=== PATIENT | female | born 1950 | race Caucasian/White ===

== ENCOUNTER 2018-10-01 16:54 | Inpatient (IN) ==
[2018-10-01] MEDS ORDERED: Sod Chloride 0.9% Inj 1,000 ML IV.SIG ONE (17:09)
[2018-10-01] MEDS ORDERED: HYDROmorphone PF Inj 2 MG/ML Vial IV.PUSH ONE (17:29)
--- NOTE | 2018-10-01 17:29 | ED ---
HPI General Chief Complaint: Abdominal Pain Stated Complaint: Abd pain Time Seen by Provider: 10/01/18 16:57 Source: patient Mode of arrival: ambulatory Limitations: no limitations History of Present Illness HPI narrative: Patient presents with abdominal pain distention and generalized abdominal pain that occurred while having colonoscopy. Patient has arielle blood in stool and distended abdomen. 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 Patient has had nausea vomiting and bloody stools for the last 2 weeks. Patient was able to tolerate liquids but no solids for that. Patient has pain 10 out of 10 Related Data Home Medications Medication Instructions Recorded Confirmed aspirin 81 mg PO DAILY 10/01/18 10/01/18 duloxetine [Cymbalta] 20 mg PO BID 10/01/18 10/01/18 furosemide 1 tab PO DAILY 10/01/18 10/01/18 levothyroxine [Synthroid] 1 tab PO DAILY 10/01/18 10/01/18 omeprazole 1 cap PO DAILY 10/01/18 10/01/18 propranolol 10/01/18 spironolactone 100 mg PO DAILY 10/01/18 10/01/18 trazodone 10/01/18 Allergies Allergy/AdvReac Type Severity Reaction Status Date / Time No Known Allergies Allergy Verified 10/01/18 17:07 Review of Systems ROS: all other systems reviewed are negative [facility] Medical History Medical History Depression (Acute) GERD (gastroesophageal reflux disease) (Acute) Liver cirrhosis (Acute) Surgical history unknown (Acute) Social History Social History Second Hand Smoke Exposure: No Smoking Status: Current every day smoker Tobacco Type: Cigarettes How Often Do You Have a Drink Containing Alcohol: 4 or more times a week Recent Travel in [facility] within the Last 8 Weeks: No Recent Out of Country Travel within the Last 8 Weeks: No Immunization History Tetanus Immunization: Unsure Exam Narrative Exam Narrative: GENERAL: Pale with increasing abdominal pain. Alert and oriented x3 SKIN: Focused skin assessment warm/dry. HEAD: Atraumatic. Normocephalic. EYES: Pupils equal and round. No scleral icterus. No injection or drainage. ENT: No nasal bleeding or discharge. Mucous membranes pink and moist. NECK: Trachea midline. No JVD. CARDIOVASCULAR: Regular rate and rhythm. No murmur appreciated. RESPIRATORY: No accessory muscle use. Clear to auscultation. Breath sounds equal bilaterally. Decreased breath sounds GASTROINTESTINAL: Abdomen distended with generalized tenderness and no bowel sounds and diffuse guarding. Rectal: Active bleeding with no clots MUSCULOSKELETAL: No obvious deformities. No clubbing. No cyanosis. No edema. NEUROLOGICAL: Awake and alert. No obvious cranial nerve deficits. Motor grossly within normal limits. Normal speech. PSYCHIATRIC: Appropriate mood and affect; insight and judgment normal. Procedures Central Line Placement Right femoral central line: Time Out Performed: Yes Patient Placed on Monitor/Pulse Ox: Yes MD Prep: gown and gloves Central Line Prep: Povidone-Iodine 1% Ultrasound Used for Placement: No Central Line Lumen Inserted: single Post Procedure: sutured in place Patient Tolerated Procedure: well Complications: none Course Reevaluation(s) Reevaluation #1: Patient responded to first liter of normal saline and developed viable blood pressure. Central line via right femoral vein without difficulty. Patient has low potassium Time: 18:22 Initial Documented Vital Signs Temperature 97.7 F 10/01/18 17:09 Pulse Rate 88 10/01/18 17:09 Respiratory Rate 14 10/01/18 17:09 Blood Pressure 119/94 H 10/01/18 17:09 Pulse Oximetry 96 10/01/18 17:09 Last Documented Vital Signs Temperature 97.7 F 10/01/18 17:09 Pulse Rate 83 10/01/18 17:30 Respiratory Rate 14 10/01/18 17:30 Blood Pressure 127/90 10/01/18 17:30 Pulse Oximetry 94 L 10/01/18 17:33 Medical Decision Making MDM Narrative Medical decision making narrative: Patient developed abdominal pain distention and loss of blood pressure while having a colonoscopy. Patient had no blood pressure initially but responded to 1 L of normal saline with normal blood pressure that has been sustained for the last half hour. Patient has a central line via the right femoral vein and patient has significant hypokalemia. Patient is given potassium via central line and being transferred to the [facility] for surgical evaluation Medical Screen Exam Complete: Yes Emergency Medical Condition: Yes Lab Data Result diagrams: 10/01/18 17:20 10/01/18 17:20 Lab Results 11/26/18 11/26/18 11/26/18 Range/Units 17:20 17:20 17:20 CBC w Diff Auto diff final WBC 16.3 H (4.0-11.0) th/mm3 RBC 4.45 (4.00-5.30) mil/mm3 Hgb 14.3 (11.6-15.3) gm/dL Hct 43.5 (35.0-46.0) % MCV 97.9 (80.0-100.0) fL MCH 32.3 (27.0-34.0) pg MCHC 33.0 (32.0-36.0) % RDW 13.6 (11.6-17.2) % Plt Count 595 H (150-450) th/mm3 MPV 10.3 (7.0-11.0) fL Neut % (Auto) 72.8 H (16.0-70.0) % Lymph % (Auto) 19.4 (9.0-44.0) % [place] % (Auto) 5.7 (0.0-8.0) % Eos % (Auto) 0.2 (0.0-4.0) % Baso % (Auto) 1.9 (0.0-2.0) % Neut # (Auto) 11.9 H (1.8-7.7) th/mm3 Lymph # (Auto) 3.2 (1.0-4.8) th/mm3 [place] # (Auto) 0.9 (0.0-0.9) th/mm3 Eos # (Auto) 0.0 (0.0-0.4) th/mm3 Baso # (Auto) 0.3 H (0.0-0.2) th/mm3 WBC Differential . Differential Comment . PT 12.3 H (9.8-11.6) sec INR 1.2 Ratio APTT 27.4 (23.4-31.7) sec Sodium 128 L (136-145) meq/L Potassium 2.5 L* (3.5-5.1) meq/L Chloride 80 L (98-107) meq/L Carbon Dioxide 34.7 H (21.0-32.0) meq/L Anion Gap 13 (5-15) meq/L BUN 5 L (7-18) mg/dL Creatinine 1.30 H (0.50-1.00) mg/dL Estimated GFR 41 L (>89) mL/min Random Glucose 136 H (74-106) mg/dL Calcium 7.8 L (8.5-10.1) mg/dL Total Bilirubin 1.9 H (0.2-1.0) mg/dL AST 64 H (15-37) U/L ALT 21 (10-53) U/L Alkaline Phosphatase 340 H (45-117) U/L Ammonia (11-32) mcmol/L Total Protein 7.1 (6.4-8.2) g/dL Albumin 2.1 L (3.4-5.0) g/dL Lipase 57 L (73-393) U/L Serum Alcohol Less than 3 (0-5) mg/dL MTS Gel Crossmatch 10/01/18 10/01/18 Range/Units 17:20 17:20 CBC w Diff WBC (4.0-11.0) th/mm3 RBC (4.00-5.30) mil/mm3 Hgb (11.6-15.3) gm/dL Hct (35.0-46.0) % MCV (80.0-100.0) fL MCH (27.0-34.0) pg MCHC (32.0-36.0) % RDW (11.6-17.2) % Plt Count (150-450) th/mm3 MPV (7.0-11.0) fL Neut % (Auto) (16.0-70.0) % Lymph % (Auto) (9.0-44.0) % [place] % (Auto) (0.0-8.0) % Eos % (Auto) (0.0-4.0) % Baso % (Auto) (0.0-2.0) % Neut # (Auto) (1.8-7.7) th/mm3 Lymph # (Auto) (1.0-4.8) th/mm3 [place] # (Auto) (0.0-0.9) th/mm3 Eos # (Auto) (0.0-0.4) th/mm3 Baso # (Auto) (0.0-0.2) th/mm3 WBC Differential Differential Comment PT (9.8-11.6) sec INR Ratio APTT (23.4-31.7) sec Sodium (136-145) meq/L Potassium (3.5-5.1) meq/L Chloride (98-107) meq/L Carbon Dioxide (21.0-32.0) meq/L Anion Gap (5-15) meq/L BUN (7-18) mg/dL Creatinine (0.50-1.00) mg/dL Estimated GFR (>89) mL/min Random Glucose (74-106) mg/dL Calcium (8.5-10.1) mg/dL Total Bilirubin (0.2-1.0) mg/dL AST (15-37) U/L ALT (10-53) U/L Alkaline Phosphatase (45-117) U/L Ammonia 11 (11-32) mcmol/L Total Protein (6.4-8.2) g/dL Albumin (3.4-5.0) g/dL Lipase (73-393) U/L Serum Alcohol (0-5) mg/dL MTS Gel Crossmatch See Detail Discharge Plan Discharge Disposition Patient Disposition: 30 Still Patient Discharge Details Diagnosis: Acute GI bleeding, Colonoscopy causing post-procedural bleeding Physicians Team ED Provider: Conrad Lovett Primary Care Provider: Amadeo Madrigal Rxs /Orders / Referrals /Forms Prescriptions: No Action trazodone 50 mg Tablet RF: 0 spironolactone 100 mg Tablet 100 mg PO DAILY RF: 0 propranolol 10 mg Tablet RF: 0 levothyroxine [Synthroid] 50 mcg Tablet 1 tab PO DAILY RF: 0 omeprazole 20 mg Capsule,Delayed Release(Dr/Ec) 1 cap PO DAILY RF: 0 furosemide 20 mg Tablet 1 tab PO DAILY RF: 0 duloxetine [Cymbalta] 20 mg Capsule,Delayed Release(Dr/Ec) 20 mg PO BID RF: 0 aspirin 81 mg PO DAILY RF: 0 Discharge Instructions Patient Printed Instructions: Exploratory Laparoscopy (DC), Exploratory Laparotomy (DC) Discharge Interventions Interventions: Vital Signs Last Done: 10/01/18 17:30 Status ED Status: With Doctor
[2018-10-01 17:56] LABS: Activated Partial Thrombo Time 27.4 sec (23.4-31.7); INR 1.2 Ratio; Prothrombin Time 12.3 sec (9.8-11.6)
[2018-10-01 18:10] LABS: Baso # (Auto) 0.3 th/mm3 (0.0-0.2); Baso % (Auto) 1.9 % (0.0-2.0); Eos % (Auto) 0.2 % (0.0-4.0); Hematocrit 43.5 % (35.0-46.0); Hemoglobin 14.3 gm/dL (11.6-15.3); Lymph # (Auto) 3.2 th/mm3 (1.0-4.8); Lymph % (Auto) 19.4 % (9.0-44.0); Mean Corpuscular Hemoglobin 32.3 pg (27.0-34.0); Mean Corpuscular Volume 97.9 fL (80.0-100.0); Mean Platelet Volume 10.3 fL (7.0-11.0); Mono # (Auto) 0.9 th/mm3 (0.0-0.9); Mono % (Auto) 5.7 % (0.0-8.0); Neut # (Auto) 11.9 th/mm3 (1.8-7.7); Neut % (Auto) 72.8 % (16.0-70.0); Platelet Count 595 th/mm3 (150-450); Red Blood Count 4.45 mil/mm3 (4.00-5.30); Red Cell Distribution Width 13.6 % (11.6-17.2); White Blood Count 16.3 th/mm3 (4.0-11.0)
[2018-10-01 18:19] LABS: Alanine Aminotransferase 21 U/L (10-53); Albumin 2.1 g/dL (3.4-5.0); Alkaline Phosphatase 340 U/L (45-117); Anion Gap 13 meq/L (5-15); Aspartate Aminotransferase 64 U/L (15-37); Blood Urea Nitrogen 5 mg/dL (7-18); Calcium 7.8 mg/dL (8.5-10.1); Carbon Dioxide 34.7 meq/L (21.0-32.0); Chloride 80 meq/L (98-107); Glomerular Filtration Rate 41 mL/min (>89); Glucose,Random 136 mg/dL (74-106); Lipase 57 U/L (73-393); Sodium 128 meq/L (136-145); Total Protein 7.1 g/dL (6.4-8.2)
[2018-10-01 18:21] LABS: Potassium 2.5 meq/L (3.5-5.1)
--- NOTE | 2018-10-01 19:18 | XR ---
EXAM DATE: 10/01/2018 6:38 PM EST AGE/SEX: 68 years / Female INDICATIONS: Distention after colonoscopy today. CLINICAL DATA: This is the patient's initial encounter. Patient reports that signs and symptoms have been present for 1 day and indicates a pain score of 10/10. MEDICAL/SURGICAL HISTORY: Cirrhosis. Gastroesophageal reflux disease. None. COMPARISON: No prior exams available for comparison. FINDINGS: Extensive free intraperitoneal air from presumed colonic perforation. Lung bases are clear. Lung bases are clear. CONCLUSION: Extensive free intraperitoneal air discussed with referring doctor on today's date Electronically signed by: Carlos Perez MD 10/01/2018 7:17 PM EST
[2018-10-01] MEDS ORDERED: Normosol-R pH 7.4 Inj 1,000 ML IV.CONT ONE (19:53)
[2018-10-01] MEDS ORDERED: Phenylephrine/NS 1000 MCG/10ML Syringe IV.PUSH ONE (19:53)
[2018-10-01] MEDS ORDERED: Succinylcholine Inj 100 MG/5 ML Syringe IV.PUSH ONE (19:53)
[2018-10-01] MEDS ORDERED: Lidocaine PF 1% Inj 5 ML Syringe OTHER ONE (19:53)
[2018-10-01] MEDS ORDERED: ceFAZolin 1 GM Premix Inj 1 GM/50 ML FROZ.PIGGY IV.SIG ONE (20:16)
[2018-10-01] MEDS ORDERED: Bupivacaine/Epinephrine Inj 0.25% 50 ML Vial ONE (20:16)
[2018-10-01] MEDS ORDERED: Acetaminophen 325 MG Tablet PO PRN (20:20)
[2018-10-01] MEDS ORDERED: Bisacodyl 10 MG Supp RECTAL PRN (20:20)
[2018-10-01] MEDS ORDERED: Sugammadex Inj 200 MG/2 ML Vial IV.PUSH ONE ×2 (20:52→21:06)
--- NOTE | 2018-10-01 21:07 | P.CON ---
History of Present Illness Consult date: 10/01/18 Reason for Consult: Pneumoperitoneum Primary Care Provider: Amadeo Madrigal MD History of Present Illness: Patient is a 68-year-old female with history of cirrhosis and colonic polyps who underwent colonoscopy today. She had polyps biopsied in the sigmoid descending and a sending colon. She developed gross distention post procedure and was taken emergently to the [place] emergency department. She was found to have pneumoperitoneum after plain films were obtained. She also had rapidly increasing abdominal distention. She is seen at this time for emergent laparotomy. PMFSH - History History Provided By: Patient - Medical History Medical History: Medical History (Last Updated 10/02/18 @ 08:38 by Sheridan Fox MD) Abnormal colonoscopy Ascites Depression GERD (gastroesophageal reflux disease) Liver cirrhosis Tobacco abuse - Surgical History Surgical History: Surgical History (Last Updated 10/02/18 @ 08:35 by Sheridan Fox MD) No history of previous surgery - Family History Family History: Family History (Last Updated 10/02/18 @ 08:37 by Sheridan Fox MD) Mother Alzheimer disease Father Testicular cancer - Tobacco History Second Hand Smoke Exposure: No Tobacco Use In Past 30 Days: Yes Smoking Status: Current every day smoker Tobacco Type: Cigarettes - Alcohol History How Often Do You Have a Drink Containing Alcohol: 4 or more times a week - Substance Use History Substance History: No History of Abuse - Travel History Recent Travel in the [place] Within the Last 8 Weeks: No Recent Travel Out of the Country Within the Last 8 Weeks: No - Immunization History Tetanus Immunization: Unsure Medications and Allergies Active Medications: Active Medications Acetaminophen (Tylenol) 650 mg PO Q6H PRN PRN Reason: PAIN 1-10 AND/OR FEVER >101F Al Hydroxide/Mg Hydroxide (Milk Of Tawana Liq) 30 ml PO Q12H PRN PRN Reason: Mild Constipation Albuterol (Albuterol Neb (Prn)) 2.5 mg NEB Q2HR NEB PRN PRN Reason: SHORTNESS OF BREATH/WHEEZING Bisacodyl (Dulcolax Supp) 10 mg RECTAL DAILY PRN PRN Reason: SEVERE CONSITIPATION Chlorhexidine Gluconate (Chlorhexidine 2% Cloth) 3 pack TOPICAL DAILY@0400 [facility] Stop: 10/07/18 03:59 Chlorhexidine Gluconate (Chlorhexidine 2% Cloth) 3 pack TOPICAL DAILY@0400 PRN PRN Reason: Extra cloth needed Stop: 10/07/18 03:59 Potassium Chloride/Sodium Chloride (Ns + Kcl 40 Meq Inj) 1,000 mls @ 200 mls/ hr IV.CONT .Q5H HILDA Last Admin: 10/01/18 18:34 Dose: 200 mls/hr Piperacillin/Tazobactam/Dextrose (Zosyn 3.375 Gm Premix) 50 mls @ 100 mls/hr IV.SIG Q6H HILDA Lactulose (Lactulose Liq) 30 ml PO DAILY PRN PRN Reason: SEVERE CONSITIPATION Ondansetron HCl (Zofran Inj) 4 mg IV.PUSH Q6H PRN PRN Reason: NAUSEA OR VOMITING Pantoprazole Sodium (Protonix Inj) 40 mg IV.PUSH DAILY HILDA Senna/Docusate Sodium (Cheryl-Colace) 1 tab PO BID [facility] Sennosides (Senokot) 17.2 mg PO Q12H PRN PRN Reason: Moderate Constipation Sodium Chloride (Ns Flush) 2 ml IV.FLUSH BID HILDA Sodium Chloride (Ns Flush) 2 ml IV.FLUSH UNSCH PRN PRN Reason: FLUSH AFTER USING IV ACCESS Allergies Allergy/AdvReac Type Severity Reaction Status Date / Time No Known Allergies Allergy Verified 10/01/18 17:07 Home Medications Medication Instructions Recorded Confirmed Type aspirin 81 mg PO DAILY 10/01/18 10/01/18 History duloxetine [Cymbalta] 20 mg PO BID 10/01/18 10/01/18 History furosemide 1 tab PO DAILY 10/01/18 10/01/18 History levothyroxine [Synthroid] 1 tab PO DAILY 10/01/18 10/01/18 History omeprazole 1 cap PO DAILY 10/01/18 10/01/18 History propranolol 10/01/18 History spironolactone 100 mg PO DAILY 10/01/18 10/01/18 History trazodone 10/01/18 History Physical Exam Vital signs: Vital Signs 10/01/18 17:09 10/01/18 17:30 10/01/18 17:33 Temperature 97.7 F Pulse Rate 88 83 Respiratory Rate 14 14 Blood Pressure 119/94 H 127/90 Pulse Oximetry 94 L 97 94 L 10/01/18 18:25 10/01/18 18:49 10/01/18 19:54 Temperature 98.5 F Pulse Rate 87 90 Respiratory Rate 14 14 16 Blood Pressure 114/91 H 106/87 Pulse Oximetry 96 97 Intake & Output 10/01/18 10/01/18 10/02/18 06:59 18:59 06:59 Intake Total 1000 / 1000 1300 / 1300 Output Total 40 / 40 Balance 1000 / 1000 1260 / 1260 Weight 61.689 kg Intake: IV 1000 / 1000 NS Inj 1,000 ML @ Wide Open IV. 1000 / 1000 SIG BOLUS ONE Rx#:[id number] Anesthesia Amount 1300 / 1300 Output: Estimated Blood Loss Urine Amount (Catheter) Indwelling Urethral Catheter - Constitutional moderate distress - Routine HEENT Exam Head: Present: normocephalic - Routine Respiratory Exam Present: decreased breath sounds - Routine Cardiovascular Exam Present: tachycardia - Routine Abdominal Exam Present: distended, firm, rigid, surgical scars (None) Comments: Reports pain in the right upper quadrant primarily. - Urinary Catheter Management Indwelling Urethral Catheter Cath placed during this visit: yes Reason for continuing: Hourly intake/output Insertion date: 10/01/18 Insertion time: 20:00 Results - Labs CBC & Chem 7: 10/02/18 04:00 10/02/18 04:00 Labs: Laboratory Results - last 24 hr 10/01/18 10/01/18 10/01/18 17:20 17:20 17:20 CBC w Diff Auto diff final WBC 16.3 H RBC 4.45 Hgb 14.3 Hct 43.5 MCV 97.9 MCH 32.3 MCHC 33.0 RDW 13.6 Plt Count 595 H MPV 10.3 Neut % (Auto) 72.8 H Lymph % (Auto) 19.4 [place] % (Auto) 5.7 Eos % (Auto) 0.2 Baso % (Auto) 1.9 Neut # (Auto) 11.9 H Lymph # (Auto) 3.2 [place] # (Auto) 0.9 Eos # (Auto) 0.0 Baso # (Auto) 0.3 H WBC Differential . Differential Comment . PT 12.3 H INR 1.2 APTT 27.4 Sodium 128 L Potassium 2.5 L* Chloride 80 L Carbon Dioxide 34.7 H Anion Gap 13 BUN 5 L Creatinine 1.30 H Estimated GFR 41 L Random Glucose 136 H Calcium 7.8 L Total Bilirubin 1.9 H AST 64 H ALT 21 Alkaline Phosphatase 340 H Ammonia Total Protein 7.1 Albumin 2.1 L Lipase 57 L Serum Alcohol Less than 3 Blood Type Antibody Screen MTS Gel Crossmatch Blood Bank Comment Bld Prod Order Comment 10/01/18 10/01/18 10/01/18 17:20 17:20 19:46 CBC w Diff WBC RBC Hgb Hct MCV MCH MCHC RDW Plt Count MPV Neut % (Auto) Lymph % (Auto) [place] % (Auto) Eos % (Auto) Baso % (Auto) Neut # (Auto) Lymph # (Auto) [place] # (Auto) Eos # (Auto) Baso # (Auto) WBC Differential Differential Comment PT INR APTT Sodium Potassium Chloride Carbon Dioxide Anion Gap BUN Creatinine Estimated GFR Random Glucose Calcium Total Bilirubin AST ALT Alkaline Phosphatase Ammonia 11 Total Protein Albumin Lipase Serum Alcohol Blood Type A Positive Antibody Screen Negative MTS Gel Crossmatch See Detail Blood Bank Comment ND Bld Prod Order Comment ND Cancelled - Imaging Impressions Abdomen X-Ray 10/01/18 17:09 CONCLUSION: Extensive free intraperitoneal air discussed with referring doctor on today's date Assessment and Plan - Assessment (1) Pneumoperitoneum Code(s): K66.8 - Other specified disorders of peritoneum Status: Acute Plan: Emergent exploratory laparotomy. I have discussed with the patient that she likely has a colonic perforation. As she had prepped colon, simple repair may be all that is required. I have discussed with the patient she might require colostomy depending on the findings. I discussed risks of the procedure including but not limited to bleeding, infection, the risk of ascitic fluid leak postoperatively and complications as a result of her cirrhosis. I discussed remedies, consequences, alternatives, and convalescence; she vocalizes understanding and agrees to proceed. - Plan Discussed Condition With: Patient Nursing staff - Attending Attestation I attest that I had a [id number] encounter with the patient on the same day, and personally performed and documented my assessment and findings in the medical record. The following services were provided during this hospital visit: Chart data review, vital sign assessments/reviewing monitor data Review of consultation notes if present Medication orders/review and/or management Ordering and/or reviewing lab tests Ordering and/or interpreting/reviewing x-rays and/or diagnostic studies Care of the patient and discussion of the patient with the care team Documentation time To help prompt me to consider important information that might be impacting today's encounter and assessment, Information from prior notes written by myself or my colleagues may have been "brought forward/copy and pasted" into today's note.
[2018-10-01] MEDS ORDERED: fentaNYL Citrate Inj 100 MCG/2 ML Ampul ONE (21:19)
--- NOTE | 2018-10-01 21:19 | P.OP ---
- Preoperative Diagnosis (1) Pneumoperitoneum - Postoperative Diagnosis (1) Perforation of cecum Date of procedure: 10/01/18 Procedure: Exploratory laparotomy Oversew cecal perforation Anesthesia: MANOJ Surgeon: Fili German MD Pricing Coordinator: Leia Joseph CFA Estimated blood loss (mL): 10 IV fluids (mL): 1,300 Pathology: other (C&S of abdominal fluid) Operation and Findings: Patient was taken to the operating room and placed on the operating table in the supine position. While preparing to intubate, the abdomen was prepped and a Warner catheter placed simultaneously. The abdomen was draped immediately after intubation. Time-out was taken, confirming the correct patient, site, and procedure to be performed. The abdomen was incised and dissection carried down through the fascia and peritoneum. A large amount of air escaped immediately and fluid was noted in the abdominal cavity that was slightly cloudy. A total of 4700 mls of ascites was removed, and careful exploration of the abdominal cavity was then undertaken. Attention was turned to the sigmoid and descending colon first which appeared to be intact. Attention was then turned to the ascending colon where further biopsies had been taken and a small microperforation in the cecum was noted. This was repaired with multiple 3-0 silk suture ligatures. When this had been oversewn and imbricated, the cecum was placed under saline and milked to confirm there were no air bubbles or leaks. This also confirmed there were no other leaks in the cecum and ascending colon. When this was completed all irrigation was aspirated. A Anirudh-Cabrera drain was brought out via separate stab incision and fixed to the skin with a 3-0 nylon suture. With hemostasis assured, the abdomen was then closed with a running #1 PDS suture. Local anesthetic was injected into the fascia. The skin was closed with luzma. A luke dressing was applied. A 4 x 4 was applied around the LISBETH drain. The patient was extubated and taken back to the recovery room in stable condition. Sponge, needle, and instrument counts were reported to be correct. She tolerated the procedure well and was hemodynamically stable throughout.
--- NOTE | 2018-10-01 21:45 | XR ---
EXAM DATE: 10/01/2018 9:41 PM EST AGE/SEX: 68 years / Female INDICATIONS: Central line placement. CLINICAL DATA: This is the patient's subsequent encounter. Patient reports that signs and symptoms h ave been present for 1 day and indicates a pain score of 0/10. MEDICAL/SURGICAL HISTORY: Cirrhosis. Gastroesophageal reflux disease. None. COMPARISON: No prior exams available for comparison. FINDINGS: A single AP view of the chest demonstrates the lungs to be symmetrically aerated without evidence of mass, infiltrate or effusion. Minimal atelectasis right lung base. Nasogastric tube with tip in stoma ch. Right jugular central line with tip in the cavoatrial junction. The cardiomediastinal contours ar e unremarkable. Osseous structures are intact. CONCLUSION: Adequate placement of right jugular central line. No pneumothorax. Electronically signed by: Terry Connolly MD 10/01/2018 9:43 PM EST
[2018-10-01] MEDS: Piperacil/Tazo 3.375 GM Premix 50 ML IV.SIG SCH (22:00)
[2018-10-01 22:11] LABS: Baso # (Auto) 0.2 th/mm3 (0.0-0.2); Baso % (Auto) 1.4 % (0.0-2.0); Eos % (Auto) 0.1 % (0.0-4.0); Hematocrit 38.4 % (35.0-46.0); Hemoglobin 13.1 gm/dL (11.6-15.3); Lymph # (Auto) 1.4 th/mm3 (1.0-4.8); Mean Corpuscular HGB Conc 34.1 % (32.0-36.0); Mean Corpuscular Hemoglobin 33.7 pg (27.0-34.0); Mean Corpuscular Volume 98.9 fL (80.0-100.0); Mean Platelet Volume 9.1 fL (7.0-11.0); Mono # (Auto) 0.5 th/mm3 (0.0-0.9); Mono % (Auto) 3.6 % (0.0-8.0); Neut # (Auto) 12.2 th/mm3 (1.8-7.7); Neut % (Auto) 84.9 % (16.0-70.0); Platelet Count 473 th/mm3 (150-450); Red Blood Count 3.88 mil/mm3 (4.00-5.30); Red Cell Distribution Width 13.6 % (11.6-17.2); White Blood Count 14.4 th/mm3 (4.0-11.0)
[2018-10-01 22:14] LABS: Calcium 6.7 mg/dL (8.5-10.1); Carbon Dioxide 32.5 meq/L (21.0-32.0)
[2018-10-01] MEDS: Senna/Docusate Sodium 8.6/50 MG Tablet PO SCH (22:14)
[2018-10-01 22:17] LABS: Potassium 2.6 meq/L (3.5-5.1)
[2018-10-01] MEDS ORDERED: Potassium Chlor 20 mEq Premix 20 MEQ/100 ML PIGGYBACK IV.SIG ONE (22:24)
[2018-10-01 22:28] LABS: Albumin 1.6 g/dL (3.4-5.0); Calcium-Albumin Corrected 8.6 mg/dL (8.5-10.1)
[2018-10-01] MEDS: Potassium Chlor 20 mEq Premix 20 MEQ/100 ML PIGGYBACK IV.SIG SCH (22:45)
[2018-10-01] MEDS ORDERED: Albumin Human 5% Inj 500 ML IV.SIG ONE (23:00)
[2018-10-01] MEDS ORDERED: Phenylephrine Inj 40 MG in Dextrose 5% in Water Inj 496 ML IV.CONT PRN ×2 (23:09)
--- NOTE | 2018-10-01 23:10 | P.HPCC ---
History of Present Illness Service: Critical care medicine Primary Care Physician: Amadeo Madrigal MD Chief Complaint: Abdominal pain and distention History of Present Illness: 68-year-old female with past medical history of alcohol dependence, cirrhosis, tobacco abuse, esophageal varices underwent diagnostic colonoscopy today by Dr. Tipton with biopsy of ascending, descending and sigmoid colon. She presented to [facility] ED with abdominal pain and distension. She was hypotensive. She was having bloody bowel movements. She was given 2 units PRBC and 1 L NS bolus. R femoral cordis was placed by ED physician. KUB demonstrated pneumoperitoneum. She was transferred emergently [facility] OR where she underwent ex lap by Dr. German. Dr. Kumar states there was microperforation of cecum that was oversewn. 4700 of ascites was evacuated. She received 1300 crystalloid in OR. EBL was 10 mL. LISBETH output 30. She is oliguric with only 10 Ml of urine output in PACU. She is a daily drinker of 24 ounces of [place]. - Diagnosis (1) Perforation of cecum (2) Pneumoperitoneum (3) Alcoholic cirrhosis of liver with ascites (4) EtOH dependence (5) Hypokalemia (6) JOSE (acute kidney injury) (7) Reactive thrombocytosis (8) Leukocytosis (9) Tobacco abuse (10) Protein-calorie malnutrition, moderate Inpatient Certification: I certify that the inpatient services were ordered in accordance with Medicare regulations governing the order. This includes certification that hospital inpatient services are reasonable and necessary and in the case of services not specified as inpatient-only under 42 CFR 419.22(n), that they are appropriately provided as inpatient services in accordance to with the 2-midnight benchmark under 43 CFR 412.3(e) Estimated Total Length of Stay (Days): 7 Plans for Post Hospital Care: Not yet determined Review of Systems All other systems reviewed negative except as stated in HPI Gastrointestinal: Reports abdominal pain PMFSH - History History Provided By: Patient - Medical History Medical History: Medical History (Last Updated 10/02/18 @ 08:38 by Sheridan Fox MD) Abnormal colonoscopy Ascites Depression GERD (gastroesophageal reflux disease) Liver cirrhosis Tobacco abuse - Surgical History Surgical History: Surgical History (Last Updated 10/02/18 @ 08:35 by Sheridan Fox MD) No history of previous surgery - Family History Family History: Family History (Last Updated 10/02/18 @ 08:37 by Sheridan Fox MD) Mother Alzheimer disease Father Testicular cancer - Tobacco History Second Hand Smoke Exposure: No Tobacco Use In Past 30 Days: Yes Smoking Status: Current every day smoker Tobacco Type: Cigarettes Cigarettes Per Day: 4 - Alcohol History How Often Do You Have a Drink Containing Alcohol: 4 or more times a week - Substance Use History Substance History: No History of Abuse - Travel History Recent Travel in the [place] Within the Last 8 Weeks: No Recent Travel Out of the Country Within the Last 8 Weeks: No - Immunization History Tetanus Immunization: Unsure Medications and Allergies Active Medications: Active Medications Acetaminophen (Tylenol) 650 mg PO Q6H PRN PRN Reason: PAIN 1-10 AND/OR FEVER >101F Al Hydroxide/Mg Hydroxide (Milk Of Tawana Holland) 30 ml PO Q12H PRN PRN Reason: Mild Constipation Albuterol (Albuterol Neb (Prn)) 2.5 mg NEB Q2HR NEB PRN PRN Reason: SHORTNESS OF BREATH/WHEEZING Bisacodyl (Dulcolax Supp) 10 mg RECTAL DAILY PRN PRN Reason: SEVERE CONSITIPATION Chlorhexidine Gluconate (Chlorhexidine 2% Cloth) 3 pack TOPICAL DAILY@0400 HILDA Stop: 10/07/18 03:59 Chlorhexidine Gluconate (Chlorhexidine 2% Cloth) 3 pack TOPICAL DAILY@0400 PRN PRN Reason: Extra cloth needed Stop: 10/07/18 03:59 Potassium Chloride/Sodium Chloride (Ns + Kcl 40 Meq Inj) 1,000 mls @ 200 mls/ hr IV.CONT .Q5H HILDA Last Admin: 10/01/18 22:38 Dose: 200 mls/hr Piperacillin/Tazobactam/Dextrose (Zosyn 3.375 Gm Premix) 50 mls @ 100 mls/hr IV.SIG Q6H HILDA Last Infusion: 10/01/18 22:38 Dose: Infused Albumin Human (Alburx 5% Inj) 500 mls @ 500 mls/hr IV.SIG NOW ONE Stop: 10/01/18 23:59 Last Admin: 10/01/18 22:38 Dose: 500 mls/hr Potassium Chloride (Kcl 20 Meq Premix Inj) 20 meq in 100 mls @ 50 mls/hr IV.SIG Q2H HILDA Stop: 10/02/18 02:44 Phenylephrine HCl 40 mg/ (Dextrose) 500 mls @ 30 mls/hr IV.CONT TITRATE PRN; Protocol PRN Reason: Per Protocol Lactulose (Lactulose Liq) 30 ml PO DAILY PRN PRN Reason: SEVERE CONSITIPATION Miscellaneous Information ([facility] Nursing Information) 1 each OTHER UNSCH PRN PRN Reason: SEE LABEL COMMENTS Stop: 10/02/18 21:56 Ondansetron HCl (Zofran Inj) 4 mg IV.PUSH Q6H PRN PRN Reason: NAUSEA OR VOMITING Pantoprazole Sodium (Protonix Inj) 40 mg IV.PUSH DAILY [facility] Senna/Docusate Sodium (Cheryl-Colace) 1 tab PO BID [facility] Last Admin: 10/01/18 22:14 Dose: Not Given Sennosides (Senokot) 17.2 mg PO Q12H PRN PRN Reason: Moderate Constipation Sodium Chloride (Ns Flush) 2 ml IV.FLUSH BID [facility] Last Admin: 10/01/18 22:14 Dose: Not Given Sodium Chloride (Ns Flush) 2 ml IV.FLUSH UNSCH PRN PRN Reason: FLUSH AFTER USING IV ACCESS Allergies Allergy/AdvReac Type Severity Reaction Status Date / Time No Known Allergies Allergy Verified 10/01/18 17:07 Home Medications Medication Instructions Recorded Confirmed Type aspirin 81 mg PO DAILY 10/01/18 10/01/18 History duloxetine [Cymbalta] 20 mg PO BID 10/01/18 10/01/18 History furosemide 1 tab PO DAILY 10/01/18 10/01/18 History levothyroxine [Synthroid] 1 tab PO DAILY 10/01/18 10/01/18 History omeprazole 1 cap PO DAILY 10/01/18 10/01/18 History propranolol 10/01/18 History spironolactone 100 mg PO DAILY 10/01/18 10/01/18 History trazodone 10/01/18 History Results - Labs CBC & Chem 7: 10/02/18 04:00 10/02/18 04:00 Labs: Short CBC 10/01/18 10/01/18 Range/Units 17:20 21:44 WBC 16.3 H 14.4 H (4.0-11.0) th/mm3 Hgb 14.3 13.1 (11.6-15.3) gm/dL Hct 43.5 38.4 (35.0-46.0) % Plt Count 595 H 473 H (150-450) th/mm3 BMP 10/01/18 10/01/18 17:20 21:44 Sodium 128 L 135 L Potassium 2.5 L* 2.6 L* Chloride 80 L 91 L D Carbon Dioxide 34.7 H 32.5 H BUN 5 L 6 L Creatinine 1.30 H 1.28 H Calcium 7.8 L 6.7 L* D Liver Function 10/01/18 10/01/18 Range/Units 17:20 21:44 Total Bilirubin 1.9 H (0.2-1.0) mg/dL AST 64 H (15-37) U/L ALT 21 (10-53) U/L Alkaline Phosphatase 340 H (45-117) U/L Albumin 2.1 L 1.6 L (3.4-5.0) g/dL - Imaging Impressions Chest X-Ray 10/01/18 00:00 CONCLUSION: Adequate placement of right jugular central line. No pneumothorax. Abdomen X-Ray 10/01/18 17:09 CONCLUSION: Extensive free intraperitoneal air discussed with referring doctor on today's date Exam Vital signs: Vital Signs 10/01/18 17:09 10/01/18 17:30 10/01/18 17:33 Temperature 97.7 F Pulse Rate 88 83 Respiratory Rate 14 14 Blood Pressure 119/94 H 127/90 Pulse Oximetry 94 L 97 94 L 10/01/18 18:25 10/01/18 18:49 10/01/18 19:54 Temperature 98.5 F Pulse Rate 87 90 Respiratory Rate 14 14 16 Blood Pressure 114/91 H 106/87 Pulse Oximetry 96 97 Intake & Output 10/01/18 10/01/18 10/02/18 06:59 18:59 06:59 Intake Total 1000 / 1000 2350 / 2350 Output Total 40 / 40 Balance 1000 / 1000 2310 / 2310 Weight 61.689 kg Intake: IV 1000 / 1000 1050 / 1050 NS + KCl 40 mEq Inj 1,000 ML @ 1000 / 1000 200 mls/hr IV.CONT .Q5H HILDA Rx# :[id number] Zosyn 3.375 GM Premix 50 ML @ 50 / 50 100 mls/hr IV.SIG Q6H [facility] Rx#: [id number] NS Inj 1,000 ML @ Wide Open IV. 1000 / 1000 SIG BOLUS ONE Rx#:[id number] Anesthesia Amount 1300 / 1300 Output: Estimated Blood Loss 10 / 10 Urine Amount (Catheter) 30 / 30 Indwelling Urethral Catheter Narrative: GENERAL: Well-nourished, well-developed patient who is groggy s/p general anesthesia, but converses. . SKIN: Warm and dry. HEAD: Atraumatic. Normocephalic. EYES: Pupils equal and round. No scleral icterus. No injection or drainage. ENT: No nasal bleeding or discharge. NECK: Trachea midline. No JVD. CARDIOVASCULAR: Regular rate and rhythm. No murmurs rubs or gallops. RESPIRATORY: Breathing comfortably on 4 L NC. Clear to auscultation. Breath sounds equal bilaterally. GASTROINTESTINAL: Abdomen distended, hypoactive bowel sounds. Midline abdominal dressing is clean/dry/intact. LISBETH drain is placed right lower quadrant with serosanguineous output. MUSCULOSKELETAL: Extremities without clubbing, cyanosis, or edema. NEUROLOGICAL: Awake and alert, oriented x3. No obvious cranial nerve deficits. Motor grossly within normal limits. Normal speech. Caprini VTE Risk Assessment Caprini VTE Risk Assessment: Moderate/High Risk (score >= 2) VTE Pharmacological Exception Reason: Active bleeding Caprini Risk Assessment Model: Point Value = 1 Point Value = 2 Point Value = 3 Point Value = 5 Age 41-60 Minor surgery BMI > 25 kg/m2 Swollen legs Varicose veins or History of unexplained or recurrent spontaneous Oral contraceptives or hormone replacement Sepsis (< 1 month) Serious lung disease, including pneumonia (< 1 month) Abnormal pulmonary function Acute myocardial infarction Congestive heart failure (< 1 month) History of inflammatory bowel disease Medical patient at bed rest Age 61-74 Arthroscopic surgery Major open surgery (> 45 min) Laparoscopic surgery (> 45 min) Malignancy Confined to bed (> 72 hours) Immobilizing plaster cast Central venous access Age >= 75 History of VTE Family history of VTE Factor V Leiden Prothrombin [id number] Lupus anticoagulant Anticardiolipin antibodies Elevated serum homocysteine Heparin-induced thrombocytopenia Other congenital or acquired thrombophilia Stroke (< 1 month) Elective arthroplasty Hip, pelvis, or leg fracture Acute spinal cord injury (< 1 month) Prophylaxis Regimen: Total Risk Factor Score Risk Level Prophylaxis Regimen 0-1 Low Early ambulation 2 Moderate Order ONE of the following: *Sequential Compression Device (SCD) *Heparin 5000 units SQ BID 3-4 Higher Order ONE of the following medications: *Heparin 5000 units SQ TID *Enoxaparin/Lovenox 40 mg SQ daily (WT < 150 kg, CrCl > 30 mL/min) *Enoxaparin/Lovenox 30 mg SQ daily (WT < 150 kg, CrCl > 10-29 mL/min) *Enoxaparin/Lovenox 30 mg SQ BID (WT < 150 kg, CrCl > 30 mL/min) AND/OR *Sequential Compression Device (SCD) 5 or more Highest Order ONE of the following medications: *Heparin 5000 units SQ TID (Preferred with Epidurals) *Enoxaparin/Lovenox 40 mg SQ daily (WT < 150 kg, CrCl > 30 mL/min) *Enoxaparin/Lovenox 30 mg SQ daily (WT < 150 kg, CrCl > 10-29 mL/min) *Enoxaparin/Lovenox 30 mg SQ BID (WT < 150 kg, CrCl > 30 mL/min) AND *Sequential Compression Device (SCD) Assessment and Plan - Problem List (1) Perforation of cecum Code(s): K35.32 - Acute appendicitis with perforation and localized peritonitis , without abscess Status: Acute (2) Pneumoperitoneum Code(s): K66.8 - Other specified disorders of peritoneum Status: Acute (3) Alcoholic cirrhosis of liver with ascites Code(s): K70.31 - Alcoholic cirrhosis of liver with ascites Status: Acute (4) EtOH dependence Code(s): F10.20 - Alcohol dependence, uncomplicated Status: Acute (5) Hypokalemia Code(s): E87.6 - Hypokalemia Status: Acute (6) JOSE (acute kidney injury) Code(s): N17.9 - Acute kidney failure, unspecified Status: Acute (7) Reactive thrombocytosis Code(s): R79.89 - Other specified abnormal findings of blood chemistry Status : Acute (8) Leukocytosis Code(s): D72.829 - Elevated white blood cell count, unspecified Status: Acute (9) Tobacco abuse Code(s): Z72.0 - Tobacco use Status: Chronic (10) Protein-calorie malnutrition, moderate Code(s): E44.0 - Moderate protein-calorie malnutrition Status: Chronic - Assessment and Plan Plan: NEURO: Alcohol dependence Thiamine/multivitamin/folic acid supplementation IV times 3 days then transition to p.o. thiamine. Monitor for signs and symptoms of alcohol withdrawal and administer treatment based on CIAL protocol. Morphine as needed for pain Alcohol cessation counseling discussed RESP: Tobacco abuse Nasal cannula wean as tolerated. Incentive spirometry every hour awake Tobacco cessation counseling discussed CV: Hypovolemic/distributive shock Likely third spacing following removal of 4.7 L of ascitic fluid in addition to SIRS response to microperforation. Bolus LR 1 L now. Is has received albumin and will continue albumin 25 g IV every 6 hours for 24 hours following removal of his ascitic fluid. Normal saline with 40 mg of KCl per liter at 200 mL/h. Levophed to maintain mean arterial pressure greater than 65. GI: Microperforation cecum s/p colonoscopy with multiple biopsies Now postoperative day 0 from exploratory laparotomy, microperforation of cecum oversewn Dr. German Cirrhosis Ascites Esophageal varices Hyperbilirubinemia Chronic moderate protein energy malnutrition N.p.o. for now. NGT to LIWS. Dr. German states likely transition to clears Monitor LISBETH output FEN/RENAL: Hypokalemia Hypomagnesemia Acute kidney injury Warner in place. Monitor intake and output. Monitor electrolytes. Received potassium chloride 40 mEq IV. Has potassium and replacement fluids, will need to change fluids if she remains oligoanuric to avoid eventual hyperkalemia. Magnesium sulfate 2 gram IV ID: Leukocytosis SIRS Follow-up blood cultures. Zosyn 3.375 IV every 6 hours, plan to discontinue after short course. HEME: Reactive thrombocytosis Monitor CBC. ENDO: Euglycemic PROPH: SCDs for DVT prophylaxis. Holding pharmacologic DVT prophylaxis overnight but Dr. German is okay with initiating heparin subcu 10/02 if no e/o bleeding. Tonics 40 mg IV daily for stress ulcer prophylaxis ACCESS: Right IJ central venous line placed in OR 10/01 #1. Right femoral Cordis was placed in ER 10/01/, will remove. FULL CODE Patient was hypotensive upon arrival from OR requiring ongoing fluid resuscitation and initiation of pressors. She is critically ill and at high risk for further deterioration and . Discussed with Dr. Jeferson Wilson, Dr. HonDr. Maxi vazquez. Patient updated at bedside Critical care time 60 minutes exclusive of separately billable procedures. H&P: Quality - VTE Deep Vein Thrombosis/Pulmonary Embolism Present on Admission: No
[2018-10-01] MEDS ORDERED: LORazepam 1 MG Tablet PO PRN (23:49)
[2018-10-01] MEDS ORDERED: Haloperidol Inj 5 MG/ML Ampul IV.PUSH PRN (23:49)
[2018-10-02] MEDS: Potassium Chlor 20 mEq Premix 20 MEQ/100 ML PIGGYBACK IV.SIG SCH (00:38)
[2018-10-02] MEDS: Albumin Human 25% Inj 100 ML IV.SIG SCH ×5 (00:45→23:12)
[2018-10-02] MEDS: Morphine Inj 4 MG/ML Vial IV.PUSH PRN ×3 (00:47→15:30)
[2018-10-02] MEDS: Chlorhexidine Gluconate 2% 1 Pack (2 Cloths) TOPICAL SCH (03:44)
[2018-10-02] MEDS: Piperacil/Tazo 3.375 GM Premix 50 ML IV.SIG SCH ×4 (03:52→21:14)
[2018-10-02] MEDS ORDERED: Chlorhexidine Gluconate 2% 1 Pack (2 Cloths) TOPICAL PRN (04:00)
[2018-10-02 05:04] LABS: Baso # (Auto) 0.1 th/mm3 (0.0-0.2); Baso % (Auto) 0.4 % (0.0-2.0); Hematocrit 32.4 % (35.0-46.0); Hemoglobin 11.3 gm/dL (11.6-15.3); Lymph # (Auto) 1.6 th/mm3 (1.0-4.8); Lymph % (Auto) 8.1 % (9.0-44.0); Mean Corpuscular HGB Conc 34.9 % (32.0-36.0); Mean Corpuscular Hemoglobin 34.1 pg (27.0-34.0); Mean Corpuscular Volume 97.9 fL (80.0-100.0); Mean Platelet Volume 9.1 fL (7.0-11.0); Mono # (Auto) 1.1 th/mm3 (0.0-0.9); Mono % (Auto) 5.5 % (0.0-8.0); Neut # (Auto) 17.4 th/mm3 (1.8-7.7); Platelet Count 391 th/mm3 (150-450); Red Blood Count 3.31 mil/mm3 (4.00-5.30); Red Cell Distribution Width 13.6 % (11.6-17.2); White Blood Count 20.2 th/mm3 (4.0-11.0)
[2018-10-02 05:24] LABS: Albumin 2.6 g/dL (3.4-5.0); Calcium 6.7 mg/dL (8.5-10.1); Carbon Dioxide 30.6 meq/L (21.0-32.0); Magnesium 1.2 mg/dL (1.5-2.5); Phosphorus 3.1 mg/dL (2.5-4.9); Potassium 3.9 meq/L (3.5-5.1); Total Protein 5.6 g/dL (6.4-8.2)
[2018-10-02] MEDS: Pantoprazole Inj 40 MG Vial IV.PUSH SCH (09:45)
[2018-10-02] MEDS: Senna/Docusate Sodium 8.6/50 MG Tablet PO SCH ×2 (09:45→20:19)
[2018-10-02] MEDS ORDERED: Magnesium Sulfate Inj 2 GM in Sodium Chlor 0.9% Inj 96 ML IV.SIG ONE (10:00)
[2018-10-02] MEDS: Multivitamin Inj 10 ML, Thiamine Inj 100 MG, Folic Acid Inj 1 MG in Sodium Chlor 0.9% I... IV.SIG SCH (10:55)
--- NOTE | 2018-10-02 12:42 | P.PNGS ---
Subjective Interval history: Resting in bed Remains on Levophed Physical Exam Vital signs: Vital Signs 10/01/18 17:09 10/01/18 17:30 10/01/18 17:33 Temperature 97.7 F Pulse Rate 88 83 Respiratory Rate 14 14 Blood Pressure 119/94 H 127/90 Pulse Oximetry 94 L 97 94 L 10/01/18 18:25 10/01/18 18:49 10/01/18 19:54 Temperature 98.5 F Pulse Rate 87 90 Respiratory Rate 14 14 16 Blood Pressure 114/91 H 106/87 Pulse Oximetry 96 97 10/01/18 21:13 10/01/18 21:30 10/01/18 21:45 Temperature 95.0 F L Pulse Rate 71 74 71 Respiratory Rate 12 17 17 Blood Pressure 114/86 100/63 112/69 Pulse Oximetry 94 L 92 L 92 L 10/01/18 22:00 10/01/18 22:15 10/01/18 22:30 Temperature Pulse Rate 71 74 75 Respiratory Rate 17 19 19 Blood Pressure 102/63 99/68 L 93/63 L Pulse Oximetry 92 L 93 L 93 L 10/01/18 22:45 10/01/18 23:00 10/01/18 23:25 Temperature Pulse Rate 76 75 71 Respiratory Rate 19 20 Blood Pressure 91/62 L 90/60 L Pulse Oximetry 91 L 93 L 94 L 10/01/18 23:52 10/02/18 00:00 10/02/18 00:01 Temperature 97.8 F Pulse Rate 72 79 81 Respiratory Rate 18 24 18 Blood Pressure 91/62 L 99/68 L Pulse Oximetry 92 L 92 L 93 L 10/02/18 00:02 10/02/18 00:08 10/02/18 00:49 Temperature Pulse Rate 78 Respiratory Rate 16 16 Blood Pressure 101/69 Pulse Oximetry 94 L 95 10/02/18 01:00 10/02/18 01:08 10/02/18 02:00 Temperature Pulse Rate 93 H 78 74 Respiratory Rate 21 22 16 Blood Pressure 103/68 Pulse Oximetry 96 95 94 L 10/02/18 02:08 10/02/18 03:00 10/02/18 03:08 Temperature Pulse Rate 78 90 95 H Respiratory Rate 18 16 12 Blood Pressure 98/66 L 106/72 Pulse Oximetry 95 95 91 L 10/02/18 04:00 10/02/18 04:08 10/02/18 05:00 Temperature 98.8 F Pulse Rate 98 H 79 Respiratory Rate 23 19 12 Blood Pressure 110/71 Pulse Oximetry 94 L 92 L 95 10/02/18 05:06 10/02/18 05:08 10/02/18 06:00 Temperature Pulse Rate 90 81 Respiratory Rate 15 12 17 Blood Pressure 116/73 Pulse Oximetry 93 L 94 L 10/02/18 06:08 10/02/18 07:00 10/02/18 07:08 Temperature Pulse Rate 72 69 71 Respiratory Rate 16 18 19 Blood Pressure 101/67 97/69 L Pulse Oximetry 92 L 91 L 91 L 10/02/18 08:00 10/02/18 08:23 10/02/18 09:00 Temperature 97.5 F L Pulse Rate 71 75 72 Respiratory Rate 15 25 H 29 H Blood Pressure 97/63 L Pulse Oximetry 91 L 89 L 90 L 10/02/18 09:08 10/02/18 10:00 10/02/18 10:08 Temperature Pulse Rate 71 72 71 Respiratory Rate 18 15 17 Blood Pressure 97/71 L 101/76 Pulse Oximetry 92 L 93 L 93 L Intake & Output 10/01/18 10/02/18 10/02/18 18:59 06:59 18:59 Intake Total 1000 / 1000 6550 / 6550 1050 / 1050 Output Total 590 / 590 Balance 1000 / 1000 5960 / 5960 1050 / 1050 Weight 61.689 kg 64 kg Intake: IV 1000 / 1000 5250 / 5250 1050 / 1050 NS + KCl 40 mEq Inj 1,000 ML @ 2800 / 2800 1000 / 1000 200 mls/hr IV.CONT .Q5H [facility] Rx# :[id number] Flexbumin 25% Inj 100 ML @ 60 200 / 200 mls/hr IV.SIG Q6H [facility]IL[facility] Rx#: [id number] Alburx 5% Inj 500 ML @ 500 mls/ 500 / 500 hr IV.SIG NOW ONE Rx#:[id number] Diflucan 400 mg Premix Bag 200 200 / 200 ML @ 0 mls/hr IV.SIG .STK-MED ONE Rx#:[id number] LR 1000 mL Inj 1,000 ML @ Wide 1000 / 1000 Open IV.SIG BOLUS ONE Rx#: [id number] Zosyn 3.375 GM Premix 50 ML @ 100 / 100 50 / 50 100 mls/hr IV.SIG Q6H [facility]IL[facility] Rx#: [id number] KCl 20 mEq Premix Inj 20 meq In 300 / 300 100 ml @ 50 mls/hr IV.SIG Q2H [facility] Rx#:[id number] NS Inj 1,000 ML @ Wide Open IV. 1000 / 1000 SIG BOLUS ONE Rx#:[id number] Ancef 1 GM Premix Inj 1 gm In 50 / 50 50 ml @ 0 mls/hr IV.SIG .STK- MED ONE Rx#:[id number] Flagyl 500 MG Inj 100 ML @ 0 100 / 100 mls/hr IV.SIG .STK-MED ONE Rx#: [id number] Anesthesia Amount 1300 / 1300 Output: Estimated Blood Loss 10 / 10 Urine Amount (Catheter) 130 / 130 Indwelling Urethral Catheter 130 / 130 Gastric Drainage 80 / 80 Right Nare Nasogastric Tube 80 / 80 Wound Drainage 370 / 370 # 1 Abdomen 370 / 370 Other: Date of Last Bowel Movement 10/02/18 Weight On Admission 61.1 kg Narrative: Alert and awake Abd: Distended; tender to palpation; KAREN in place with good seal; LISBETH with serosanguineous drainage Warner in place - Constitutional no acute distress - Routine Respiratory Exam Present: decreased breath sounds - Routine Cardiovascular Exam Present: RRR - Routine Abdominal Exam Present: soft, wound (karen intact with minimal drainage) - Urinary Catheter Management Indwelling Urethral Catheter Cath placed during this visit: yes Reason for continuing: Hourly intake/output Insertion date: 10/01/18 Insertion time: 20:00 Results - Labs 10/02/18 04:00 10/02/18 04:00 Laboratory Results - last 24 hr 10/01/18 10/01/18 10/01/18 17:20 17:20 17:20 CBC w Diff Auto diff final WBC 16.3 H RBC 4.45 Hgb 14.3 Hct 43.5 MCV 97.9 MCH 32.3 MCHC 33.0 RDW 13.6 Plt Count 595 H MPV 10.3 Neut % (Auto) 72.8 H Lymph % (Auto) 19.4 Pitkin % (Auto) 5.7 Eos % (Auto) 0.2 Baso % (Auto) 1.9 Neut # (Auto) 11.9 H Lymph # (Auto) 3.2 Pitkin # (Auto) 0.9 Eos # (Auto) 0.0 Baso # (Auto) 0.3 H WBC Differential . Differential Comment . PT 12.3 H INR 1.2 APTT 27.4 Sodium 128 L Potassium 2.5 L* Chloride 80 L Carbon Dioxide 34.7 H Anion Gap 13 BUN 5 L Creatinine 1.30 H Estimated GFR 41 L Random Glucose 136 H Calcium 7.8 L Calcium Adj for Albumin Phosphorus Magnesium Total Bilirubin 1.9 H AST 64 H ALT 21 Alkaline Phosphatase 340 H Ammonia Total Protein 7.1 Albumin 2.1 L Lipase 57 L Nasal Screen MRSA (PCR) Serum Alcohol Less than 3 Blood Type Antibody Screen MTS Gel Crossmatch Blood Bank Comment Bld Prod Order Comment 10/01/18 10/01/18 10/01/18 17:20 17:20 19:46 CBC w Diff WBC RBC Hgb Hct MCV MCH MCHC RDW Plt Count MPV Neut % (Auto) Lymph % (Auto) Pitkin % (Auto) Eos % (Auto) Baso % (Auto) Neut # (Auto) Lymph # (Auto) Pitkin # (Auto) Eos # (Auto) Baso # (Auto) WBC Differential Differential Comment PT INR APTT Sodium Potassium Chloride Carbon Dioxide Anion Gap BUN Creatinine Estimated GFR Random Glucose Calcium Calcium Adj for Albumin Phosphorus Magnesium Total Bilirubin AST ALT Alkaline Phosphatase Ammonia 11 Total Protein Albumin Lipase Nasal Screen MRSA (PCR) Serum Alcohol Blood Type A Positive Antibody Screen Negative MTS Gel Crossmatch See Detail Blood Bank Comment ND Bld Prod Order Comment ND Cancelled 10/01/18 10/01/18 10/02/18 21:44 21:44 00:00 CBC w Diff WBC 14.4 H RBC 3.88 L Hgb 13.1 Hct 38.4 MCV 98.9 MCH 33.7 MCHC 34.1 RDW 13.6 Plt Count 473 H MPV 9.1 Neut % (Auto) 84.9 H Lymph % (Auto) 10.0 Pitkin % (Auto) 3.6 Eos % (Auto) 0.1 Baso % (Auto) 1.4 Neut # (Auto) 12.2 H Lymph # (Auto) 1.4 Pitkin # (Auto) 0.5 Eos # (Auto) 0.0 Baso # (Auto) 0.2 WBC Differential . Differential Comment Auto diff final PT INR APTT Sodium 135 L Potassium 2.6 L* Chloride 91 L D Carbon Dioxide 32.5 H Anion Gap 12 BUN 6 L Creatinine 1.28 H Estimated GFR 42 L Random Glucose 92 Calcium 6.7 L* D Calcium Adj for Albumin 8.6 Phosphorus Magnesium Total Bilirubin AST ALT Alkaline Phosphatase Ammonia Total Protein Albumin 1.6 L Lipase Nasal Screen MRSA (PCR) Not detected Serum Alcohol Blood Type Antibody Screen Loyalize Gel Crossmatch Blood Bank Comment Bld Prod Order Comment 10/02/18 10/02/18 04:00 04:00 CBC w Diff WBC 20.2 H RBC 3.31 L Hgb 11.3 L Hct 32.4 L MCV 97.9 MCH 34.1 H MCHC 34.9 RDW 13.6 Plt Count 391 MPV 9.1 Neut % (Auto) 86.0 H Lymph % (Auto) 8.1 L Pitkin % (Auto) 5.5 Eos % (Auto) 0.0 Baso % (Auto) 0.4 Neut # (Auto) 17.4 H Lymph # (Auto) 1.6 Pitkin # (Auto) 1.1 H Eos # (Auto) 0.0 Baso # (Auto) 0.1 WBC Differential . Differential Comment Auto diff final PT INR APTT Sodium 135 L Potassium 3.9 D Chloride 96 L Carbon Dioxide 30.6 Anion Gap 8 BUN 6 L Creatinine 1.46 H Estimated GFR 36 L Random Glucose 105 Calcium 6.7 L* Calcium Adj for Albumin 7.4 L* Phosphorus 3.1 Magnesium 1.2 L Total Bilirubin 2.4 H AST 54 H ALT 14 Alkaline Phosphatase 169 H Ammonia Total Protein 5.6 L D Albumin 2.6 L D Lipase Nasal Screen MRSA (PCR) Serum Alcohol Blood Type Antibody Screen L[employer]ize Gel Crossmatch Blood Bank Comment Bld Prod Order Comment - Imaging Imaging: ITS Impressions Chest X-Ray 10/01/18 00:00 CONCLUSION: Adequate placement of right jugular central line. No pneumothorax. Abdomen X-Ray 10/01/18 17:09 CONCLUSION: Extensive free intraperitoneal air discussed with referring doctor on today's date Assessment and Plan - Assessment (1) Pneumoperitoneum Code(s): K66.8 - Other specified disorders of peritoneum Status: Acute Plan: 68 year old female POD1 Exploratory laparotomy; Oversew cecal perforation -Remains on Levophed--- wean as tolerated -Continue Warner---UOP low--- diuretics started by [facility] -Continue routine LISBETH care -NGT to LIWS POD #1 ex lap/oversew cecal perforation Cirrhotic at high risk for developing hepatorenal syndrome Will need to control ascites aggressively and remove LISBETH XAVIER to prevent protein and fluid losses Can remove NG and start PO intake in next 24 hrs if NG output remains low The exam, history, and the medical decision-making described in the above note were completed with the assistance of the mid-level provider. I reviewed and agree with the findings presented. I attest that I had a [id number] encounter with the patient on the same day, and personally performed and documented my assessment and findings in the medical record.
--- NOTE | 2018-10-02 18:14 | P.PNCC ---
Subjective Subjective Remarks/Hospital Course: 68-year-old female with past medical history of alcohol dependence, cirrhosis, tobacco abuse, esophageal varices underwent diagnostic colonoscopy today by Dr. Tipton with biopsy of ascending, descending and sigmoid colon. She presented to [facility] ED with abdominal pain and distension. She was hypotensive. She was having bloody bowel movements. She was given 2 units PRBC and 1 L NS bolus. R femoral cordis was placed by ED physician. KUB demonstrated pneumoperitoneum. She was transferred emergently [facility] Main OR where she underwent ex lap by Dr. German. Dr. Kumar states there was microperforation of cecum that was oversewn. 4700 of ascites was evacuated. She received 1300 crystalloid in OR. EBL was 10 mL. LISBETH output 30. She is oliguric with only 10 Ml of urine output in PACU. She is a daily drinker of 24 ounces of [place]. 10/03: Warm and well-perfused. No withdrawal symptomatology but anticipated soon. Urine minimal but she is on dual diuretics for hepatic dysfunction/ cirrhosis and is unlikely to make much urine without stimulation. We started her diuretics through the NG tube after discussing with surgical service nurse practitioner. Nasogastric tube to low intermittent suction otherwise. Gram- negative rods in pleural fluid as expected, continue present antibiotics. - Diagnosis (1) Perforation of cecum (2) Pneumoperitoneum (3) Alcoholic cirrhosis of liver with ascites (4) EtOH dependence (5) Hypokalemia (6) JOSE (acute kidney injury) (7) Reactive thrombocytosis (8) Leukocytosis (9) Tobacco abuse (10) Protein-calorie malnutrition, moderate Objective Vital Signs / I&O: Vital Signs 10/01/18 18:25 10/01/18 18:49 10/01/18 19:54 Temperature 98.5 F Pulse Rate 87 90 Respiratory Rate 14 14 16 Blood Pressure 114/91 H 106/87 Pulse Oximetry 96 97 10/01/18 21:13 10/01/18 21:30 10/01/18 21:45 Temperature 95.0 F L Pulse Rate 71 74 71 Respiratory Rate 12 17 17 Blood Pressure 114/86 100/63 112/69 Pulse Oximetry 94 L 92 L 92 L 10/01/18 22:00 10/01/18 22:15 10/01/18 22:30 Temperature Pulse Rate 71 74 75 Respiratory Rate 17 19 19 Blood Pressure 102/63 99/68 L 93/63 L Pulse Oximetry 92 L 93 L 93 L 10/01/18 22:45 10/01/18 23:00 10/01/18 23:25 Temperature Pulse Rate 76 75 71 Respiratory Rate 19 20 Blood Pressure 91/62 L 90/60 L Pulse Oximetry 91 L 93 L 94 L 10/01/18 23:52 10/02/18 00:00 10/02/18 00:01 Temperature 97.8 F Pulse Rate 72 79 81 Respiratory Rate 18 24 18 Blood Pressure 91/62 L 99/68 L Pulse Oximetry 92 L 92 L 93 L 10/02/18 00:02 10/02/18 00:08 10/02/18 00:49 Temperature Pulse Rate 78 Respiratory Rate 16 16 Blood Pressure 101/69 Pulse Oximetry 94 L 95 10/02/18 01:00 10/02/18 01:08 10/02/18 02:00 Temperature Pulse Rate 93 H 78 74 Respiratory Rate 21 22 16 Blood Pressure 103/68 Pulse Oximetry 96 95 94 L 10/02/18 02:08 10/02/18 03:00 10/02/18 03:08 Temperature Pulse Rate 78 90 95 H Respiratory Rate 18 16 12 Blood Pressure 98/66 L 106/72 Pulse Oximetry 95 95 91 L 10/02/18 04:00 10/02/18 04:08 10/02/18 05:00 Temperature 98.8 F Pulse Rate 98 H 79 Respiratory Rate 23 19 12 Blood Pressure 110/71 Pulse Oximetry 94 L 92 L 95 10/02/18 05:06 10/02/18 05:08 10/02/18 06:00 Temperature Pulse Rate 90 81 Respiratory Rate 15 12 17 Blood Pressure 116/73 Pulse Oximetry 93 L 94 L 10/02/18 06:08 10/02/18 07:00 10/02/18 07:08 Temperature Pulse Rate 72 69 71 Respiratory Rate 16 18 19 Blood Pressure 101/67 97/69 L Pulse Oximetry 92 L 91 L 91 L 10/02/18 08:00 10/02/18 08:23 10/02/18 09:00 Temperature 97.5 F L Pulse Rate 71 75 72 Respiratory Rate 15 25 H 29 H Blood Pressure 97/63 L Pulse Oximetry 91 L 89 L 90 L 10/02/18 09:08 10/02/18 10:00 10/02/18 10:08 Temperature Pulse Rate 71 72 71 Respiratory Rate 18 15 17 Blood Pressure 97/71 L 101/76 Pulse Oximetry 92 L 93 L 93 L 10/02/18 11:00 10/02/18 11:08 10/02/18 12:00 Temperature 98 F Pulse Rate 72 73 72 Respiratory Rate 19 18 18 Blood Pressure 97/76 L Pulse Oximetry 94 L 94 L 91 L 10/02/18 12:08 10/02/18 13:00 10/02/18 13:08 Temperature Pulse Rate 74 73 73 Respiratory Rate 24 18 18 Blood Pressure 108/71 108/75 Pulse Oximetry 91 L 90 L 89 L 10/02/18 14:00 10/02/18 14:08 10/02/18 15:00 Temperature Pulse Rate 74 75 76 Respiratory Rate 20 16 23 Blood Pressure 106/69 Pulse Oximetry 90 L 90 L 87 L 10/02/18 15:08 10/02/18 16:00 10/02/18 16:07 Temperature 98.0 F Pulse Rate 75 78 77 Respiratory Rate 26 H 24 25 H Blood Pressure 99/68 L 97/63 L Pulse Oximetry 87 L 82 L 84 L 10/02/18 16:08 10/02/18 16:14 Temperature Pulse Rate 76 Respiratory Rate 28 H Blood Pressure 93/65 L Pulse Oximetry 86 L 92 L Intake & Output 10/01/18 10/02/18 10/02/18 18:59 06:59 18:59 Intake Total 1000 / 1000 6550 / 6550 1450 / 1450 Output Total 590 / 590 Balance 1000 / 1000 5960 / 5960 1450 / 1450 Weight 61.689 kg 64 kg Intake: IV 1000 / 1000 5250 / 5250 1450 / 1450 NS + KCl 40 mEq Inj 1,000 ML @ 2800 / 2800 1000 / 1000 200 mls/hr IV.CONT .Q5H HILDA Rx# :[id number] Flexbumin 25% Inj 100 ML @ 60 200 / 200 100 / 100 mls/hr IV.SIG Q6H HILDA Rx#: [id number] Alburx 5% Inj 500 ML @ 500 mls/ 500 / 500 hr IV.SIG NOW ONE Rx#:[id number] Diflucan 400 mg Premix Bag 200 200 / 200 ML @ 0 mls/hr IV.SIG .STK-MED ONE Rx#:[id number] LR 1000 mL Inj 1,000 ML @ Wide 1000 / 1000 Open IV.SIG BOLUS ONE Rx#: [id number] Levophed-Dextrose 4 mg/250 ml 250 / 250 Drip 4 mg In 250 ml @ 2 MCG/MIN 7.5 mls/hr IV.SIG TITRATE PRN Rx#:[id number] Zosyn 3.375 GM Premix 50 ML @ 100 / 100 100 / 100 100 mls/hr IV.SIG Q6H HILDA Rx#: [id number] KCl 20 mEq Premix Inj 20 meq In 300 / 300 100 ml @ 50 mls/hr IV.SIG Q2H HILDA Rx#:[id number] NS Inj 1,000 ML @ Wide Open IV. 1000 / 1000 SIG BOLUS ONE Rx#:[id number] Ancef 1 GM Premix Inj 1 gm In 50 / 50 50 ml @ 0 mls/hr IV.SIG .STK- MED ONE Rx#:[id number] Flagyl 500 MG Inj 100 ML @ 0 100 / 100 mls/hr IV.SIG .STK-MED ONE Rx#: [id number] Anesthesia Amount 1300 / 1300 Output: Estimated Blood Loss 10 / 10 Urine Amount (Catheter) 130 / 130 Indwelling Urethral Catheter 130 / 130 Gastric Drainage 80 / 80 Right Nare Nasogastric Tube 80 / 80 Wound Drainage 370 / 370 # 1 Abdomen 370 / 370 Other: Date of Last Bowel Movement 10/02/18 10/02/18 Weight On Admission 61.1 kg Result Diagrams: 10/02/18 04:00 10/02/18 04:00 Objective Remarks: Narrative: GENERAL: Calm, no tremors. SKIN: Warm and dry. HEAD: Atraumatic. Normocephalic. EYES: Pupils equal and round. No injection or drainage. ENT: No nasal bleeding or discharge. NECK: Trachea midline. Airway widely patent. CARDIOVASCULAR: Regular rate and rhythm. No murmurs rubs or gallops. No JVD. RESPIRATORY: Breathing comfortably on 2 L NC. Clear to auscultation. Breath sounds equal bilaterally, no adventitious sounds. GASTROINTESTINAL: Abdomen soft, few bowel sounds. Midline abdominal dressing is clean/dry/intact. LISBETH drain is placed right lower quadrant with serosanguineous output. MUSCULOSKELETAL: Extremities without clubbing, cyanosis, or edema. Warm, well perfused. NEUROLOGICAL: Awake and alert, oriented x3. No obvious cranial nerve deficits. Motor grossly within normal limits. Normal speech. Assessment and Plan - Problem List (1) Perforation of cecum Code(s): K35.32 - Acute appendicitis with perforation and localized peritonitis , without abscess Status: Acute (2) Pneumoperitoneum Code(s): K66.8 - Other specified disorders of peritoneum Status: Acute (3) Alcoholic cirrhosis of liver with ascites Code(s): K70.31 - Alcoholic cirrhosis of liver with ascites Status: Acute (4) EtOH dependence Code(s): F10.20 - Alcohol dependence, uncomplicated Status: Acute (5) Hypokalemia Code(s): E87.6 - Hypokalemia Status: Acute (6) JOSE (acute kidney injury) Code(s): N17.9 - Acute kidney failure, unspecified Status: Acute (7) Reactive thrombocytosis Code(s): R79.89 - Other specified abnormal findings of blood chemistry Status : Acute (8) Leukocytosis Code(s): D72.829 - Elevated white blood cell count, unspecified Status: Acute (9) Tobacco abuse Code(s): Z72.0 - Tobacco use Status: Chronic (10) Protein-calorie malnutrition, moderate Code(s): E44.0 - Moderate protein-calorie malnutrition Status: Chronic - Assessment and Plan Plan: NEURO: Alcohol dependence Thiamine/multivitamin/folic acid supplementation IV times 3 days then transition to p.o. thiamine. Monitor for signs and symptoms of alcohol withdrawal and administer treatment based on [facility] protocol. Morphine as needed for pain Alcohol cessation counseling discussed RESP: Tobacco abuse Nasal cannula wean as tolerated. Incentive spirometry every hour awake Tobacco cessation counseling discussed Bronchodilators as needed CV: Hypovolemic/distributive shock Likely third spacing following removal of 4.7 L of ascitic fluid in addition to SIRS response to microperforation. Bolus LR 1 L now. Is has received albumin and will continue albumin 25 g IV every 6 hours for 24 hours following removal of his ascitic fluid. Normal saline with 40 mg of KCl per liter at 200 mL/h. Levophed to maintain mean arterial pressure greater than 65. Continue to wean vasopressor, fluid balance appears about right. GI: Microperforation cecum s/p colonoscopy with multiple biopsies Now postoperative day 0 from exploratory laparotomy, microperforation of cecum oversewn Dr. German Cirrhosis Ascites Esophageal varices Hyperbilirubinemia Chronic moderate protein energy malnutrition N.p.o. for now. NGT to LIWS. Dr. German states likely transition to clears Monitor LISBETH output Continue broad-spectrum coverage for gram negatives and anaerobes. FEN/RENAL: Hypokalemia Hypomagnesemia Acute kidney injury Warner in place. Monitor intake and output. Monitor electrolytes. Received potassium chloride 40 mEq IV. Has potassium and replacement fluids, will need to change fluids if she remains oligoanuric to avoid eventual hyperkalemia. Magnesium sulfate 2 gram IV Restart spironolactone and Lasix daily ID: Leukocytosis SIRS Follow-up blood cultures. Zosyn 3.375 IV every 6 hours HEME: Reactive thrombocytosis Monitor CBC. ENDO: Euglycemic PROPH: SCDs for DVT prophylaxis. Holding pharmacologic DVT prophylaxis overnight but Dr. German is okay with initiating heparin subcu 10/02 if no e/o bleeding. Protonix 40 mg IV daily for stress ulcer prophylaxis ACCESS: Right IJ central venous line placed in OR 10/01 #2. Right femoral Cordis was placed in ER 10/01/18, will remove. FULL CODE
[2018-10-02 22:16] LABS: Amorphous Sediment,Urine Moderate /hpf; Bacteria,Urine Rare /hpf; Bilirubin,Urine Negative (Negative); Clarity,Urine Turbid (Clear); Color,Urine Amber (Yellw/Straw); Glucose,Urine (UA) Negative (Negative); Hyaline Casts,Urine INNUM /lpf (0-3); Leukocyte Esterase,Urine Large (Negative); Mucus,Urine Few /lpf (Occasional); Nitrite,Urine Negative (Negative); Squamous Epithelial Cell,Urine 2 /hpf (0-5)
[2018-10-02] MEDS: Morphine Sulfate Inj 2 MG/ML Vial IV.PUSH PRN (23:13)
--- NOTE | 2018-10-03 02:09 | XR ---
EXAM DATE: 10/03/2018 2:06 AM EST AGE/SEX: 68 years / Female INDICATIONS: Short of breath. CLINICAL DATA: This is the patient's subsequent encounter. Patient reports that signs and symptoms h ave been present for 2 days and indicates a pain score of 0/10. MEDICAL/SURGICAL HISTORY: Cirrhosis. Gastroesophageal reflux disease. None. COMPARISON: [facility], CHEST 1V SINGLE AP, 10/01/2018. . FINDINGS: Right central line in superior vena cava. NG coiled in stomach. Bilateral mostly basilar airspace dis ease has increased since October 01. Small bilateral pleural effusions. No pneumothorax. CONCLUSION: Increasing bilateral basilar airspace disease since October 01 with increasing pleural fluid. No pne umothorax. Electronically signed by: Nilesh De La Rosa MD 10/03/2018 2:07 AM EST
[2018-10-03 02:56] LABS: ABG Base Excess 3.3 mmol/L (-2-2); ABG PCO2 58 mmHg (38-42); ABG PO2 60 mmHg (61-120)
[2018-10-03] MEDS: Chlorhexidine Gluconate 2% 1 Pack (2 Cloths) TOPICAL SCH (03:30)
[2018-10-03] MEDS: Piperacil/Tazo 3.375 GM Premix 50 ML IV.SIG SCH ×4 (03:34→21:19)
[2018-10-03 04:05] LABS: Hematocrit 31.4 % (35.0-46.0); Hemoglobin 10.6 gm/dL (11.6-15.3); Mean Corpuscular HGB Conc 33.7 % (32.0-36.0); Mean Corpuscular Hemoglobin 33.6 pg (27.0-34.0); Mean Corpuscular Volume 99.9 fL (80.0-100.0); Mean Platelet Volume 8.9 fL (7.0-11.0); Platelet Count 339 th/mm3 (150-450); Red Blood Count 3.14 mil/mm3 (4.00-5.30); Red Cell Distribution Width 13.9 % (11.6-17.2); White Blood Count 19.8 th/mm3 (4.0-11.0)
[2018-10-03 04:18] LABS: INR 1.4 Ratio
[2018-10-03 04:28] LABS: Calcium 7.9 mg/dL (8.5-10.1); Carbon Dioxide 29.1 meq/L (21.0-32.0); Magnesium 1.8 mg/dL (1.5-2.5); Potassium 3.7 meq/L (3.5-5.1)
[2018-10-03 04:39] LABS: ABG Base Excess 3.9 mmol/L (-2-2); ABG PCO2 42 mmHg (38-42); ABG PO2 64 mmHg (61-120)
[2018-10-03] MEDS ORDERED: Etomidate Inj 40 MG/20 ML Vial IV.PUSH ONE (04:59)
[2018-10-03] MEDS ORDERED: Midazolam Inj 5 MG/ML 1 ML Vial ONE (04:59)
--- NOTE | 2018-10-03 05:13 | P.PCN ---
Date of procedure: 10/03/18 Pre-op diagnosis: Acute hypoxemic resp failure Post-op diagnosis: same Procedure: Endotracheal intubation The patient was noted to in acute hypoxemic failure, no improvement with BiPAP. The patient was positioned in the sniffing position and was already on BiPAP. Rapid sequence intubation initiated, patient administered 10 mg of IV Versed, 20 mg of IV Versed, 50 mg of IV rocuronium. Direct laryngoscopy with MAC 4 blade grade 1 view. Intubated on first attempt. The patient tolerated the procedure well with no immediate complications. CXR to be obtained stat Anesthesia: MANOJ Surgeon: Mally Mac Estimated blood loss (mL): 0 Pathology: none sent Condition: critical Disposition: ICU
[2018-10-03] MEDS ORDERED: Propofol Inj 500 MG/50 ML Vial ONE (05:35)
--- NOTE | 2018-10-03 05:53 | XR ---
EXAM DATE: 10/03/2018 5:29 AM EST AGE/SEX: 68 years / Female INDICATIONS: S/P ET Tube Placement. CLINICAL DATA: This is the patient's subsequent encounter. Patient reports that signs and symptoms h ave been present for 3 days and indicates a pain score of Nonresponsive. MEDICAL/SURGICAL HISTORY: . Cirrhosis. Gastroesophageal reflux disease. Non-responsive. COMPARISON: [facility], CHEST 1V SINGLE AP, 10/03/2018. . FINDINGS: Endotracheal tube in good position. NG coiled in stomach. Right central line in superior vena cava. B ilateral mostly basilar airspace consolidation similar to October 03 exam from earlier today. CONCLUSION: Placement of endotracheal tube in good position. Remainder of exam unchanged. Electronically signed by: Nilesh De La Rosa MD 10/03/2018 5:52 AM EST
[2018-10-03] MEDS: Albumin Human 25% Inj 100 ML IV.SIG SCH ×4 (06:02→23:33)
[2018-10-03 06:57] LABS: Lymphocytes 7 % (9-44); Monocytes 5 % (0-8); Platelet Estimate Normal (Normal); Platelet Morphology Normal (Normal)
[2018-10-03 06:58] LABS: Toxic Vacuolation Present
[2018-10-03 07:30] LABS: ABG Base Excess 4.5 mmol/L (-2-2); ABG PCO2 35 mmHg (38-42); ABG PO2 98 mmHg (61-120)
[2018-10-03] MEDS: Multivitamin Inj 10 ML, Thiamine Inj 100 MG, Folic Acid Inj 1 MG in Sodium Chlor 0.9% I... IV.SIG SCH (08:29)
[2018-10-03] MEDS: Senna/Docusate Sodium 8.6/50 MG Tablet PO SCH ×2 (08:30→20:47)
[2018-10-03] MEDS: Pantoprazole Inj 40 MG Vial IV.PUSH SCH (08:30)
[2018-10-03] MEDS: Chlorhexidine 0.12% Oral Kit 15 ML UDC OROPHARYNG SCH ×2 (08:30→20:47)
[2018-10-03] MEDS ORDERED: Albumin Human 5% Inj 500 ML IV.SIG ONE (09:00)
[2018-10-03] MEDS: Oral Hygiene Kit OROPHARYNG SCH ×3 (11:24→23:51)
[2018-10-03] MEDS: Propofol 1000 mg/100 ml Inj 1,000 MG/100 ML BOTTLE IV.CONT PRN ×2 (12:06→21:19)
--- NOTE | 2018-10-03 14:42 | P.PNGS ---
Subjective Interval history: Seen about 729--- Patient with respiratory distress overnight---now intubated Physical Exam Vital signs: Vital Signs 10/02/18 15:00 10/02/18 15:08 10/02/18 16:00 Temperature 98.0 F Pulse Rate 76 75 78 Respiratory Rate 23 26 H 24 Blood Pressure 99/68 L Pulse Oximetry 87 L 87 L 82 L 10/02/18 16:07 10/02/18 16:08 10/02/18 16:14 Temperature Pulse Rate 77 76 Respiratory Rate 25 H 28 H Blood Pressure 97/63 L 93/65 L Pulse Oximetry 84 L 86 L 92 L 10/02/18 17:00 10/02/18 17:08 10/02/18 18:00 Temperature Pulse Rate 73 73 74 Respiratory Rate 14 16 13 Blood Pressure 108/74 Pulse Oximetry 99 99 98 10/02/18 18:08 10/02/18 19:00 10/02/18 19:08 Temperature Pulse Rate 74 74 76 Respiratory Rate 14 18 23 Blood Pressure 107/80 113/79 Pulse Oximetry 97 94 L 95 10/02/18 20:00 10/02/18 20:08 10/02/18 21:00 Temperature 97.4 F L Pulse Rate 83 85 85 Respiratory Rate 31 H 29 H 33 H Blood Pressure 123/69 Pulse Oximetry 88 L 87 L 92 L 10/02/18 21:08 10/02/18 22:00 10/02/18 22:08 Temperature Pulse Rate 85 81 80 Respiratory Rate 34 H 21 19 Blood Pressure 115/77 104/67 Pulse Oximetry 91 L 93 L 94 L 10/02/18 23:00 10/02/18 23:08 10/03/18 00:00 Temperature 98.5 F Pulse Rate 85 84 87 Respiratory Rate 23 23 21 Blood Pressure 112/69 Pulse Oximetry 91 L 90 L 90 L 10/03/18 00:08 10/03/18 01:00 10/03/18 01:08 Temperature Pulse Rate 88 93 H 91 H Respiratory Rate 23 22 23 Blood Pressure 107/71 110/71 Pulse Oximetry 89 L 84 L 89 L 10/03/18 02:00 10/03/18 02:08 10/03/18 02:15 Temperature Pulse Rate 97 H 97 H Respiratory Rate 20 22 Blood Pressure 138/76 Pulse Oximetry 78 L 69 L 92 L 10/03/18 03:00 10/03/18 03:08 10/03/18 03:52 Temperature Pulse Rate 91 H 89 Respiratory Rate 17 18 Blood Pressure 95/62 L Pulse Oximetry 91 L 92 L 94 L 10/03/18 04:00 10/03/18 04:08 10/03/18 05:00 Temperature 96.8 F L Pulse Rate 89 90 93 H Respiratory Rate 18 19 22 Blood Pressure 102/69 Pulse Oximetry 92 L 91 L 10/03/18 05:08 10/03/18 05:11 10/03/18 05:21 Temperature Pulse Rate 96 H 91 H Respiratory Rate 19 37 H 16 Blood Pressure 86/55 L 78/47 L Pulse Oximetry 92 L 96 94 L 10/03/18 05:39 10/03/18 06:00 10/03/18 06:08 Temperature Pulse Rate 87 90 89 Respiratory Rate 16 16 16 Blood Pressure 115/82 115/78 Pulse Oximetry 95 98 98 10/03/18 07:00 10/03/18 07:08 10/03/18 07:15 Temperature Pulse Rate 85 84 86 Respiratory Rate 16 16 16 Blood Pressure 118/81 Pulse Oximetry 99 99 100 10/03/18 07:30 10/03/18 07:45 10/03/18 08:00 Temperature 99.0 F Pulse Rate 82 82 82 Respiratory Rate 16 16 16 Blood Pressure Pulse Oximetry 99 100 100 10/03/18 08:08 10/03/18 08:15 10/03/18 08:30 Temperature Pulse Rate 82 82 83 Respiratory Rate 16 16 12 Blood Pressure 117/82 Pulse Oximetry 100 100 100 10/03/18 08:34 10/03/18 08:45 10/03/18 09:00 Temperature Pulse Rate 86 95 H 83 Respiratory Rate 12 12 12 Blood Pressure Pulse Oximetry 99 98 98 10/03/18 09:08 10/03/18 09:15 10/03/18 09:30 Temperature Pulse Rate 82 81 80 Respiratory Rate 12 12 12 Blood Pressure 111/77 Pulse Oximetry 98 98 98 10/03/18 09:45 10/03/18 10:00 10/03/18 10:08 Temperature Pulse Rate 80 81 82 Respiratory Rate 12 12 12 Blood Pressure 121/86 Pulse Oximetry 98 98 97 10/03/18 10:15 10/03/18 10:30 10/03/18 10:45 Temperature Pulse Rate 81 88 83 Respiratory Rate 12 14 12 Blood Pressure Pulse Oximetry 98 98 98 10/03/18 11:00 10/03/18 11:07 10/03/18 11:08 Temperature Pulse Rate 84 85 84 Respiratory Rate 12 13 13 Blood Pressure 125/87 Pulse Oximetry 95 95 10/03/18 11:15 10/03/18 11:30 10/03/18 11:45 Temperature Pulse Rate 82 84 80 Respiratory Rate 12 12 12 Blood Pressure Pulse Oximetry 96 95 94 L 10/03/18 12:00 10/03/18 12:08 10/03/18 12:15 Temperature 99.0 F Pulse Rate 80 86 80 Respiratory Rate 12 18 12 Blood Pressure 110/73 Pulse Oximetry 95 95 95 10/03/18 12:30 10/03/18 12:45 10/03/18 13:00 Temperature Pulse Rate 76 77 77 Respiratory Rate 12 12 12 Blood Pressure Pulse Oximetry 96 95 95 10/03/18 13:08 10/03/18 13:15 10/03/18 13:30 Temperature Pulse Rate 77 77 78 Respiratory Rate 12 12 12 Blood Pressure 115/78 Pulse Oximetry 94 L 94 L 95 10/03/18 13:45 10/03/18 14:00 Temperature Pulse Rate 78 78 Respiratory Rate 12 12 Blood Pressure Pulse Oximetry 94 L 94 L Intake & Output 10/02/18 10/03/18 10/03/18 18:59 06:59 18:59 Intake Total 2161.2 / 2161.2 1200 / 1200 1511.2 / 1511.2 Output Total 420 / 420 2440 / 2440 Balance 1741.2 / 1741.2 -1240 / -1240 1511.2 / 1511.2 Weight 64 kg Intake: IV 2161.2 / 2161.2 1200 / 1200 1511.2 / 1511.2 LR 1000 mL Inj 1,000 ML @ 84 1000 / 1000 mls/hr IV.CONT .[id number] HILDA Rx# :[id number] NS + KCl 40 mEq Inj 1,000 ML @ 1000 / 1000 200 mls/hr IV.CONT .Q5H HILDA Rx# :[id number] Flexbumin 25% Inj 100 ML @ 60 200 / 200 100 / 100 200 / 200 mls/hr IV.SIG Q6H HILDA Rx#: [id number] Alburx 5% Inj 500 ML @ 250 mls/ 500 / 500 hr IV.SIG ONCE ONE Rx#:[id number] Magnesium Sulfate Inj 2 GM In 100 / 100 NS Inj 96 ML @ 50 mls/hr IV.SIG ONCE ONE Rx#:[id number] MVI-12 Inj 10 ML Thiamine Inj 511.2 / 511.2 511.2 / 511.2 100 MG Folvite Inj 1 MG In NS Inj 500 ML @ 127.8 mls/hr IV. SIG DAILY HILDA Rx#:[id number] Levophed-Dextrose 4 mg/250 ml 250 / 250 250 / 250 Drip 4 mg In 250 ml @ 2 MCG/MIN 7.5 mls/hr IV.SIG TITRATE PRN Rx#:[id number] Zosyn 3.375 GM Premix 50 ML @ 100 / 100 100 / 100 50 / 50 100 mls/hr IV.SIG Q6H HILDA Rx#: [id number] Output: Urine Amount (Catheter) 145 / 145 1225 / 1225 Indwelling Urethral Catheter 145 / 145 1225 / 1225 Gastric Drainage 20 / 20 Right Nare Nasogastric Tube 20 / 20 Wound Drainage 275 / 275 1195 / 1195 # 1 Abdomen 275 / 275 1195 / 1195 Other: Date of Last Bowel Movement 10/03/18 Narrative: Intubated/Sedated Abd: mildly distended; KAREN in place with good seal; LISBETH with serous drainage--- copious amount - Urinary Catheter Management Indwelling Urethral Catheter Cath placed during this visit: yes Reason for continuing: Hourly intake/output Insertion date: 10/01/18 Insertion time: 20:00 Results - Labs 10/05/18 10:00 10/05/18 10:00 Laboratory Results - last 24 hr 10/02/18 10/03/18 10/03/18 20:30 01:42 03:50 WBC RBC Hgb Hct MCV MCH MCHC RDW Plt Count MPV Prelim Diff (Auto) WBC Differential Seg Neuts % (Manual) Band Neuts % (Manual) Lymphocytes % (Manual) Monocytes % (Manual) Abs Neuts (Manual) Differential Comment Toxic Vacuolation Platelet Estimate Platelet Morphology PT 14.0 H INR 1.4 Puncture Site [place] Patient Temperature 98.6 O2 Saturation 83 L* ABG pH 7.32 L ABG pCO2 58 H* ABG pO2 60 L ABG HCO3 29 H ABG O2 Content 12.1 ABG Base Excess 3.3 H ABG Methemoglobin 1.2 Peterson Test Hemoglobin 10.3 L Carboxyhemoglobin 0.9 O2 Delivery Device Nrb Vent Setting Inspired O2 100 Critical Value Yes Sodium Potassium Chloride Carbon Dioxide Anion Gap BUN Creatinine Estimated GFR POC Glucose Random Glucose Calcium Magnesium Urine Color Noelle Urine Clarity Turbid H Urine pH 5.0 Ur Specific [place] 1.030 Urine Protein 100 H Urine Glucose (UA) Negative Urine Ketones Negative Urine Occult Blood Moderate H Urine Nitrate Negative Urine Bilirubin Negative Urine Urobilinogen Less than 2 Ur Leukocyte Esterase Large H Urine RBC 102 H Urine WBC Urine WBC Clumps Occasional H Ur Squamous Epith Cells 2 Amorphous Sediment Moderate H Urine Bacteria Rare H Hyaline Casts Innum Urine Mucus Few H Micro UA Comment Cath-culture ind Ur Microscopic Review Not Reportable Urine Culture Comments Cath-cult indicated 10/03/18 10/03/18 10/03/18 03:50 03:50 04:19 WBC 19.8 H RBC 3.14 L Hgb 10.6 L Hct 31.4 L MCV 99.9 MCH 33.6 MCHC 33.7 RDW 13.9 Plt Count 339 MPV 8.9 Prelim Diff (Auto) Manual diff required WBC Differential Manual diff final Seg Neuts % (Manual) 67 Band Neuts % (Manual) 21 H Lymphocytes % (Manual) 7 L Monocytes % (Manual) 5 Abs Neuts (Manual) 17.4 H Differential Comment . Toxic Vacuolation Present H Platelet Estimate Normal Platelet Morphology Normal PT INR Puncture Site [place] Patient Temperature 98.6 O2 Saturation 89 L* ABG pH 7.44 H ABG pCO2 42 ABG pO2 64 ABG HCO3 28 H ABG O2 Content 12.8 ABG Base Excess 3.9 H ABG Methemoglobin 1.0 Peterson Test Hemoglobin 10.2 L Carboxyhemoglobin 1.2 O2 Delivery Device Ventilator Vent Setting See comment Inspired O2 100 Critical Value Yes Sodium 138 Potassium 3.7 Chloride 101 Carbon Dioxide 29.1 Anion Gap 8 BUN 9 Creatinine 1.46 H Estimated GFR 36 L POC Glucose Random Glucose 91 Calcium 7.9 L D Magnesium 1.8 D Urine Color Urine Clarity Urine pH Ur Specific [place] Urine Protein Urine Glucose (UA) Urine Ketones Urine Occult Blood Urine Nitrate Urine Bilirubin Urine Urobilinogen Ur Leukocyte Esterase Urine RBC Urine WBC Urine WBC Clumps Ur Squamous Epith Cells Amorphous Sediment Urine Bacteria Hyaline Casts Urine Mucus Micro UA Comment Ur Microscopic Review Urine Culture Comments 10/03/18 10/03/18 05:25 07:22 WBC RBC Hgb Hct MCV MCH MCHC RDW Plt Count MPV Prelim Diff (Auto) WBC Differential Seg Neuts % (Manual) Band Neuts % (Manual) Lymphocytes % (Manual) Monocytes % (Manual) Abs Neuts (Manual) Differential Comment Toxic Vacuolation Platelet Estimate Platelet Morphology PT INR Puncture Site Art line Patient Temperature 98.6 O2 Saturation 96 ABG pH 7.51 H* ABG pCO2 35 L ABG pO2 98 ABG HCO3 28 H ABG O2 Content 13.7 ABG Base Excess 4.5 H ABG Methemoglobin 1.1 Peterson Test Present Hemoglobin 10.0 L Carboxyhemoglobin 1.2 O2 Delivery Device Ventilator Vent Setting Prvc/16/500/1.0/+10 Inspired O2 100 Critical Value Yes Sodium Potassium Chloride Carbon Dioxide Anion Gap BUN Creatinine Estimated GFR POC Glucose 138 H Random Glucose Calcium Magnesium Urine Color Urine Clarity Urine pH Ur Specific [place] Urine Protein Urine Glucose (UA) Urine Ketones Urine Occult Blood Urine Nitrate Urine Bilirubin Urine Urobilinogen Ur Leukocyte Esterase Urine RBC Urine WBC Urine WBC Clumps Ur Squamous Epith Cells Amorphous Sediment Urine Bacteria Hyaline Casts Urine Mucus Micro UA Comment Ur Microscopic Review Urine Culture Comments - Imaging Imaging: ITS Impressions Abdomen X-Ray 10/01/18 17:09 CONCLUSION: Extensive free intraperitoneal air discussed with referring doctor on today's date Chest X-Ray 10/03/18 05:10 CONCLUSION: Placement of endotracheal tube in good position. Remainder of exam unchanged. Assessment and Plan - Assessment (1) Pneumoperitoneum Code(s): K66.8 - Other specified disorders of peritoneum Status: Acute Plan: 68 year old female POD2 Exploratory laparotomy; Oversew cecal perforation -Now intubated on mechanical ventilation -Added Albumin 1 dose for this morning -Remains on Levophed--- wean as tolerated -Continue Warner---UOP low--- diuretics started by [facility] -Continue routine LISBETH care -NGT to LIWS -Remains critically ill Karen dressing intact with minimal drainage. Discussed with daughter at bedside. She continues to have a large amount of ascites and output from the LISBETH drain. May consider starting enteral feeding if she will tolerate this. The exam, history, and the medical decision-making described in the above note were completed with the assistance of the mid-level provider. I reviewed and agree with the findings presented. I attest that I had a [id number] encounter with the patient on the same day, and personally performed and documented my assessment and findings in the medical record.
[2018-10-04] MEDS: Propofol 1000 mg/100 ml Inj 1,000 MG/100 ML BOTTLE IV.CONT PRN ×3 (03:04→17:46)
[2018-10-04] MEDS: Piperacil/Tazo 3.375 GM Premix 50 ML IV.SIG SCH ×4 (03:31→22:04)
[2018-10-04] MEDS: Chlorhexidine Gluconate 2% 1 Pack (2 Cloths) TOPICAL SCH (03:32)
[2018-10-04] MEDS: Oral Hygiene Kit OROPHARYNG SCH ×3 (03:32→15:26)
[2018-10-04] MEDS: Albumin Human 25% Inj 100 ML IV.SIG SCH ×4 (05:01→23:29)
--- NOTE | 2018-10-04 07:11 | P.PNCC ---
Subjective Subjective Remarks/Hospital Course: late entry for encounter on 10/03/18 68-year-old female with past medical history of alcohol dependence, cirrhosis, tobacco abuse, esophageal varices underwent diagnostic colonoscopy today by Dr. Tipton with biopsy of ascending, descending and sigmoid colon. She presented to [facility] ED with abdominal pain and distension. She was hypotensive. She was having bloody bowel movements. She was given 2 units PRBC and 1 L NS bolus. R femoral cordis was placed by ED physician. KUB demonstrated pneumoperitoneum. She was transferred emergently [facility] Main OR where she underwent ex lap by Dr. German. Dr. Kumar states there was microperforation of cecum that was oversewn. 4700 of ascites was evacuated. She received 1300 crystalloid in OR. EBL was 10 mL. LISBETH output 30. She is oliguric with only 10 Ml of urine output in PACU. She is a daily drinker of 24 ounces of [place]. 10/02: Warm and well-perfused. No withdrawal symptomatology but anticipated soon. Urine minimal but she is on dual diuretics for hepatic dysfunction/ cirrhosis and is unlikely to make much urine without stimulation. We started her diuretics through the NG tube after discussing with surgical service nurse practitioner. Nasogastric tube to low intermittent suction otherwise. Gram- negative rods in pleural fluid as expected, continue present antibiotics. 10/03: Required intubation for worsening resp distress on 10/03 early AM. - Diagnosis (1) Perforation of cecum (2) Pneumoperitoneum (3) Alcoholic cirrhosis of liver with ascites (4) EtOH dependence (5) Hypokalemia (6) JOSE (acute kidney injury) (7) Reactive thrombocytosis (8) Leukocytosis (9) Tobacco abuse (10) Protein-calorie malnutrition, moderate Objective Vital Signs / I&O: Vital Signs 10/03/18 07:08 10/03/18 07:15 10/03/18 07:30 Temperature Pulse Rate 84 86 82 Respiratory Rate 16 16 16 Blood Pressure 118/81 Pulse Oximetry 99 100 99 10/03/18 07:45 10/03/18 08:00 10/03/18 08:08 Temperature 99.0 F Pulse Rate 82 82 82 Respiratory Rate 16 16 16 Blood Pressure 117/82 Pulse Oximetry 100 100 100 10/03/18 08:15 10/03/18 08:30 10/03/18 08:34 Temperature Pulse Rate 82 83 86 Respiratory Rate 16 12 12 Blood Pressure Pulse Oximetry 100 100 99 10/03/18 08:45 10/03/18 09:00 10/03/18 09:08 Temperature Pulse Rate 95 H 83 82 Respiratory Rate 12 12 12 Blood Pressure 111/77 Pulse Oximetry 98 98 98 10/03/18 09:15 10/03/18 09:30 10/03/18 09:45 Temperature Pulse Rate 81 80 80 Respiratory Rate 12 12 12 Blood Pressure Pulse Oximetry 98 98 98 10/03/18 10:00 10/03/18 10:08 10/03/18 10:15 Temperature Pulse Rate 81 82 81 Respiratory Rate 12 12 12 Blood Pressure 121/86 Pulse Oximetry 98 97 98 10/03/18 10:30 10/03/18 10:45 10/03/18 11:00 Temperature Pulse Rate 88 83 84 Respiratory Rate 14 12 12 Blood Pressure Pulse Oximetry 98 98 95 10/03/18 11:07 10/03/18 11:08 10/03/18 11:15 Temperature Pulse Rate 85 84 82 Respiratory Rate 13 13 12 Blood Pressure 125/87 Pulse Oximetry 95 96 10/03/18 11:30 10/03/18 11:45 10/03/18 12:00 Temperature 99.0 F Pulse Rate 84 80 80 Respiratory Rate 12 12 12 Blood Pressure Pulse Oximetry 95 94 L 95 10/03/18 12:08 10/03/18 12:15 10/03/18 12:30 Temperature Pulse Rate 86 80 76 Respiratory Rate 18 12 12 Blood Pressure 110/73 Pulse Oximetry 95 95 96 10/03/18 12:45 10/03/18 13:00 10/03/18 13:08 Temperature Pulse Rate 77 77 77 Respiratory Rate 12 12 12 Blood Pressure 115/78 Pulse Oximetry 95 95 94 L 10/03/18 13:15 10/03/18 13:30 10/03/18 13:45 Temperature Pulse Rate 77 78 78 Respiratory Rate 12 12 12 Blood Pressure Pulse Oximetry 94 L 95 94 L 10/03/18 14:00 10/03/18 14:08 10/03/18 14:15 Temperature Pulse Rate 78 78 79 Respiratory Rate 12 12 12 Blood Pressure 113/79 Pulse Oximetry 94 L 95 95 10/03/18 14:30 10/03/18 14:45 10/03/18 15:00 Temperature Pulse Rate 84 82 82 Respiratory Rate 13 12 12 Blood Pressure Pulse Oximetry 95 95 95 10/03/18 15:08 10/03/18 15:15 10/03/18 15:30 Temperature Pulse Rate 82 82 79 Respiratory Rate 13 13 12 Blood Pressure 114/75 Pulse Oximetry 95 95 95 10/03/18 15:45 10/03/18 15:59 10/03/18 16:00 Temperature 98.9 F Pulse Rate 77 74 77 Respiratory Rate 12 12 12 Blood Pressure Pulse Oximetry 95 94 L 94 L 10/03/18 16:08 10/03/18 16:15 10/03/18 16:30 Temperature Pulse Rate 76 76 82 Respiratory Rate 12 12 13 Blood Pressure 106/73 Pulse Oximetry 93 L 93 L 93 L 10/03/18 16:45 10/03/18 17:00 10/03/18 17:08 Temperature Pulse Rate 84 85 78 Respiratory Rate 16 12 12 Blood Pressure 120/68 Pulse Oximetry 93 L 94 L 95 10/03/18 17:15 10/03/18 17:30 10/03/18 17:45 Temperature Pulse Rate 79 84 85 Respiratory Rate 14 16 17 Blood Pressure Pulse Oximetry 96 96 95 10/03/18 18:00 10/03/18 18:08 10/03/18 18:15 Temperature Pulse Rate 85 82 84 Respiratory Rate 12 13 16 Blood Pressure 113/73 Pulse Oximetry 94 L 95 95 10/03/18 18:30 10/03/18 18:45 10/03/18 19:00 Temperature Pulse Rate 85 85 87 Respiratory Rate 18 17 16 Blood Pressure Pulse Oximetry 95 95 95 10/03/18 19:08 10/03/18 20:00 10/03/18 20:08 Temperature 99.4 F Pulse Rate 88 88 88 Respiratory Rate 20 12 Blood Pressure 106/69 106/71 Pulse Oximetry 95 96 96 10/03/18 20:32 10/03/18 21:00 10/03/18 21:08 Temperature Pulse Rate 91 H 89 Respiratory Rate 18 12 Blood Pressure 106/66 Pulse Oximetry 94 L 95 94 L 10/03/18 21:48 10/03/18 22:00 10/03/18 22:08 Temperature Pulse Rate 87 88 89 Respiratory Rate 12 Blood Pressure 108/68 119/71 Pulse Oximetry 95 95 95 10/03/18 23:00 10/03/18 23:08 10/03/18 23:55 Temperature Pulse Rate 93 H 94 H 88 Respiratory Rate 12 12 Blood Pressure 107/71 Pulse Oximetry 95 95 95 10/04/18 00:00 10/04/18 00:08 10/04/18 01:00 Temperature 98.7 F Pulse Rate 83 82 80 Respiratory Rate 12 12 Blood Pressure 96/64 L Pulse Oximetry 95 95 94 L 10/04/18 01:08 10/04/18 02:00 10/04/18 02:08 Temperature Pulse Rate 81 80 79 Respiratory Rate 12 12 12 Blood Pressure 104/72 102/74 Pulse Oximetry 94 L 95 95 10/04/18 03:00 10/04/18 03:08 10/04/18 04:00 Temperature 98.1 F Pulse Rate 79 81 77 Respiratory Rate 13 15 14 Blood Pressure 112/77 Pulse Oximetry 96 96 98 10/04/18 04:08 10/04/18 04:36 10/04/18 04:37 Temperature Pulse Rate 76 76 Respiratory Rate 14 12 12 Blood Pressure 102/75 Pulse Oximetry 98 98 10/04/18 05:00 10/04/18 05:08 10/04/18 06:00 Temperature Pulse Rate 75 75 75 Respiratory Rate 12 12 12 Blood Pressure 116/70 Pulse Oximetry 98 98 98 Intake & Output 10/03/18 10/04/18 10/04/18 18:59 06:59 18:59 Intake Total 1661.2 / 1661.2 750 / 750 Output Total 1385 / 1385 1125 / 1125 Balance 276.2 / 276.2 -375 / -375 Weight 61.2 kg Intake: IV 1661.2 / 1661.2 750 / 750 Diprivan 1000 mg/100 ml Inj 1, 200 / 200 000 mg In 100 ml @ 5 MCG/KG/MIN 1.92 mls/hr IV.CONT TITRATE PRN Rx#:[id number] Flexbumin 25% Inj 100 ML @ 60 300 / 300 200 / 200 mls/hr IV.SIG Q6H [facility] Rx#: [id number] Alburx 5% Inj 500 ML @ 250 mls/ 500 / 500 hr IV.SIG ONCE ONE Rx#:[id number] MVI-12 Inj 10 ML Thiamine Inj 511.2 / 511.2 100 MG Folvite Inj 1 MG In NS Inj 500 ML @ 127.8 mls/hr IV. SIG DAILY [facility] Rx#:[id number] Levophed-Dextrose 4 mg/250 ml 250 / 250 250 / 250 Drip 4 mg In 250 ml @ 2 MCG/MIN 7.5 mls/hr IV.SIG TITRATE PRN Rx#:[id number] Zosyn 3.375 GM Premix 50 ML @ 100 / 100 100 / 100 100 mls/hr IV.SIG Q6H [facility] Rx#: [id number] Output: Urine Amount (Catheter) 900 / 900 250 / 250 Indwelling Urethral Catheter 900 / 900 250 / 250 Gastric Drainage 50 / 50 Right Nare Nasogastric Tube 50 / 50 Wound Drainage 485 / 485 825 / 825 # 1 Abdomen 485 / 485 825 / 825 Other: Date of Last Bowel Movement 10/03/18 10/03/18 # Incontinent Bowel Movements 1 Result Diagrams: 10/03/18 03:50 10/03/18 03:50 Objective Remarks: Narrative: GENERAL: sedated, orally intubated on mech ventilation SKIN: Warm and dry. HEAD: Atraumatic. Normocephalic. EYES: Pupils equal and round. No injection or drainage. ENT: No nasal bleeding or discharge. orally intubated NECK: Trachea midline. CARDIOVASCULAR: Regular rate and rhythm. No murmurs rubs or gallops. No JVD. RESPIRATORY: orally intubated on mech vent, scattered rhonchi bilaterally, no wheezing. GASTROINTESTINAL: Abdomen soft, few bowel sounds. Midline abdominal dressing is clean/dry/intact. LISBETH drain is placed right lower quadrant with serosanguineous output. MUSCULOSKELETAL: Extremities without clubbing, cyanosis, or edema. Warm, well perfused. NEUROLOGICAL: Sedated, orally intubated on mech vent, arouses on lightening sedation Assessment and Plan - Problem List (1) Perforation of cecum Code(s): K35.32 - Acute appendicitis with perforation and localized peritonitis , without abscess Status: Acute (2) Pneumoperitoneum Code(s): K66.8 - Other specified disorders of peritoneum Status: Acute (3) Alcoholic cirrhosis of liver with ascites Code(s): K70.31 - Alcoholic cirrhosis of liver with ascites Status: Acute (4) EtOH dependence Code(s): F10.20 - Alcohol dependence, uncomplicated Status: Acute (5) Hypokalemia Code(s): E87.6 - Hypokalemia Status: Acute (6) JOSE (acute kidney injury) Code(s): N17.9 - Acute kidney failure, unspecified Status: Acute (7) Reactive thrombocytosis Code(s): R79.89 - Other specified abnormal findings of blood chemistry Status : Acute (8) Leukocytosis Code(s): D72.829 - Elevated white blood cell count, unspecified Status: Acute (9) Tobacco abuse Code(s): Z72.0 - Tobacco use Status: Chronic (10) Protein-calorie malnutrition, moderate Code(s): E44.0 - Moderate protein-calorie malnutrition Status: Chronic - Assessment and Plan Plan: NEURO: Alcohol dependence Daily sedation vacation Thiamine/multivitamin/folic acid supplementation IV times 3 days then transition to p.o. thiamine. Monitor for signs and symptoms of alcohol withdrawal and administer treatment based on CIWA protocol. Morphine as needed for pain Alcohol cessation counseling discussed RESP: Acute resp failure on mech ventilation Tobacco abuse continue mech ventilation, daily CPAP trials. Vent bundle Tobacco cessation counseling when extubated Bronchodilators as needed CV: Hypovolemic/distributive shock Likely third spacing following removal of 4.7 L of ascitic fluid in addition to SIRS response to microperforation. Received albumin and will continue albumin 25 g IV every 6 hours for 24 hours following removal of his ascitic fluid. Levophed to maintain mean arterial pressure greater than 65. Continue to wean vasopressor, fluid balance appears about right. GI: Microperforation cecum s/p colonoscopy with multiple biopsies Now postoperative day 0 from exploratory laparotomy, microperforation of cecum oversewn Dr. German Cirrhosis Ascites Esophageal varices Hyperbilirubinemia Chronic moderate protein energy malnutrition Start tube feeds when OK with surgery Monitor LISBETH output Continue broad-spectrum coverage for gram negatives and anaerobes. FEN/RENAL: Hypokalemia Hypomagnesemia Acute kidney injury Warner in place. Monitor intake and output. Monitor electrolytes. Restarted spironolactone and Lasix daily ID: Leukocytosis SIRS Follow-up blood cultures. Zosyn 3.375 IV every 6 hours HEME: Reactive thrombocytosis Monitor CBC. ENDO: Euglycemic PROPH: SCDs for DVT prophylaxis. SQ Heparin when OK with surgery Protonix 40 mg IV daily for stress ulcer prophylaxis ACCESS: Right IJ central venous line placed in OR 10/01. Right femoral Cordis was placed in ER 10/01/, will remove. FULL CODE
[2018-10-04 07:40] LABS: Hematocrit 28.7 % (35.0-46.0); Hemoglobin 9.5 gm/dL (11.6-15.3); Mean Corpuscular HGB Conc 33.2 % (32.0-36.0); Mean Corpuscular Hemoglobin 33.5 pg (27.0-34.0); Mean Corpuscular Volume 100.9 fL (80.0-100.0); Mean Platelet Volume 8.9 fL (7.0-11.0); Platelet Count 266 th/mm3 (150-450); Red Blood Count 2.84 mil/mm3 (4.00-5.30); Red Cell Distribution Width 13.9 % (11.6-17.2); White Blood Count 13.7 th/mm3 (4.0-11.0)
[2018-10-04] MEDS: Chlorhexidine 0.12% Oral Kit 15 ML UDC OROPHARYNG SCH ×2 (08:00→21:21)
[2018-10-04 08:01] LABS: Alanine Aminotransferase 8 U/L (10-53); Alkaline Phosphatase 80 U/L (45-117); Anion Gap 9 meq/L (5-15); Aspartate Aminotransferase 26 U/L (15-37); Blood Urea Nitrogen 9 mg/dL (7-18); Calcium 8.5 mg/dL (8.5-10.1); Carbon Dioxide 30.5 meq/L (21.0-32.0); Chloride 99 meq/L (98-107); Glomerular Filtration Rate 44 mL/min (>89); Glucose,Random 75 mg/dL (74-106); Sodium 138 meq/L (136-145)
[2018-10-04 08:04] LABS: Potassium 2.6 meq/L (3.5-5.1)
[2018-10-04 08:18] LABS: Eosinophils 4 % (0-4); Lymphocytes 13 % (9-44); Monocytes 7 % (0-8)
[2018-10-04 08:19] LABS: Platelet Estimate Normal (Normal); Platelet Morphology Clumped (Normal)
[2018-10-04 08:20] LABS: Target Cells 1+
[2018-10-04] MEDS: Pantoprazole Inj 40 MG Vial IV.PUSH SCH (08:44)
[2018-10-04] MEDS: Senna/Docusate Sodium 8.6/50 MG Tablet PO SCH ×2 (08:44→21:07)
[2018-10-04] MEDS: Multivitamin Inj 10 ML, Thiamine Inj 100 MG, Folic Acid Inj 1 MG in Sodium Chlor 0.9% I... IV.SIG SCH (08:44)
[2018-10-04] MEDS: Potassium Chlor 40 mEq Premix 40 MEQ/100 ML PIGGYBACK IV.SIG SCH ×2 (10:17→13:49)
--- NOTE | 2018-10-04 10:45 | P.PNGS ---
Subjective Interval history: Remains intubated; on CPAP; Eyes open Daughter visiting at the bedside Physical Exam Vital signs: Vital Signs 10/03/18 10:45 10/03/18 11:00 10/03/18 11:07 Temperature Pulse Rate 83 84 85 Respiratory Rate 12 12 13 Blood Pressure Pulse Oximetry 98 95 10/03/18 11:08 10/03/18 11:15 10/03/18 11:30 Temperature Pulse Rate 84 82 84 Respiratory Rate 13 12 12 Blood Pressure 125/87 Pulse Oximetry 95 96 95 10/03/18 11:45 10/03/18 12:00 10/03/18 12:08 Temperature 99.0 F Pulse Rate 80 80 86 Respiratory Rate 12 12 18 Blood Pressure 110/73 Pulse Oximetry 94 L 95 95 10/03/18 12:15 10/03/18 12:30 10/03/18 12:45 Temperature Pulse Rate 80 76 77 Respiratory Rate 12 12 12 Blood Pressure Pulse Oximetry 95 96 95 10/03/18 13:00 10/03/18 13:08 10/03/18 13:15 Temperature Pulse Rate 77 77 77 Respiratory Rate 12 12 12 Blood Pressure 115/78 Pulse Oximetry 95 94 L 94 L 10/03/18 13:30 10/03/18 13:45 10/03/18 14:00 Temperature Pulse Rate 78 78 78 Respiratory Rate 12 12 12 Blood Pressure Pulse Oximetry 95 94 L 94 L 10/03/18 14:08 10/03/18 14:15 10/03/18 14:30 Temperature Pulse Rate 78 79 84 Respiratory Rate 12 12 13 Blood Pressure 113/79 Pulse Oximetry 95 95 95 10/03/18 14:45 10/03/18 15:00 10/03/18 15:08 Temperature Pulse Rate 82 82 82 Respiratory Rate 12 12 13 Blood Pressure 114/75 Pulse Oximetry 95 95 95 10/03/18 15:15 10/03/18 15:30 10/03/18 15:45 Temperature Pulse Rate 82 79 77 Respiratory Rate 13 12 12 Blood Pressure Pulse Oximetry 95 95 95 10/03/18 15:59 10/03/18 16:00 10/03/18 16:08 Temperature 98.9 F Pulse Rate 74 77 76 Respiratory Rate 12 12 12 Blood Pressure 106/73 Pulse Oximetry 94 L 94 L 93 L 10/03/18 16:15 10/03/18 16:30 10/03/18 16:45 Temperature Pulse Rate 76 82 84 Respiratory Rate 12 13 16 Blood Pressure Pulse Oximetry 93 L 93 L 93 L 10/03/18 17:00 10/03/18 17:08 10/03/18 17:15 Temperature Pulse Rate 85 78 79 Respiratory Rate 12 12 14 Blood Pressure 120/68 Pulse Oximetry 94 L 95 96 10/03/18 17:30 10/03/18 17:45 10/03/18 18:00 Temperature Pulse Rate 84 85 85 Respiratory Rate 16 17 12 Blood Pressure Pulse Oximetry 96 95 94 L 10/03/18 18:08 10/03/18 18:15 10/03/18 18:30 Temperature Pulse Rate 82 84 85 Respiratory Rate 13 16 18 Blood Pressure 113/73 Pulse Oximetry 95 95 95 10/03/18 18:45 10/03/18 19:00 10/03/18 19:08 Temperature Pulse Rate 85 87 88 Respiratory Rate 17 16 20 Blood Pressure 106/69 Pulse Oximetry 95 95 95 10/03/18 20:00 10/03/18 20:08 10/03/18 20:32 Temperature 99.4 F Pulse Rate 88 88 Respiratory Rate 12 18 Blood Pressure 106/71 Pulse Oximetry 96 96 94 L 10/03/18 21:00 10/03/18 21:08 10/03/18 21:48 Temperature Pulse Rate 91 H 89 87 Respiratory Rate 12 Blood Pressure 106/66 108/68 Pulse Oximetry 95 94 L 95 10/03/18 22:00 10/03/18 22:08 10/03/18 23:00 Temperature Pulse Rate 88 89 93 H Respiratory Rate 12 12 Blood Pressure 119/71 Pulse Oximetry 95 95 95 10/03/18 23:08 10/03/18 23:55 10/04/18 00:00 Temperature 98.7 F Pulse Rate 94 H 88 83 Respiratory Rate 12 12 Blood Pressure 107/71 Pulse Oximetry 95 95 95 10/04/18 00:08 10/04/18 01:00 10/04/18 01:08 Temperature Pulse Rate 82 80 81 Respiratory Rate 12 12 Blood Pressure 96/64 L 104/72 Pulse Oximetry 95 94 L 94 L 10/04/18 02:00 10/04/18 02:08 10/04/18 03:00 Temperature Pulse Rate 80 79 79 Respiratory Rate 12 12 13 Blood Pressure 102/74 Pulse Oximetry 95 95 96 11/29/18 03:08 10/04/18 04:00 10/04/18 04:08 Temperature 98.1 F Pulse Rate 81 77 76 Respiratory Rate 15 14 14 Blood Pressure 112/77 102/75 Pulse Oximetry 96 98 98 10/04/18 04:36 10/04/18 04:37 10/04/18 05:00 Temperature Pulse Rate 76 75 Respiratory Rate 12 12 12 Blood Pressure Pulse Oximetry 98 98 10/04/18 05:08 10/04/18 06:00 10/04/18 07:00 Temperature Pulse Rate 75 75 76 Respiratory Rate 12 12 12 Blood Pressure 116/70 111/77 Pulse Oximetry 98 98 96 10/04/18 07:15 10/04/18 07:30 10/04/18 07:45 Temperature Pulse Rate 77 80 77 Respiratory Rate 13 12 12 Blood Pressure 111/78 109/76 120/81 Pulse Oximetry 98 97 98 10/04/18 08:00 10/04/18 08:02 10/04/18 08:15 Temperature 97.9 F Pulse Rate 80 82 74 Respiratory Rate 17 15 12 Blood Pressure 110/71 121/74 Pulse Oximetry 98 99 10/04/18 08:30 10/04/18 08:45 10/04/18 08:49 Temperature Pulse Rate 81 76 79 Respiratory Rate 14 12 14 Blood Pressure 112/78 111/77 Pulse Oximetry 95 95 94 L 10/04/18 09:00 10/04/18 09:15 10/04/18 09:30 Temperature Pulse Rate 78 78 74 Respiratory Rate 12 12 12 Blood Pressure 110/76 108/73 118/79 Pulse Oximetry 94 L 94 L 95 10/04/18 09:45 10/04/18 10:00 Temperature Pulse Rate 85 84 Respiratory Rate 22 18 Blood Pressure 104/73 117/76 Pulse Oximetry 93 L 92 L Intake & Output 10/03/18 10/04/18 10/04/18 18:59 06:59 18:59 Intake Total 1661.2 / 1661.2 750 / 750 50 / 50 Output Total 1385 / 1385 1125 / 1125 Balance 276.2 / 276.2 -375 / -375 50 / 50 Weight 61.2 kg Intake: IV 1661.2 / 1661.2 750 / 750 50 / 50 Diprivan 1000 mg/100 ml Inj 1, 200 / 200 000 mg In 100 ml @ 5 MCG/KG/MIN 1.92 mls/hr IV.CONT TITRATE PRN Rx#:[id number] Flexbumin 25% Inj 100 ML @ 60 300 / 300 200 / 200 mls/hr IV.SIG Q6H [facility] Rx#: [id number] Alburx 5% Inj 500 ML @ 250 mls/ 500 / 500 hr IV.SIG ONCE ONE Rx#:[id number] MVI-12 Inj 10 ML Thiamine Inj 511.2 / 511.2 100 MG Folvite Inj 1 MG In NS Inj 500 ML @ 127.8 mls/hr IV. SIG DAILY [facility] Rx#:[id number] Levophed-Dextrose 4 mg/250 ml 250 / 250 250 / 250 Drip 4 mg In 250 ml @ 2 MCG/MIN 7.5 mls/hr IV.SIG TITRATE PRN Rx#:[id number] Zosyn 3.375 GM Premix 50 ML @ 100 / 100 100 / 100 50 / 50 100 mls/hr IV.SIG Q6H [facility] Rx#: [id number] Output: Urine Amount (Catheter) 900 / 900 250 / 250 Indwelling Urethral Catheter 900 / 900 250 / 250 Gastric Drainage 50 / 50 Right Nare Nasogastric Tube 50 / 50 Wound Drainage 485 / 485 825 / 825 # 1 Abdomen 485 / 485 825 / 825 Other: Date of Last Bowel Movement 10/03/18 10/03/18 10/03/18 # Incontinent Bowel Movements 1 Narrative: Awake; eyes open Cardio: RRR Resp: CTAB Abd: mildly distended; soft; KAREN in place with scant drainage; LISBETH with serous drainage---copious Mild generalized edema - Urinary Catheter Management Indwelling Urethral Catheter Cath placed during this visit: yes Reason for continuing: Hourly intake/output Insertion date: 10/01/18 Insertion time: 20:00 Results - Labs 10/05/18 10:00 10/05/18 10:00 Laboratory Results - last 24 hr 10/01/18 10/04/18 10/04/18 17:20 07:30 07:30 WBC 13.7 H RBC 2.84 L Hgb 9.5 L Hct 28.7 L MCV 100.9 H MCH 33.5 MCHC 33.2 RDW 13.9 Plt Count 266 MPV 8.9 Prelim Diff (Auto) Manual diff required WBC Differential Manual diff final Seg Neuts % (Manual) 71 H Band Neuts % (Manual) 5 Lymphocytes % (Manual) 13 Monocytes % (Manual) 7 Eosinophils % (Manual) 4 Abs Neuts (Manual) 10.4 H Differential Comment . Platelet Estimate Normal Platelet Morphology Clumped H Target Cells 1+ H Sodium 138 Potassium 2.6 L* D Chloride 99 Carbon Dioxide 30.5 Anion Gap 9 BUN 9 Creatinine 1.22 H Estimated GFR 44 L Random Glucose 75 Calcium 8.5 Total Bilirubin 2.3 H AST 26 ALT 8 L Alkaline Phosphatase 80 Total Protein 6.0 L Albumin 4.0 MTS Gel Crossmatch See Detail - Imaging Imaging: ITS Impressions Abdomen X-Ray 10/01/18 17:09 CONCLUSION: Extensive free intraperitoneal air discussed with referring doctor on today's date Chest X-Ray 10/03/18 05:10 CONCLUSION: Placement of endotracheal tube in good position. Remainder of exam unchanged. Assessment and Plan - Assessment (1) Pneumoperitoneum Code(s): K66.8 - Other specified disorders of peritoneum Status: Acute Plan: 68 year old female POD2 Exploratory laparotomy; Oversew cecal perforation -Vent per CCM--- on CPAP currently -Remains on Levophed--- wean as tolerated -Replace K -Continue Warner---UOP improved today -Continue routine LISBETH care -NGT to LIWS -Remains critically ill Main issue will be LISBETH drain and loss of fluid/protein due to ascites. Will remove LISBETH in next one to two days to stem fluid losses, although this will risk contamination from the previous perforation The exam, history, and the medical decision-making described in the above note were completed with the assistance of the mid-level provider. I reviewed and agree with the findings presented. I attest that I had a [id number] encounter with the patient on the same day, and personally performed and documented my assessment and findings in the medical record. - Plan Discussed Condition With: Daughter Nurse Son Johnathon, who is a radiologist.
[2018-10-04] MEDS ORDERED: Magnesium Sulfate Inj 4 GM in Sodium Chlor 0.9% Inj 92 ML IV.SIG PRN (11:46)
[2018-10-04] MEDS ORDERED: Potassium Phosphate Inj 30 MMOL in Sodium Chlor 0.9% Inj 250 ML IV.SIG PRN (11:46)
[2018-10-04] MEDS ORDERED: Sodium Phosphate Inj 30 MMOL in Sodium Chlor 0.9% Inj 250 ML IV.SIG PRN (11:46)
[2018-10-04] MEDS ORDERED: Magnesium Sulfate Inj 2 GM in Sodium Chlor 0.9% Inj 96 ML IV.SIG PRN (11:46)
[2018-10-04] MEDS ORDERED: Magnesium Oxide 400 MG Tablet PO PRN (11:46)
[2018-10-04] MEDS ORDERED: Potassium Phosphate 500 MG Soluble Tablet PO PRN ×2 (11:46)
[2018-10-04] MEDS ORDERED: Potassium Chloride 25 MEQ Effervescent Tablet PO PRN (11:46)
[2018-10-04] MEDS ORDERED: Potassium Chlor 20 mEq Premix 20 MEQ/100 ML PIGGYBACK IV.SIG PRN (11:46)
--- NOTE | 2018-10-04 11:53 | P.PNCC ---
Subjective Subjective Remarks/Hospital Course: late entry for encounter on 10/03/18 68-year-old female with past medical history of alcohol dependence, cirrhosis, tobacco abuse, esophageal varices underwent diagnostic colonoscopy today by Dr. Tipton with biopsy of ascending, descending and sigmoid colon. She presented to [facility] ED with abdominal pain and distension. She was hypotensive. She was having bloody bowel movements. She was given 2 units PRBC and 1 L NS bolus. R femoral cordis was placed by ED physician. KUB demonstrated pneumoperitoneum. She was transferred emergently [facility] where she underwent ex lap by Dr. German. Dr. Kumar states there was microperforation of cecum that was oversewn. 4700 of ascites was evacuated. She received 1300 crystalloid in OR. EBL was 10 mL. LISBETH output 30. She is oliguric with only 10 Ml of urine output in PACU. She is a daily drinker of 24 ounces of [place]. 10/02: Warm and well-perfused. No withdrawal symptomatology but anticipated soon. Urine minimal but she is on dual diuretics for hepatic dysfunction/ cirrhosis and is unlikely to make much urine without stimulation. We started her diuretics through the NG tube after discussing with surgical service nurse practitioner. Nasogastric tube to low intermittent suction otherwise. Gram- negative rods in pleural fluid as expected, continue present antibiotics. 10/03: Required intubation for worsening resp distress on 10/03 early AM. 10/04: Sedated, arousable, orally intubated on mechanical ventilation. - Diagnosis (1) Perforation of cecum (2) Pneumoperitoneum (3) Alcoholic cirrhosis of liver with ascites (4) EtOH dependence (5) Hypokalemia (6) JOSE (acute kidney injury) (7) Reactive thrombocytosis (8) Leukocytosis (9) Tobacco abuse (10) Protein-calorie malnutrition, moderate Objective Vital Signs / I&O: Vital Signs 10/03/18 12:00 10/03/18 12:08 10/03/18 12:15 Temperature 99.0 F Pulse Rate 80 86 80 Respiratory Rate 12 18 12 Blood Pressure 110/73 Pulse Oximetry 95 95 95 10/03/18 12:30 10/03/18 12:45 10/03/18 13:00 Temperature Pulse Rate 76 77 77 Respiratory Rate 12 12 12 Blood Pressure Pulse Oximetry 96 95 95 10/03/18 13:08 10/03/18 13:15 10/03/18 13:30 Temperature Pulse Rate 77 77 78 Respiratory Rate 12 12 12 Blood Pressure 115/78 Pulse Oximetry 94 L 94 L 95 10/03/18 13:45 10/03/18 14:00 10/03/18 14:08 Temperature Pulse Rate 78 78 78 Respiratory Rate 12 12 12 Blood Pressure 113/79 Pulse Oximetry 94 L 94 L 95 10/03/18 14:15 10/03/18 14:30 10/03/18 14:45 Temperature Pulse Rate 79 84 82 Respiratory Rate 12 13 12 Blood Pressure Pulse Oximetry 95 95 95 10/03/18 15:00 10/03/18 15:08 10/03/18 15:15 Temperature Pulse Rate 82 82 82 Respiratory Rate 12 13 13 Blood Pressure 114/75 Pulse Oximetry 95 95 95 10/03/18 15:30 10/03/18 15:45 10/03/18 15:59 Temperature Pulse Rate 79 77 74 Respiratory Rate 12 12 12 Blood Pressure Pulse Oximetry 95 95 94 L 10/03/18 16:00 10/03/18 16:08 10/03/18 16:15 Temperature 98.9 F Pulse Rate 77 76 76 Respiratory Rate 12 12 12 Blood Pressure 106/73 Pulse Oximetry 94 L 93 L 93 L 10/03/18 16:30 10/03/18 16:45 10/03/18 17:00 Temperature Pulse Rate 82 84 85 Respiratory Rate 13 16 12 Blood Pressure Pulse Oximetry 93 L 93 L 94 L 10/03/18 17:08 10/03/18 17:15 10/03/18 17:30 Temperature Pulse Rate 78 79 84 Respiratory Rate 12 14 16 Blood Pressure 120/68 Pulse Oximetry 95 96 96 10/03/18 17:45 10/03/18 18:00 10/03/18 18:08 Temperature Pulse Rate 85 85 82 Respiratory Rate 17 12 13 Blood Pressure 113/73 Pulse Oximetry 95 94 L 95 10/03/18 18:15 10/03/18 18:30 10/03/18 18:45 Temperature Pulse Rate 84 85 85 Respiratory Rate 16 18 17 Blood Pressure Pulse Oximetry 95 95 95 10/03/18 19:00 10/03/18 19:08 10/03/18 20:00 Temperature 99.4 F Pulse Rate 87 88 88 Respiratory Rate 16 20 12 Blood Pressure 106/69 Pulse Oximetry 95 95 96 10/03/18 20:08 10/03/18 20:32 10/03/18 21:00 Temperature Pulse Rate 88 91 H Respiratory Rate 18 12 Blood Pressure 106/71 Pulse Oximetry 96 94 L 95 10/03/18 21:08 10/03/18 21:48 10/03/18 22:00 Temperature Pulse Rate 89 87 88 Respiratory Rate 12 Blood Pressure 106/66 108/68 Pulse Oximetry 94 L 95 95 10/03/18 22:08 10/03/18 23:00 10/03/18 23:08 Temperature Pulse Rate 89 93 H 94 H Respiratory Rate 12 Blood Pressure 119/71 107/71 Pulse Oximetry 95 95 95 10/03/18 23:55 10/04/18 00:00 10/04/18 00:08 Temperature 98.7 F Pulse Rate 88 83 82 Respiratory Rate 12 12 Blood Pressure 96/64 L Pulse Oximetry 95 95 95 10/04/18 01:00 10/04/18 01:08 10/04/18 02:00 Temperature Pulse Rate 80 81 80 Respiratory Rate 12 12 12 Blood Pressure 104/72 Pulse Oximetry 94 L 94 L 95 10/04/18 02:08 10/04/18 03:00 10/04/18 03:08 Temperature Pulse Rate 79 79 81 Respiratory Rate 12 13 15 Blood Pressure 102/74 112/77 Pulse Oximetry 95 96 96 10/04/18 04:00 10/04/18 04:08 10/04/18 04:36 Temperature 98.1 F Pulse Rate 77 76 76 Respiratory Rate 14 14 12 Blood Pressure 102/75 Pulse Oximetry 98 98 10/04/18 04:37 10/04/18 05:00 10/04/18 05:08 Temperature Pulse Rate 75 75 Respiratory Rate 12 12 12 Blood Pressure 116/70 Pulse Oximetry 98 98 98 10/04/18 06:00 10/04/18 07:00 10/04/18 07:15 Temperature Pulse Rate 75 76 77 Respiratory Rate 12 12 13 Blood Pressure 111/77 111/78 Pulse Oximetry 98 96 98 10/04/18 07:30 10/04/18 07:45 10/04/18 08:00 Temperature 97.9 F Pulse Rate 80 77 80 Respiratory Rate 12 12 17 Blood Pressure 109/76 120/81 Pulse Oximetry 97 98 98 10/04/18 08:02 10/04/18 08:15 10/04/18 08:30 Temperature Pulse Rate 82 74 81 Respiratory Rate 15 12 14 Blood Pressure 110/71 121/74 112/78 Pulse Oximetry 99 95 10/04/18 08:45 10/04/18 08:49 10/04/18 09:00 Temperature Pulse Rate 76 79 78 Respiratory Rate 12 14 12 Blood Pressure 111/77 110/76 Pulse Oximetry 95 94 L 94 L 10/04/18 09:15 10/04/18 09:30 10/04/18 09:45 Temperature Pulse Rate 78 74 85 Respiratory Rate 12 12 22 Blood Pressure 108/73 118/79 104/73 Pulse Oximetry 94 L 95 93 L 10/04/18 10:00 10/04/18 10:15 10/04/18 10:30 Temperature Pulse Rate 84 84 86 Respiratory Rate 18 20 18 Blood Pressure 117/76 104/78 114/71 Pulse Oximetry 92 L 91 L 92 L 10/04/18 10:45 10/04/18 11:00 Temperature Pulse Rate 89 91 H Respiratory Rate 24 25 H Blood Pressure 101/72 113/78 Pulse Oximetry 91 L 91 L Intake & Output 10/03/18 10/04/18 10/04/18 18:59 06:59 18:59 Intake Total 1661.2 / 1661.2 750 / 750 50 / 50 Output Total 1385 / 1385 1125 / 1125 Balance 276.2 / 276.2 -375 / -375 50 / 50 Weight 61.2 kg Intake: IV 1661.2 / 1661.2 750 / 750 50 / 50 Diprivan 1000 mg/100 ml Inj 1, 200 / 200 000 mg In 100 ml @ 5 MCG/KG/MIN 1.92 mls/hr IV.CONT TITRATE PRN Rx#:[id number] Flexbumin 25% Inj 100 ML @ 60 300 / 300 200 / 200 mls/hr IV.SIG Q6H HILDA Rx#: [id number] Alburx 5% Inj 500 ML @ 250 mls/ 500 / 500 hr IV.SIG ONCE ONE Rx#:[id number] MVI-12 Inj 10 ML Thiamine Inj 511.2 / 511.2 100 MG Folvite Inj 1 MG In NS Inj 500 ML @ 127.8 mls/hr IV. SIG DAILY HILDA Rx#:[id number] Levophed-Dextrose 4 mg/250 ml 250 / 250 250 / 250 Drip 4 mg In 250 ml @ 2 MCG/MIN 7.5 mls/hr IV.SIG TITRATE PRN Rx#:[id number] Zosyn 3.375 GM Premix 50 ML @ 100 / 100 100 / 100 50 / 50 100 mls/hr IV.SIG Q6H HILDA Rx#: [id number] Output: Urine Amount (Catheter) 900 / 900 250 / 250 Indwelling Urethral Catheter 900 / 900 250 / 250 Gastric Drainage 50 / 50 Right Nare Nasogastric Tube 50 / 50 Wound Drainage 485 / 485 825 / 825 # 1 Abdomen 485 / 485 825 / 825 Other: Date of Last Bowel Movement 10/03/18 10/03/18 10/03/18 # Incontinent Bowel Movements 1 Result Diagrams: 10/04/18 07:30 10/04/18 07:30 Imaging: Impressions Chest X-Ray 10/03/18 01:40 CONCLUSION: Increasing bilateral basilar airspace disease since October 01 with increasing pleural fluid. No pneumothorax. Chest X-Ray 10/03/18 05:10 CONCLUSION: Placement of endotracheal tube in good position. Remainder of exam unchanged. Objective Remarks: Narrative: GENERAL: sedated, orally intubated on mech ventilation SKIN: Warm and dry. HEAD: Atraumatic. Normocephalic. EYES: Pupils equal and round. No injection or drainage. ENT: No nasal bleeding or discharge. orally intubated NECK: Trachea midline. CARDIOVASCULAR: Regular rate and rhythm. No murmurs rubs or gallops. No JVD. RESPIRATORY: orally intubated on mech vent, scattered rhonchi bilaterally, no wheezing. GASTROINTESTINAL: Abdomen soft, few bowel sounds. Midline abdominal dressing is clean/dry/intact. LISBETH drain is placed right lower quadrant with serosanguineous output. MUSCULOSKELETAL: Extremities without clubbing, cyanosis, or edema. Warm, well perfused. NEUROLOGICAL: Sedated, orally intubated on mech vent, arouses on lightening sedation Assessment and Plan - Problem List (1) Perforation of cecum Code(s): K35.32 - Acute appendicitis with perforation and localized peritonitis , without abscess Status: Acute (2) Pneumoperitoneum Code(s): K66.8 - Other specified disorders of peritoneum Status: Acute (3) Alcoholic cirrhosis of liver with ascites Code(s): K70.31 - Alcoholic cirrhosis of liver with ascites Status: Acute (4) EtOH dependence Code(s): F10.20 - Alcohol dependence, uncomplicated Status: Acute (5) Hypokalemia Code(s): E87.6 - Hypokalemia Status: Acute (6) JOSE (acute kidney injury) Code(s): N17.9 - Acute kidney failure, unspecified Status: Acute (7) Reactive thrombocytosis Code(s): R79.89 - Other specified abnormal findings of blood chemistry Status : Acute (8) Leukocytosis Code(s): D72.829 - Elevated white blood cell count, unspecified Status: Acute (9) Tobacco abuse Code(s): Z72.0 - Tobacco use Status: Chronic (10) Protein-calorie malnutrition, moderate Code(s): E44.0 - Moderate protein-calorie malnutrition Status: Chronic - Assessment and Plan Plan: NEURO: Alcohol dependence Daily sedation vacation Thiamine/multivitamin/folic acid supplementation IV times 3 days then transition to p.o. thiamine. Monitor for signs and symptoms of alcohol withdrawal and administer treatment based on CIWA protocol. Morphine as needed for pain Alcohol cessation counseling discussed RESP: Acute resp failure on [facility] ventilation Probable COPD Tobacco abuse continue [facility] ventilation, daily CPAP trials. Vent bundle Tobacco cessation counseling when extubated Bronchodilators as needed CV: Hypovolemic/distributive shock Likely third spacing following removal of 4.7 L of ascitic fluid in addition to SIRS response to microperforation. Received albumin and s/p albumin 25 g IV every 6 hours for 24 hours following removal of his ascitic fluid. Levophed to maintain mean arterial pressure greater than 65. Continue to wean vasopressor as tolerated. GI: Microperforation cecum s/p colonoscopy with multiple biopsies Now postoperative day 0 from exploratory laparotomy, microperforation of cecum oversewn Dr. German Cirrhosis Ascites Esophageal varices Hyperbilirubinemia Chronic moderate protein energy malnutrition Start tube feeds when OK with surgery Monitor LISBETH output Continue broad-spectrum coverage for gram negatives and anaerobes. FEN/RENAL: Hypokalemia Hypomagnesemia Acute kidney injury Warner in place. Monitor intake and output. Monitor electrolytes. Restarted spironolactone and Lasix daily ID: Leukocytosis SIRS Follow-up blood cultures. Zosyn 3.375 IV every 6 hours HEME: Reactive thrombocytosis Monitor CBC. ENDO: Euglycemic PROPH: SCDs for DVT prophylaxis. SQ Heparin when OK with surgery Protonix 40 mg IV daily for stress ulcer prophylaxis ACCESS: Right IJ central venous line placed in OR 10/01. FULL CODE
[2018-10-04] MEDS: Morphine Sulfate Inj 2 MG/ML Vial IV.PUSH PRN (12:00)
[2018-10-04] MEDS: Heparin - SQ 10,000 UNITS/ML Vial SQ SCH (21:07)
[2018-10-04] MEDS: Potassium Chlor 40 mEq Premix 40 MEQ/100 ML PIGGYBACK IV.SIG PRN (23:28)
[2018-10-05] MEDS: Oral Hygiene Kit OROPHARYNG SCH ×4 (00:05→16:09)
[2018-10-05] MEDS: Propofol 1000 mg/100 ml Inj 1,000 MG/100 ML BOTTLE IV.CONT PRN ×3 (00:15→21:49)
[2018-10-05] MEDS: Chlorhexidine Gluconate 2% 1 Pack (2 Cloths) TOPICAL SCH (04:06)
[2018-10-05] MEDS: Piperacil/Tazo 3.375 GM Premix 50 ML IV.SIG SCH ×4 (04:06→21:48)
[2018-10-05] MEDS: Albumin Human 25% Inj 100 ML IV.SIG SCH ×3 (06:04→18:09)
[2018-10-05] MEDS: Senna/Docusate Sodium 8.6/50 MG Tablet PO SCH ×2 (09:32→21:11)
[2018-10-05] MEDS: Pantoprazole Inj 40 MG Vial IV.PUSH SCH (09:33)
[2018-10-05] MEDS: Heparin - SQ 10,000 UNITS/ML Vial SQ SCH ×2 (09:33→21:11)
[2018-10-05] MEDS: Chlorhexidine 0.12% Oral Kit 15 ML UDC OROPHARYNG SCH ×2 (09:33→20:15)
[2018-10-05 10:46] LABS: Baso # (Auto) 0.2 th/mm3 (0.0-0.2); Baso % (Auto) 1.6 % (0.0-2.0); Eos # (Auto) 0.3 th/mm3 (0.0-0.4); Eos % (Auto) 2.6 % (0.0-4.0); Hematocrit 30.7 % (35.0-46.0); Hemoglobin 10.1 gm/dL (11.6-15.3); Lymph # (Auto) 1.3 th/mm3 (1.0-4.8); Lymph % (Auto) 10.7 % (9.0-44.0); Mean Corpuscular HGB Conc 32.8 % (32.0-36.0); Mean Corpuscular Volume 100.6 fL (80.0-100.0); Mean Platelet Volume 8.8 fL (7.0-11.0); Mono # (Auto) 1.3 th/mm3 (0.0-0.9); Mono % (Auto) 10.7 % (0.0-8.0); Neut % (Auto) 74.4 % (16.0-70.0); Platelet Count 244 th/mm3 (150-450); Red Blood Count 3.05 mil/mm3 (4.00-5.30); Red Cell Distribution Width 14.2 % (11.6-17.2); White Blood Count 12.1 th/mm3 (4.0-11.0)
--- NOTE | 2018-10-05 10:52 | P.DIET ---
Nutritional Evaluation Type of nutrition evaluation: initial Nutrition consult regarding: Tube Feeding (Trickle feed only ordered) Objective - Diagnosis GI Bleed, Hypotension, Cirrhosis - Objective % IBW: 97 (IBW = 140#) Body Weight Used for Calculations: Actual (61.9 kg) Energy Needs - Lower Range (kCal/kg): 28 Energy Needs - Upper Range (kCal/kg): 32 Lower Limit kCal/kg (kCals): 1,733 Upper Limit kCal/kg (kCals): 1,981 Lower Limit Protein Factor (Grams per Kg): 1.2 Upper Limit Protein Factor (Grams per Kg): 1.5 Lower Protein Needs (Protein): 74 Upper Protein Needs (Protein): 93 Dietitian Reviewed in Medical Record: Curent medications, Intake & Output, Labs , Medical history, Tube feeding Diet Order: NPO Assessment Assessment: Pt is s/p exp lap, primary repair of cecal perforation (10/01) and was intubated on (10/03). Trickle feed of [place]ev[place] 1.5 @ 10 mls/hr has been ordered. When goal TF is needed, recommend Vital 1.5 @ 50 mls/hr to provide 1800 kcals, 81 gms protein and 917 mls of free water. Pt is currently receiving additional kcals from propofol (1.1 kcal/ml). Recommendations: When goal rate is needed: Vital 1.5 @ 50 mls/hr Dietitian to Monitor: Lab values, Intake & Output, Tube feeding tolerance, Weight change, Medical course
[2018-10-05 11:06] LABS: Alanine Aminotransferase 8 U/L (10-53); Albumin 4.3 g/dL (3.4-5.0); Anion Gap 9 meq/L (5-15); Aspartate Aminotransferase 22 U/L (15-37); Blood Urea Nitrogen 9 mg/dL (7-18); Calcium 8.6 mg/dL (8.5-10.1); Carbon Dioxide 28.2 meq/L (21.0-32.0); Chloride 103 meq/L (98-107); Glomerular Filtration Rate 56 mL/min (>89); Glucose,Random 89 mg/dL (74-106); Potassium 3.6 meq/L (3.5-5.1); Sodium 140 meq/L (136-145)
[2018-10-05 11:09] LABS: Alkaline Phosphatase 139 U/L (45-117); Total Protein 6.4 g/dL (6.4-8.2)
--- NOTE | 2018-10-05 12:22 | P.PN ---
Subjective Interval history: Still intubated; likely will not be extubated today. Physical Exam Vital signs: Vital Signs 10/04/18 12:30 10/04/18 12:45 10/04/18 13:00 Temperature Pulse Rate 92 H 92 H 91 H Respiratory Rate 16 15 15 Blood Pressure 100/71 101/65 104/59 L Pulse Oximetry 92 L 93 L 92 L 10/04/18 13:15 10/04/18 13:30 10/04/18 13:34 Temperature Pulse Rate 90 88 87 Respiratory Rate 13 13 17 Blood Pressure 90/60 L 87/55 L 141/92 H Pulse Oximetry 93 L 93 L 94 L 10/04/18 13:45 10/04/18 13:48 10/04/18 14:00 Temperature Pulse Rate 89 86 87 Respiratory Rate 17 13 15 Blood Pressure 108/74 121/79 Pulse Oximetry 91 L 93 L 90 L 10/04/18 14:15 10/04/18 14:30 10/04/18 14:45 Temperature Pulse Rate 88 90 88 Respiratory Rate 14 23 23 Blood Pressure 119/84 111/79 114/77 Pulse Oximetry 90 L 94 L 94 L 10/04/18 15:00 10/04/18 15:15 10/04/18 15:17 Temperature Pulse Rate 89 87 86 Respiratory Rate 17 20 19 Blood Pressure 93/65 L 82/55 L 85/56 L Pulse Oximetry 96 97 97 10/04/18 15:30 10/04/18 15:45 10/04/18 15:52 Temperature Pulse Rate 86 89 89 Respiratory Rate 22 20 14 Blood Pressure 90/60 L 136/77 Pulse Oximetry 97 91 L 92 L 10/04/18 16:00 10/04/18 16:15 10/04/18 16:30 Temperature 99.2 F Pulse Rate 88 87 87 Respiratory Rate 20 13 12 Blood Pressure 114/77 129/80 116/82 Pulse Oximetry 91 L 93 L 94 L 10/04/18 16:45 10/04/18 17:00 10/04/18 17:15 Temperature Pulse Rate 88 89 89 Respiratory Rate 12 12 23 Blood Pressure 120/83 120/82 116/84 Pulse Oximetry 94 L 95 94 L 10/04/18 17:30 10/04/18 17:45 10/04/18 18:00 Temperature Pulse Rate 88 87 88 Respiratory Rate 20 12 12 Blood Pressure 119/86 122/86 117/79 Pulse Oximetry 95 95 96 10/04/18 18:15 10/04/18 18:30 10/04/18 18:45 Temperature Pulse Rate 88 88 87 Respiratory Rate 24 22 16 Blood Pressure 116/75 131/84 112/79 Pulse Oximetry 96 95 96 10/04/18 19:00 10/04/18 20:00 10/04/18 21:00 Temperature 99.3 F Pulse Rate 88 87 88 Respiratory Rate 15 13 12 Blood Pressure 112/74 110/75 99/69 L Pulse Oximetry 96 95 97 10/04/18 21:23 10/04/18 22:00 10/04/18 23:00 Temperature Pulse Rate 89 93 H 88 Respiratory Rate 13 12 12 Blood Pressure 121/81 110/75 Pulse Oximetry 97 98 98 10/05/18 00:00 10/05/18 00:39 10/05/18 01:00 Temperature 99.0 F Pulse Rate 89 91 H 89 Respiratory Rate 22 15 15 Blood Pressure 113/79 110/69 Pulse Oximetry 98 94 L 94 L 10/05/18 02:00 10/05/18 02:15 10/05/18 03:00 Temperature Pulse Rate 93 H 92 H Respiratory Rate 23 17 Blood Pressure 115/83 113/79 107/75 Pulse Oximetry 96 95 10/05/18 04:00 10/05/18 04:54 10/05/18 05:00 Temperature 99.5 F Pulse Rate 92 H 92 H 89 Respiratory Rate 25 H 13 22 Blood Pressure 104/68 105/75 Pulse Oximetry 98 97 97 10/05/18 06:00 10/05/18 08:04 10/05/18 12:09 Temperature Pulse Rate 88 84 88 Respiratory Rate 24 12 19 Blood Pressure 98/68 L Pulse Oximetry 97 98 94 L Intake & Output 10/04/18 10/05/18 10/05/18 18:59 06:59 18:59 Intake Total 1071.2 / 1071.2 557 / 557 100 / 100 Output Total 300 / 300 660 / 660 Balance 771.2 / 771.2 -103 / -103 100 / 100 Weight 61.9 kg Intake: IV 1071.2 / 1071.2 500 / 500 100 / 100 Diprivan 1000 mg/100 ml Inj 1, 160 / 160 200 / 200 000 mg In 100 ml @ 5 MCG/KG/MIN 1.92 mls/hr IV.CONT TITRATE PRN Rx#:[id number] Flexbumin 25% Inj 100 ML @ 60 100 / 100 200 / 200 100 / 100 mls/hr IV.SIG Q6H HILDA Rx#: [id number] MVI-12 Inj 10 ML Thiamine Inj 511.2 / 511.2 100 MG Folvite Inj 1 MG In NS Inj 500 ML @ 127.8 mls/hr IV. SIG DAILY HILDA Rx#:[id number] Zosyn 3.375 GM Premix 50 ML @ 100 / 100 100 / 100 100 mls/hr IV.SIG Q6H HILDA Rx#: [id number] KCl 40 mEq Premix Inj 40 meq In 200 / 200 100 ml @ 25 mls/hr IV.SIG Q4H HILDA Rx#:[id number] Tube Feeding / 57 Output: Urine Amount (Catheter) 300 / 300 350 / 350 Indwelling Urethral Catheter 300 / 300 350 / 350 Wound Drainage 310 / 310 # 1 Abdomen 310 / 310 Other: Date of Last Bowel Movement 10/03/18 10/03/18 # Bowel Movements 0 - Constitutional no acute distress - Routine Respiratory Exam Present: CTA bilaterally - Routine Abdominal Exam Present: soft, wound (Camille dressing intact with no new drainage) Comments: LISBETH with large amount of serous drainage still - Urinary Catheter Management Indwelling Urethral Catheter Cath placed during this visit: yes Reason for continuing: Hourly intake/output Insertion date: 10/01/18 Insertion time: 20:00 Results - Labs CBC & Chem 7: 10/05/18 10:00 10/05/18 10:00 Laboratory Results - last 24 hr 10/04/18 10/05/18 10/05/18 22:05 10:00 10:00 WBC 12.1 H RBC 3.05 L Hgb 10.1 L Hct 30.7 L MCV 100.6 H MCH 33.0 MCHC 32.8 RDW 14.2 Plt Count 244 MPV 8.8 Neut % (Auto) 74.4 H Lymph % (Auto) 10.7 [place] % (Auto) 10.7 H Eos % (Auto) 2.6 Baso % (Auto) 1.6 Neut # (Auto) 9.0 H Lymph # (Auto) 1.3 [place] # (Auto) 1.3 H Eos # (Auto) 0.3 Baso # (Auto) 0.2 WBC Differential . Differential Comment Auto diff final Sodium 140 Potassium 3.3 L 3.6 Chloride 103 Carbon Dioxide 28.2 Anion Gap 9 BUN 9 Creatinine 0.99 Estimated GFR 56 L Random Glucose 89 Calcium 8.6 Total Bilirubin 3.6 H AST 22 ALT 8 L Alkaline Phosphatase 139 H Total Protein 6.4 Albumin 4.3 Microbiology 10/01/18 21:50 Blood - Peripheral Aerobic Blood Culture - Preliminary No growth in 4 days 10/01/18 21:50 Blood - Peripheral Anaerobic Blood Culture - Final QNS - See aerobic report. 10/01/18 21:44 Blood - Peripheral Aerobic Blood Culture - Preliminary No growth in 4 days 10/01/18 21:44 Blood - Peripheral Anaerobic Blood Culture - Preliminary No growth in 4 days 10/01/18 20:12 Fluid - Other Gram Stain - Final 10/01/18 20:12 Fluid - Other Wound Culture - Final Escherichia coli Enterococcus avium 10/03/18 05:45 Sputum - Endotracheal Gram Stain - Final 10/03/18 05:45 Sputum - Endotracheal Sputum Culture - Preliminary No growth in 24 hours 10/02/18 20:30 Catheterized Urine Urine Culture - Final No growth in 48 hours Assessment and Plan - Assessment (1) Pneumoperitoneum Code(s): K66.8 - Other specified disorders of peritoneum Status: Acute Plan: Liver function test slightly worse today. Abdomen soft and nontender. However, patient did not tolerate feedings overnight and these needed to be held. LISBETH output still significant. Will likely need to pull the drain in the next 24- 48 hours to minimize protein and fluid losses. Will discuss with industrial workers before doing this. - Plan Discussed Condition With: Daughter at bedside - Attending Attestation I attest that I had a [id number] encounter with the patient on the same day, and personally performed and documented my assessment and findings in the medical record. The following services were provided during this hospital visit: Chart data review, vital sign assessments/reviewing monitor data Review of consultation notes if present Medication orders/review and/or management Ordering and/or reviewing lab tests Ordering and/or interpreting/reviewing x-rays and/or diagnostic studies Care of the patient and discussion of the patient with the care team Documentation time To help prompt me to consider important information that might be impacting today's encounter and assessment, Information from prior notes written by myself or my colleagues may have been "brought forward/copy and pasted" into today's note.
[2018-10-05] MEDS: Morphine Sulfate Inj 2 MG/ML Vial IV.PUSH PRN ×2 (16:05→20:15)
--- NOTE | 2018-10-05 18:56 | P.PNCC ---
Subjective Subjective Remarks/Hospital Course: late entry for encounter on 10/03/18 68-year-old female with past medical history of alcohol dependence, cirrhosis, tobacco abuse, esophageal varices underwent diagnostic colonoscopy today by Dr. Tipton with biopsy of ascending, descending and sigmoid colon. She presented to [facility] ED with abdominal pain and distension. She was hypotensive. She was having bloody bowel movements. She was given 2 units PRBC and 1 L NS bolus. R femoral cordis was placed by ED physician. KUB demonstrated pneumoperitoneum. She was transferred emergently [facility] [place] where she underwent ex lap by Dr. German. Dr. Kumar states there was microperforation of cecum that was oversewn. 4700 of ascites was evacuated. She received 1300 crystalloid in OR. EBL was 10 mL. LISBETH output 30. She is oliguric with only 10 Ml of urine output in PACU. She is a daily drinker of 24 ounces of [place]. 10/02: Warm and well-perfused. No withdrawal symptomatology but anticipated soon. Urine minimal but she is on dual diuretics for hepatic dysfunction/ cirrhosis and is unlikely to make much urine without stimulation. We started her diuretics through the NG tube after discussing with surgical service nurse practitioner. Nasogastric tube to low intermittent suction otherwise. Gram- negative rods in pleural fluid as expected, continue present antibiotics. 10/03: Required intubation for worsening resp distress on 10/03 early AM. 10/04: Sedated, arousable, orally intubated on mechanical ventilation. 10/05: Sedated, arousable, orally intubated on mechanical ventilation. Failed CPAP trial. LISBETH drain remains in place. - Diagnosis (1) Perforation of cecum (2) Pneumoperitoneum (3) Alcoholic cirrhosis of liver with ascites (4) EtOH dependence (5) Hypokalemia (6) JOSE (acute kidney injury) (7) Reactive thrombocytosis (8) Leukocytosis (9) Tobacco abuse (10) Protein-calorie malnutrition, moderate Objective Vital Signs / I&O: Vital Signs 10/04/18 19:00 10/04/18 20:00 10/04/18 21:00 Temperature 99.3 F Pulse Rate 88 87 88 Respiratory Rate 15 13 12 Blood Pressure 112/74 110/75 99/69 L Pulse Oximetry 96 95 97 10/04/18 21:23 10/04/18 22:00 10/04/18 23:00 Temperature Pulse Rate 89 93 H 88 Respiratory Rate 13 12 12 Blood Pressure 121/81 110/75 Pulse Oximetry 97 98 98 10/05/18 00:00 10/05/18 00:39 10/05/18 01:00 Temperature 99.0 F Pulse Rate 89 91 H 89 Respiratory Rate 22 15 15 Blood Pressure 113/79 110/69 Pulse Oximetry 98 94 L 94 L 10/05/18 02:00 10/05/18 02:15 10/05/18 03:00 Temperature Pulse Rate 93 H 92 H Respiratory Rate 23 17 Blood Pressure 115/83 113/79 107/75 Pulse Oximetry 96 95 10/05/18 04:00 10/05/18 04:54 10/05/18 05:00 Temperature 99.5 F Pulse Rate 92 H 92 H 89 Respiratory Rate 25 H 13 22 Blood Pressure 104/68 105/75 Pulse Oximetry 98 97 97 10/05/18 06:00 10/05/18 07:45 10/05/18 08:00 Temperature 98.2 F Pulse Rate 88 85 83 Respiratory Rate 24 24 24 Blood Pressure 98/68 L 108/72 112/79 Pulse Oximetry 97 98 98 10/05/18 08:04 10/05/18 08:15 10/05/18 08:30 Temperature Pulse Rate 84 82 82 Respiratory Rate 12 20 14 Blood Pressure 109/74 105/74 Pulse Oximetry 98 98 99 10/05/18 08:45 10/05/18 09:00 10/05/18 09:15 Temperature 98.4 F Pulse Rate 82 81 84 Respiratory Rate 12 12 12 Blood Pressure 107/77 129/86 128/89 Pulse Oximetry 99 99 98 10/05/18 09:30 10/05/18 09:45 10/05/18 10:00 Temperature 98.5 F Pulse Rate 84 86 Respiratory Rate 12 20 Blood Pressure 130/90 132/90 131/87 Pulse Oximetry 97 97 10/05/18 10:15 10/05/18 10:16 10/05/18 10:30 Temperature Pulse Rate 86 85 86 Respiratory Rate 18 18 17 Blood Pressure 124/86 128/85 134/90 Pulse Oximetry 98 98 97 10/05/18 10:45 10/05/18 11:00 10/05/18 11:15 Temperature 98.4 F Pulse Rate 86 88 86 Respiratory Rate 14 15 15 Blood Pressure 124/90 132/86 134/89 Pulse Oximetry 97 96 96 10/05/18 11:30 10/05/18 11:45 10/05/18 12:00 Temperature 98.1 F Pulse Rate 86 85 88 Respiratory Rate 15 17 14 Blood Pressure 121/83 124/86 124/88 Pulse Oximetry 96 97 97 10/05/18 12:09 10/05/18 12:15 10/05/18 12:30 Temperature Pulse Rate 88 89 93 H Respiratory Rate 19 20 21 Blood Pressure 126/86 125/89 Pulse Oximetry 94 L 95 95 10/05/18 12:45 10/05/18 13:00 10/05/18 13:15 Temperature 98.7 F Pulse Rate 96 H 98 H 114 H Respiratory Rate 28 H 25 H 28 H Blood Pressure 124/84 115/81 116/76 Pulse Oximetry 94 L 93 L 91 L 10/05/18 13:30 10/05/18 13:45 10/05/18 14:00 Temperature Pulse Rate 101 H 102 H 102 H Respiratory Rate 27 H 25 H 29 H Blood Pressure 126/87 122/81 117/82 Pulse Oximetry 94 L 94 L 94 L 10/05/18 14:15 10/05/18 14:45 10/05/18 15:00 Temperature Pulse Rate 101 H 106 H 103 H Respiratory Rate 20 29 H 25 H Blood Pressure 120/83 113/80 119/84 Pulse Oximetry 97 96 97 10/05/18 15:15 10/05/18 15:35 10/05/18 15:42 Temperature Pulse Rate 106 H 107 H 107 H Respiratory Rate 24 13 36 H Blood Pressure 121/82 111/76 Pulse Oximetry 97 100 97 10/05/18 15:45 10/05/18 16:00 10/05/18 16:15 Temperature Pulse Rate 105 H 107 H 103 H Respiratory Rate 24 29 H 22 Blood Pressure 114/77 103/72 102/69 Pulse Oximetry 100 97 97 10/05/18 16:30 10/05/18 16:31 10/05/18 16:45 Temperature Pulse Rate 101 H 100 H Respiratory Rate 22 21 21 Blood Pressure 105/71 101/70 Pulse Oximetry 97 97 96 10/05/18 17:00 10/05/18 17:15 10/05/18 17:30 Temperature Pulse Rate 99 H 102 H 100 H Respiratory Rate 22 23 20 Blood Pressure 101/69 105/72 103/72 Pulse Oximetry 96 96 96 10/05/18 17:45 10/05/18 18:00 10/05/18 18:15 Temperature Pulse Rate 101 H 102 H 100 H Respiratory Rate 23 21 19 Blood Pressure 106/74 109/69 102/70 Pulse Oximetry 96 96 95 Intake & Output 10/04/18 10/05/18 10/05/18 18:59 06:59 18:59 Intake Total 1071.2 / 1071.2 557 / 557 250 / 250 Output Total 300 / 300 660 / 660 Balance 771.2 / 771.2 -103 / -103 250 / 250 Weight 61.9 kg Intake: IV 1071.2 / 1071.2 500 / 500 250 / 250 Diprivan 1000 mg/100 ml Inj 1, 160 / 160 200 / 200 000 mg In 100 ml @ 5 MCG/KG/MIN 1.92 mls/hr IV.CONT TITRATE PRN Rx#:[id number] Flexbumin 25% Inj 100 ML @ 60 100 / 100 200 / 200 200 / 200 mls/hr IV.SIG Q6H HILDA Rx#: [id number] MVI-12 Inj 10 ML Thiamine Inj 511.2 / 511.2 100 MG Folvite Inj 1 MG In NS Inj 500 ML @ 127.8 mls/hr IV. SIG DAILY HILDA Rx#:[id number] Zosyn 3.375 GM Premix 50 ML @ 100 / 100 100 / 100 50 / 50 100 mls/hr IV.SIG Q6H HILDA Rx#: [id number] KCl 40 mEq Premix Inj 40 meq In 200 / 200 100 ml @ 25 mls/hr IV.SIG Q4H HILDA Rx#:[id number] Tube Feeding 57 / 57 Output: Urine Amount (Catheter) 300 / 300 350 / 350 Indwelling Urethral Catheter 300 / 300 350 / 350 Wound Drainage 310 / 310 # 1 Abdomen 310 / 310 Other: Date of Last Bowel Movement 10/03/18 10/03/18 10/03/18 # Bowel Movements 0 Result Diagrams: 10/05/18 10:00 10/05/18 10:00 Objective Remarks: Narrative: GENERAL: sedated, orally intubated on [facility] ventilation SKIN: Warm and dry. HEAD: Atraumatic. Normocephalic. EYES: Pupils equal and round. No injection or drainage. ENT: No nasal bleeding or discharge. orally intubated NECK: Trachea midline. CARDIOVASCULAR: Regular rate and rhythm. No murmurs rubs or gallops. No JVD. RESPIRATORY: orally intubated on mech vent, scattered rhonchi bilaterally, no wheezing. GASTROINTESTINAL: Abdomen soft, few bowel sounds. Midline abdominal dressing is clean/dry/intact. LISBETH drain is placed right lower quadrant with serosanguineous output. MUSCULOSKELETAL: Extremities without clubbing, cyanosis, or edema. Warm, well perfused. NEUROLOGICAL: Sedated, orally intubated on mech vent, arouses on lightening sedation Assessment and Plan - Problem List (1) Perforation of cecum Code(s): K35.32 - Acute appendicitis with perforation and localized peritonitis , without abscess Status: Acute (2) Pneumoperitoneum Code(s): K66.8 - Other specified disorders of peritoneum Status: Acute (3) Alcoholic cirrhosis of liver with ascites Code(s): K70.31 - Alcoholic cirrhosis of liver with ascites Status: Acute (4) EtOH dependence Code(s): F10.20 - Alcohol dependence, uncomplicated Status: Acute (5) Hypokalemia Code(s): E87.6 - Hypokalemia Status: Acute (6) JOSE (acute kidney injury) Code(s): N17.9 - Acute kidney failure, unspecified Status: Acute (7) Reactive thrombocytosis Code(s): R79.89 - Other specified abnormal findings of blood chemistry Status : Acute (8) Leukocytosis Code(s): D72.829 - Elevated white blood cell count, unspecified Status: Acute (9) Tobacco abuse Code(s): Z72.0 - Tobacco use Status: Chronic (10) Protein-calorie malnutrition, moderate Code(s): E44.0 - Moderate protein-calorie malnutrition Status: Chronic - Assessment and Plan Plan: NEURO: Alcohol dependence Daily sedation vacation Thiamine/multivitamin/folic acid supplementation IV times 3 days then transition to p.o. thiamine. Monitor for signs and symptoms of alcohol withdrawal and administer treatment based on [facility] protocol. Morphine as needed for pain Alcohol cessation counseling discussed RESP: Acute resp failure on mech ventilation Probable COPD Tobacco abuse continue mech ventilation, daily CPAP trials. Vent bundle Tobacco cessation counseling when extubated Bronchodilators as needed CV: Hypovolemic/distributive shock Likely third spacing following removal of 4.7 L of ascitic fluid in addition to SIRS response to microperforation. Received albumin and s/p albumin 25 g IV every 6 hours for 24 hours following removal of his ascitic fluid. Levophed to maintain mean arterial pressure greater than 65. Continue to wean vasopressor as tolerated. GI: Microperforation cecum s/p colonoscopy with multiple biopsies Now postoperative day 0 from exploratory laparotomy, microperforation of cecum oversewn Dr. German Cirrhosis Ascites Esophageal varices Hyperbilirubinemia Chronic moderate protein energy malnutrition Tube feedings held for high residuals. 3 attempts starting tube feeds on 10/06 if okay with surgery Monitor LISBETH output Continue broad-spectrum coverage for gram negatives and anaerobes. FEN/RENAL: Hypokalemia Hypomagnesemia Acute kidney injury Warner in place. Monitor intake and output. Monitor electrolytes. Restarted spironolactone and Lasix daily ID: Leukocytosis SIRS Follow-up blood cultures. Zosyn 3.375 IV every 6 hours HEME: Reactive thrombocytosis Monitor CBC. ENDO: Euglycemic PROPH: SCDs for DVT prophylaxis. SQ Heparin when OK with surgery Protonix 40 mg IV daily for stress ulcer prophylaxis ACCESS: Right IJ central venous line placed in OR 10/01. 10/05: Updated patient's son who is a radiologist in [place] as well as her daughter at bedside today FULL CODE
[2018-10-06] MEDS: Albumin Human 25% Inj 100 ML IV.SIG SCH ×4 (00:05→18:45)
[2018-10-06] MEDS: Oral Hygiene Kit OROPHARYNG SCH ×4 (00:05→16:32)
--- NOTE | 2018-10-06 04:07 | XR ---
EXAM DATE: 10/06/2018 3:59 AM EST AGE/SEX: 68 years / Female INDICATIONS: Respiratory failure. CLINICAL DATA: This is the patient's subsequent encounter. Patient reports that signs and symptoms h ave been present for 4 - 6 days and indicates a pain score of Nonresponsive. MEDICAL/SURGICAL HISTORY: Cirrhosis. Gastroesophageal reflux disease. Non-responsive. [place] [facility] [place] 10/03/2018. [facility] [place]. . FINDINGS: Portable AP view of the chest demonstrates a normal size cardiac silhouette. ETT, nasogastric tube, a nd right IJ line are present. EKG lines overlie the patient. There is a moderate size pleural parench ymal opacity bilaterally, right slightly greater than left. No pneumothorax is identified. Bones and soft tissues demonstrate no acute finding. CONCLUSION: Moderate size bilateral pleural-parenchymal opacities, slightly increased from the prior examination. Features are characteristic of pleural effusions with associated airspace consolidation and likely a telectasis. Electronically signed by: Bubba Pisano MD 10/06/2018 4:06 AM EST
[2018-10-06] MEDS: Chlorhexidine Gluconate 2% 1 Pack (2 Cloths) TOPICAL SCH (04:31)
[2018-10-06] MEDS: Piperacil/Tazo 3.375 GM Premix 50 ML IV.SIG SCH ×4 (04:31→22:06)
[2018-10-06 05:04] LABS: Hematocrit 29.7 % (35.0-46.0); Hemoglobin 9.8 gm/dL (11.6-15.3); Mean Corpuscular Hemoglobin 32.8 pg (27.0-34.0); Mean Corpuscular Volume 99.5 fL (80.0-100.0); Mean Platelet Volume 9.3 fL (7.0-11.0); Platelet Count 212 th/mm3 (150-450); Red Blood Count 2.99 mil/mm3 (4.00-5.30); Red Cell Distribution Width 13.8 % (11.6-17.2); White Blood Count 11.3 th/mm3 (4.0-11.0)
[2018-10-06 05:18] LABS: Albumin 4.3 g/dL (3.4-5.0); Anion Gap 10 meq/L (5-15); Aspartate Aminotransferase 23 U/L (15-37); Blood Urea Nitrogen 8 mg/dL (7-18); Calcium 9.2 mg/dL (8.5-10.1); Carbon Dioxide 27.3 meq/L (21.0-32.0); Chloride 103 meq/L (98-107); Glomerular Filtration Rate 67 mL/min (>89); Glucose,Random 67 mg/dL (74-106); Potassium 3.3 meq/L (3.5-5.1); Sodium 140 meq/L (136-145)
[2018-10-06 05:22] LABS: Alanine Aminotransferase 8 U/L (10-53); Alkaline Phosphatase 150 U/L (45-117); Total Protein 6.4 g/dL (6.4-8.2)
[2018-10-06 05:44] LABS: Eosinophils 3 % (0-4); Lymphocytes 3 % (9-44); Monocytes 4 % (0-8); Platelet Estimate Normal (Normal); Platelet Morphology Normal (Normal); Stomatocytes 1+; Target Cells 1+
[2018-10-06] MEDS: Potassium Chlor 40 mEq Premix 40 MEQ/100 ML PIGGYBACK IV.SIG PRN (06:34)
[2018-10-06] MEDS: Heparin - SQ 10,000 UNITS/ML Vial SQ SCH ×2 (09:00→22:04)
--- NOTE | 2018-10-06 09:55 | P.PNCC ---
Subjective Subjective Remarks/Hospital Course: late entry for encounter on 10/03/18 68-year-old female with past medical history of alcohol dependence, cirrhosis, tobacco abuse, esophageal varices underwent diagnostic colonoscopy today by Dr. Tipton with biopsy of ascending, descending and sigmoid colon. She presented to [facility] ED with abdominal pain and distension. She was hypotensive. She was having bloody bowel movements. She was given 2 units PRBC and 1 L NS bolus. R femoral cordis was placed by ED physician. KUB demonstrated pneumoperitoneum. She was transferred emergently [facility] [place] Main OR where she underwent ex lap by Dr. German. Dr. Kumar states there was microperforation of cecum that was oversewn. 4700 of ascites was evacuated. She received 1300 crystalloid in OR. EBL was 10 mL. LISBETH output 30. She is oliguric with only 10 Ml of urine output in PACU. She is a daily drinker of 24 ounces of [place]. 10/02: Warm and well-perfused. No withdrawal symptomatology but anticipated soon. Urine minimal but she is on dual diuretics for hepatic dysfunction/ cirrhosis and is unlikely to make much urine without stimulation. We started her diuretics through the NG tube after discussing with surgical service nurse practitioner. Nasogastric tube to low intermittent suction otherwise. Gram- negative rods in pleural fluid as expected, continue present antibiotics. 10/03: Required intubation for worsening resp distress on 10/03 early AM. 10/04: Sedated, arousable, orally intubated on mechanical ventilation. 10/05: Sedated, arousable, orally intubated on mechanical ventilation. Failed CPAP trial. LISBETH drain remains in place. 10/06: Remains afebrile. Tolerating spontaneous breathing trials today with low but acceptable tidal volumes. Bilirubin and alkaline phosphatase is rising. - Diagnosis (1) Perforation of cecum (2) Pneumoperitoneum (3) Alcoholic cirrhosis of liver with ascites (4) EtOH dependence (5) Hypokalemia (6) JOSE (acute kidney injury) (7) Reactive thrombocytosis (8) Leukocytosis (9) Tobacco abuse (10) Protein-calorie malnutrition, moderate Objective Vital Signs / I&O: Vital Signs 10/05/18 10:00 10/05/18 10:15 10/05/18 10:16 Temperature 98.5 F Pulse Rate 86 85 Respiratory Rate 18 18 Blood Pressure 131/87 124/86 128/85 Pulse Oximetry 98 98 10/05/18 10:30 10/05/18 10:45 10/05/18 11:00 Temperature 98.4 F Pulse Rate 86 86 88 Respiratory Rate 17 14 15 Blood Pressure 134/90 124/90 132/86 Pulse Oximetry 97 97 96 10/05/18 11:15 10/05/18 11:30 10/05/18 11:45 Temperature Pulse Rate 86 86 85 Respiratory Rate 15 15 17 Blood Pressure 134/89 121/83 124/86 Pulse Oximetry 96 96 97 10/05/18 12:00 10/05/18 12:09 10/05/18 12:15 Temperature 98.1 F Pulse Rate 88 88 89 Respiratory Rate 14 19 20 Blood Pressure 124/88 126/86 Pulse Oximetry 97 94 L 95 10/05/18 12:30 10/05/18 12:45 10/05/18 13:00 Temperature 98.7 F Pulse Rate 93 H 96 H 98 H Respiratory Rate 21 28 H 25 H Blood Pressure 125/89 124/84 115/81 Pulse Oximetry 95 94 L 93 L 10/05/18 13:15 10/05/18 13:30 10/05/18 13:45 Temperature Pulse Rate 114 H 101 H 102 H Respiratory Rate 28 H 27 H 25 H Blood Pressure 116/76 126/87 122/81 Pulse Oximetry 91 L 94 L 94 L 10/05/18 14:00 10/05/18 14:15 10/05/18 14:45 Temperature Pulse Rate 102 H 101 H 106 H Respiratory Rate 29 H 20 29 H Blood Pressure 117/82 120/83 113/80 Pulse Oximetry 94 L 97 96 10/05/18 15:00 10/05/18 15:15 10/05/18 15:35 Temperature Pulse Rate 103 H 106 H 107 H Respiratory Rate 25 H 24 13 Blood Pressure 119/84 121/82 Pulse Oximetry 97 97 100 10/05/18 15:42 10/05/18 15:45 10/05/18 16:00 Temperature Pulse Rate 107 H 105 H 107 H Respiratory Rate 36 H 24 29 H Blood Pressure 111/76 114/77 103/72 Pulse Oximetry 97 100 97 10/05/18 16:15 10/05/18 16:30 10/05/18 16:31 Temperature Pulse Rate 103 H 101 H Respiratory Rate 22 22 21 Blood Pressure 102/69 105/71 Pulse Oximetry 97 97 97 10/05/18 16:45 10/05/18 17:00 10/05/18 17:15 Temperature Pulse Rate 100 H 99 H 102 H Respiratory Rate 21 22 23 Blood Pressure 101/70 101/69 105/72 Pulse Oximetry 96 96 96 10/05/18 17:30 10/05/18 17:45 10/05/18 18:00 Temperature Pulse Rate 100 H 101 H 102 H Respiratory Rate 20 23 21 Blood Pressure 103/72 106/74 109/69 Pulse Oximetry 96 96 96 10/05/18 18:15 10/05/18 19:00 10/05/18 20:00 Temperature 98.9 F Pulse Rate 100 H 96 H 94 H Respiratory Rate 19 20 17 Blood Pressure 102/70 96/69 L 101/71 Pulse Oximetry 95 95 94 L 10/05/18 20:39 10/05/18 21:00 10/05/18 22:00 Temperature Pulse Rate 90 83 Respiratory Rate 22 16 14 Blood Pressure 92/63 L 105/73 Pulse Oximetry 94 L 94 L 95 10/05/18 23:00 10/05/18 23:32 10/06/18 00:00 Temperature 97.6 F Pulse Rate 84 85 84 Respiratory Rate 13 12 12 Blood Pressure 112/78 113/80 Pulse Oximetry 96 97 98 10/06/18 01:00 10/06/18 02:00 10/06/18 02:30 Temperature Pulse Rate 82 83 83 Respiratory Rate 13 13 13 Blood Pressure 125/86 114/78 Pulse Oximetry 98 99 99 10/06/18 03:00 10/06/18 03:10 10/06/18 03:42 Temperature Pulse Rate 81 81 Respiratory Rate 14 13 13 Blood Pressure 115/75 Pulse Oximetry 99 99 10/06/18 04:00 10/06/18 05:00 10/06/18 06:00 Temperature 98.7 F Pulse Rate 83 85 86 Respiratory Rate 13 13 21 Blood Pressure 111/77 102/73 103/70 Pulse Oximetry 99 98 96 10/06/18 09:01 Temperature Pulse Rate 91 H Respiratory Rate 20 Blood Pressure Pulse Oximetry 99 Intake & Output 10/05/18 10/06/18 10/06/18 18:59 06:59 18:59 Intake Total 450 / 450 350 / 350 Output Total 835 / 835 780 / 780 Balance -385 / -385 -430 / -430 Weight 61.3 kg Intake: IV 350 / 350 350 / 350 Diprivan 1000 mg/100 ml Inj 1, 100 / 100 000 mg In 100 ml @ 5 MCG/KG/MIN 1.92 mls/hr IV.CONT TITRATE PRN Rx#:[id number] Flexbumin 25% Inj 100 ML @ 60 200 / 200 200 / 200 mls/hr IV.SIG Q6H HILDA Rx#: [id number] Zosyn 3.375 GM Premix 50 ML @ 50 / 50 150 / 150 100 mls/hr IV.SIG Q6H HILDA Rx#: [id number] Tube Irrigant 100 / 100 Output: Urine Amount (Catheter) 325 / 325 325 / 325 Indwelling Urethral Catheter 325 / 325 325 / 325 Gastric Drainage 10 / Right Nare Nasogastric Tube 10 / Wound Drainage 500 / 500 455 / 455 # 1 Abdomen 500 / 500 455 / 455 Other: Date of Last Bowel Movement 10/03/18 10/03/18 Result Diagrams: 10/06/18 04:35 10/06/18 04:35 Objective Remarks: Narrative: GENERAL: sedated, orally intubated on mech ventilation SKIN: Warm and dry. HEAD: Atraumatic. Normocephalic. EYES: Pupils equal and round. No injection or drainage. ENT: No nasal bleeding or discharge. orally intubated NECK: Trachea midline. CARDIOVASCULAR: Regular rate and rhythm. No murmurs rubs or gallops. No JVD. RESPIRATORY: orally intubated on mech vent, scattered rhonchi bilaterally, no wheezing. GASTROINTESTINAL: Abdomen soft, few bowel sounds. Midline abdominal dressing is clean/dry/intact. LISBETH drain is placed right lower quadrant with serosanguineous output. MUSCULOSKELETAL: Extremities without clubbing, cyanosis, or edema. Warm, well perfused. NEUROLOGICAL: Sedated, orally intubated on mech vent, arouses on lightening sedation Assessment and Plan - Problem List (1) Perforation of cecum Code(s): K35.32 - Acute appendicitis with perforation and localized peritonitis , without abscess Status: Acute (2) Pneumoperitoneum Code(s): K66.8 - Other specified disorders of peritoneum Status: Acute (3) Alcoholic cirrhosis of liver with ascites Code(s): K70.31 - Alcoholic cirrhosis of liver with ascites Status: Acute (4) EtOH dependence Code(s): F10.20 - Alcohol dependence, uncomplicated Status: Acute (5) Hypokalemia Code(s): E87.6 - Hypokalemia Status: Acute (6) JOSE (acute kidney injury) Code(s): N17.9 - Acute kidney failure, unspecified Status: Acute (7) Reactive thrombocytosis Code(s): R79.89 - Other specified abnormal findings of blood chemistry Status : Acute (8) Leukocytosis Code(s): D72.829 - Elevated white blood cell count, unspecified Status: Acute (9) Tobacco abuse Code(s): Z72.0 - Tobacco use Status: Chronic (10) Protein-calorie malnutrition, moderate Code(s): E44.0 - Moderate protein-calorie malnutrition Status: Chronic - Assessment and Plan Plan: NEURO: Alcohol dependence Daily sedation vacation Thiamine/multivitamin/folic acid supplementation IV times 3 days then transition to p.o. thiamine. Monitor for signs and symptoms of alcohol withdrawal and administer treatment based on [place] protocol. Morphine as needed for pain Alcohol cessation counseling discussed RESP: Acute resp failure on mech ventilation Probable COPD Tobacco abuse continue mech ventilation, daily CPAP trials. Vent bundle Tobacco cessation counseling when extubated Bronchodilators as needed CV: Hypovolemic/distributive shock Likely third spacing following removal of 4.7 L of ascitic fluid in addition to SIRS response to microperforation. Received albumin and s/p albumin 25 g IV every 6 hours for 24 hours following removal of his ascitic fluid. Levophed to maintain mean arterial pressure greater than 65. Continue to wean vasopressor as tolerated. GI: Microperforation cecum s/p colonoscopy with multiple biopsies Now postoperative day 0 from exploratory laparotomy, microperforation of cecum oversewn Dr. German Cirrhosis Ascites Esophageal varices Hyperbilirubinemia Chronic moderate protein energy malnutrition Tube feedings held for high residuals. 3 attempts starting tube feeds on 10/06 if okay with surgery Monitor LISBETH output Continue broad-spectrum coverage for gram negatives and anaerobes. FEN/RENAL: Hypokalemia Hypomagnesemia Acute kidney injury Warner in place. Monitor intake and output. Monitor electrolytes. Restarted spironolactone and Lasix daily ID: Leukocytosis SIRS Follow-up blood cultures. Zosyn 3.375 IV every 6 hours HEME: Reactive thrombocytosis Monitor CBC. ENDO: Euglycemic PROPH: SCDs for DVT prophylaxis. SQ Heparin when OK with surgery Protonix 40 mg IV daily for stress ulcer prophylaxis ACCESS: Right IJ central venous line placed in OR 10/01. 10/05: Updated patient's son who is a radiologist in [place] as well as her daughter at bedside today FULL CODE
[2018-10-06] MEDS: Chlorhexidine 0.12% Oral Kit 15 ML UDC OROPHARYNG SCH ×2 (11:42→22:05)
[2018-10-06] MEDS: Pantoprazole Inj 40 MG Vial IV.PUSH SCH (11:42)
[2018-10-06] MEDS: Senna/Docusate Sodium 8.6/50 MG Tablet PO SCH ×2 (11:42→22:05)
[2018-10-06] MEDS: Morphine Sulfate Inj 2 MG/ML Vial IV.PUSH PRN (11:43)
[2018-10-06] MEDS ORDERED: RESP: Racemic Epinephrine 2.25% 0.5 ML Neb ONE (16:38)
--- NOTE | 2018-10-06 16:57 | P.PN ---
Subjective Interval history: Was on CPAP most of the night. Being rested currently now. Will likely get extubated later today Physical Exam Vital signs: Vital Signs 10/05/18 17:00 10/05/18 17:15 10/05/18 17:30 Temperature Pulse Rate 99 H 102 H 100 H Respiratory Rate 22 23 20 Blood Pressure 101/69 105/72 103/72 Pulse Oximetry 96 96 96 10/05/18 17:45 10/05/18 18:00 10/05/18 18:15 Temperature Pulse Rate 101 H 102 H 100 H Respiratory Rate 23 21 19 Blood Pressure 106/74 109/69 102/70 Pulse Oximetry 96 96 95 10/05/18 19:00 10/05/18 20:00 10/05/18 20:39 Temperature 98.9 F Pulse Rate 96 H 94 H Respiratory Rate 20 17 22 Blood Pressure 96/69 L 101/71 Pulse Oximetry 95 94 L 94 L 10/05/18 21:00 10/05/18 22:00 10/05/18 23:00 Temperature Pulse Rate 90 83 84 Respiratory Rate 16 14 13 Blood Pressure 92/63 L 105/73 112/78 Pulse Oximetry 94 L 95 96 10/05/18 23:32 10/06/18 00:00 10/06/18 01:00 Temperature 97.6 F Pulse Rate 85 84 82 Respiratory Rate 12 12 13 Blood Pressure 113/80 125/86 Pulse Oximetry 97 98 98 10/06/18 02:00 10/06/18 02:30 10/06/18 03:00 Temperature Pulse Rate 83 83 81 Respiratory Rate 13 13 14 Blood Pressure 114/78 115/75 Pulse Oximetry 99 99 99 10/06/18 03:10 10/06/18 03:42 10/06/18 04:00 Temperature 98.7 F Pulse Rate 81 83 Respiratory Rate 13 13 13 Blood Pressure 111/77 Pulse Oximetry 99 99 10/06/18 05:00 10/06/18 06:00 10/06/18 06:30 Temperature Pulse Rate 85 86 Respiratory Rate 13 21 Blood Pressure 102/73 103/70 112/78 Pulse Oximetry 98 96 10/06/18 06:45 10/06/18 07:00 10/06/18 07:15 Temperature Pulse Rate 86 87 88 Respiratory Rate 16 16 18 Blood Pressure 109/71 101/64 101/65 Pulse Oximetry 98 99 99 10/06/18 07:30 10/06/18 07:45 10/06/18 08:00 Temperature 98.0 F Pulse Rate 87 86 87 Respiratory Rate 19 18 18 Blood Pressure 103/70 100/67 101/71 Pulse Oximetry 99 99 99 10/06/18 08:15 10/06/18 08:30 10/06/18 08:45 Temperature Pulse Rate 87 87 87 Respiratory Rate 19 17 20 Blood Pressure 104/72 100/66 103/71 Pulse Oximetry 99 99 99 10/06/18 09:00 10/06/18 09:01 10/06/18 09:15 Temperature Pulse Rate 87 91 H 90 Respiratory Rate 20 20 20 Blood Pressure 104/73 106/75 Pulse Oximetry 99 99 99 10/06/18 09:30 10/06/18 09:45 10/06/18 10:00 Temperature Pulse Rate 90 91 H 93 H Respiratory Rate 20 22 24 Blood Pressure 108/78 100/72 102/70 Pulse Oximetry 99 97 98 10/06/18 10:15 10/06/18 10:30 10/06/18 10:45 Temperature Pulse Rate 95 H 97 H 96 H Respiratory Rate 24 27 H 26 H Blood Pressure 104/71 108/71 105/70 Pulse Oximetry 97 96 96 10/06/18 11:00 10/06/18 11:15 10/06/18 11:30 Temperature Pulse Rate 98 H 98 H 96 H Respiratory Rate 25 H 26 H 28 H Blood Pressure 108/71 108/73 Pulse Oximetry 96 97 96 10/06/18 11:45 10/06/18 11:56 10/06/18 12:00 Temperature 98.2 F Pulse Rate 98 H 101 H Respiratory Rate 27 H 28 H 20 Blood Pressure 108/76 123/86 Pulse Oximetry 96 95 90 L 10/06/18 12:02 10/06/18 12:15 10/06/18 12:30 Temperature Pulse Rate 101 H 112 H 96 H Respiratory Rate 29 H 26 H 21 Blood Pressure 145/95 H 95/55 L Pulse Oximetry 92 L 93 L 10/06/18 12:45 10/06/18 13:00 10/06/18 13:15 Temperature Pulse Rate 98 H 92 H 93 H Respiratory Rate 16 16 16 Blood Pressure 96/52 L 92/58 L 97/61 L Pulse Oximetry 93 L 95 95 10/06/18 13:30 12/01/18 13:45 10/06/18 14:00 Temperature Pulse Rate 96 H 99 H 92 H Respiratory Rate 20 25 H 16 Blood Pressure 102/65 122/80 108/72 Pulse Oximetry 96 99 97 10/06/18 14:15 10/06/18 14:30 10/06/18 14:45 Temperature Pulse Rate 104 H 97 H 97 H Respiratory Rate 25 H 17 17 Blood Pressure 115/77 104/81 108/78 Pulse Oximetry 97 96 96 10/06/18 15:00 10/06/18 15:12 10/06/18 15:15 Temperature Pulse Rate 94 H 92 H 102 H Respiratory Rate 16 20 28 H Blood Pressure 109/77 114/77 Pulse Oximetry 97 96 94 L 10/06/18 15:30 10/06/18 15:45 10/06/18 16:00 Temperature 98.2 F Pulse Rate 97 H 96 H 99 H Respiratory Rate 24 26 H 25 H Blood Pressure 114/79 114/77 123/85 Pulse Oximetry 96 96 96 10/06/18 16:15 10/06/18 16:30 10/06/18 16:45 Temperature Pulse Rate 95 H 95 H 99 H Respiratory Rate 24 24 29 H Blood Pressure 114/80 116/81 128/88 Pulse Oximetry 96 96 95 Intake & Output 10/05/18 10/06/18 10/06/18 18:59 06:59 18:59 Intake Total 450 / 450 350 / 350 350 / 350 Output Total 835 / 835 780 / 780 Balance -385 / -385 -430 / -430 350 / 350 Weight 61.3 kg Intake: IV 350 / 350 350 / 350 350 / 350 Diprivan 1000 mg/100 ml Inj 1, 100 / 100 000 mg In 100 ml @ 5 MCG/KG/MIN 1.92 mls/hr IV.CONT TITRATE PRN Rx#:[id number] Flexbumin 25% Inj 100 ML @ 60 200 / 200 200 / 200 200 / 200 mls/hr IV.SIG Q6H HILDA Rx#: [id number] Zosyn 3.375 GM Premix 50 ML @ 50 / 50 150 / 150 50 / 50 100 mls/hr IV.SIG Q6H HILDA Rx#: [id number] KCl 40 mEq Premix Inj 40 meq In 100 / 100 100 ml @ 25 mls/hr IV.SIG UNSCH PRN Rx#:[id number] Tube Irrigant 100 / 100 Output: Urine Amount (Catheter) 325 / 325 325 / 325 Indwelling Urethral Catheter 325 / 325 325 / 325 Gastric Drainage Right Nare Nasogastric Tube Wound Drainage 500 / 500 455 / 455 # 1 Abdomen 500 / 500 455 / 455 Other: Date of Last Bowel Movement 10/03/18 10/03/18 10/03/18 - Routine Abdominal Exam Present: soft, wound (Camille dressing with some drainage but intact and dry), drain (Large amount of serous drainage) - Urinary Catheter Management Indwelling Urethral Catheter Cath placed during this visit: yes Reason for continuing: Hourly intake/output Insertion date: 10/01/18 Insertion time: 20:00 Results - Labs CBC & Chem 7: 10/06/18 04:35 10/06/18 04:35 Laboratory Results - last 24 hr 10/06/18 10/06/18 04:35 04:35 WBC 11.3 H RBC 2.99 L Hgb 9.8 L Hct 29.7 L MCV 99.5 MCH 32.8 MCHC 33.0 RDW 13.8 Plt Count 212 MPV 9.3 Prelim Diff (Auto) Slide review pending WBC Differential Manual diff final Seg Neuts % (Manual) 72 H Band Neuts % (Manual) 18 H Lymphocytes % (Manual) 3 L Monocytes % (Manual) 4 Eosinophils % (Manual) 3 Abs Neuts (Manual) 10.2 H Differential Comment . Platelet Estimate Normal Platelet Morphology Normal Target Cells 1+ H Stomatocytes 1+ H Sodium 140 Potassium 3.3 L Chloride 103 Carbon Dioxide 27.3 Anion Gap 10 BUN 8 Creatinine 0.85 Estimated GFR 67 L Random Glucose 67 L Calcium 9.2 Total Bilirubin 4.4 H AST 23 ALT 8 L Alkaline Phosphatase 150 H Total Protein 6.4 Albumin 4.3 Microbiology 10/01/18 21:50 Blood - Peripheral Aerobic Blood Culture - Final No growth in 5 days 10/01/18 21:50 Blood - Peripheral Anaerobic Blood Culture - Final QNS - See aerobic report. 10/01/18 21:44 Blood - Peripheral Aerobic Blood Culture - Final No growth in 5 days 10/01/18 21:44 Blood - Peripheral Anaerobic Blood Culture - Final No growth in 5 days 10/03/18 05:45 Sputum - Endotracheal Gram Stain - Final 10/03/18 05:45 Sputum - Endotracheal Sputum Culture - Final Rare growth normal respiratory mickey - Imaging Impressions Chest X-Ray 10/06/18 05:00 CONCLUSION: Moderate size bilateral pleural-parenchymal opacities, slightly increased from the prior examination. Features are characteristic of pleural effusions with associated airspace consolidation and likely atelectasis. Assessment and Plan - Assessment (1) Pneumoperitoneum Code(s): K66.8 - Other specified disorders of peritoneum Status: Acute Plan: Bilirubin continues to go up. Holding tube feeding while patient getting extubated. Will likely start clear liquids tomorrow if she remains extubated. We will clamp LISBETH drain tomorrow if her respiratory status is stable so that she stops losing protein and fluid. Will need aggressive management of her ascites with Lasix and Aldactone by critical care and medical team. - Plan Discussed Condition With: Patient's daughters Nurse - Attending Attestation I attest that I had a [id number] encounter with the patient on the same day, and personally performed and documented my assessment and findings in the medical record. The following services were provided during this hospital visit: Chart data review, vital sign assessments/reviewing monitor data Review of consultation notes if present Medication orders/review and/or management Ordering and/or reviewing lab tests Ordering and/or interpreting/reviewing x-rays and/or diagnostic studies Care of the patient and discussion of the patient with the care team Documentation time To help prompt me to consider important information that might be impacting today's encounter and assessment, Information from prior notes written by myself or my colleagues may have been "brought forward/copy and pasted" into today's note.
[2018-10-07] MEDS: Oral Hygiene Kit OROPHARYNG SCH ×4 (00:51→17:12)
[2018-10-07] MEDS: Albumin Human 25% Inj 100 ML IV.SIG SCH ×4 (00:55→17:23)
[2018-10-07 05:58] LABS: Baso # (Auto) 0.1 th/mm3 (0.0-0.2); Eos # (Auto) 0.3 th/mm3 (0.0-0.4); Eos % (Auto) 2.3 % (0.0-4.0); Hematocrit 28.1 % (35.0-46.0); Hemoglobin 9.4 gm/dL (11.6-15.3); Lymph # (Auto) 1.4 th/mm3 (1.0-4.8); Lymph % (Auto) 11.1 % (9.0-44.0); Mean Corpuscular HGB Conc 33.4 % (32.0-36.0); Mean Corpuscular Hemoglobin 33.5 pg (27.0-34.0); Mean Corpuscular Volume 100.4 fL (80.0-100.0); Mean Platelet Volume 9.2 fL (7.0-11.0); Mono # (Auto) 1.4 th/mm3 (0.0-0.9); Mono % (Auto) 11.1 % (0.0-8.0); Neut # (Auto) 9.5 th/mm3 (1.8-7.7); Neut % (Auto) 74.5 % (16.0-70.0); Platelet Count 207 th/mm3 (150-450); Red Cell Distribution Width 14.1 % (11.6-17.2); White Blood Count 12.7 th/mm3 (4.0-11.0)
[2018-10-07 06:26] LABS: Albumin 4.5 g/dL (3.4-5.0); Anion Gap 10 meq/L (5-15); Aspartate Aminotransferase 30 U/L (15-37); Blood Urea Nitrogen 11 mg/dL (7-18); Calcium 9.5 mg/dL (8.5-10.1); Carbon Dioxide 25.2 meq/L (21.0-32.0); Chloride 107 meq/L (98-107); Glomerular Filtration Rate 66 mL/min (>89); Glucose,Random 75 mg/dL (74-106); Potassium 3.3 meq/L (3.5-5.1); Sodium 142 meq/L (136-145)
[2018-10-07 06:27] LABS: Alanine Aminotransferase 10 U/L (10-53)
[2018-10-07 06:29] LABS: Alkaline Phosphatase 177 U/L (45-117); Total Protein 6.7 g/dL (6.4-8.2)
[2018-10-07] MEDS: Piperacil/Tazo 3.375 GM Premix 50 ML IV.SIG SCH ×4 (06:33→22:48)
[2018-10-07 07:27] LABS: Eosinophils 4 % (0-4); Lymphocytes 16 % (9-44); Metamyelocytes 1 % (0-1); Monocytes 6 % (0-8); Myelocytes 2 % (0-0); Platelet Estimate Normal (Normal); Target Cells 1+
[2018-10-07] MEDS: Heparin - SQ 10,000 UNITS/ML Vial SQ SCH ×2 (09:00→21:26)
[2018-10-07] MEDS: Chlorhexidine 0.12% Oral Kit 15 ML UDC OROPHARYNG SCH ×2 (10:20→21:27)
[2018-10-07] MEDS: Senna/Docusate Sodium 8.6/50 MG Tablet PO SCH ×2 (10:20→21:27)
[2018-10-07] MEDS: Pantoprazole Inj 40 MG Vial IV.PUSH SCH (10:29)
--- NOTE | 2018-10-07 10:56 | P.PNCC ---
Subjective Subjective Remarks/Hospital Course: late entry for encounter on 10/03/18 68-year-old female with past medical history of alcohol dependence, cirrhosis, tobacco abuse, esophageal varices underwent diagnostic colonoscopy today by Dr. Tipton with biopsy of ascending, descending and sigmoid colon. She presented to [facility] with abdominal pain and distension. She was hypotensive. She was having bloody bowel movements. She was given 2 units PRBC and 1 L NS bolus. R femoral cordis was placed by ED physician. KUB demonstrated pneumoperitoneum. She was transferred emergently [facility] Main OR where she underwent ex lap by Dr. German. Dr. Kumar states there was microperforation of cecum that was oversewn. 4700 of ascites was evacuated. She received 1300 crystalloid in OR. EBL was 10 mL. LISBETH output 30. She is oliguric with only 10 Ml of urine output in PACU. She is a daily drinker of 24 ounces of [place]. 10/02: Warm and well-perfused. No withdrawal symptomatology but anticipated soon. Urine minimal but she is on dual diuretics for hepatic dysfunction/ cirrhosis and is unlikely to make much urine without stimulation. We started her diuretics through the NG tube after discussing with surgical service nurse practitioner. Nasogastric tube to low intermittent suction otherwise. Gram- negative rods in pleural fluid as expected, continue present antibiotics. 10/03: Required intubation for worsening resp distress on 10/03 early AM. 10/04: Sedated, arousable, orally intubated on mechanical ventilation. 10/05: Sedated, arousable, orally intubated on mechanical ventilation. Failed CPAP trial. LISBETH drain remains in place. 10/06: Remains afebrile. Tolerating spontaneous breathing trials today with low but acceptable tidal volumes. Bilirubin and alkaline phosphatase is rising. 10/07: Extubated without event yesterday and breathing comfortably early in the day. Required placement of BiPAP noninvasive ventilation later in the day due mostly to lethargy and fatigue. Diuresis started yesterday continued today. Supplement with intravenous albumin and follow pleural effusions closely. Renal function remains good. - Diagnosis (1) Perforation of cecum (2) Pneumoperitoneum (3) Alcoholic cirrhosis of liver with ascites (4) EtOH dependence (5) Hypokalemia (6) JOSE (acute kidney injury) (7) Reactive thrombocytosis (8) Leukocytosis (9) Tobacco abuse (10) Protein-calorie malnutrition, moderate Objective Vital Signs / I&O: Vital Signs 10/06/18 11:00 10/06/18 11:15 10/06/18 11:30 Temperature Pulse Rate 98 H 98 H 96 H Respiratory Rate 25 H 26 H 28 H Blood Pressure 108/71 108/73 Pulse Oximetry 96 97 96 10/06/18 11:45 10/06/18 11:56 10/06/18 12:00 Temperature 98.2 F Pulse Rate 98 H 101 H Respiratory Rate 27 H 28 H 20 Blood Pressure 108/76 123/86 Pulse Oximetry 96 95 90 L 10/06/18 12:02 10/06/18 12:15 10/06/18 12:30 Temperature Pulse Rate 101 H 112 H 96 H Respiratory Rate 29 H 26 H 21 Blood Pressure 145/95 H 95/55 L Pulse Oximetry 92 L 93 L 10/06/18 12:45 10/06/18 13:00 10/06/18 13:15 Temperature Pulse Rate 98 H 92 H 93 H Respiratory Rate 16 16 16 Blood Pressure 96/52 L 92/58 L 97/61 L Pulse Oximetry 93 L 95 95 10/06/18 13:30 10/06/18 13:45 10/06/18 14:00 Temperature Pulse Rate 96 H 99 H 92 H Respiratory Rate 20 25 H 16 Blood Pressure 102/65 122/80 108/72 Pulse Oximetry 96 99 97 10/06/18 14:15 10/06/18 14:30 10/06/18 14:45 Temperature Pulse Rate 104 H 97 H 97 H Respiratory Rate 25 H 17 17 Blood Pressure 115/77 104/81 108/78 Pulse Oximetry 97 96 96 10/06/18 15:00 10/06/18 15:12 10/06/18 15:15 Temperature Pulse Rate 94 H 92 H 102 H Respiratory Rate 16 20 28 H Blood Pressure 109/77 114/77 Pulse Oximetry 97 96 94 L 10/06/18 15:30 10/06/18 15:45 10/06/18 16:00 Temperature 98.2 F Pulse Rate 97 H 96 H 99 H Respiratory Rate 24 26 H 25 H Blood Pressure 114/79 114/77 123/85 Pulse Oximetry 96 96 96 10/06/18 16:15 10/06/18 16:30 10/06/18 16:45 Temperature Pulse Rate 95 H 95 H 99 H Respiratory Rate 24 24 29 H Blood Pressure 114/80 116/81 128/88 Pulse Oximetry 96 96 95 10/06/18 17:00 10/06/18 17:03 10/06/18 17:04 Temperature Pulse Rate 100 H 98 H Respiratory Rate 27 H 21 Blood Pressure 120/80 Pulse Oximetry 92 L 94 L 10/06/18 17:15 10/06/18 17:30 10/06/18 17:45 Temperature Pulse Rate 99 H 100 H 100 H Respiratory Rate 25 H 25 H 25 H Blood Pressure 122/71 112/75 117/80 Pulse Oximetry 91 L 93 L 93 L 10/06/18 18:00 10/06/18 18:15 10/06/18 18:30 Temperature Pulse Rate 100 H 98 H 97 H Respiratory Rate 24 24 24 Blood Pressure 104/80 113/71 117/77 Pulse Oximetry 95 96 97 10/06/18 18:45 10/06/18 19:00 10/06/18 19:15 Temperature Pulse Rate 99 H 103 H 111 H Respiratory Rate 28 H 29 H 33 H Blood Pressure 121/79 118/79 128/81 Pulse Oximetry 95 94 L 92 L 10/06/18 19:23 10/06/18 19:30 10/06/18 19:45 Temperature Pulse Rate 100 H 104 H 103 H Respiratory Rate 28 H 30 H 36 H Blood Pressure 128/86 128/80 Pulse Oximetry 93 L 95 94 L 10/06/18 20:00 10/06/18 20:15 10/06/18 20:30 Temperature 96.3 F L Pulse Rate 103 H 100 H 101 H Respiratory Rate 23 34 H 30 H Blood Pressure 122/80 122/82 125/77 Pulse Oximetry 93 L 95 94 L 10/06/18 20:40 10/06/18 20:45 10/06/18 21:00 Temperature Pulse Rate 97 H 107 H Respiratory Rate 25 H 23 Blood Pressure 133/87 125/91 H Pulse Oximetry 98 98 97 10/06/18 21:30 10/06/18 21:45 10/06/18 22:00 Temperature Pulse Rate 97 H 97 H 99 H Respiratory Rate 23 24 26 H Blood Pressure 124/78 117/80 126/85 Pulse Oximetry 100 99 100 10/06/18 22:15 10/06/18 22:30 12/01/18 22:45 Temperature Pulse Rate 95 H 97 H 96 H Respiratory Rate 24 23 24 Blood Pressure 119/84 125/86 126/81 Pulse Oximetry 98 98 97 10/06/18 23:00 10/06/18 23:15 10/06/18 23:30 Temperature Pulse Rate 99 H 97 H 98 H Respiratory Rate 23 24 24 Blood Pressure 131/78 115/78 119/82 Pulse Oximetry 97 98 97 10/06/18 23:45 10/07/18 00:00 10/07/18 00:03 Temperature 97.1 F L Pulse Rate 99 H 95 H 94 H Respiratory Rate 27 H 22 24 Blood Pressure 117/84 122/83 Pulse Oximetry 98 96 10/07/18 00:09 10/07/18 00:15 10/07/18 00:30 Temperature Pulse Rate 92 H 92 H Respiratory Rate 24 22 Blood Pressure 120/82 113/77 Pulse Oximetry 96 97 97 10/07/18 00:45 10/07/18 01:00 10/07/18 01:15 Temperature Pulse Rate 94 H 95 H 95 H Respiratory Rate 20 19 25 H Blood Pressure 120/80 115/73 113/77 Pulse Oximetry 97 98 97 10/07/18 01:30 10/07/18 01:45 10/07/18 02:00 Temperature Pulse Rate 94 H 95 H 92 H Respiratory Rate 24 28 H 25 H Blood Pressure 118/81 116/80 120/84 Pulse Oximetry 98 98 97 10/07/18 02:15 10/07/18 02:30 10/07/18 02:45 Temperature Pulse Rate 90 89 90 Respiratory Rate 20 20 20 Blood Pressure 116/80 111/77 109/76 Pulse Oximetry 97 98 98 10/07/18 03:00 10/07/18 03:15 10/07/18 03:30 Temperature Pulse Rate 89 88 93 H Respiratory Rate 19 19 25 H Blood Pressure 107/73 111/75 133/86 Pulse Oximetry 98 98 98 10/07/18 03:45 10/07/18 04:00 10/07/18 04:15 Temperature 97 F L Pulse Rate 93 H 94 H 93 H Respiratory Rate 24 23 22 Blood Pressure 130/84 121/83 126/84 Pulse Oximetry 98 98 97 10/07/18 04:28 10/07/18 04:30 10/07/18 04:51 Temperature Pulse Rate 88 90 Respiratory Rate 20 23 Blood Pressure 113/75 121/77 Pulse Oximetry 99 98 98 10/07/18 05:00 10/07/18 05:15 10/07/18 05:30 Temperature Pulse Rate 90 92 H 92 H Respiratory Rate 27 H 30 H 26 H Blood Pressure 117/82 119/84 126/75 Pulse Oximetry 98 99 97 10/07/18 05:45 10/07/18 06:00 10/07/18 06:15 Temperature Pulse Rate 91 H 91 H 92 H Respiratory Rate 28 H 24 22 Blood Pressure 126/79 134/76 127/82 Pulse Oximetry 97 98 98 10/07/18 06:30 10/07/18 06:45 10/07/18 07:00 Temperature Pulse Rate 90 90 89 Respiratory Rate 21 21 22 Blood Pressure 120/82 120/83 125/82 Pulse Oximetry 97 97 97 10/07/18 07:15 10/07/18 07:30 10/07/18 08:00 Temperature Pulse Rate 94 H 91 H Respiratory Rate 29 H 25 H 26 H Blood Pressure 130/86 128/88 128/88 Pulse Oximetry 95 96 96 10/07/18 08:43 Temperature Pulse Rate Respiratory Rate Blood Pressure Pulse Oximetry 96 Intake & Output 10/06/18 10/07/18 10/07/18 18:59 06:59 18:59 Intake Total 400 / 400 500 / 500 150 / 150 Output Total 835 / 835 735 / 735 Balance -435 / -435 -235 / -235 150 / 150 Weight 61.6 kg Intake: IV 400 / 400 250 / 250 150 / 150 Flexbumin 25% Inj 100 ML @ 60 200 / 200 200 / 200 100 / 100 mls/hr IV.SIG Q6H HILDA Rx#: [id number] Zosyn 3.375 GM Premix 50 ML @ 100 / 100 50 / 50 50 / 50 100 mls/hr IV.SIG Q6H HILDA Rx#: [id number] KCl 40 mEq Premix Inj 40 meq In 100 / 100 100 ml @ 25 mls/hr IV.SIG UNSCH PRN Rx#:[id number] Oral 0 / 0 Tube Feeding 0 / 0 Other 250 / 250 Output: Urine Amount (Catheter) 275 / 275 300 / 300 Indwelling Urethral Catheter 275 / 275 300 / 300 Gastric Drainage 10 / 10 Right Nare Nasogastric Tube Wound Drainage 560 / 560 425 / 425 # 1 Abdomen 560 / 560 425 / 425 Other: Date of Last Bowel Movement 10/06/18 10/07/18 10/07/18 # Bowel Movements 1 1 # Incontinent Bowel Movements 1 Result Diagrams: 10/07/18 05:30 10/07/18 05:30 Objective Remarks: Narrative: GENERAL: Lethargic, on BiPAP ventilation SKIN: Warm and dry. HEAD: Atraumatic. Normocephalic. EYES: Pupils equal and round. No injection or drainage. ENT: No nasal bleeding or discharge. orally intubated. Trachea midline. CARDIOVASCULAR: Regular rate and rhythm. No murmurs rubs or gallops. No JVD. RESPIRATORY: Murphy clear aside from bases which reveal distant sounds. Nonlabored but tachypneic. GASTROINTESTINAL: Abdomen soft, active bowel sounds. Midline abdominal dressing is clean/dry/intact. LISBETH drain is placed right lower quadrant with serous output. MUSCULOSKELETAL: Extremities without clubbing, cyanosis. Warm, well perfused. NEUROLOGICAL: Extubated, lethargic, moves 4 limbs to command. Tracks with eyes. Assessment and Plan - Problem List (1) Perforation of cecum Code(s): K35.32 - Acute appendicitis with perforation and localized peritonitis , without abscess Status: Acute (2) Pneumoperitoneum Code(s): K66.8 - Other specified disorders of peritoneum Status: Acute (3) Alcoholic cirrhosis of liver with ascites Code(s): K70.31 - Alcoholic cirrhosis of liver with ascites Status: Acute (4) EtOH dependence Code(s): F10.20 - Alcohol dependence, uncomplicated Status: Acute (5) Hypokalemia Code(s): E87.6 - Hypokalemia Status: Acute (6) JOSE (acute kidney injury) Code(s): N17.9 - Acute kidney failure, unspecified Status: Acute (7) Reactive thrombocytosis Code(s): R79.89 - Other specified abnormal findings of blood chemistry Status : Acute (8) Leukocytosis Code(s): D72.829 - Elevated white blood cell count, unspecified Status: Acute (9) Tobacco abuse Code(s): Z72.0 - Tobacco use Status: Chronic (10) Protein-calorie malnutrition, moderate Code(s): E44.0 - Moderate protein-calorie malnutrition Status: Chronic - Assessment and Plan Plan: NEURO: Alcohol dependence Daily sedation vacation Thiamine/multivitamin/folic acid supplementation IV times 3 days then transition to p.o. thiamine. CIWA protocol. Morphine as needed for pain, demise if overly sedated. Alcohol cessation counseling discussed preoperatively. RESP: Acute resp failure on mech ventilation Probable COPD Tobacco abuse Bilateral pleural effusions, small to moderate continue mech ventilation, daily CPAP trials. Vent bundle Tobacco cessation counseling when extubated Bronchodilators as needed Aggressive diuresis initiated. CV: Hypovolemic/distributive shock Likely third spacing following removal of 4.7 L of ascitic fluid in addition to SIRS response to microperforation. Received albumin and s/p albumin 25 g IV every 6 hours for 24 hours following removal of his ascitic fluid. Levophed to maintain mean arterial pressure greater than 65. Resolved. GI: Microperforation cecum s/p colonoscopy with multiple biopsies Now postoperative from exploratory laparotomy, microperforation of cecum oversewn Dr. German Cirrhosis Ascites Esophageal varices Hyperbilirubinemia Chronic moderate protein energy malnutrition Tube feedings held for high residuals. 3 attempts starting tube feeds on 10/06 if okay with surgery Monitor LISBETH output Continue broad-spectrum coverage for gram negatives and anaerobes. FEN/RENAL: Hypokalemia Hypomagnesemia Acute kidney injury Warner in place. Monitor intake and output. Monitor electrolytes. Restarted spironolactone and Lasix daily 10/06 Additional bolus dose Lasix 10/07 ID: Leukocytosis SIRS Follow-up blood cultures, appropriate coverage with Zosyn 3.375 IV every 6 hours HEME: Reactive thrombocytosis Monitor CBC. ENDO: Euglycemic PROPH: SCDs for DVT prophylaxis. SQ Heparin when OK with surgery Protonix 40 mg IV daily for stress ulcer prophylaxis ACCESS: Right IJ central venous line placed in OR 10/01. Overall impression: Stable postoperative course with the exception of respiratory insufficiency exacerbated by her propensity to retain fluid. Will increase aggressiveness of diuretics and follow renal function closely.
[2018-10-07] MEDS: Propranolol 10 MG Tablet PO SCH ×2 (13:03→21:26)
[2018-10-07] MEDS: Potassium Chlor 40 mEq Premix 40 MEQ/100 ML PIGGYBACK IV.SIG PRN (13:28)
--- NOTE | 2018-10-07 14:47 | P.PNGS ---
Subjective Patient reports: still having pain (on bipap, bili continue to trend up) Physical Exam Vital signs: Vital Signs 10/06/18 14:45 10/06/18 15:00 10/06/18 15:12 Temperature Pulse Rate 97 H 94 H 92 H Respiratory Rate 17 16 20 Blood Pressure 108/78 109/77 Pulse Oximetry 96 97 96 10/06/18 15:15 10/06/18 15:30 10/06/18 15:45 Temperature Pulse Rate 102 H 97 H 96 H Respiratory Rate 28 H 24 26 H Blood Pressure 114/77 114/79 114/77 Pulse Oximetry 94 L 96 96 10/06/18 16:00 10/06/18 16:15 10/06/18 16:30 Temperature 98.2 F Pulse Rate 99 H 95 H 95 H Respiratory Rate 25 H 24 24 Blood Pressure 123/85 114/80 116/81 Pulse Oximetry 96 96 96 10/06/18 16:45 10/06/18 17:00 10/06/18 17:03 Temperature Pulse Rate 99 H 100 H Respiratory Rate 29 H 27 H Blood Pressure 128/88 120/80 Pulse Oximetry 95 92 L 94 L 10/06/18 17:04 10/06/18 17:15 10/06/18 17:30 Temperature Pulse Rate 98 H 99 H 100 H Respiratory Rate 21 25 H 25 H Blood Pressure 122/71 112/75 Pulse Oximetry 91 L 93 L 10/06/18 17:45 10/06/18 18:00 10/06/18 18:15 Temperature Pulse Rate 100 H 100 H 98 H Respiratory Rate 25 H 24 24 Blood Pressure 117/80 104/80 113/71 Pulse Oximetry 93 L 95 96 10/06/18 18:30 10/06/18 18:45 10/06/18 19:00 Temperature Pulse Rate 97 H 99 H 103 H Respiratory Rate 24 28 H 29 H Blood Pressure 117/77 121/79 118/79 Pulse Oximetry 97 95 94 L 10/06/18 19:15 10/06/18 19:23 10/06/18 19:30 Temperature Pulse Rate 111 H 100 H 104 H Respiratory Rate 33 H 28 H 30 H Blood Pressure 128/81 128/86 Pulse Oximetry 92 L 93 L 95 10/06/18 19:45 10/06/18 20:00 10/06/18 20:15 Temperature 96.3 F L Pulse Rate 103 H 103 H 100 H Respiratory Rate 36 H 23 34 H Blood Pressure 128/80 122/80 122/82 Pulse Oximetry 94 L 93 L 95 10/06/18 20:30 10/06/18 20:40 10/06/18 20:45 Temperature Pulse Rate 101 H 97 H Respiratory Rate 30 H 25 H Blood Pressure 125/77 133/87 Pulse Oximetry 94 L 98 98 10/06/18 21:00 10/06/18 21:30 10/06/18 21:45 Temperature Pulse Rate 107 H 97 H 97 H Respiratory Rate 23 23 24 Blood Pressure 125/91 H 124/78 117/80 Pulse Oximetry 97 100 99 10/06/18 22:00 10/06/18 22:15 10/06/18 22:30 Temperature Pulse Rate 99 H 95 H 97 H Respiratory Rate 26 H 24 23 Blood Pressure 126/85 119/84 125/86 Pulse Oximetry 100 98 98 10/06/18 22:45 10/06/18 23:00 10/06/18 23:15 Temperature Pulse Rate 96 H 99 H 97 H Respiratory Rate 24 23 24 Blood Pressure 126/81 131/78 115/78 Pulse Oximetry 97 97 98 10/06/18 23:30 10/06/18 23:45 10/07/18 00:00 Temperature 97.1 F L Pulse Rate 98 H 99 H 95 H Respiratory Rate 24 27 H 22 Blood Pressure 119/82 117/84 122/83 Pulse Oximetry 97 98 96 10/07/18 00:03 10/07/18 00:09 10/07/18 00:15 Temperature Pulse Rate 94 H 92 H Respiratory Rate 24 24 Blood Pressure 120/82 Pulse Oximetry 96 97 10/07/18 00:30 10/07/18 00:45 10/07/18 01:00 Temperature Pulse Rate 92 H 94 H 95 H Respiratory Rate 22 20 19 Blood Pressure 113/77 120/80 115/73 Pulse Oximetry 97 97 98 10/07/18 01:15 10/07/18 01:30 10/07/18 01:45 Temperature Pulse Rate 95 H 94 H 95 H Respiratory Rate 25 H 24 28 H Blood Pressure 113/77 118/81 116/80 Pulse Oximetry 97 98 98 10/07/18 02:00 10/07/18 02:15 10/07/18 02:30 Temperature Pulse Rate 92 H 90 89 Respiratory Rate 25 H 20 20 Blood Pressure 120/84 116/80 111/77 Pulse Oximetry 97 97 98 10/07/18 02:45 10/07/18 03:00 10/07/18 03:15 Temperature Pulse Rate 90 89 88 Respiratory Rate 20 19 19 Blood Pressure 109/76 107/73 111/75 Pulse Oximetry 98 98 98 10/07/18 03:30 10/07/18 03:45 10/07/18 04:00 Temperature 97 F L Pulse Rate 93 H 93 H 94 H Respiratory Rate 25 H 24 23 Blood Pressure 133/86 130/84 121/83 Pulse Oximetry 98 98 98 10/07/18 04:15 10/07/18 04:28 10/07/18 04:30 Temperature Pulse Rate 93 H 88 Respiratory Rate 22 20 Blood Pressure 126/84 113/75 Pulse Oximetry 97 99 98 10/07/18 04:51 10/07/18 05:00 10/07/18 05:15 Temperature Pulse Rate 90 90 92 H Respiratory Rate 23 27 H 30 H Blood Pressure 121/77 117/82 119/84 Pulse Oximetry 98 98 99 10/07/18 05:30 10/07/18 05:45 10/07/18 06:00 Temperature Pulse Rate 92 H 91 H 91 H Respiratory Rate 26 H 28 H 24 Blood Pressure 126/75 126/79 134/76 Pulse Oximetry 97 97 98 10/07/18 06:15 10/07/18 06:30 10/07/18 06:45 Temperature Pulse Rate 92 H 90 90 Respiratory Rate 22 21 21 Blood Pressure 127/82 120/82 120/83 Pulse Oximetry 98 97 97 10/07/18 07:00 10/07/18 07:15 10/07/18 07:30 Temperature Pulse Rate 89 94 H 91 H Respiratory Rate 22 29 H 25 H Blood Pressure 125/82 130/86 128/88 Pulse Oximetry 97 95 96 10/07/18 07:45 10/07/18 08:00 10/07/18 08:15 Temperature Pulse Rate 94 H 91 H 93 H Respiratory Rate 30 H 26 H 30 H Blood Pressure 132/86 135/83 123/89 Pulse Oximetry 94 L 94 L 96 10/07/18 08:30 10/07/18 08:43 10/07/18 08:45 Temperature Pulse Rate 93 H 92 H Respiratory Rate 31 H 32 H Blood Pressure 122/83 129/89 Pulse Oximetry 97 96 96 10/07/18 09:00 10/07/18 09:15 10/07/18 09:30 Temperature Pulse Rate 93 H 94 H 94 H Respiratory Rate 48 H 58 H 43 H Blood Pressure 122/88 126/87 129/89 Pulse Oximetry 96 96 97 10/07/18 09:45 10/07/18 10:00 10/07/18 10:15 Temperature Pulse Rate 97 H 95 H 95 H Respiratory Rate 63 H 40 H 61 H Blood Pressure 130/93 H 132/95 H 137/88 Pulse Oximetry 96 96 96 10/07/18 10:30 10/07/18 10:45 10/07/18 11:00 Temperature Pulse Rate 96 H 96 H 102 H Respiratory Rate 63 H 58 H 31 H Blood Pressure 129/89 132/91 H 130/82 Pulse Oximetry 97 97 92 L 10/07/18 11:15 10/07/18 11:35 10/07/18 11:45 Temperature Pulse Rate 103 H 105 H 105 H Respiratory Rate 31 H 30 H 39 H Blood Pressure 138/85 127/82 130/89 Pulse Oximetry 91 L 90 L 91 L 10/07/18 11:57 10/07/18 12:00 10/07/18 12:15 Temperature Pulse Rate 101 H 101 H Respiratory Rate 35 H 33 H Blood Pressure 150/85 H 140/81 Pulse Oximetry 94 L 95 96 10/07/18 12:30 10/07/18 12:45 10/07/18 13:00 Temperature Pulse Rate 100 H 101 H 100 H Respiratory Rate 32 H 32 H 43 H Blood Pressure 121/80 125/83 126/91 H Pulse Oximetry 96 94 L 95 Intake & Output 10/06/18 10/07/18 10/07/18 18:59 06:59 18:59 Intake Total 400 / 400 500 / 500 200 / 200 Output Total 835 / 835 735 / 735 Balance -435 / -435 -235 / -235 200 / 200 Weight 61.6 kg Intake: IV 400 / 400 250 / 250 200 / 200 Flexbumin 25% Inj 100 ML @ 60 200 / 200 200 / 200 100 / 100 mls/hr IV.SIG Q6H [facility] Rx#: [id number] Zosyn 3.375 GM Premix 50 ML @ 100 / 100 50 / 50 100 / 100 100 mls/hr IV.SIG Q6H [facility] Rx#: [id number] KCl 40 mEq Premix Inj 40 meq In 100 / 100 100 ml @ 25 mls/hr IV.SIG UNSCH PRN Rx#:[id number] Oral 0 / 0 Tube Feeding 0 / 0 Other 250 / 250 Output: Urine Amount (Catheter) 275 / 275 300 / 300 Indwelling Urethral Catheter 275 / 275 300 / 300 Gastric Drainage Right Nare Nasogastric Tube Wound Drainage 560 / 560 425 / 425 # 1 Abdomen 560 / 560 425 / 425 Other: Date of Last Bowel Movement 10/06/18 10/07/18 10/07/18 # Bowel Movements 1 1 # Incontinent Bowel Movements 1 - Routine Respiratory Exam Present: diminished air movement - Routine Abdominal Exam Present: soft, tenderness, distended - Urinary Catheter Management Indwelling Urethral Catheter Cath placed during this visit: yes Reason for continuing: Hourly intake/output Insertion date: 10/01/18 Insertion time: 20:00 Results - Labs 10/07/18 05:30 10/07/18 05:30 Laboratory Results - last 24 hr 10/06/18 10/06/18 10/07/18 17:22 19:54 05:30 WBC 12.7 H RBC 2.80 L Hgb 9.4 L Hct 28.1 L MCV 100.4 H MCH 33.5 MCHC 33.4 RDW 14.1 Plt Count 207 MPV 9.2 Prelim Diff (Auto) Slide review pending Neut % (Auto) 74.5 H Lymph % (Auto) 11.1 [place] % (Auto) 11.1 H Eos % (Auto) 2.3 Baso % (Auto) 1.0 Neut # (Auto) 9.5 H Lymph # (Auto) 1.4 [place] # (Auto) 1.4 H Eos # (Auto) 0.3 Baso # (Auto) 0.1 WBC Differential Manual diff final Seg Neuts % (Manual) 66 Band Neuts % (Manual) 5 Lymphocytes % (Manual) 16 Monocytes % (Manual) 6 Eosinophils % (Manual) 4 Metamyelocytes % (Man) 1 Myelocytes % (Man) 2 H Abs Neuts (Manual) 9.4 H Differential Comment . Platelet Estimate Normal Platelet Morphology Enlarged H Target Cells 1+ H Sodium Potassium 3.6 Chloride Carbon Dioxide Anion Gap BUN Creatinine Estimated GFR POC Glucose 70 Random Glucose Calcium Total Bilirubin AST ALT Alkaline Phosphatase Total Protein Albumin 10/07/18 05:30 WBC RBC Hgb Hct MCV MCH MCHC RDW Plt Count MPV Prelim Diff (Auto) Neut % (Auto) Lymph % (Auto) [place] % (Auto) Eos % (Auto) Baso % (Auto) Neut # (Auto) Lymph # (Auto) [place] # (Auto) Eos # (Auto) Baso # (Auto) WBC Differential Seg Neuts % (Manual) Band Neuts % (Manual) Lymphocytes % (Manual) Monocytes % (Manual) Eosinophils % (Manual) Metamyelocytes % (Man) Myelocytes % (Man) Abs Neuts (Manual) Differential Comment Platelet Estimate Platelet Morphology Target Cells Sodium 142 Potassium 3.3 L Chloride 107 Carbon Dioxide 25.2 Anion Gap 10 BUN 11 Creatinine 0.86 Estimated GFR 66 L POC Glucose Random Glucose 75 Calcium 9.5 Total Bilirubin 5.5 H AST 30 ALT 10 Alkaline Phosphatase 177 H Total Protein 6.7 Albumin 4.5 - Imaging Imaging: ITS Impressions Abdomen X-Ray 10/01/18 17:09 CONCLUSION: Extensive free intraperitoneal air discussed with referring doctor on today's date Chest X-Ray 10/06/18 05:00 CONCLUSION: Moderate size bilateral pleural-parenchymal opacities, slightly increased from the prior examination. Features are characteristic of pleural effusions with associated airspace consolidation and likely atelectasis. Assessment and Plan - Assessment (1) Pneumoperitoneum Code(s): K66.8 - Other specified disorders of peritoneum Status: Acute Plan: 68 year old female s/p Exploratory laparotomy; Oversew cecal perforation plan isc following for aggressive pulm tx- on bipap may need reintubation bili trending up, check am[place] level jason sxn- keep on sxn bulb to reduce pressure on lungs, replace fluids as needed - ng sxn hold tf for now reassess tomorrow
[2018-10-07] MEDS: Morphine Sulfate Inj 2 MG/ML Vial IV.PUSH PRN (22:04)
[2018-10-08] MEDS: Albumin Human 25% Inj 100 ML IV.SIG SCH ×4 (00:30→17:04)
[2018-10-08] MEDS: Oral Hygiene Kit OROPHARYNG SCH ×4 (00:30→16:15)
[2018-10-08] MEDS: Potassium Chlor 40 mEq Premix 40 MEQ/100 ML PIGGYBACK IV.SIG PRN ×2 (02:29→06:00)
[2018-10-08] MEDS: Piperacil/Tazo 3.375 GM Premix 50 ML IV.SIG SCH (04:40)
[2018-10-08 08:53] LABS: ABG Base Excess 1.8 mmol/L (-2-2); ABG PCO2 39 mmHg (38-42); ABG PO2 70 mmHg (61-120)
--- NOTE | 2018-10-08 09:05 | P.PNCC ---
Subjective Subjective Remarks/Hospital Course: late entry for encounter on 10/03/18 68-year-old female with past medical history of alcohol dependence, cirrhosis, tobacco abuse, esophageal varices underwent diagnostic colonoscopy today by Dr. Tipton with biopsy of ascending, descending and sigmoid colon. She presented to [facility] ED with abdominal pain and distension. She was hypotensive. She was having bloody bowel movements. She was given 2 units PRBC and 1 L NS bolus. R femoral cordis was placed by ED physician. KUB demonstrated pneumoperitoneum. She was [place] emerg[place] [facility] [place] where she underwent ex lap by Dr. German. Dr. Kumar states there was microperforation of cecum that was oversewn. 4700 of ascites was evacuated. She received 1300 crystalloid in OR. EBL was 10 mL. LISBETH output 30. She is oliguric with only 10 Ml of urine output in PACU. She is a daily drinker of 24 ounces of [place]. 10/02: Warm and well-perfused. No withdrawal symptomatology but anticipated soon. Urine minimal but she is on dual diuretics for hepatic dysfunction/ cirrhosis and is unlikely to make much urine without stimulation. We started her diuretics through the NG tube after discussing with surgical service nurse practitioner. Nasogastric tube to low intermittent suction otherwise. Gram- negative rods in pleural fluid as expected, continue present antibiotics. 10/03: Required intubation for worsening resp distress on 10/03 early AM. 10/04: Sedated, arousable, orally intubated on mechanical ventilation. 10/05: Sedated, arousable, orally intubated on mechanical ventilation. Failed CPAP trial. LISBETH drain remains in place. 10/06: Remains afebrile. Tolerating spontaneous breathing trials today with low but acceptable tidal volumes. Bilirubin and alkaline phosphatase is rising. 10/07: Extubated without event yesterday and breathing comfortably early in the day. Required placement of BiPAP noninvasive ventilation later in the day due mostly to lethargy and fatigue. Diuresis started yesterday continued today. Supplement with intravenous albumin and follow pleural effusions closely. Renal function remains good. 10/08: Remains on BiPAP now more labored breathing. Chest x-ray and ABG pending. Daughter is at the bedside updated. Likely will need intubation if patient not responding to diuresis. - Diagnosis (1) Perforation of cecum (2) Pneumoperitoneum (3) Alcoholic cirrhosis of liver with ascites (4) EtOH dependence (5) Hypokalemia (6) JOSE (acute kidney injury) (7) Reactive thrombocytosis (8) Leukocytosis (9) Tobacco abuse (10) Protein-calorie malnutrition, moderate Objective Vital Signs / I&O: Vital Signs 10/07/18 09:00 10/07/18 09:15 10/07/18 09:30 Temperature Pulse Rate 93 H 94 H 94 H Respiratory Rate 48 H 58 H 43 H Blood Pressure 122/88 126/87 129/89 Pulse Oximetry 96 96 97 10/07/18 09:45 10/07/18 10:00 10/07/18 10:15 Temperature Pulse Rate 97 H 95 H 95 H Respiratory Rate 63 H 40 H 61 H Blood Pressure 130/93 H 132/95 H 137/88 Pulse Oximetry 96 96 96 10/07/18 10:30 10/07/18 10:45 10/07/18 11:00 Temperature Pulse Rate 96 H 96 H 102 H Respiratory Rate 63 H 58 H 31 H Blood Pressure 129/89 132/91 H 130/82 Pulse Oximetry 97 97 92 L 10/07/18 11:15 10/07/18 11:35 10/07/18 11:45 Temperature Pulse Rate 103 H 105 H 105 H Respiratory Rate 31 H 30 H 39 H Blood Pressure 138/85 127/82 130/89 Pulse Oximetry 91 L 90 L 91 L 10/07/18 11:57 10/07/18 12:00 10/07/18 12:15 Temperature Pulse Rate 101 H 101 H Respiratory Rate 35 H 33 H Blood Pressure 150/85 H 140/81 Pulse Oximetry 94 L 95 96 10/07/18 12:30 10/07/18 12:45 10/07/18 13:00 Temperature Pulse Rate 100 H 101 H 100 H Respiratory Rate 32 H 32 H 43 H Blood Pressure 121/80 125/83 126/91 H Pulse Oximetry 96 94 L 95 10/07/18 13:15 10/07/18 13:30 10/07/18 13:45 Temperature Pulse Rate 97 H 96 H 89 Respiratory Rate 29 H 27 H 25 H Blood Pressure 129/86 128/83 117/76 Pulse Oximetry 97 97 96 10/07/18 14:00 10/07/18 14:15 10/07/18 14:30 Temperature Pulse Rate 85 85 85 Respiratory Rate 28 H 55 H 32 H Blood Pressure 127/81 117/73 120/75 Pulse Oximetry 94 L 96 95 10/07/18 14:45 10/07/18 15:00 10/07/18 15:15 Temperature Pulse Rate 85 85 87 Respiratory Rate 34 H 31 H 40 H Blood Pressure 127/78 129/82 116/78 Pulse Oximetry 96 96 96 10/07/18 15:30 10/07/18 15:45 10/07/18 16:00 Temperature 98.2 F Pulse Rate 90 88 87 Respiratory Rate 44 H 39 H 34 H Blood Pressure 120/84 120/85 115/79 Pulse Oximetry 94 L 93 L 93 L 10/07/18 16:08 10/07/18 16:15 10/07/18 16:30 Temperature Pulse Rate 90 91 H Respiratory Rate 34 H 33 H Blood Pressure 122/83 132/93 H Pulse Oximetry 93 L 94 L 95 10/07/18 16:45 10/07/18 17:00 10/07/18 17:15 Temperature Pulse Rate 93 H 92 H 92 H Respiratory Rate 31 H 35 H 31 H Blood Pressure 131/79 114/80 117/78 Pulse Oximetry 94 L 94 L 96 10/07/18 17:30 10/07/18 17:45 10/07/18 18:00 Temperature Pulse Rate 91 H 91 H 91 H Respiratory Rate 33 H 34 H 33 H Blood Pressure 118/79 116/79 117/79 Pulse Oximetry 96 95 96 10/07/18 18:15 10/07/18 18:30 10/07/18 18:55 Temperature Pulse Rate 91 H 90 89 Respiratory Rate 27 H 30 H 22 Blood Pressure 121/83 119/83 Pulse Oximetry 95 96 97 10/07/18 19:00 10/07/18 19:15 10/07/18 19:30 Temperature Pulse Rate 90 88 90 Respiratory Rate 22 22 Blood Pressure 122/78 119/80 119/82 Pulse Oximetry 96 97 96 10/07/18 19:45 10/07/18 20:00 10/07/18 20:15 Temperature 97.3 F L Pulse Rate 92 H 92 H 92 H Respiratory Rate 28 H 44 H Blood Pressure 117/77 126/82 121/81 Pulse Oximetry 97 96 97 10/07/18 20:30 10/07/18 20:32 10/07/18 21:00 Temperature Pulse Rate 95 H 94 H Respiratory Rate 36 H 36 H Blood Pressure 127/85 Pulse Oximetry 85 L 95 98 10/07/18 21:09 10/07/18 21:15 10/07/18 21:30 Temperature Pulse Rate 94 H 96 H 97 H Respiratory Rate 34 H 27 H 54 H Blood Pressure 155/81 H 134/88 136/94 H Pulse Oximetry 97 98 98 10/07/18 21:45 10/07/18 22:00 10/07/18 22:08 Temperature Pulse Rate 92 H 87 Respiratory Rate 50 H 31 H Blood Pressure 115/79 115/80 Pulse Oximetry 98 91 L 93 L 10/07/18 22:15 10/07/18 22:30 10/07/18 22:45 Temperature Pulse Rate 84 85 81 Respiratory Rate 25 H 28 H 24 Blood Pressure 107/74 105/70 109/66 Pulse Oximetry 94 L 93 L 95 10/07/18 23:00 10/07/18 23:03 10/07/18 23:33 Temperature Pulse Rate 83 82 85 Respiratory Rate 24 23 39 H Blood Pressure 105/69 108/70 Pulse Oximetry 94 L 95 94 L 10/08/18 00:00 10/08/18 00:03 10/08/18 00:06 Temperature Pulse Rate 82 82 Respiratory Rate 25 H 24 Blood Pressure 98/67 L Pulse Oximetry 93 L 94 L 94 L 10/08/18 00:33 10/08/18 01:00 10/08/18 01:03 Temperature Pulse Rate 85 81 79 Respiratory Rate 24 22 Blood Pressure 106/65 102/66 Pulse Oximetry 93 L 91 L 91 L 10/08/18 01:33 10/08/18 02:00 10/08/18 02:03 Temperature Pulse Rate 79 81 80 Respiratory Rate 21 23 23 Blood Pressure 100/67 112/72 Pulse Oximetry 91 L 91 L 91 L 10/08/18 02:33 10/08/18 03:00 10/08/18 03:03 Temperature Pulse Rate 82 82 81 Respiratory Rate 23 23 26 H Blood Pressure 117/75 112/75 Pulse Oximetry 92 L 93 L 93 L 10/08/18 03:33 10/08/18 03:57 10/08/18 04:00 Temperature 98 F Pulse Rate 79 88 Respiratory Rate 22 Blood Pressure 107/75 Pulse Oximetry 93 L 94 L 94 L 10/08/18 04:03 10/08/18 04:33 10/08/18 05:00 Temperature Pulse Rate 89 84 82 Respiratory Rate 29 H 25 H Blood Pressure 121/72 114/74 Pulse Oximetry 93 L 93 L 96 10/08/18 05:03 10/08/18 05:33 10/08/18 06:00 Temperature Pulse Rate 82 83 81 Respiratory Rate 24 26 H 24 Blood Pressure 111/76 112/89 Pulse Oximetry 96 96 96 10/08/18 06:03 10/08/18 06:33 10/08/18 07:00 Temperature Pulse Rate 81 87 85 Respiratory Rate 23 35 H 29 H Blood Pressure 107/73 124/72 Pulse Oximetry 96 94 L 97 10/08/18 07:03 10/08/18 07:33 10/08/18 08:22 Temperature Pulse Rate 85 87 Respiratory Rate 28 H 28 H Blood Pressure 125/75 127/82 Pulse Oximetry 96 95 96 Intake & Output 10/07/18 10/08/18 10/08/18 18:59 06:59 18:59 Intake Total 450 / 450 500 / 500 Output Total 2225 / 2225 1120 / 1120 Balance -1775 / -1775 -620 / -620 Weight 61.7 kg Intake: IV 450 / 450 500 / 500 Flexbumin 25% Inj 100 ML @ 60 200 / 200 300 / 300 mls/hr IV.SIG Q6H [facility] Rx#: [id number] Zosyn 3.375 GM Premix 50 ML @ 150 / 150 100 / 100 100 mls/hr IV.SIG Q6H [facility] Rx#: [id number] KCl 40 mEq Premix Inj 40 meq In 100 / 100 100 / 100 100 ml @ 25 mls/hr IV.SIG Q2H [facility] Rx#:[id number] Output: Estimated Blood Loss 10 / 10 Urine Amount (Catheter) 1725 / 1725 850 / 850 Indwelling Urethral Catheter 1725 / 1725 850 / 850 Gastric Drainage 0 / 0 Right Nare Nasogastric Tube 0 / 0 Wound Drainage 500 / 500 260 / 260 # 1 Abdomen 500 / 500 260 / 260 Other: Date of Last Bowel Movement 10/07/18 10/08/18 # Bowel Movements 3 2 # Incontinent Bowel Movements 2 Result Diagrams: 10/07/18 05:30 10/08/18 00:25 Objective Remarks: Narrative: GENERAL: Lethargic, on BiPAP ventilation SKIN: Warm and dry. HEAD: Atraumatic. Normocephalic. EYES: Pupils equal and round. No injection or drainage. ENT: No nasal bleeding or discharge. Trachea midline. CARDIOVASCULAR: Regular rate and rhythm. No murmurs rubs or gallops. No JVD. RESPIRATORY: Tachypneic using accessory muscles. Diminished breath sounds at the bases GASTROINTESTINAL: Abdomen soft, active bowel sounds. Midline abdominal dressing is clean/dry/intact. LISBETH drain is placed right lower quadrant with serous output. MUSCULOSKELETAL: Extremities without clubbing, cyanosis. Warm, well perfused. NEUROLOGICAL: Lethargic, tachypneic moves 4 limbs to command. Tracks with eyes. Assessment and Plan - Problem List (1) Perforation of cecum Code(s): K35.32 - Acute appendicitis with perforation and localized peritonitis , without abscess Status: Acute (2) Pneumoperitoneum Code(s): K66.8 - Other specified disorders of peritoneum Status: Acute (3) Alcoholic cirrhosis of liver with ascites Code(s): K70.31 - Alcoholic cirrhosis of liver with ascites Status: Acute (4) EtOH dependence Code(s): F10.20 - Alcohol dependence, uncomplicated Status: Acute (5) Hypokalemia Code(s): E87.6 - Hypokalemia Status: Acute (6) JOSE (acute kidney injury) Code(s): N17.9 - Acute kidney failure, unspecified Status: Acute (7) Reactive thrombocytosis Code(s): R79.89 - Other specified abnormal findings of blood chemistry Status : Acute (8) Leukocytosis Code(s): D72.829 - Elevated white blood cell count, unspecified Status: Acute (9) Tobacco abuse Code(s): Z72.0 - Tobacco use Status: Chronic (10) Protein-calorie malnutrition, moderate Code(s): E44.0 - Moderate protein-calorie malnutrition Status: Chronic - Assessment and Plan Plan: NEURO: Alcohol dependence Thiamine/multivitamin/folic acid supplementation IV times 3 days then transition to p.o. thiamine. CIWA protocol. Morphine as needed for pain Alcohol cessation counseling discussed preoperatively. RESP: Acute hypoxemic respiratory failure Probable COPD with exacerbation Tobacco abuse Bilateral pleural effusions, small to moderate Currently on BiPAP since Saturday night almost 36 hours Increasing work of breathing, may need intubation Chest x-ray and ABG ordered Tobacco cessation counseling when extubated Bronchodilators scheduled and as needed Aggressive diuresis initiated. CV: Hypovolemic/distributive shock Likely third spacing following removal of 4.7 L of ascitic fluid in addition to SIRS response to microperforation. Received albumin and s/p albumin 25 g IV every 6 hours for 24 hours following removal of his ascitic fluid. Levophed to maintain mean arterial pressure greater than 65. Currently on IV Lasix 40 mg every 12 hours, additional 40 mg IV Lasix ordered GI: Microperforation cecum s/p colonoscopy with multiple biopsies Now postoperative from exploratory laparotomy, microperforation of cecum oversewn Dr. German Cirrhosis Ascites Esophageal varices Hyperbilirubinemia Chronic moderate protein energy malnutrition Tube feedings held for high residuals. General surgery is okay with restarting trickle feed Dietitian consulted, may need concurrent TPN for nutrition Monitor LISBETH output Continue broad-spectrum coverage for E. coli and enterococcus abdominal cultures FEN/RENAL: Hypokalemia Hypomagnesemia Acute kidney injury Warner in place. Monitor intake and output. Monitor electrolytes. Restarted spironolactone and Lasix 10/06. Additional 40 mg Lasix ordered today ID: Leukocytosis Severe sepsis Abdominal wound culture 10/01/2018 growing ampicillin sensitive E. coli and enterococcus Currently on Zosyn 3.375 IV every 6 hours. Changed to Unasyn 3 g IV every 6 hours HEME: Reactive thrombocytosis Monitor CBC. ENDO: Euglycemic PROPH: SCDs for DVT prophylaxis. SQ Heparin when OK with surgery Protonix 40 mg IV daily for stress ulcer prophylaxis ACCESS: Right IJ central venous line placed in OR 10/01. Overall impression: Currently critically ill with worsening respiratory failure despite adequate diuresis. Currently on BiPAP for about 36 hours. Will give additional dose of Lasix, ABG chest x-ray pending. Most likely it appears like will need reintubation.
[2018-10-08] MEDS ORDERED: Etomidate Inj 40 MG/20 ML Vial IV.PUSH ONE (09:06)
[2018-10-08] MEDS ORDERED: Midazolam Inj 5 MG/ML 1 ML Vial ONE (09:07)
--- NOTE | 2018-10-08 09:23 | XR ---
EXAM DATE: 10/08/2018 9:18 AM EST AGE/SEX: 68 years / Female INDICATIONS: Respiratory Disease. CLINICAL DATA: This is the patient's subsequent encounter. Patient reports that signs and symptoms h ave been present for 1 week and indicates a pain score of Nonresponsive. MEDICAL/SURGICAL HISTORY: . Cirrhosis. Gastroesophageal reflux disease None. COMPARISON: [facility], CHEST 1V SINGLE AP, 10/06/2018. . FINDINGS: Today's exam is compared to the prior study. The endotracheal tube has been removed. The right-sided central line and NG tube remain in place. No evidence of pneumothorax. There continues to be prominen t diffuse bilateral interstitial and airspace pulmonary infiltrates, right greater than left. The hea rt size is stable. The diffuse pulmonary infiltrates in the right lung appear to be some mildly incre ased compared to the prior study. Otherwise no other significant changes are demonstrated. CONCLUSION: 1. Status post removal of the endotracheal tube. 2. No evidence of pneumothorax. 3. There continues to be diffuse prominent bilateral interstitial and airspace pulmonary infiltrates , right greater than left. Electronically signed by: Josias Toledo MD 10/08/2018 9:21 AM EST
--- NOTE | 2018-10-08 09:24 | P.PNGS ---
Subjective Interval history: on BiPAP; increased work of breathing Daughter at bedside ----high likelihood of reintubation at this point---Will talk to Dr. Mac Physical Exam Vital signs: Vital Signs 10/07/18 09:30 10/07/18 09:45 10/07/18 10:00 Temperature Pulse Rate 94 H 97 H 95 H Respiratory Rate 43 H 63 H 40 H Blood Pressure 129/89 130/93 H 132/95 H Pulse Oximetry 97 96 96 10/07/18 10:15 10/07/18 10:30 10/07/18 10:45 Temperature Pulse Rate 95 H 96 H 96 H Respiratory Rate 61 H 63 H 58 H Blood Pressure 137/88 129/89 132/91 H Pulse Oximetry 96 97 97 10/07/18 11:00 10/07/18 11:15 10/07/18 11:35 Temperature Pulse Rate 102 H 103 H 105 H Respiratory Rate 31 H 31 H 30 H Blood Pressure 130/82 138/85 127/82 Pulse Oximetry 92 L 91 L 90 L 10/07/18 11:45 10/07/18 11:57 10/07/18 12:00 Temperature Pulse Rate 105 H 101 H Respiratory Rate 39 H 35 H Blood Pressure 130/89 150/85 H Pulse Oximetry 91 L 94 L 95 10/07/18 12:15 10/07/18 12:30 10/07/18 12:45 Temperature Pulse Rate 101 H 100 H 101 H Respiratory Rate 33 H 32 H 32 H Blood Pressure 140/81 121/80 125/83 Pulse Oximetry 96 96 94 L 10/07/18 13:00 10/07/18 13:15 10/07/18 13:30 Temperature Pulse Rate 100 H 97 H 96 H Respiratory Rate 43 H 29 H 27 H Blood Pressure 126/91 H 129/86 128/83 Pulse Oximetry 95 97 97 10/07/18 13:45 10/07/18 14:00 10/07/18 14:15 Temperature Pulse Rate 89 85 85 Respiratory Rate 25 H 28 H 55 H Blood Pressure 117/76 127/81 117/73 Pulse Oximetry 96 94 L 96 10/07/18 14:30 10/07/18 14:45 10/07/18 15:00 Temperature Pulse Rate 85 85 85 Respiratory Rate 32 H 34 H 31 H Blood Pressure 120/75 127/78 129/82 Pulse Oximetry 95 96 96 10/07/18 15:15 10/07/18 15:30 10/07/18 15:45 Temperature Pulse Rate 87 90 88 Respiratory Rate 40 H 44 H 39 H Blood Pressure 116/78 120/84 120/85 Pulse Oximetry 96 94 L 93 L 10/07/18 16:00 10/07/18 16:08 10/07/18 16:15 Temperature 98.2 F Pulse Rate 87 90 Respiratory Rate 34 H 34 H Blood Pressure 115/79 122/83 Pulse Oximetry 93 L 93 L 94 L 10/07/18 16:30 10/07/18 16:45 10/07/18 17:00 Temperature Pulse Rate 91 H 93 H 92 H Respiratory Rate 33 H 31 H 35 H Blood Pressure 132/93 H 131/79 114/80 Pulse Oximetry 95 94 L 94 L 10/07/18 17:15 10/07/18 17:30 10/07/18 17:45 Temperature Pulse Rate 92 H 91 H 91 H Respiratory Rate 31 H 33 H 34 H Blood Pressure 117/78 118/79 116/79 Pulse Oximetry 96 96 95 10/07/18 18:00 10/07/18 18:15 10/07/18 18:30 Temperature Pulse Rate 91 H 91 H 90 Respiratory Rate 33 H 27 H 30 H Blood Pressure 117/79 121/83 119/83 Pulse Oximetry 96 95 96 10/07/18 18:55 10/07/18 19:00 10/07/18 19:15 Temperature Pulse Rate 89 90 88 Respiratory Rate 22 22 22 Blood Pressure 122/78 119/80 Pulse Oximetry 97 96 97 10/07/18 19:30 10/07/18 19:45 10/07/18 20:00 Temperature 97.3 F L Pulse Rate 90 92 H 92 H Respiratory Rate 28 H Blood Pressure 119/82 117/77 126/82 Pulse Oximetry 96 97 96 10/07/18 20:15 10/07/18 20:30 10/07/18 20:32 Temperature Pulse Rate 92 H 95 H Respiratory Rate 44 H 36 H Blood Pressure 121/81 127/85 Pulse Oximetry 97 85 L 95 10/07/18 21:00 10/07/18 21:09 10/07/18 21:15 Temperature Pulse Rate 94 H 94 H 96 H Respiratory Rate 36 H 34 H 27 H Blood Pressure 155/81 H 134/88 Pulse Oximetry 98 97 98 10/07/18 21:30 10/07/18 21:45 10/07/18 22:00 Temperature Pulse Rate 97 H 92 H 87 Respiratory Rate 54 H 50 H 31 H Blood Pressure 136/94 H 115/79 115/80 Pulse Oximetry 98 98 91 L 10/07/18 22:08 10/07/18 22:15 10/07/18 22:30 Temperature Pulse Rate 84 85 Respiratory Rate 25 H 28 H Blood Pressure 107/74 105/70 Pulse Oximetry 93 L 94 L 93 L 10/07/18 22:45 10/07/18 23:00 10/07/18 23:03 Temperature Pulse Rate 81 83 82 Respiratory Rate 24 24 23 Blood Pressure 109/66 105/69 Pulse Oximetry 95 94 L 95 10/07/18 23:33 10/08/18 00:00 10/08/18 00:03 Temperature Pulse Rate 85 82 82 Respiratory Rate 39 H 25 H 24 Blood Pressure 108/70 98/67 L Pulse Oximetry 94 L 93 L 94 L 10/08/18 00:06 10/08/18 00:33 10/08/18 01:00 Temperature Pulse Rate 85 81 Respiratory Rate 24 Blood Pressure 106/65 Pulse Oximetry 94 L 93 L 91 L 10/08/18 01:03 10/08/18 01:33 10/08/18 02:00 Temperature Pulse Rate 79 79 81 Respiratory Rate 22 21 23 Blood Pressure 102/66 100/67 Pulse Oximetry 91 L 91 L 91 L 10/08/18 02:03 10/08/18 02:33 10/08/18 03:00 Temperature Pulse Rate 80 82 82 Respiratory Rate 23 23 23 Blood Pressure 112/72 117/75 Pulse Oximetry 91 L 92 L 93 L 10/08/18 03:03 10/08/18 03:33 10/08/18 03:57 Temperature Pulse Rate 81 79 Respiratory Rate 26 H 22 Blood Pressure 112/75 107/75 Pulse Oximetry 93 L 93 L 94 L 10/08/18 04:00 10/08/18 04:03 10/08/18 04:33 Temperature 98 F Pulse Rate 88 89 84 Respiratory Rate 29 H Blood Pressure 121/72 114/74 Pulse Oximetry 94 L 93 L 93 L 10/08/18 05:00 10/08/18 05:03 12/03/18 05:33 Temperature Pulse Rate 82 82 83 Respiratory Rate 25 H 24 26 H Blood Pressure 111/76 112/89 Pulse Oximetry 96 96 96 10/08/18 06:00 10/08/18 06:03 10/08/18 06:33 Temperature Pulse Rate 81 81 87 Respiratory Rate 24 23 35 H Blood Pressure 107/73 124/72 Pulse Oximetry 96 96 94 L 10/08/18 07:00 10/08/18 07:03 10/08/18 07:33 Temperature Pulse Rate 85 85 87 Respiratory Rate 29 H 28 H 28 H Blood Pressure 125/75 127/82 Pulse Oximetry 97 96 95 10/08/18 08:22 Temperature Pulse Rate Respiratory Rate Blood Pressure Pulse Oximetry 96 Intake & Output 10/07/18 10/08/18 10/08/18 18:59 06:59 18:59 Intake Total 450 / 450 500 / 500 Output Total 2225 / 2225 1120 / 1120 Balance -1775 / -1775 -620 / -620 Weight 61.7 kg Intake: IV 450 / 450 500 / 500 Flexbumin 25% Inj 100 ML @ 60 200 / 200 300 / 300 mls/hr IV.SIG Q6H HILDA Rx#: [id number] Zosyn 3.375 GM Premix 50 ML @ 150 / 150 100 / 100 100 mls/hr IV.SIG Q6H HILDA Rx#: [id number] KCl 40 mEq Premix Inj 40 meq In 100 / 100 100 / 100 100 ml @ 25 mls/hr IV.SIG Q2H PRN Rx#:[id number] Output: Estimated Blood Loss 10 / 10 Urine Amount (Catheter) 1725 / 1725 850 / 850 Indwelling Urethral Catheter 1725 / 1725 850 / 850 Gastric Drainage 0 / 0 Right Nare Nasogastric Tube 0 / 0 Wound Drainage 500 / 500 260 / 260 # 1 Abdomen 500 / 500 260 / 260 Other: Date of Last Bowel Movement 10/07/18 10/08/18 # Bowel Movements 3 2 # Incontinent Bowel Movements 2 Narrative: Eyes open Resp: increased labor of breathing; CTAB Abd: soft; KAREN in place with good seal; LISBETH with serous drainage - Urinary Catheter Management Indwelling Urethral Catheter Cath placed during this visit: yes Reason for continuing: Hourly intake/output Insertion date: 10/01/18 Insertion time: 20:00 Results - Labs 10/08/18 09:00 10/09/18 04:20 Laboratory Results - last 24 hr 10/07/18 10/08/18 10/08/18 14:25 00:25 08:40 Puncture Site Left brachial Patient Temperature 98.6 O2 Saturation 91 ABG pH 7.43 H ABG pCO2 39 ABG pO2 70 ABG HCO3 26 ABG O2 Content 12.8 ABG Base Excess 1.8 ABG Methemoglobin 1.1 Peterson Test Present Hemoglobin 10.0 L Carboxyhemoglobin 1.5 O2 Delivery Device Bipap Vent Setting [id number] Inspired O2 50 Critical Value No Potassium 3.2 L Ammonia Less than 10 L - Imaging Imaging: ITS Impressions Abdomen X-Ray 10/01/18 17:09 CONCLUSION: Extensive free intraperitoneal air discussed with referring doctor on today's date Assessment and Plan - Assessment (1) Pneumoperitoneum Code(s): K66.8 - Other specified disorders of peritoneum Status: Acute Plan: 68 year old female s/p Exploratory laparotomy; Oversew cecal perforation -On BiPAP---Discussed with Dr. Mac --- will evaluate this morning for possible re-intubation -Labs pending for today; will review once available -Continue LISBETH to bulb suction -If re-intubated okay to start trickle feed ---discussed with Dr. Mac As above; if she fails extubation, will need to pull LISBETH to stop protein losses from ascites; also colon mickey should be effectively treated by now with the minimal contamination that occurred. Discussed with daughter at bedside. The exam, history, and the medical decision-making described in the above note were completed with the assistance of the mid-level provider. I reviewed and agree with the findings presented. I attest that I had a [id number] encounter with the patient on the same day, and personally performed and documented my assessment and findings in the medical record.
[2018-10-08 09:26] LABS: Baso # (Auto) 0.1 th/mm3 (0.0-0.2); Baso % (Auto) 0.5 % (0.0-2.0); Eos # (Auto) 0.2 th/mm3 (0.0-0.4); Hematocrit 29.8 % (35.0-46.0); Hemoglobin 9.8 gm/dL (11.6-15.3); Lymph # (Auto) 1.7 th/mm3 (1.0-4.8); Lymph % (Auto) 9.6 % (9.0-44.0); Mean Corpuscular HGB Conc 32.9 % (32.0-36.0); Mean Corpuscular Hemoglobin 33.2 pg (27.0-34.0); Mean Corpuscular Volume 101.1 fL (80.0-100.0); Mean Platelet Volume 9.6 fL (7.0-11.0); Neut # (Auto) 14.4 th/mm3 (1.8-7.7); Neut % (Auto) 82.9 % (16.0-70.0); Platelet Count 244 th/mm3 (150-450); Red Blood Count 2.95 mil/mm3 (4.00-5.30); Red Cell Distribution Width 14.6 % (11.6-17.2); White Blood Count 17.3 th/mm3 (4.0-11.0)
--- NOTE | 2018-10-08 09:43 | P.PCN ---
Date of procedure: 10/08/18 Pre-op diagnosis: Acute hypoxemic resp failure Post-op diagnosis: same Procedure: Endotracheal intubation The patient was noted to in acute hypoxemic failure, no improvement with BiPAP, currently on 10/10 50%. The patient was positioned in the sniffing position and was already on BiPAP. Rapid sequence intubation initiated, patient administered 10 mg of IV Versed, 20 mg of IV Versed, 50 mg of IV rocuronium. Large amount of secretions removed from glottic opening. Direct laryngoscopy with MAC 4 blade grade 1 view, Intubated on first attempt. The patient tolerated the procedure well with no immediate complications. CXR to be obtained stat Anesthesia: GETA Surgeon: Mally Mac Estimated blood loss (mL): 0 Pathology: other Condition: critical Disposition: ICU
[2018-10-08] MEDS ORDERED: Etomidate Inj 20 MG/10 ML Ampul IV.PUSH ONE (10:15)
[2018-10-08 10:18] LABS: Albumin 4.9 g/dL (3.4-5.0); Anion Gap 10 meq/L (5-15); Blood Urea Nitrogen 18 mg/dL (7-18); Calcium 10.3 mg/dL (8.5-10.1); Carbon Dioxide 25.6 meq/L (21.0-32.0); Chloride 111 meq/L (98-107); Glomerular Filtration Rate 56 mL/min (>89); Glucose,Random 89 mg/dL (74-106); Potassium 4.4 meq/L (3.5-5.1); Sodium 147 meq/L (136-145)
[2018-10-08 10:20] LABS: Aspartate Aminotransferase 27 U/L (15-37)
[2018-10-08 10:23] LABS: Alanine Aminotransferase 11 U/L (10-53); Alkaline Phosphatase 164 U/L (45-117); Total Protein 7.5 g/dL (6.4-8.2)
--- NOTE | 2018-10-08 10:27 | XR ---
EXAM DATE: 10/08/2018 10:24 AM EST AGE/SEX: 68 years / Female INDICATIONS: Post Intubation. CLINICAL DATA: This is the patient's subsequent encounter. Patient reports that signs and symptoms h ave been present for 1 week and indicates a pain score of Nonresponsive. MEDICAL/SURGICAL HISTORY: . Cirrhosis. Gastroesophageal reflux disease None. COMPARISON: [facility], CHEST 1V SINGLE AP, 10/08/2018. . FINDINGS: Today's exam is compared to the prior study. There is an endotracheal tube in place which appears to be in good position. The tip of the endotracheal tube is at the level of the thoracic aortic arch. Th ere is no evidence of pneumothorax. There continues to be bilateral prominent interstitial and airspa ce infiltrates throughout both lung callahan, right greater than left. The overall pattern of infiltrat es is about the same compared to the prior examination. The heart size is stable. The bony structures are stable. There is a right-sided central line in place. CONCLUSION: 1. Status post placement of an endotracheal tube which appears to be in good position. 2. No evidence of pneumothorax. 3. Diffuse bilateral interstitial and airspace pulmonary infiltrates which appear to be about the sa me compared to the prior exam. Electronically signed by: Josias Toledo MD 10/08/2018 10:26 AM EST
[2018-10-08] MEDS: Chlorhexidine 0.12% Oral Kit 15 ML UDC OROPHARYNG SCH ×2 (10:50→20:41)
[2018-10-08] MEDS: Levothyroxine 50 MCG Tablet PO SCH (10:50)
[2018-10-08] MEDS: Senna/Docusate Sodium 8.6/50 MG Tablet PO SCH ×2 (10:52→22:58)
[2018-10-08] MEDS: Propranolol 10 MG Tablet PO SCH ×2 (10:52→22:58)
[2018-10-08] MEDS: Propofol 1000 mg/100 ml Inj 1,000 MG/100 ML BOTTLE IV.CONT PRN ×2 (10:55→23:18)
[2018-10-08] MEDS: Ampicillin/Sulbactam Inj 3 GM in Sodium Chloride 0.9% Inj 100 ML IV.SIG SCH ×3 (10:55→23:18)
--- NOTE | 2018-10-08 12:03 | P.PCN ---
Date of procedure: 10/08/18 Pre-op diagnosis: Acute hypoxemic resp failure, large right pl efusion Post-op diagnosis: same Procedure: Right pigtail chest tube placement, ultrasound-guided Details of procedure: Consent obtained. The patient was laid in left lateral decubitus position. The lateral chest wall was cleaned with ChloraPrep twice. Regional sterile drapes were applied. 1% lidocaine with was used for local anesthesia and injected into the subcutaneous and deep muscle tissues at the site marked by ultrasound. A 0.25 cm skin incision was made with a scalpel blade. Insertion needle was placed angled superiorly and posteriorly and the insertion needle was entered into the pleural space superior to the rib and slightly red tinged pleural pleural fluid was obtained. Guidewire was placed in site was dilated. A size 10 [place] chest tube was inserted into the pleural cavity using Seldinger technique with initial output of approximately 750 mL of slightly red-tinged pleural fluid. 3.0 silk was used to to secure the chest tube along with StayFix fixation device. The chest tube was connected to a Pleur-evac drainage system via vinyl connecting tube. Initial 1+ airleak. CXR pending at this time Anesthesia: local Surgeon: Mally Mac Estimated blood loss (mL): 2 Pathology: other (pl fluid studies) Condition: critical Disposition: ICU
[2018-10-08] MEDS: Pantoprazole Inj 40 MG Vial IV.PUSH SCH (12:34)
[2018-10-08] MEDS: Potassium Chloride 25 MEQ Effervescent Tablet NG/OG SCH ×2 (12:34→20:40)
--- NOTE | 2018-10-08 12:47 | XR ---
EXAM DATE: 10/08/2018 12:35 PM EST AGE/SEX: 68 years / Female INDICATIONS: Right pigtail chest tube placement. CLINICAL DATA: This is the patient's initial encounter. Patient reports that signs and symptoms have been present for 4 - 6 days and indicates a pain score of Nonresponsive. MEDICAL/SURGICAL HISTORY: Gastroesophageal reflux disease. Cirrhosis. None. COMPARISON: [facility] [place] 1V SINGLE [place], 10/08/2018. . FINDINGS: A pigtail catheter has been placed into the right hemithorax. There is a prominent right pneumothorax with approximately 5.2 cm of separation at the apex. There continues to be infiltrates throughout jaime th lung callahan. The endotracheal tube and NG tube remain in place. No definite or significant pleural effusions. CONCLUSION: 1. Status post placement of a pigtail catheter in the right hemithorax. 2. There continues to be a large right-sided pneumothorax with 5.2 cm of separation at the apex. 3. There continues to be bilateral pulmonary infiltrates.. Electronically signed by: Josias Toledo MD 10/08/2018 12:45 PM EST
[2018-10-08 13:12] LABS: Total Protein,Pleural Fluid 3.6 gm/dL
[2018-10-08 13:33] LABS: Basophils,Pleural Fluid 1 %; Lymphocytes,Pleural Fluid 18 %; Mesothelial,Pleural Fluid 4 %; Monocytes,Pleural Fluid 15 %; Neutrophils,Pleural Fluid 61 %
[2018-10-08 13:34] LABS: RBC,Pleural Fluid 70500 /mm3 (0-0)
--- NOTE | 2018-10-08 13:34 | P.PCN ---
Date of procedure: 10/08/18 Pre-op diagnosis: Right pneumothorax Post-op diagnosis: same Procedure: Right pigtail chest tube placement Details of procedure: Consent obtained. The patient was laid in supine position. The right anterior upper chest wall was cleaned with ChloraPrep twice. Regional sterile drapes were applied. 1% lidocaine with was used for local anesthesia and injected into the subcutaneous and deep muscle tissues at the site marked by ultrasound. A 0.25 cm skin incision was made with a scalpel blade. Insertion needle was placed angled superiorly and posteriorly in the third intercostal space and the insertion needle was entered into the pleural space superior to the rib and air was withdrawn. Guidewire was placed in site was dilated. A size 10 [place] chest tube was inserted into the pleural cavity using Seldinger technique with initial 2+ airleak. 3.0 silk was used to to secure the chest tube along with StayFix fixation device. The chest tube was connected to a Pleur-evac drainage system via vinyl connecting tube. Initial 2+ airleak quickly resolved. CXR pending at this time Anesthesia: local Surgeon: Mally Mac Estimated blood loss (mL): 0 Pathology: none sent Condition: critical Disposition: ICU
--- NOTE | 2018-10-08 14:33 | XR ---
EXAM DATE: 10/08/2018 2:17 PM EST AGE/SEX: 68 years / Female INDICATIONS: 2nd right side pigtail for pneumothorax. CLINICAL DATA: This is the patient's initial encounter. Patient reports that signs and symptoms have been present for 4 - 6 days and indicates a pain score of Nonresponsive. MEDICAL/SURGICAL HISTORY: Gastroesophageal reflux disease. Cirrhosis. None. [place] [facility] [place]. . FINDINGS: A second pigtail catheter has now been placed into the right hemithorax. The previously noted promine nt right pneumothorax has almost completely resolved. There is approximately 1.3 cm separation at the apex. This is significantly improved compared to the prior study. There continues to be bilateral in terstitial and airspace infiltrates throughout both lung callahan without significant change. No defini te pleural effusions. CONCLUSION: 1. Second pigtail catheter has now been placed in the right hemithorax. The previously noted promine nt right pneumothorax has almost completely resolved. There is approximately 1.3 cm of residual separ ation at the apex. 2. Diffuse bilateral pulmonary infiltrates. Electronically signed by: Josias Toledo MD 10/08/2018 2:32 PM EST
[2018-10-08] MEDS: Heparin - SQ 10,000 UNITS/ML Vial SQ SCH ×3 (15:07→22:58)
[2018-10-08] MEDS: MethylPREDNISolone Sod Succinate Inj 40 MG/ML Vial IV.PUSH SCH ×2 (15:07→22:59)
[2018-10-08] MEDS ORDERED: Micafungin Inj 150 MG in Sodium Chlor 0.9% Inj 100 ML IV.SIG SCH (16:00)
[2018-10-08] MEDS: Morphine Sulfate Inj 2 MG/ML Vial IV.PUSH PRN (20:38)
[2018-10-09] MEDS: Oral Hygiene Kit OROPHARYNG SCH ×5 (01:16→23:46)
[2018-10-09] MEDS: Albumin Human 25% Inj 100 ML IV.SIG SCH ×5 (01:20→23:46)
[2018-10-09] MEDS: Ampicillin/Sulbactam Inj 3 GM in Sodium Chloride 0.9% Inj 100 ML IV.SIG SCH ×4 (03:29→21:28)
--- NOTE | 2018-10-09 04:09 | XR ---
EXAM DATE: 10/09/2018 3:55 AM EST AGE/SEX: 68 years / Female INDICATIONS: Respiratory failure. CLINICAL DATA: This is the patient's subsequent encounter. Patient reports that signs and symptoms h ave been present for 1 week and indicates a pain score of Nonresponsive. MEDICAL/SURGICAL HISTORY: Gastroesophageal reflux disease. Cirrhosis. Smoker. Ascites. Chest tube, right. [place] [facility] [place], [place]. . FINDINGS: 2 portable frontal views of the chest show no interval change. Scattered bilateral parenchymal consol idations. No effusions. Heart is normal in size. 2 thoracostomy tubes on the right. Tip of endotrache al tube 3 cm from the sushil. Right-sided central line and nasogastric tube. CONCLUSION: Unchanged diffuse bilateral pulmonary consolidations. Electronically signed by: Stu Gleason MD 10/09/2018 4:08 AM EST
[2018-10-09 05:09] LABS: Alanine Aminotransferase 13 U/L (10-53); Albumin 4.8 g/dL (3.4-5.0); Alkaline Phosphatase 157 U/L (45-117); Anion Gap 10 meq/L (5-15); Aspartate Aminotransferase 30 U/L (15-37); Blood Urea Nitrogen 31 mg/dL (7-18); Calcium 10.4 mg/dL (8.5-10.1); Carbon Dioxide 26.4 meq/L (21.0-32.0); Chloride 113 meq/L (98-107); Glomerular Filtration Rate 46 mL/min (>89); Glucose,Random 145 mg/dL (74-106); Sodium 149 meq/L (136-145); Total Protein 7.7 g/dL (6.4-8.2)
[2018-10-09] MEDS: MethylPREDNISolone Sod Succinate Inj 40 MG/ML Vial IV.PUSH SCH ×3 (05:27→21:28)
[2018-10-09] MEDS: Levothyroxine 50 MCG Tablet PO SCH (05:27)
[2018-10-09] MEDS: Heparin - SQ 10,000 UNITS/ML Vial SQ SCH ×3 (05:29→21:28)
[2018-10-09] MEDS: Chlorhexidine 0.12% Oral Kit 15 ML UDC OROPHARYNG SCH ×2 (07:56→20:48)
[2018-10-09] MEDS: Senna/Docusate Sodium 8.6/50 MG Tablet PO SCH ×2 (08:16→21:27)
[2018-10-09] MEDS: Propranolol 10 MG Tablet PO SCH ×2 (08:17→21:29)
[2018-10-09] MEDS: Pantoprazole Inj 40 MG Vial IV.PUSH SCH (08:17)
[2018-10-09] MEDS: Potassium Chloride 25 MEQ Effervescent Tablet NG/OG SCH ×2 (08:17→21:27)
--- NOTE | 2018-10-09 11:12 | P.DIET ---
Nutritional Evaluation Type of nutrition evaluation: follow-up Nutrition consult regarding: Tube Feeding (Trickle feed only ordered) Nutrition screening: [facility] [place]10/08 malnutrition) Objective - Diagnosis GI Bleed, Hypotension, Cirrhosis - Objective % IBW: 97 (IBW = 140#) Body Weight Used for Calculations: Actual (61.9 kg) Energy Needs - Lower Range (kCal/kg): 28 Energy Needs - Upper Range (kCal/kg): 32 Lower Limit kCal/kg (kCals): 1,733 Upper Limit kCal/kg (kCals): 1,981 Lower Limit Protein Factor (Grams per Kg): 1.2 Upper Limit Protein Factor (Grams per Kg): 1.5 Lower Protein Needs (Protein): 74 Upper Protein Needs (Protein): 93 Dietitian Reviewed in Medical Record: Curent medications, Intake & Output, Labs , Medical history, Tube feeding Diet Order: NPO Objective Comments: Meds include synthroid, solumedrol, reglan Assessment Assessment: Pt is s/p exp lap, primary repair of cecal perforation (10/01) and is reintubated. Trickle feed of Jevity 1.5 @ 10 mls/hr has been ordered. When goal TF is needed, recommend Vital 1.5 @ 55 mls/hr x 22 hours to provide 1815 kcals, 82 gms protein and 924 mls of free water. TF needs to be held one hour before and after synthroid is given. When receiving propofol, 1.1 kcal/ml will be provided Labs, wts and clinical course reviewed. Recommendations: When goal rate is needed: Vital 1.5 @ 55 mls/hr x 22 hours (d/t synthroid) Dietitian to Monitor: Lab values, Intake & Output, Tube feeding tolerance, Weight change, Medical course
[2018-10-09] MEDS: Propofol 1000 mg/100 ml Inj 1,000 MG/100 ML BOTTLE IV.CONT PRN ×2 (11:23→21:32)
--- NOTE | 2018-10-09 12:34 | P.PNGS ---
Subjective Interval history: Intubated/Sedated Daughter at bedside Physical Exam Vital signs: Vital Signs 10/08/18 12:37 10/08/18 12:40 10/08/18 12:42 Temperature Pulse Rate 76 76 77 Respiratory Rate 94 H 110 H 110 H Blood Pressure 97/69 L 101/66 Pulse Oximetry 94 L 95 10/08/18 12:47 10/08/18 12:50 10/08/18 12:52 Temperature Pulse Rate 77 77 77 Respiratory Rate 101 H 87 H 108 H Blood Pressure 104/67 106/69 113/73 Pulse Oximetry 95 95 10/08/18 12:57 10/08/18 13:00 10/08/18 13:02 Temperature Pulse Rate 78 77 78 Respiratory Rate 108 H 107 H 109 H Blood Pressure 109/70 110/71 Pulse Oximetry 96 10/08/18 13:05 10/08/18 13:07 10/08/18 13:10 Temperature Pulse Rate 79 79 80 Respiratory Rate 121 H 120 H 66 H Blood Pressure 107/74 104/77 113/70 Pulse Oximetry 97 97 96 10/08/18 13:12 10/08/18 13:15 10/08/18 13:17 Temperature Pulse Rate 80 84 85 Respiratory Rate 98 H 67 H 77 H Blood Pressure 104/68 100/68 96/65 L Pulse Oximetry 97 98 98 10/08/18 13:20 10/08/18 13:22 10/08/18 13:27 Temperature Pulse Rate 84 80 82 Respiratory Rate 96 H Blood Pressure 105/68 97/66 L 98/60 L Pulse Oximetry 98 99 94 L 10/08/18 13:30 10/08/18 13:32 10/08/18 13:35 Temperature Pulse Rate 83 83 82 Respiratory Rate 60 H 89 H 116 H Blood Pressure 94/62 L 89/60 L 89/57 L Pulse Oximetry 93 L 94 L 94 L 10/08/18 13:37 10/08/18 13:40 10/08/18 13:42 Temperature Pulse Rate 81 81 80 Respiratory Rate 120 H 107 H 73 H Blood Pressure 91/59 L 86/59 L 89/60 L Pulse Oximetry 94 L 94 L 94 L 10/08/18 13:45 10/08/18 13:47 10/08/18 13:50 Temperature Pulse Rate 80 80 79 Respiratory Rate 108 H 92 H 122 H Blood Pressure 89/56 L 86/52 L 94/59 L Pulse Oximetry 93 L 93 L 92 L 10/08/18 13:52 10/08/18 13:55 10/08/18 13:57 Temperature Pulse Rate 80 80 81 Respiratory Rate 111 H 49 H 76 H Blood Pressure 96/62 L 97/64 L 94/61 L Pulse Oximetry 92 L 91 L 90 L 10/08/18 14:00 10/08/18 14:02 10/08/18 14:05 Temperature Pulse Rate 81 81 82 Respiratory Rate 120 H 105 H 114 H Blood Pressure 96/63 L 97/66 L 102/67 Pulse Oximetry 90 L 90 L 90 L 10/08/18 14:07 10/08/18 14:10 10/08/18 14:12 Temperature Pulse Rate 82 81 83 Respiratory Rate 123 H 108 H 100 H Blood Pressure 100/68 101/69 101/69 Pulse Oximetry 91 L 91 L 91 L 10/08/18 14:15 10/08/18 14:17 10/08/18 14:20 Temperature Pulse Rate 82 81 81 Respiratory Rate 113 H 108 H 108 H Blood Pressure 102/70 103/72 105/68 Pulse Oximetry 91 L 91 L 91 L 10/08/18 14:22 10/08/18 14:25 10/08/18 14:27 Temperature Pulse Rate 82 83 82 Respiratory Rate 97 H 123 H 126 H Blood Pressure 109/71 107/68 108/71 Pulse Oximetry 91 L 91 L 92 L 10/08/18 14:31 10/08/18 15:00 10/08/18 16:00 Temperature 98.4 F Pulse Rate 82 89 94 H Respiratory Rate 106 H 97 H 100 H Blood Pressure 107/70 107/70 Pulse Oximetry 92 L 92 L 90 L 10/08/18 16:34 10/08/18 16:40 10/08/18 16:49 Temperature Pulse Rate 96 H 90 94 H Respiratory Rate 114 H 21 85 H Blood Pressure 121/80 119/82 Pulse Oximetry 88 L 90 L 89 L 10/08/18 17:00 10/08/18 17:04 10/08/18 17:19 Temperature Pulse Rate 89 90 96 H Respiratory Rate 73 H 119 H 99 H Blood Pressure 119/78 125/85 Pulse Oximetry 94 L 92 L 93 L 10/08/18 17:34 10/08/18 17:49 10/08/18 18:00 Temperature Pulse Rate 90 91 H 92 H Respiratory Rate 111 H 112 H 104 H Blood Pressure 119/84 123/74 Pulse Oximetry 95 95 96 10/08/18 18:04 10/08/18 18:19 10/08/18 18:34 Temperature Pulse Rate 90 92 H 91 H Respiratory Rate 130 H Blood Pressure 117/73 114/77 117/68 Pulse Oximetry 96 96 97 10/08/18 18:49 10/08/18 19:00 10/08/18 19:04 Temperature 98.0 F Pulse Rate 89 87 85 Respiratory Rate Blood Pressure 109/68 102/57 L Pulse Oximetry 98 98 97 10/08/18 19:19 10/08/18 19:24 10/08/18 19:34 Temperature Pulse Rate 83 82 83 Respiratory Rate 18 Blood Pressure 99/60 L 108/67 Pulse Oximetry 98 98 97 10/08/18 19:49 10/08/18 20:00 10/08/18 20:04 Temperature Pulse Rate 83 85 Respiratory Rate Blood Pressure 109/72 111/77 Pulse Oximetry 97 98 98 10/08/18 20:19 10/08/18 20:34 10/08/18 20:49 Temperature Pulse Rate 86 87 83 Respiratory Rate Blood Pressure 116/74 115/78 119/83 Pulse Oximetry 96 97 97 10/08/18 21:00 10/08/18 21:04 10/08/18 21:19 Temperature Pulse Rate 80 77 84 Respiratory Rate Blood Pressure 103/62 94/60 L Pulse Oximetry 98 98 98 10/08/18 21:34 10/08/18 21:49 10/08/18 22:00 Temperature Pulse Rate 73 69 70 Respiratory Rate Blood Pressure 93/64 L 95/63 L Pulse Oximetry 97 97 97 10/08/18 22:04 10/08/18 22:19 10/08/18 22:34 Temperature Pulse Rate 68 68 65 Respiratory Rate Blood Pressure 98/64 L 101/59 L 100/64 Pulse Oximetry 97 97 97 10/08/18 22:49 10/08/18 23:00 10/08/18 23:04 Temperature Pulse Rate 70 69 71 Respiratory Rate 18 Blood Pressure 118/72 119/78 Pulse Oximetry 96 97 97 10/08/18 23:19 10/08/18 23:34 10/08/18 23:42 Temperature Pulse Rate 74 75 80 Respiratory Rate 18 19 Blood Pressure 123/83 124/81 Pulse Oximetry 98 98 10/08/18 23:49 10/09/18 00:00 10/09/18 00:04 Temperature 98.6 F Pulse Rate 76 76 78 Respiratory Rate 19 19 19 Blood Pressure 123/83 122/82 Pulse Oximetry 99 99 99 10/09/18 00:19 10/09/18 00:34 10/09/18 00:49 Temperature Pulse Rate 78 80 78 Respiratory Rate 21 22 18 Blood Pressure 122/83 130/85 126/81 Pulse Oximetry 99 99 98 10/09/18 01:00 10/09/18 01:04 10/09/18 01:19 Temperature Pulse Rate 79 81 83 Respiratory Rate 19 21 Blood Pressure 129/77 124/80 Pulse Oximetry 97 97 96 10/09/18 01:34 10/09/18 01:49 10/09/18 01:58 Temperature Pulse Rate 77 70 Respiratory Rate 18 18 18 Blood Pressure 122/72 109/68 Pulse Oximetry 97 97 98 10/09/18 02:00 10/09/18 02:04 10/09/18 02:19 Temperature Pulse Rate 66 67 63 Respiratory Rate 18 18 18 Blood Pressure 110/66 112/70 Pulse Oximetry 97 97 97 10/09/18 02:34 10/09/18 02:49 10/09/18 03:00 Temperature Pulse Rate 64 63 76 Respiratory Rate 18 18 19 Blood Pressure 113/70 113/68 Pulse Oximetry 97 97 98 10/09/18 03:04 10/09/18 03:19 10/09/18 03:23 Temperature Pulse Rate 77 79 76 Respiratory Rate 21 19 Blood Pressure 131/85 128/82 Pulse Oximetry 98 97 10/09/18 03:34 10/09/18 03:49 10/09/18 04:00 Temperature 97.8 F Pulse Rate 78 79 79 Respiratory Rate 21 18 19 Blood Pressure 136/79 133/81 Pulse Oximetry 99 99 99 10/09/18 04:04 10/09/18 04:19 10/09/18 04:34 Temperature Pulse Rate 80 80 81 Respiratory Rate 18 19 18 Blood Pressure 126/83 127/85 124/85 Pulse Oximetry 98 97 97 10/09/18 04:39 10/09/18 04:49 10/09/18 05:00 Temperature Pulse Rate 80 80 Respiratory Rate 18 18 19 Blood Pressure 125/84 Pulse Oximetry 99 97 97 10/09/18 05:04 10/09/18 05:22 10/09/18 05:34 Temperature Pulse Rate 81 78 79 Respiratory Rate 20 53 H 19 Blood Pressure 134/89 109/70 110/67 Pulse Oximetry 97 96 95 10/09/18 05:49 10/09/18 06:00 10/09/18 06:34 Temperature Pulse Rate 79 78 78 Respiratory Rate 18 18 18 Blood Pressure 113/68 122/70 122/77 Pulse Oximetry 96 96 96 10/09/18 06:49 10/09/18 07:00 10/09/18 07:04 Temperature Pulse Rate 81 79 74 Respiratory Rate 18 21 18 Blood Pressure 118/73 118/73 119/73 Pulse Oximetry 97 97 97 10/09/18 07:19 10/09/18 07:34 10/09/18 07:49 Temperature Pulse Rate 74 74 79 Respiratory Rate 18 18 18 Blood Pressure 121/77 131/71 146/84 H Pulse Oximetry 97 98 97 10/09/18 08:00 10/09/18 08:04 10/09/18 08:19 Temperature 98.1 F Pulse Rate 78 84 79 Respiratory Rate 18 19 18 Blood Pressure 125/67 118/77 Pulse Oximetry 98 98 97 10/09/18 08:34 10/09/18 08:48 10/09/18 08:49 Temperature Pulse Rate 79 78 77 Respiratory Rate 18 18 18 Blood Pressure 120/78 119/79 Pulse Oximetry 96 95 95 10/09/18 09:00 10/09/18 09:04 10/09/18 09:19 Temperature Pulse Rate 76 75 77 Respiratory Rate 19 18 23 Blood Pressure 123/76 122/72 Pulse Oximetry 97 97 97 10/09/18 09:34 10/09/18 09:49 10/09/18 10:00 Temperature Pulse Rate 75 77 78 Respiratory Rate 19 27 H 20 Blood Pressure 119/70 120/72 Pulse Oximetry 96 95 95 10/09/18 10:04 10/09/18 10:19 10/09/18 10:34 Temperature Pulse Rate 79 78 83 Respiratory Rate 22 18 38 H Blood Pressure 116/78 118/69 123/72 Pulse Oximetry 95 94 L 95 10/09/18 10:49 10/09/18 11:00 12/04/18 11:04 Temperature Pulse Rate 80 80 81 Respiratory Rate 18 19 19 Blood Pressure 124/71 119/71 Pulse Oximetry 95 96 96 10/09/18 11:19 Temperature Pulse Rate 81 Respiratory Rate 19 Blood Pressure 118/75 Pulse Oximetry 97 Intake & Output 10/08/18 10/09/18 10/09/18 18:59 06:59 18:59 Intake Total 430 / 430 500 / 500 300 / 300 Output Total 1935 / 1935 1065 / 1065 Balance -1505 / -1505 -565 / -565 300 / 300 Weight 56.9 kg Intake: IV 400 / 400 500 / 500 300 / 300 Diprivan 1000 mg/100 ml Inj 1, 100 / 100 100 / 100 000 mg In 100 ml @ 5 MCG/KG/MIN 1.851 mls/hr IV.CONT TITRATE PRN Rx#:[id number] Flexbumin 25% Inj 100 ML @ 60 100 / 100 200 / 200 100 / 100 mls/hr IV.SIG Q6H HILDA Rx#: [id number] Unasyn Inj 3 GM In NS Inj 100 200 / 200 200 / 200 100 / 100 ML @ 200 mls/hr IV.SIG Q6H HILDA Rx#:[id number] KCl 40 mEq Premix Inj 40 meq In 100 / 100 100 ml @ 25 mls/hr IV.SIG Q2H PRN Rx#:[id number] Tube Irrigant 30 / 30 Output: Urine Amount (Catheter) 825 / 825 925 / 925 Indwelling Urethral Catheter 825 / 825 925 / 925 Wound Drainage 320 / 320 # 1 Abdomen 320 / 320 Chest Tube Drainage 790 / 790 140 / 140 #1 Right Upper Anterior 0 / 0 130 / 130 #2 Right Lower 790 / 790 Other: Date of Last Bowel Movement 10/08/18 10/09/18 10/09/18 Narrative: Intubated; restless at the moment Resp: CTAB Abd: soft; KAREN in place with good seal; LISBETH removed --- site with serous fluid - Routine Abdominal Exam Present: soft, drain (site leaking ascitic fluid after attempt to seal with dermabond after drain removal yesterday) - Urinary Catheter Management Indwelling Urethral Catheter Cath placed during this visit: yes Reason for continuing: Hourly intake/output Insertion date: 10/01/18 Insertion time: 20:00 Results - Labs 10/08/18 09:00 10/09/18 04:20 Laboratory Results - last 24 hr 10/08/18 10/08/18 10/09/18 12:00 12:00 04:20 Sodium 149 H Potassium 4.0 Chloride 113 H Carbon Dioxide 26.4 Anion Gap 10 BUN 31 H Creatinine 1.18 H Estimated GFR 46 L Random Glucose 145 H Calcium 10.4 H Total Bilirubin 3.3 H AST 30 ALT 13 Alkaline Phosphatase 157 H Total Protein 7.7 Albumin 4.8 Pleural pH 8.5 Pleural RBC 59333 H Pleural Nuc Cells 400 H Pleural Neutrophils 61 Pleural Lymphocytes 18 Pleural Monocytes 15 Pleural Basophils 1 Pleural Histocytes 1 Pleural Mesothelial 4 Pleural Total Protein 3.6 Pleural LDH 235 Pleural Glucose 94 Pleural Amylase 13 - Imaging Imaging: ITS Impressions Abdomen X-Ray 10/01/18 17:09 CONCLUSION: Extensive free intraperitoneal air discussed with referring doctor on today's date Chest X-Ray 10/09/18 05:00 CONCLUSION: Unchanged diffuse bilateral pulmonary consolidations. Assessment and Plan - Assessment (1) Pneumoperitoneum Code(s): K66.8 - Other specified disorders of peritoneum Status: Acute Plan: 68 year old female s/p Exploratory laparotomy; Oversew cecal perforation -Re-intubated yesterday -Start trickle feed -LISBETH removed--- prior site needs to be changed frequently--- may even need a wound access manager -Discussed with daughter at bedside Tolerating trickle feeds at 10cc/hr If dermabond does not hold, will need wound bag for drain site Discussed with nurse The exam, history, and the medical decision-making described in the above note were completed with the assistance of the mid-level provider. I reviewed and agree with the findings presented. I attest that I had a [id number] encounter with the patient on the same day, and personally performed and documented my assessment and findings in the medical record.
[2018-10-09] MEDS: Morphine Sulfate Inj 2 MG/ML Vial IV.PUSH PRN (14:03)
--- NOTE | 2018-10-09 15:04 | P.PNCC ---
Subjective Subjective Remarks/Hospital Course: late entry for encounter on 10/03/18 68-year-old female with past medical history of alcohol dependence, cirrhosis, tobacco abuse, esophageal varices underwent diagnostic colonoscopy today by Dr. Tipton with biopsy of ascending, descending and sigmoid colon. She presented to [facility] ED with abdominal pain and distension. She was hypotensive. She was having bloody bowel movements. She was given 2 units PRBC and 1 L NS bolus. R femoral cordis was placed by ED physician. KUB demonstrated pneumoperitoneum. She was transferred emergently [facility] Main OR where she underwent ex lap by Dr. German. Dr. Kumar states there was microperforation of cecum that was oversewn. 4700 of ascites was evacuated. She received 1300 crystalloid in OR. EBL was 10 mL. LISBETH output 30. She is oliguric with only 10 Ml of urine output in PACU. She is a daily drinker of 24 ounces of [place]. 10/02: Warm and well-perfused. No withdrawal symptomatology but anticipated soon. Urine minimal but she is on dual diuretics for hepatic dysfunction/ cirrhosis and is unlikely to make much urine without stimulation. We started her diuretics through the NG tube after discussing with surgical service nurse practitioner. Nasogastric tube to low intermittent suction otherwise. Gram- negative rods in pleural fluid as expected, continue present antibiotics. 10/03: Required intubation for worsening resp distress on 10/03 early AM. 10/04: Sedated, arousable, orally intubated on mechanical ventilation. 10/05: Sedated, arousable, orally intubated on mechanical ventilation. Failed CPAP trial. LISBETH drain remains in place. 10/06: Remains afebrile. Tolerating spontaneous breathing trials today with low but acceptable tidal volumes. Bilirubin and alkaline phosphatase is rising. 10/07: Extubated without event yesterday and breathing comfortably early in the day. Required placement of BiPAP noninvasive ventilation later in the day due mostly to lethargy and fatigue. Diuresis started yesterday continued today. Supplement with intravenous albumin and follow pleural effusions closely. Renal function remains good. 10/08: Remains on BiPAP now more labored breathing. Chest x-ray and ABG pending. Daughter is at the bedside updated. Likely will need intubation if patient not responding to diuresis. 10/09: Sedated, orally intubated on mechanical ventilation. LISBETH drain discontinued yesterday. Right-sided pigtail catheters x2 in place. No air leak currently. - Diagnosis (1) Perforation of cecum (2) Pneumoperitoneum (3) Alcoholic cirrhosis of liver with ascites (4) EtOH dependence (5) Hypokalemia (6) JOSE (acute kidney injury) (7) Reactive thrombocytosis (8) Leukocytosis (9) Tobacco abuse (10) Protein-calorie malnutrition, moderate Objective Vital Signs / I&O: Vital Signs 10/08/18 15:00 10/08/18 16:00 10/08/18 16:34 Temperature 98.4 F Pulse Rate 89 94 H 96 H Respiratory Rate 97 H 100 H 114 H Blood Pressure 107/70 121/80 Pulse Oximetry 92 L 90 L 88 L 10/08/18 16:40 10/08/18 16:49 10/08/18 17:00 Temperature Pulse Rate 90 94 H 89 Respiratory Rate 21 85 H 73 H Blood Pressure 119/82 Pulse Oximetry 90 L 89 L 94 L 10/08/18 17:04 10/08/18 17:19 10/08/18 17:34 Temperature Pulse Rate 90 96 H 90 Respiratory Rate 119 H 99 H 111 H Blood Pressure 119/78 125/85 119/84 Pulse Oximetry 92 L 93 L 95 10/08/18 17:49 10/08/18 18:00 10/08/18 18:04 Temperature Pulse Rate 91 H 92 H 90 Respiratory Rate 112 H 104 H 130 H Blood Pressure 123/74 117/73 Pulse Oximetry 95 96 96 10/08/18 18:19 10/08/18 18:34 10/08/18 18:49 Temperature Pulse Rate 92 H 91 H 89 Respiratory Rate Blood Pressure 114/77 117/68 109/68 Pulse Oximetry 96 97 98 10/08/18 19:00 10/08/18 19:04 10/08/18 19:19 Temperature 98.0 F Pulse Rate 87 85 83 Respiratory Rate Blood Pressure 102/57 L 99/60 L Pulse Oximetry 98 97 98 10/08/18 19:24 10/08/18 19:34 10/08/18 19:49 Temperature Pulse Rate 82 83 83 Respiratory Rate 18 Blood Pressure 108/67 109/72 Pulse Oximetry 98 97 97 10/08/18 20:00 10/08/18 20:04 10/08/18 20:19 Temperature Pulse Rate 85 86 Respiratory Rate Blood Pressure 111/77 116/74 Pulse Oximetry 98 98 96 10/08/18 20:34 10/08/18 20:49 10/08/18 21:00 Temperature Pulse Rate 87 83 80 Respiratory Rate Blood Pressure 115/78 119/83 Pulse Oximetry 97 97 98 10/08/18 21:04 10/08/18 21:19 10/08/18 21:34 Temperature Pulse Rate 77 84 73 Respiratory Rate Blood Pressure 103/62 94/60 L 93/64 L Pulse Oximetry 98 98 97 10/08/18 21:49 10/08/18 22:00 10/08/18 22:04 Temperature Pulse Rate 69 70 68 Respiratory Rate Blood Pressure 95/63 L 98/64 L Pulse Oximetry 97 97 97 10/08/18 22:19 10/08/18 22:34 10/08/18 22:49 Temperature Pulse Rate 68 65 70 Respiratory Rate Blood Pressure 101/59 L 100/64 118/72 Pulse Oximetry 97 97 96 10/08/18 23:00 10/08/18 23:04 10/08/18 23:19 Temperature Pulse Rate 69 71 74 Respiratory Rate 18 Blood Pressure 119/78 123/83 Pulse Oximetry 97 97 98 10/08/18 23:34 10/08/18 23:42 10/08/18 23:49 Temperature Pulse Rate 75 80 76 Respiratory Rate 18 19 19 Blood Pressure 124/81 123/83 Pulse Oximetry 98 99 10/09/18 00:00 10/09/18 00:04 10/09/18 00:19 Temperature 98.6 F Pulse Rate 76 78 78 Respiratory Rate 19 19 21 Blood Pressure 122/82 122/83 Pulse Oximetry 99 99 99 10/09/18 00:34 10/09/18 00:49 10/09/18 01:00 Temperature Pulse Rate 80 78 79 Respiratory Rate 22 18 19 Blood Pressure 130/85 126/81 Pulse Oximetry 99 98 97 10/09/18 01:04 10/09/18 01:19 10/09/18 01:34 Temperature Pulse Rate 81 83 77 Respiratory Rate 21 18 Blood Pressure 129/77 124/80 122/72 Pulse Oximetry 97 96 97 10/09/18 01:49 10/09/18 01:58 10/09/18 02:00 Temperature Pulse Rate 70 66 Respiratory Rate 18 18 18 Blood Pressure 109/68 Pulse Oximetry 97 98 97 10/09/18 02:04 10/09/18 02:19 10/09/18 02:34 Temperature Pulse Rate 67 63 64 Respiratory Rate 18 18 18 Blood Pressure 110/66 112/70 113/70 Pulse Oximetry 97 97 97 10/09/18 02:49 10/09/18 03:00 10/09/18 03:04 Temperature Pulse Rate 63 76 77 Respiratory Rate 18 19 21 Blood Pressure 113/68 131/85 Pulse Oximetry 97 98 98 10/09/18 03:19 10/09/18 03:23 10/09/18 03:34 Temperature Pulse Rate 79 76 78 Respiratory Rate 19 21 Blood Pressure 128/82 136/79 Pulse Oximetry 97 99 10/09/18 03:49 10/09/18 04:00 10/09/18 04:04 Temperature 97.8 F Pulse Rate 79 79 80 Respiratory Rate 18 19 18 Blood Pressure 133/81 126/83 Pulse Oximetry 99 99 98 10/09/18 04:19 10/09/18 04:34 10/09/18 04:39 Temperature Pulse Rate 80 81 Respiratory Rate 19 18 18 Blood Pressure 127/85 124/85 Pulse Oximetry 97 97 99 10/09/18 04:49 10/09/18 05:00 10/09/18 05:04 Temperature Pulse Rate 80 80 81 Respiratory Rate 18 19 20 Blood Pressure 125/84 134/89 Pulse Oximetry 97 97 97 10/09/18 05:22 10/09/18 05:34 10/09/18 05:49 Temperature Pulse Rate 78 79 79 Respiratory Rate 53 H 19 18 Blood Pressure 109/70 110/67 113/68 Pulse Oximetry 96 95 96 10/09/18 06:00 10/09/18 06:34 10/09/18 06:49 Temperature Pulse Rate 78 78 81 Respiratory Rate 18 18 18 Blood Pressure 122/70 122/77 118/73 Pulse Oximetry 96 96 97 10/09/18 07:00 10/09/18 07:04 10/09/18 07:19 Temperature Pulse Rate 79 74 74 Respiratory Rate 21 18 18 Blood Pressure 118/73 119/73 121/77 Pulse Oximetry 97 97 97 10/09/18 07:34 10/09/18 07:49 10/09/18 08:00 Temperature Pulse Rate 74 79 78 Respiratory Rate 18 18 18 Blood Pressure 131/71 146/84 H Pulse Oximetry 98 97 98 10/09/18 08:04 10/09/18 08:19 10/09/18 08:34 Temperature 98.1 F Pulse Rate 84 79 79 Respiratory Rate 19 18 18 Blood Pressure 125/67 118/77 120/78 Pulse Oximetry 98 97 96 10/09/18 08:48 10/09/18 08:49 10/09/18 09:00 Temperature Pulse Rate 78 77 76 Respiratory Rate 18 18 19 Blood Pressure 119/79 Pulse Oximetry 95 95 97 10/09/18 09:04 10/09/18 09:19 10/09/18 09:34 Temperature Pulse Rate 75 77 75 Respiratory Rate 18 23 19 Blood Pressure 123/76 122/72 119/70 Pulse Oximetry 97 97 96 10/09/18 09:49 10/09/18 10:00 10/09/18 10:04 Temperature Pulse Rate 77 78 79 Respiratory Rate 27 H 20 22 Blood Pressure 120/72 116/78 Pulse Oximetry 95 95 95 10/09/18 10:19 10/09/18 10:34 10/09/18 10:49 Temperature Pulse Rate 78 83 80 Respiratory Rate 18 38 H 18 Blood Pressure 118/69 123/72 124/71 Pulse Oximetry 94 L 95 95 10/09/18 11:00 10/09/18 11:04 10/09/18 11:19 Temperature Pulse Rate 80 81 81 Respiratory Rate 19 19 19 Blood Pressure 119/71 118/75 Pulse Oximetry 96 96 97 10/09/18 11:34 10/09/18 11:49 10/09/18 12:00 Temperature 98.2 F Pulse Rate 82 81 80 Respiratory Rate 18 18 21 Blood Pressure 124/78 121/71 119/72 Pulse Oximetry 97 97 97 10/09/18 12:04 10/09/18 12:19 10/09/18 12:34 Temperature Pulse Rate 80 78 79 Respiratory Rate 18 19 18 Blood Pressure 119/72 121/79 125/79 Pulse Oximetry 97 97 97 10/09/18 12:49 10/09/18 13:00 10/09/18 13:04 Temperature Pulse Rate 78 78 74 Respiratory Rate 18 18 18 Blood Pressure 128/76 132/81 Pulse Oximetry 97 97 97 10/09/18 13:19 10/09/18 13:34 10/09/18 13:37 Temperature Pulse Rate 78 78 79 Respiratory Rate 18 18 18 Blood Pressure 133/86 128/88 Pulse Oximetry 97 97 10/09/18 13:38 10/09/18 13:49 10/09/18 14:00 Temperature Pulse Rate 77 77 Respiratory Rate 18 18 18 Blood Pressure 128/85 Pulse Oximetry 97 97 10/09/18 14:04 Temperature Pulse Rate 75 Respiratory Rate 18 Blood Pressure 126/92 H Pulse Oximetry 97 Intake & Output 10/08/18 10/09/18 10/09/18 18:59 06:59 18:59 Intake Total 430 / 430 500 / 500 300 / 300 Output Total 1935 / 1935 1065 / 1065 Balance -1505 / -1505 -565 / -565 300 / 300 Weight 56.9 kg Intake: IV 400 / 400 500 / 500 300 / 300 Diprivan 1000 mg/100 ml Inj 1, 100 / 100 100 / 100 000 mg In 100 ml @ 5 MCG/KG/MIN 1.851 mls/hr IV.CONT TITRATE PRN Rx#:[id number] Flexbumin 25% Inj 100 ML @ 60 100 / 100 200 / 200 100 / 100 mls/hr IV.SIG Q6H HILDA Rx#: [id number] Unasyn Inj 3 GM In NS Inj 100 200 / 200 200 / 200 100 / 100 ML @ 200 mls/hr IV.SIG Q6H HILDA Rx#:[id number] KCl 40 mEq Premix Inj 40 meq In 100 / 100 100 ml @ 25 mls/hr IV.SIG Q2H PRN Rx#:[id number] Tube Irrigant 30 / 30 Output: Urine Amount (Catheter) 825 / 825 925 / 925 Indwelling Urethral Catheter 825 / 825 925 / 925 Wound Drainage 320 / 320 # 1 Abdomen 320 / 320 Chest Tube Drainage 790 / 790 140 / 140 #1 Right Upper Anterior 0 / 0 130 / 130 #2 Right Lower 790 / 790 Other: Date of Last Bowel Movement 10/08/18 10/09/18 10/09/18 Result Diagrams: 10/08/18 09:00 10/09/18 04:20 Objective Remarks: Narrative: HEENT/ Neuro: Sedated, orally intubated, Pallor present, no icterus, tongue/ mucosa moist Neck: No JVD Chest/Pulm: on mech vent, good air entry bilaterally, no wheezing or crackles CVS: S1-S2 regular, no murmur GI/abdomen: soft, nontender, dressing over midline incision site clean dry and intact. Dressing over LISBETH drain site in place. Bowel sounds sluggish Extremities: warm bilaterally, no edema Assessment and Plan - Problem List (1) Perforation of cecum Code(s): K35.32 - Acute appendicitis with perforation and localized peritonitis , without abscess Status: Acute (2) Pneumoperitoneum Code(s): K66.8 - Other specified disorders of peritoneum Status: Acute (3) Alcoholic cirrhosis of liver with ascites Code(s): K70.31 - Alcoholic cirrhosis of liver with ascites Status: Acute (4) EtOH dependence Code(s): F10.20 - Alcohol dependence, uncomplicated Status: Acute (5) Hypokalemia Code(s): E87.6 - Hypokalemia Status: Acute (6) JOSE (acute kidney injury) Code(s): N17.9 - Acute kidney failure, unspecified Status: Acute (7) Reactive thrombocytosis Code(s): R79.89 - Other specified abnormal findings of blood chemistry Status : Acute (8) Leukocytosis Code(s): D72.829 - Elevated white blood cell count, unspecified Status: Acute (9) Tobacco abuse Code(s): Z72.0 - Tobacco use Status: Chronic (10) Protein-calorie malnutrition, moderate Code(s): E44.0 - Moderate protein-calorie malnutrition Status: Chronic - Assessment and Plan Plan: NEURO: Alcohol dependence Daily sedation vacation Thiamine/multivitamin/folic acid supplementation IV times 3 days then transition to p.o. thiamine. CIWA protocol if needed. Morphine as needed for pain Alcohol cessation counseling discussed preoperatively. RESP: Acute hypoxemic respiratory failure Probable COPD with exacerbation Tobacco abuse Bilateral pleural effusions, small to moderate Reintubated on 10/08, continue mechanical ventilation, vent bundle, steroids started 10/08 Right-sided pigtail catheter placed on 10/08 for pleural effusion followed by small pneumothorax for which right-sided apical pigtail catheter placed on 10/[address] Mac. Tobacco cessation counseling when extubated Bronchodilators scheduled and as needed Aggressive diuresis initiated. CV: Hypovolemic/distributive shock Likely third spacing following removal of 4.7 L of ascitic fluid in addition to SIRS response to microperforation. Received albumin and s/p albumin 25 g IV every 6 hours for 24 hours following removal of his ascitic fluid. Levophed to maintain mean arterial pressure greater than 65. Currently on IV Lasix 40 mg every 8 hours GI: Microperforation cecum s/p colonoscopy with multiple biopsies Now postoperative from exploratory laparotomy, microperforation of cecum oversewn Dr. German Cirrhosis Ascites Esophageal varices Hyperbilirubinemia Chronic moderate protein energy malnutrition Tube feeds resumed, if tolerates will advance to goal Dietitian consulted, may need concurrent TPN for nutrition if not tolerating advancing tube feeds Monitor LISBETH output Continue broad-spectrum coverage for E. coli and enterococcus abdominal cultures FEN/RENAL: Hypokalemia Hypomagnesemia Acute kidney injury Warner in place. Monitor intake and output. Monitor electrolytes. Restarted spironolactone and Lasix 10/06. ID: Leukocytosis Severe sepsis Abdominal wound culture 10/01/2018 growing ampicillin sensitive E. coli and enterococcus Currently on Zosyn 3.375 IV every 6 hours. Changed to Unasyn 3 g IV every 6 hours HEME: Reactive thrombocytosis Monitor CBC. ENDO: Euglycemic PROPH: SCDs for DVT prophylaxis. SQ Heparin when OK with surgery Protonix 40 mg IV daily for stress ulcer prophylaxis ACCESS: Right IJ central venous line placed in OR 10/01. Discussed with patient's daughter at bedside regarding current clinical status and plan of care and she voiced understanding. Discussed with Layla Tyler Discussed with [employer] Condition critical Time spent on critical care excluding procedures 35 minutes
[2018-10-10] MEDS: Morphine Sulfate Inj 2 MG/ML Vial IV.PUSH PRN ×2 (02:42→17:16)
[2018-10-10] MEDS: Oral Hygiene Kit OROPHARYNG SCH ×3 (04:35→15:59)
[2018-10-10] MEDS: Ampicillin/Sulbactam Inj 3 GM in Sodium Chloride 0.9% Inj 100 ML IV.SIG SCH ×4 (04:35→21:01)
[2018-10-10] MEDS: Albumin Human 25% Inj 100 ML IV.SIG SCH ×3 (04:59→17:15)
[2018-10-10] MEDS: Heparin - SQ 10,000 UNITS/ML Vial SQ SCH ×3 (06:00→21:01)
[2018-10-10] MEDS: MethylPREDNISolone Sod Succinate Inj 40 MG/ML Vial IV.PUSH SCH ×3 (06:00→21:01)
[2018-10-10] MEDS: Levothyroxine 50 MCG Tablet PO SCH (06:00)
[2018-10-10] MEDS: Propofol 1000 mg/100 ml Inj 1,000 MG/100 ML BOTTLE IV.CONT PRN (06:01)
[2018-10-10 06:38] LABS: INR 1.3 Ratio; Prothrombin Time 13.1 sec (9.8-11.6)
[2018-10-10 07:03] LABS: Alanine Aminotransferase 15 U/L (10-53); Albumin 5.3 g/dL (3.4-5.0); Alkaline Phosphatase 176 U/L (45-117); Anion Gap 13 meq/L (5-15); Aspartate Aminotransferase 30 U/L (15-37); Blood Urea Nitrogen 50 mg/dL (7-18); Calcium 10.9 mg/dL (8.5-10.1); Carbon Dioxide 26.4 meq/L (21.0-32.0); Chloride 115 meq/L (98-107); Glomerular Filtration Rate 41 mL/min (>89); Glucose,Random 159 mg/dL (74-106); Sodium 154 meq/L (136-145); Total Protein 7.8 g/dL (6.4-8.2)
[2018-10-10 07:06] LABS: Baso % (Auto) 0.1 % (0.0-2.0); Hematocrit 28.3 % (35.0-46.0); Hemoglobin 9.5 gm/dL (11.6-15.3); Lymph # (Auto) 1.8 th/mm3 (1.0-4.8); Lymph % (Auto) 8.1 % (9.0-44.0); Mean Corpuscular HGB Conc 33.7 % (32.0-36.0); Mean Corpuscular Hemoglobin 33.2 pg (27.0-34.0); Mean Corpuscular Volume 98.8 fL (80.0-100.0); Mean Platelet Volume 10.6 fL (7.0-11.0); Mono # (Auto) 1.1 th/mm3 (0.0-0.9); Mono % (Auto) 4.8 % (0.0-8.0); Platelet Count 298 th/mm3 (150-450); Red Blood Count 2.86 mil/mm3 (4.00-5.30); Red Cell Distribution Width 14.8 % (11.6-17.2); White Blood Count 21.9 th/mm3 (4.0-11.0)
[2018-10-10 07:10] LABS: Potassium 2.7 meq/L (3.5-5.1)
[2018-10-10] MEDS: Potassium Chlor 40 mEq Premix 40 MEQ/100 ML PIGGYBACK IV.SIG PRN (07:17)
--- NOTE | 2018-10-10 10:18 | P.PNCC ---
Subjective Subjective Remarks/Hospital Course: late entry for encounter on 10/03/18 68-year-old female with past medical history of alcohol dependence, cirrhosis, tobacco abuse, esophageal varices underwent diagnostic colonoscopy today by Dr. Tipton with biopsy of ascending, descending and sigmoid colon. She presented to [facility] ED with abdominal pain and distension. She was hypotensive. She was having bloody bowel movements. She was given 2 units PRBC and 1 L NS bolus. R femoral cordis was placed by ED physician. KUB demonstrated pneumoperitoneum. She was transferred emergently [facility] Main OR where she underwent ex lap by Dr. German. Dr. Kumar states there was microperforation of cecum that was oversewn. 4700 of ascites was evacuated. She received 1300 crystalloid in OR. EBL was 10 mL. LISBETH output 30. She is oliguric with only 10 Ml of urine output in PACU. She is a daily drinker of 24 ounces of [place]. 10/02: Warm and well-perfused. No withdrawal symptomatology but anticipated soon. Urine minimal but she is on dual diuretics for hepatic dysfunction/ cirrhosis and is unlikely to make much urine without stimulation. We started her diuretics through the NG tube after discussing with surgical service nurse practitioner. Nasogastric tube to low intermittent suction otherwise. Gram- negative rods in pleural fluid as expected, continue present antibiotics. 10/03: Required intubation for worsening resp distress on 10/03 early AM. 10/04: Sedated, arousable, orally intubated on mechanical ventilation. 10/05: Sedated, arousable, orally intubated on mechanical ventilation. Failed CPAP trial. LISBETH drain remains in place. 10/06: Remains afebrile. Tolerating spontaneous breathing trials today with low but acceptable tidal volumes. Bilirubin and alkaline phosphatase is rising. 10/07: Extubated without event yesterday and breathing comfortably early in the day. Required placement of BiPAP noninvasive ventilation later in the day due mostly to lethargy and fatigue. Diuresis started yesterday continued today. Supplement with intravenous albumin and follow pleural effusions closely. Renal function remains good. 10/08: Remains on BiPAP now more labored breathing. Chest x-ray and ABG pending. Daughter is at the bedside updated. Likely will need intubation if patient not responding to diuresis. 10/09: Sedated, orally intubated on mechanical ventilation. LISBETH drain discontinued yesterday. Right-sided pigtail catheters x2 in place. No air leak currently. 10/10: Remains sedated, orally intubated on mechanical ventilation. Failed CPAP trial yesterday. Right-sided pigtail catheters x2, no air leak and minimal drainage. Tube feeds to be advanced - Diagnosis (1) Perforation of cecum (2) Pneumoperitoneum (3) Alcoholic cirrhosis of liver with ascites (4) EtOH dependence (5) Hypokalemia (6) JOSE (acute kidney injury) (7) Reactive thrombocytosis (8) Leukocytosis (9) Tobacco abuse (10) Protein-calorie malnutrition, moderate Objective Vital Signs / I&O: Vital Signs 10/09/18 10:19 10/09/18 10:34 10/09/18 10:49 Temperature Pulse Rate 78 83 80 Respiratory Rate 18 38 H 18 Blood Pressure 118/69 123/72 124/71 Pulse Oximetry 94 L 95 95 10/09/18 11:00 10/09/18 11:04 10/09/18 11:19 Temperature Pulse Rate 80 81 81 Respiratory Rate 19 19 19 Blood Pressure 119/71 118/75 Pulse Oximetry 96 96 97 10/09/18 11:34 10/09/18 11:49 10/09/18 12:00 Temperature 98.2 F Pulse Rate 82 81 80 Respiratory Rate 18 18 21 Blood Pressure 124/78 121/71 119/72 Pulse Oximetry 97 97 97 10/09/18 12:04 10/09/18 12:19 10/09/18 12:34 Temperature Pulse Rate 80 78 79 Respiratory Rate 18 19 18 Blood Pressure 119/72 121/79 125/79 Pulse Oximetry 97 97 97 10/09/18 12:49 10/09/18 13:00 10/09/18 13:04 Temperature Pulse Rate 78 78 74 Respiratory Rate 18 18 18 Blood Pressure 128/76 132/81 Pulse Oximetry 97 97 97 10/09/18 13:19 10/09/18 13:34 10/09/18 13:37 Temperature Pulse Rate 78 78 79 Respiratory Rate 18 18 18 Blood Pressure 133/86 128/88 Pulse Oximetry 97 97 10/09/18 13:38 10/09/18 13:49 10/09/18 14:00 Temperature Pulse Rate 77 77 Respiratory Rate 18 18 18 Blood Pressure 128/85 Pulse Oximetry 97 97 10/09/18 14:04 10/09/18 14:19 10/09/18 14:34 Temperature Pulse Rate 75 74 75 Respiratory Rate 18 18 20 Blood Pressure 126/92 H 122/85 119/84 Pulse Oximetry 97 97 94 L 10/09/18 14:49 10/09/18 15:00 10/09/18 15:04 Temperature Pulse Rate 78 72 72 Respiratory Rate 19 18 18 Blood Pressure 123/76 121/77 121/77 Pulse Oximetry 93 L 94 L 95 10/09/18 15:19 10/09/18 15:34 10/09/18 15:49 Temperature Pulse Rate 70 66 65 Respiratory Rate 18 18 18 Blood Pressure 113/70 111/68 114/70 Pulse Oximetry 96 96 97 10/09/18 16:00 10/09/18 16:04 10/09/18 16:16 Temperature 98.1 F Pulse Rate 64 64 Respiratory Rate 18 18 Blood Pressure 112/68 112/68 Pulse Oximetry 97 97 95 10/09/18 16:19 10/09/18 16:34 10/09/18 16:49 Temperature Pulse Rate 63 62 61 Respiratory Rate 18 18 18 Blood Pressure 117/70 124/72 119/70 Pulse Oximetry 97 97 97 10/09/18 17:00 10/09/18 17:04 10/09/18 17:19 Temperature Pulse Rate 61 61 60 Respiratory Rate 18 18 18 Blood Pressure 123/66 123/66 122/73 Pulse Oximetry 97 97 97 10/09/18 17:34 10/09/18 17:49 10/09/18 18:00 Temperature Pulse Rate 73 77 81 Respiratory Rate 18 18 24 Blood Pressure 138/90 129/69 129/69 Pulse Oximetry 98 99 99 10/09/18 18:04 10/09/18 18:19 10/09/18 18:34 Temperature Pulse Rate 81 84 82 Respiratory Rate 22 19 18 Blood Pressure 120/70 117/71 119/75 Pulse Oximetry 99 99 99 10/09/18 18:49 10/09/18 19:00 10/09/18 19:04 Temperature Pulse Rate 81 82 80 Respiratory Rate 18 18 18 Blood Pressure 123/75 127/77 Pulse Oximetry 99 98 98 10/09/18 19:19 10/09/18 19:34 10/09/18 19:49 Temperature Pulse Rate 76 78 77 Respiratory Rate 18 18 18 Blood Pressure 124/75 127/77 127/65 Pulse Oximetry 98 98 98 10/09/18 20:00 10/09/18 20:04 10/09/18 20:31 Temperature 97.6 F Pulse Rate 77 74 74 Respiratory Rate 18 18 18 Blood Pressure 125/76 123/81 Pulse Oximetry 97 97 98 10/09/18 21:00 10/09/18 21:01 10/09/18 21:02 Temperature Pulse Rate 73 72 82 Respiratory Rate 18 18 18 Blood Pressure 128/86 Pulse Oximetry 99 99 10/09/18 21:31 10/09/18 22:00 10/09/18 22:01 Temperature Pulse Rate 73 78 78 Respiratory Rate 18 18 18 Blood Pressure 124/75 123/79 Pulse Oximetry 99 98 99 10/09/18 22:31 10/09/18 23:00 10/09/18 23:01 Temperature Pulse Rate 80 78 80 Respiratory Rate 16 18 18 Blood Pressure 133/89 133/81 Pulse Oximetry 98 97 97 10/09/18 23:31 10/09/18 23:35 10/09/18 23:38 Temperature Pulse Rate 77 79 Respiratory Rate 19 18 18 Blood Pressure 127/87 Pulse Oximetry 98 98 10/10/18 00:00 10/10/18 00:01 10/10/18 00:31 Temperature 97.7 F Pulse Rate 81 80 77 Respiratory Rate 19 19 19 Blood Pressure 118/69 126/77 Pulse Oximetry 98 98 98 10/10/18 01:00 10/10/18 01:01 10/10/18 01:31 Temperature Pulse Rate 79 78 78 Respiratory Rate 19 18 19 Blood Pressure 130/77 135/83 Pulse Oximetry 98 98 98 10/10/18 02:00 10/10/18 02:01 10/10/18 02:31 Temperature Pulse Rate 78 78 82 Respiratory Rate 18 20 23 Blood Pressure 136/82 124/74 Pulse Oximetry 98 98 98 10/10/18 03:00 10/10/18 03:01 10/10/18 03:31 Temperature Pulse Rate 84 84 84 Respiratory Rate 20 22 18 Blood Pressure 128/81 128/77 Pulse Oximetry 98 98 98 10/10/18 04:00 10/10/18 04:06 10/10/18 04:10 Temperature 97.7 F Pulse Rate 86 82 Respiratory Rate 18 18 18 Blood Pressure Pulse Oximetry 98 98 10/10/18 04:11 10/10/18 04:31 10/10/18 05:00 Temperature Pulse Rate 82 78 80 Respiratory Rate 19 18 18 Blood Pressure 131/80 133/80 Pulse Oximetry 98 100 98 10/10/18 05:01 10/10/18 05:31 10/10/18 06:00 Temperature Pulse Rate 79 66 63 Respiratory Rate 18 18 18 Blood Pressure 125/78 116/65 Pulse Oximetry 98 98 98 10/10/18 06:01 10/10/18 06:31 10/10/18 08:21 Temperature Pulse Rate 62 70 71 Respiratory Rate 18 18 18 Blood Pressure 118/64 132/79 Pulse Oximetry 98 99 98 Intake & Output 10/09/18 10/10/18 10/10/18 18:59 06:59 18:59 Intake Total 2141 / 2141 827 / 827 Output Total 920 / 920 1540 / 1540 Balance 1221 / 1221 -713 / -713 Weight 55.8 kg Intake: IV 500 / 500 600 / 600 Diprivan 1000 mg/100 ml Inj 1, 100 / 100 100 / 100 000 mg In 100 ml @ 5 MCG/KG/MIN 1.851 mls/hr IV.CONT TITRATE PRN Rx#:[id number] Flexbumin 25% Inj 100 ML @ 60 200 / 200 300 / 300 mls/hr IV.SIG Q6H HILDA Rx#: [id number] Unasyn Inj 3 GM In NS Inj 100 200 / 200 200 / 200 ML @ 200 mls/hr IV.SIG Q6H HILDA Rx#:[id number] Oral 0 / 0 Tube Feeding 61 / 61 137 / 137 Tube Irrigant 30 / 30 30 / 30 Water Bolus Amount 0 / 0 60 / 60 Anesthesia Amount 1300 / 1300 Other 250 / 250 Output: Urine Amount (Catheter) 900 / 900 1500 / 1500 Indwelling Urethral Catheter 900 / 900 1500 / 1500 Gastric Drainage 0 / 0 Right Nare Nasogastric Tube 0 / 0 Chest Tube Drainage 20 / 20 40 / 40 #1 Right Upper Anterior 20 / 20 40 / 40 #2 Right Lower 0 / 0 0 / 0 Other: Date of Last Bowel Movement 10/09/18 10/07/18 Result Diagrams: 10/10/18 06:00 10/10/18 07:15 Objective Remarks: Narrative: HEENT/ Neuro: Sedated, orally intubated, Pallor present, no icterus, tongue/ mucosa moist Neck: No JVD Chest/Pulm: on mech vent, good air entry bilaterally, no wheezing or crackles CVS: S1-S2 regular, no murmur GI/abdomen: soft, nontender, dressing over midline incision site clean dry and intact. Dressing over LISBETH drain site in place. Bowel sounds sluggish Extremities: warm bilaterally, no edema Assessment and Plan - Problem List (1) Perforation of cecum Code(s): K35.32 - Acute appendicitis with perforation and localized peritonitis , without abscess Status: Acute (2) Pneumoperitoneum Code(s): K66.8 - Other specified disorders of peritoneum Status: Acute (3) Alcoholic cirrhosis of liver with ascites Code(s): K70.31 - Alcoholic cirrhosis of liver with ascites Status: Acute (4) EtOH dependence Code(s): F10.20 - Alcohol dependence, uncomplicated Status: Acute (5) Hypokalemia Code(s): E87.6 - Hypokalemia Status: Acute (6) JOSE (acute kidney injury) Code(s): N17.9 - Acute kidney failure, unspecified Status: Acute (7) Reactive thrombocytosis Code(s): R79.89 - Other specified abnormal findings of blood chemistry Status : Acute (8) Leukocytosis Code(s): D72.829 - Elevated white blood cell count, unspecified Status: Acute (9) Tobacco abuse Code(s): Z72.0 - Tobacco use Status: Chronic (10) Protein-calorie malnutrition, moderate Code(s): E44.0 - Moderate protein-calorie malnutrition Status: Chronic - Assessment and Plan Plan: NEURO: Alcohol dependence Daily sedation vacation Thiamine/multivitamin/folic acid supplementation IV times 3 days then transition to p.o. thiamine. CIWA protocol if needed. Morphine as needed for pain Alcohol cessation counseling discussed preoperatively. RESP: Acute hypoxemic respiratory failure Probable COPD with exacerbation Tobacco abuse Bilateral pleural effusions, small to moderate Reintubated on 10/08, continue mechanical ventilation, vent bundle, steroids started 10/08 Right-sided pigtail catheter placed on 10/08 for pleural effusion followed by small pneumothorax for which right-sided apical pigtail catheter placed on 10/[address] Mac. Tobacco cessation counseling when extubated Bronchodilators scheduled and as needed Aggressive diuresis initiated. CV: Hypovolemic/distributive shock Likely third spacing following removal of 4.7 L of ascitic fluid in addition to SIRS response to microperforation. Received albumin and s/p albumin 25 g IV every 6 hours for 24 hours following removal of his ascitic fluid. Levophed to maintain mean arterial pressure greater than 65. Currently on IV Lasix 40 mg every 8 hours GI: Microperforation cecum s/p colonoscopy with multiple biopsies Now postoperative from exploratory laparotomy, microperforation of cecum oversewn Dr. German Cirrhosis Ascites Esophageal varices Hyperbilirubinemia Chronic moderate protein energy malnutrition Tube feeds resumed, if tolerates will advance to goal Dietitian consulted, may need concurrent TPN for nutrition if not tolerating advancing tube feeds Monitor LISBETH output Continue broad-spectrum coverage for E. coli and enterococcus abdominal cultures FEN/RENAL: Hypokalemia Hypomagnesemia Acute kidney injury Warner in place. Monitor intake and output. Monitor electrolytes. Restarted spironolactone and Lasix 10/06. ID: Leukocytosis Severe sepsis Abdominal wound culture 10/01/2018 growing ampicillin sensitive E. coli and enterococcus Zosyn changed to Unasyn 3 g IV every 6 hours HEME: Reactive thrombocytosis Monitor CBC. ENDO: Euglycemic PROPH: SCDs for DVT prophylaxis. SQ Heparin when OK with surgery Protonix 40 mg IV daily for stress ulcer prophylaxis ACCESS: Right IJ central venous line placed in OR 10/01. 10/09 Discussed with patient's daughter at bedside regarding current clinical status and plan of care and she voiced understanding. 10/10 Discussed with Layla Tyler, Discussed with SENIOR COMMUNICATIONS SPECIALIST Condition critical Time spent on critical care excluding procedures 35 minutes
--- NOTE | 2018-10-10 10:27 | P.PNGS ---
Subjective Interval history: Intubated Moving all extremities Eyes open Physical Exam Vital signs: Vital Signs 10/09/18 10:34 10/09/18 10:49 10/09/18 11:00 Temperature Pulse Rate 83 80 80 Respiratory Rate 38 H 18 19 Blood Pressure 123/72 124/71 Pulse Oximetry 95 95 96 10/09/18 11:04 10/09/18 11:19 10/09/18 11:34 Temperature Pulse Rate 81 81 82 Respiratory Rate 19 19 18 Blood Pressure 119/71 118/75 124/78 Pulse Oximetry 96 97 97 10/09/18 11:49 10/09/18 12:00 10/09/18 12:04 Temperature 98.2 F Pulse Rate 81 80 80 Respiratory Rate 18 21 18 Blood Pressure 121/71 119/72 119/72 Pulse Oximetry 97 97 97 10/09/18 12:19 10/09/18 12:34 10/09/18 12:49 Temperature Pulse Rate 78 79 78 Respiratory Rate 19 18 18 Blood Pressure 121/79 125/79 128/76 Pulse Oximetry 97 97 97 10/09/18 13:00 10/09/18 13:04 10/09/18 13:19 Temperature Pulse Rate 78 74 78 Respiratory Rate 18 18 18 Blood Pressure 132/81 133/86 Pulse Oximetry 97 97 97 10/09/18 13:34 10/09/18 13:37 10/09/18 13:38 Temperature Pulse Rate 78 79 Respiratory Rate 18 18 18 Blood Pressure 128/88 Pulse Oximetry 97 10/09/18 13:49 10/09/18 14:00 10/09/18 14:04 Temperature Pulse Rate 77 77 75 Respiratory Rate 18 18 18 Blood Pressure 128/85 126/92 H Pulse Oximetry 97 97 97 10/09/18 14:19 10/09/18 14:34 10/09/18 14:49 Temperature Pulse Rate 74 75 78 Respiratory Rate 18 20 19 Blood Pressure 122/85 119/84 123/76 Pulse Oximetry 97 94 L 93 L 10/09/18 15:00 10/09/18 15:04 10/09/18 15:19 Temperature Pulse Rate 72 72 70 Respiratory Rate 18 18 18 Blood Pressure 121/77 121/77 113/70 Pulse Oximetry 94 L 95 96 10/09/18 15:34 10/09/18 15:49 10/09/18 16:00 Temperature 98.1 F Pulse Rate 66 65 64 Respiratory Rate 18 18 18 Blood Pressure 111/68 114/70 112/68 Pulse Oximetry 96 97 97 10/09/18 16:04 10/09/18 16:16 10/09/18 16:19 Temperature Pulse Rate 64 63 Respiratory Rate 18 18 Blood Pressure 112/68 117/70 Pulse Oximetry 97 95 97 10/09/18 16:34 10/09/18 16:49 10/09/18 17:00 Temperature Pulse Rate 62 61 61 Respiratory Rate 18 18 18 Blood Pressure 124/72 119/70 123/66 Pulse Oximetry 97 97 97 10/09/18 17:04 10/09/18 17:19 10/09/18 17:34 Temperature Pulse Rate 61 60 73 Respiratory Rate 18 18 18 Blood Pressure 123/66 122/73 138/90 Pulse Oximetry 97 97 98 10/09/18 17:49 10/09/18 18:00 10/09/18 18:04 Temperature Pulse Rate 77 81 81 Respiratory Rate 18 24 22 Blood Pressure 129/69 129/69 120/70 Pulse Oximetry 99 99 99 10/09/18 18:19 10/09/18 18:34 10/09/18 18:49 Temperature Pulse Rate 84 82 81 Respiratory Rate 19 18 18 Blood Pressure 117/71 119/75 123/75 Pulse Oximetry 99 99 99 10/09/18 19:00 10/09/18 19:04 10/09/18 19:19 Temperature Pulse Rate 82 80 76 Respiratory Rate 18 18 18 Blood Pressure 127/77 124/75 Pulse Oximetry 98 98 98 10/09/18 19:34 10/09/18 19:49 10/09/18 20:00 Temperature 97.6 F Pulse Rate 78 77 77 Respiratory Rate 18 18 18 Blood Pressure 127/77 127/65 Pulse Oximetry 98 98 97 10/09/18 20:04 10/09/18 20:31 10/09/18 21:00 Temperature Pulse Rate 74 74 73 Respiratory Rate 18 18 18 Blood Pressure 125/76 123/81 Pulse Oximetry 97 98 99 10/09/18 21:01 10/09/18 21:02 10/09/18 21:31 Temperature Pulse Rate 72 82 73 Respiratory Rate 18 18 18 Blood Pressure 128/86 124/75 Pulse Oximetry 99 99 10/09/18 22:00 12/04/18 22:01 10/09/18 22:31 Temperature Pulse Rate 78 78 80 Respiratory Rate 18 18 16 Blood Pressure 123/79 133/89 Pulse Oximetry 98 99 98 10/09/18 23:00 10/09/18 23:01 10/09/18 23:31 Temperature Pulse Rate 78 80 77 Respiratory Rate 18 18 19 Blood Pressure 133/81 127/87 Pulse Oximetry 97 97 98 10/09/18 23:35 10/09/18 23:38 10/10/18 00:00 Temperature 97.7 F Pulse Rate 79 81 Respiratory Rate 18 18 19 Blood Pressure Pulse Oximetry 98 98 10/10/18 00:01 10/10/18 00:31 10/10/18 01:00 Temperature Pulse Rate 80 77 79 Respiratory Rate 19 19 19 Blood Pressure 118/69 126/77 Pulse Oximetry 98 98 98 10/10/18 01:01 10/10/18 01:31 10/10/18 02:00 Temperature Pulse Rate 78 78 78 Respiratory Rate 18 19 18 Blood Pressure 130/77 135/83 Pulse Oximetry 98 98 98 10/10/18 02:01 10/10/18 02:31 10/10/18 03:00 Temperature Pulse Rate 78 82 84 Respiratory Rate 20 23 20 Blood Pressure 136/82 124/74 Pulse Oximetry 98 98 98 10/10/18 03:01 10/10/18 03:31 10/10/18 04:00 Temperature 97.7 F Pulse Rate 84 84 86 Respiratory Rate 22 18 18 Blood Pressure 128/81 128/77 Pulse Oximetry 98 98 98 10/10/18 04:06 10/10/18 04:10 10/10/18 04:11 Temperature Pulse Rate 82 82 Respiratory Rate 18 18 19 Blood Pressure 131/80 Pulse Oximetry 98 98 10/10/18 04:31 10/10/18 05:00 10/10/18 05:01 Temperature Pulse Rate 78 80 79 Respiratory Rate 18 18 18 Blood Pressure 133/80 125/78 Pulse Oximetry 100 98 98 10/10/18 05:31 10/10/18 06:00 10/10/18 06:01 Temperature Pulse Rate 66 63 62 Respiratory Rate 18 18 18 Blood Pressure 116/65 118/64 Pulse Oximetry 98 98 98 10/10/18 06:31 10/10/18 08:21 Temperature Pulse Rate 70 71 Respiratory Rate 18 18 Blood Pressure 132/79 Pulse Oximetry 99 98 Intake & Output 10/09/18 10/10/18 10/10/18 18:59 06:59 18:59 Intake Total 2141 / 2141 827 / 827 Output Total 920 / 920 1540 / 1540 Balance 1221 / 1221 -713 / -713 Weight 55.8 kg Intake: IV 500 / 500 600 / 600 Diprivan 1000 mg/100 ml Inj 1, 100 / 100 100 / 100 000 mg In 100 ml @ 5 MCG/KG/MIN 1.851 mls/hr IV.CONT TITRATE PRN Rx#:[id number] Flexbumin 25% Inj 100 ML @ 60 200 / 200 300 / 300 mls/hr IV.SIG Q6H HILDA Rx#: [id number] Unasyn Inj 3 GM In NS Inj 100 200 / 200 200 / 200 ML @ 200 mls/hr IV.SIG Q6H HILDA Rx#:[id number] Oral 0 / 0 Tube Feeding 61 / 61 137 / 137 Tube Irrigant 30 / 30 30 / 30 Water Bolus Amount 0 / 0 60 / 60 Anesthesia Amount 1300 / 1300 Other 250 / 250 Output: Urine Amount (Catheter) 900 / 900 1500 / 1500 Indwelling Urethral Catheter 900 / 900 1500 / 1500 Gastric Drainage 0 / 0 Right Nare Nasogastric Tube 0 / 0 Chest Tube Drainage 20 / 20 40 / 40 #1 Right Upper Anterior 20 / 20 40 / 40 #2 Right Lower 0 / 0 0 / 0 Other: Date of Last Bowel Movement 10/09/18 10/07/18 Narrative: Awake; intubated Abd: soft; placed more Dermabond over prior LISBETH site; KAREN in place with good seal Generalized edema improved - Urinary Catheter Management Indwelling Urethral Catheter Cath placed during this visit: yes Reason for continuing: Hourly intake/output Insertion date: 10/01/18 Insertion time: 20:00 Results - Labs 10/10/18 06:00 10/10/18 07:15 Laboratory Results - last 24 hr 10/10/18 10/10/18 10/10/18 06:00 06:00 06:00 WBC 21.9 H RBC 2.86 L Hgb 9.5 L Hct 28.3 L MCV 98.8 MCH 33.2 MCHC 33.7 RDW 14.8 Plt Count 298 MPV 10.6 Neut % (Auto) 87.0 H Lymph % (Auto) 8.1 L [place] % (Auto) 4.8 Eos % (Auto) 0.0 Baso % (Auto) 0.1 Neut # (Auto) 19.0 H Lymph # (Auto) 1.8 [place] # (Auto) 1.1 H Eos # (Auto) 0.0 Baso # (Auto) 0.0 WBC Differential . Differential Comment Auto diff final PT 13.1 H INR 1.3 Sodium 154 H Potassium 2.7 L* D Chloride 115 H Carbon Dioxide 26.4 Anion Gap 13 BUN 50 H Creatinine 1.30 H Estimated GFR 41 L Random Glucose 159 H Calcium 10.9 H Total Bilirubin 2.1 H AST 30 ALT 15 Alkaline Phosphatase 176 H Ammonia Total Protein 7.8 Albumin 5.3 H 10/10/18 10/10/18 06:50 07:15 WBC RBC Hgb Hct MCV MCH MCHC RDW Plt Count MPV Neut % (Auto) Lymph % (Auto) [place] % (Auto) Eos % (Auto) Baso % (Auto) Neut # (Auto) Lymph # (Auto) [place] # (Auto) Eos # (Auto) Baso # (Auto) WBC Differential Differential Comment PT INR Sodium Potassium 2.6 L* Chloride Carbon Dioxide Anion Gap BUN Creatinine Estimated GFR Random Glucose Calcium Total Bilirubin AST ALT Alkaline Phosphatase Ammonia Less than 10 L Total Protein Albumin - Imaging Imaging: ITS Impressions Abdomen X-Ray 10/01/18 17:09 CONCLUSION: Extensive free intraperitoneal air discussed with referring doctor on today's date Chest X-Ray 10/09/18 05:00 CONCLUSION: Unchanged diffuse bilateral pulmonary consolidations. 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 Midline wound intact without drainage. Increase enteral feeding for nutrition. Receiving Lasix and Aldactone for ascites. The exam, history, and the medical decision-making described in the above note were completed with the assistance of the mid-level provider. I reviewed and agree with the findings presented. I attest that I had a [id number] encounter with the patient on the same day, and personally performed and documented my assessment and findings in the medical record.
[2018-10-10] MEDS: Pantoprazole Inj 40 MG Vial IV.PUSH SCH (10:43)
[2018-10-10] MEDS: Senna/Docusate Sodium 8.6/50 MG Tablet PO SCH ×2 (10:44→21:00)
[2018-10-10] MEDS: Propranolol 10 MG Tablet PO SCH ×2 (10:44→21:00)
[2018-10-10] MEDS: Potassium Chloride 25 MEQ Effervescent Tablet NG/OG SCH ×2 (10:44→21:00)
[2018-10-10] MEDS: Chlorhexidine 0.12% Oral Kit 15 ML UDC OROPHARYNG SCH ×2 (10:45→19:38)
[2018-10-10] MEDS: Potassium Chlor 20 mEq Premix 20 MEQ/100 ML PIGGYBACK IV.SIG PRN ×2 (11:07→15:58)
[2018-10-11] MEDS: Albumin Human 25% Inj 100 ML IV.SIG SCH ×2 (00:21→05:05)
[2018-10-11] MEDS: Morphine Sulfate Inj 2 MG/ML Vial IV.PUSH PRN (00:22)
[2018-10-11] MEDS: Oral Hygiene Kit OROPHARYNG SCH ×4 (00:22→16:32)
[2018-10-11] MEDS: Ampicillin/Sulbactam Inj 3 GM in Sodium Chloride 0.9% Inj 100 ML IV.SIG SCH ×3 (03:39→16:31)
[2018-10-11] MEDS: Heparin - SQ 10,000 UNITS/ML Vial SQ SCH (05:06)
[2018-10-11] MEDS: MethylPREDNISolone Sod Succinate Inj 40 MG/ML Vial IV.PUSH SCH ×3 (05:06→22:44)
[2018-10-11] MEDS: Levothyroxine 50 MCG Tablet PO SCH (05:06)
[2018-10-11 06:02] LABS: Albumin 5.4 g/dL (3.4-5.0); Calcium 11.9 mg/dL (8.5-10.1); Carbon Dioxide 25.2 meq/L (21.0-32.0); Potassium 3.9 meq/L (3.5-5.1)
[2018-10-11] MEDS ORDERED: Dextrose 5% in Water Inj 1,000 ML IV.CONT SCH (07:45)
[2018-10-11] MEDS ORDERED: Sodium Chloride 0.9% 2 ML Flush PRN IV.FLUSH (07:50)
--- NOTE | 2018-10-11 08:06 | XR ---
EXAM DATE: 10/11/2018 8:01 AM EST AGE/SEX: 68 years / Female INDICATIONS: Respiratory failure CLINICAL DATA: This is the patient's subsequent encounter. Patient reports that signs and symptoms h ave been present for 1 week and indicates a pain score of 0/10. MEDICAL/SURGICAL HISTORY: . Gastroesophageal reflux disease. Cirrhosis. Smoker. Ascites. Chest tube, right. . COMPARISON: [facility] [place], CHEST 1V SINGLE AP, 10/09/2018. [facility] [place], CHEST 1V SINGLE AP, 10/08/2018. . FINDINGS: Portable AP view of the chest demonstrates a normal size cardiac silhouette. Right IJ line and nasoga stric tube remain present in the endotracheal tube has been removed. There are 2 small bore pigtail c atheters overlying the right hemithorax and no pneumothorax is visualized. There is patchy airspace c onsolidation bilaterally, most severe in the right lower lung zone. A definite pleural effusion is no t seen. Bones demonstrate no acute finding. CONCLUSION: Stable bilateral diffuse airspace consolidation that is most severe in the right lower lung zone. Rig ht chest tubes remain present and no pneumothorax is visualized. Electronically signed by: Bubba Pisano MD 10/11/2018 8:04 AM EST
[2018-10-11] MEDS: Senna/Docusate Sodium 8.6/50 MG Tablet PO SCH (08:41)
[2018-10-11] MEDS: Potassium Chloride 25 MEQ Effervescent Tablet NG/OG SCH (08:41)
[2018-10-11] MEDS: Chlorhexidine 0.12% Oral Kit 15 ML UDC OROPHARYNG SCH ×2 (08:42→20:00)
[2018-10-11] MEDS: Pantoprazole Inj 40 MG Vial IV.PUSH SCH (08:43)
[2018-10-11] MEDS: Propranolol 10 MG Tablet PO SCH (08:43)
[2018-10-11 08:49] LABS: Hemoglobin 11.6 gm/dL (11.6-15.3); Mean Corpuscular HGB Conc 31.2 % (32.0-36.0); Mean Corpuscular Hemoglobin 31.9 pg (27.0-34.0); Mean Corpuscular Volume 102.3 fL (80.0-100.0); Mean Platelet Volume 10.5 fL (7.0-11.0); Platelet Count 411 th/mm3 (150-450); Red Blood Count 3.62 mil/mm3 (4.00-5.30); Red Cell Distribution Width 15.9 % (11.6-17.2); White Blood Count 49.9 th/mm3 (4.0-11.0)
[2018-10-11] MEDS: Sodium Chloride 0.9% 2 ML Flush BID IV.FLUSH SCH ×2 (09:03→20:00)
[2018-10-11 09:21] LABS: Lymphocytes 3 % (9-44); Monocytes 1 % (0-8); Platelet Estimate Normal (Normal); Tallied Nucleated RBC 1 (0-0); Target Cells 1+; Toxic Granulation 2+; Toxic Vacuolation Present
[2018-10-11] MEDS ORDERED: Diatrizoate Meglum/Diatrizoate Sod Liq 9 ML UDC PO ONE (10:02)
--- NOTE | 2018-10-11 11:45 | CT ---
EXAM DATE: 10/11/2018 11:36 AM EST AGE/SEX: 68 years / Female INDICATIONS: Elevated White blood cells. CLINICAL DATA: This is the patient's initial encounter. Patient reports that signs and symptoms have been present for 1 day and indicates a pain score of 5/10. MEDICAL/SURGICAL HISTORY: Gastroesophageal reflux disease. Cirrhosis. Ascites . Central line ORAL CONTRAST: Prescribed oral contrast ingested. RADIATION DOSE: 9.65 CTDI (mGy) COMPARISON: No prior exams available for comparison. TECHNIQUE: Multiple contiguous axial images were obtained through the abdomen and pelvis following b olus infusion of 50ml ml Visipaque 320 (iodixanol) nonionic water-soluble contrast as a single exam dose. Prescribed oral contrast ingested. Using automated exposure control and adjustment of the mA and/or kV according to patient size, radiation dose was kept as low as reasonably achievable to obtai n optimal diagnostic quality images. DICOM format image data is available electronically for review and comparison. FINDINGS: Lower Lungs: There is a moderate left pleural effusion. There is increased density seen at the lower lungs bilaterally being more prominent on the right. This likely represent a combination of consolida tion and atelectasis. Liver: The liver is heterogeneous. There is a 1.5 cm suspected cyst seen at the lateral aspect of the right lobe of the liver. There is fluid seen around the liver and around the gallbladder. The gallbl adder wall does not appear thickened. Biliary dilatation is not seen. Spleen: Homogeneous density without enlargement. Pancreas: There appears to be pancreatic atrophy without a focal mass or surrounding inflammatory ch leif. Kidneys: Normal in size and shape. No evidence of mass or hydronephrosis. Adrenal Glands: Unremarkable. Aorta: The aorta and proximal iliac vessels are grossly unremarkable without aneurysmal dilation. A therosclerotic calcifications are seen. Bowel/Mesentery: There are colonic diverticula in this colon particularly in the sigmoid and descend ing colon regions. There is mild to moderate peritoneal fluid seen around the liver, in the paracolic gutter regions, within the mesentery and extending into the pelvis. Abdominal Wall: Intact. Skin luzma are seen in the midline. Retroperitoneum: No evidence of adenopathy in the retrocrural, para-aortic, or deep pelvic regions. Bladder: There is a Warner catheter within the urinary bladder. The urinary bladder is decompressed. There is air within the urinary bladder. Reproductive Organs: No abnormal masses or calcifications seen. Inguinal: The inguinal region is unremarkable without evidence of adenopathy. Bony Structures: There is degenerative change at the lower lumbar spine. CONCLUSION: 1. Heterogeneous liver with mild to moderate ascites likely from cirrhosis. 2. Suspected cyst in the right lobe of the liver. 3. Fluid around the gallbladder likely from the ascites. The gallbladder is only mildly distended. G allbladder wall is not obviously thickened. Biliary duct dilatation is not seen. 4. Colonic diverticula without inflammatory change. Electronically signed by: Bubba Aviles MD 10/11/2018 11:44 AM EST
--- NOTE | 2018-10-11 13:32 | P.PNCC ---
Subjective Subjective Remarks/Hospital Course: late entry for encounter on 10/03/18 68-year-old female with past medical history of alcohol dependence, cirrhosis, tobacco abuse, esophageal varices underwent diagnostic colonoscopy today by Dr. Tipton with biopsy of ascending, descending and sigmoid colon. She presented to [facility] ED with abdominal pain and distension. She was hypotensive. She was having bloody bowel movements. She was given 2 units PRBC and 1 L NS bolus. R femoral cordis was placed by ED physician. KUB demonstrated pneumoperitoneum. She was transferred emergently [facility] Main OR where she underwent ex lap by Dr. German. Dr. Kumar states there was microperforation of cecum that was oversewn. 4700 of ascites was evacuated. She received 1300 crystalloid in OR. EBL was 10 mL. LISBETH output 30. She is oliguric with only 10 Ml of urine output in PACU. She is a daily drinker of 24 ounces of [place]. 10/02: Warm and well-perfused. No withdrawal symptomatology but anticipated soon. Urine minimal but she is on dual diuretics for hepatic dysfunction/ cirrhosis and is unlikely to make much urine without stimulation. We started her diuretics through the NG tube after discussing with surgical service nurse practitioner. Nasogastric tube to low intermittent suction otherwise. Gram- negative rods in pleural fluid as expected, continue present antibiotics. 10/03: Required intubation for worsening resp distress on 10/03 early AM. 10/04: Sedated, arousable, orally intubated on mechanical ventilation. 10/05: Sedated, arousable, orally intubated on mechanical ventilation. Failed CPAP trial. LISBETH drain remains in place. 10/06: Remains afebrile. Tolerating spontaneous breathing trials today with low but acceptable tidal volumes. Bilirubin and alkaline phosphatase is rising. 10/07: Extubated without event yesterday and breathing comfortably early in the day. Required placement of BiPAP noninvasive ventilation later in the day due mostly to lethargy and fatigue. Diuresis started yesterday continued today. Supplement with intravenous albumin and follow pleural effusions closely. Renal function remains good. 10/08: Remains on BiPAP now more labored breathing. Chest x-ray and ABG pending. Daughter is at the bedside updated. Likely will need intubation if patient not responding to diuresis. 10/09: Sedated, orally intubated on mechanical ventilation. LISBETH drain discontinued yesterday. Right-sided pigtail catheters x2 in place. No air leak currently. 10/10: Remains sedated, orally intubated on mechanical ventilation. Failed CPAP trial yesterday. Right-sided pigtail catheters x2, no air leak and minimal drainage. Tube feeds to be advanced. 10/11: Extubated yesterday. Required BiPAP overnight. White count went to 49, 000 this morning. Awake and alert though disoriented. Moves all 4 extremities. Light green drainage from LISBETH drain removal site noted. - Diagnosis (1) Perforation of cecum (2) Pneumoperitoneum (3) Alcoholic cirrhosis of liver with ascites (4) EtOH dependence (5) Hypokalemia (6) JOSE (acute kidney injury) (7) Reactive thrombocytosis (8) Leukocytosis (9) Tobacco abuse (10) Protein-calorie malnutrition, moderate Objective Vital Signs / I&O: Vital Signs 10/10/18 13:31 10/10/18 14:00 10/10/18 14:01 Temperature Pulse Rate 108 H 107 H 106 H Respiratory Rate 33 H 35 H 32 H Blood Pressure 113/81 115/85 Pulse Oximetry 95 93 L 93 L 10/10/18 14:31 10/10/18 15:00 10/10/18 15:01 Temperature Pulse Rate 107 H 107 H 107 H Respiratory Rate 33 H 31 H 33 H Blood Pressure 116/82 112/80 Pulse Oximetry 95 95 94 L 10/10/18 15:31 10/10/18 16:00 10/10/18 16:01 Temperature 98.4 F 98.4 F Pulse Rate 107 H 104 H 103 H Respiratory Rate 33 H 29 H 38 H Blood Pressure 108/80 111/72 Pulse Oximetry 93 L 92 L 92 L 10/10/18 16:04 10/10/18 16:31 10/10/18 17:00 Temperature Pulse Rate 100 H 104 H 103 H Respiratory Rate 29 H 37 H 36 H Blood Pressure 115/85 Pulse Oximetry 96 93 L 93 L 10/10/18 17:01 10/10/18 17:31 10/10/18 18:00 Temperature Pulse Rate 104 H 106 H 108 H Respiratory Rate 37 H 30 H 35 H Blood Pressure 111/77 111/82 Pulse Oximetry 92 L 92 L 91 L 10/10/18 18:31 10/10/18 19:00 12/05/18 19:01 Temperature Pulse Rate 108 H 115 H 116 H Respiratory Rate 26 H 22 23 Blood Pressure 106/73 111/78 Pulse Oximetry 91 L 88 L 88 L 10/10/18 19:31 10/10/18 20:00 10/10/18 20:01 Temperature Pulse Rate 108 H 117 H 115 H Respiratory Rate 22 23 22 Blood Pressure 113/80 110/81 Pulse Oximetry 89 L 92 L 97 10/10/18 20:31 10/10/18 21:00 10/10/18 21:01 Temperature Pulse Rate 107 H 106 H 106 H Respiratory Rate 22 22 23 Blood Pressure 109/82 109/80 Pulse Oximetry 98 97 97 10/10/18 21:31 10/10/18 22:00 10/10/18 22:01 Temperature Pulse Rate 106 H 99 H 100 H Respiratory Rate 23 22 22 Blood Pressure 109/81 109/83 Pulse Oximetry 97 97 97 10/10/18 22:31 10/10/18 23:00 10/10/18 23:01 Temperature Pulse Rate 101 H 95 H 95 H Respiratory Rate 22 21 24 Blood Pressure 94/63 L 104/80 Pulse Oximetry 98 96 96 10/10/18 23:31 10/11/18 00:00 10/11/18 00:01 Temperature 98.6 F Pulse Rate 96 H 103 H 103 H Respiratory Rate 22 23 23 Blood Pressure 107/72 112/68 Pulse Oximetry 96 97 97 10/11/18 00:21 10/11/18 00:31 10/11/18 00:39 Temperature Pulse Rate 104 H 99 H Respiratory Rate 19 23 22 Blood Pressure 111/76 Pulse Oximetry 97 99 10/11/18 01:00 10/11/18 01:01 10/11/18 01:31 Temperature Pulse Rate 98 H 98 H 103 H Respiratory Rate 22 24 22 Blood Pressure 111/81 110/77 Pulse Oximetry 97 97 98 10/11/18 02:00 10/11/18 02:01 10/11/18 02:31 Temperature Pulse Rate 106 H 107 H 101 H Respiratory Rate 23 22 23 Blood Pressure 115/83 117/80 Pulse Oximetry 97 97 97 10/11/18 03:00 10/11/18 03:01 10/11/18 03:31 Temperature Pulse Rate 100 H 101 H 101 H Respiratory Rate 19 22 22 Blood Pressure 117/83 125/75 Pulse Oximetry 97 97 97 10/11/18 04:00 10/11/18 04:01 10/11/18 04:36 Temperature 98.3 F Pulse Rate 101 H 101 H 101 H Respiratory Rate 23 22 24 Blood Pressure 114/86 Pulse Oximetry 98 97 97 10/11/18 04:44 10/11/18 05:00 10/11/18 05:01 Temperature Pulse Rate 100 H 101 H 102 H Respiratory Rate 23 22 24 Blood Pressure 112/85 118/87 Pulse Oximetry 97 97 97 10/11/18 05:31 10/11/18 06:00 10/11/18 06:01 Temperature Pulse Rate 101 H 100 H 100 H Respiratory Rate 23 22 22 Blood Pressure 98/62 L 120/89 Pulse Oximetry 96 98 97 10/11/18 06:31 10/11/18 07:00 10/11/18 07:01 Temperature Pulse Rate 100 H 101 H 100 H Respiratory Rate 30 H 31 H 29 H Blood Pressure 119/86 111/68 Pulse Oximetry 98 98 98 10/11/18 07:31 10/11/18 08:00 10/11/18 08:01 Temperature 98.1 F Pulse Rate 99 H 104 H 108 H Respiratory Rate 32 H 22 34 H Blood Pressure 112/76 106/73 Pulse Oximetry 98 98 98 10/11/18 08:31 10/11/18 08:47 10/11/18 09:00 Temperature Pulse Rate 102 H 106 H 103 H Respiratory Rate 34 H 19 Blood Pressure 111/79 Pulse Oximetry 99 98 99 10/11/18 09:01 10/11/18 09:31 10/11/18 10:00 Temperature Pulse Rate 105 H 124 H 101 H Respiratory Rate 26 H Blood Pressure 112/78 104/77 Pulse Oximetry 99 99 99 10/11/18 10:01 10/11/18 10:29 10/11/18 10:31 Temperature Pulse Rate 100 H 92 H 93 H Respiratory Rate 23 24 26 H Blood Pressure 111/80 121/87 121/85 Pulse Oximetry 99 100 99 10/11/18 11:00 10/11/18 11:57 Temperature Pulse Rate 94 H 97 H Respiratory Rate 28 H 25 H Blood Pressure 118/77 Pulse Oximetry 94 L Intake & Output 12/05/18 12/06/18 12/06/18 18:59 06:59 18:59 Intake Total 1000 / 1000 500 / 500 100 / 100 Output Total 850 / 850 1100 / 1100 Balance 150 / 150 -600 / -600 100 / 100 Weight 55 kg Intake: IV 700 / 700 500 / 500 100 / 100 Diprivan 1000 mg/100 ml Inj 1, 100 / 100 000 mg In 100 ml @ 5 MCG/KG/MIN 1.851 mls/hr IV.CONT TITRATE PRN Rx#:[id number] Flexbumin 25% Inj 100 ML @ 60 100 / 100 300 / 300 mls/hr IV.SIG Q6H HILDA Rx#: [id number] Unasyn Inj 3 GM In NS Inj 100 200 / 200 200 / 200 100 / 100 ML @ 200 mls/hr IV.SIG Q6H HILDA Rx#:[id number] KCl 20 mEq Premix Inj 20 meq In 200 / 200 100 ml @ 50 mls/hr IV.SIG Q2H PRN Rx#:[id number] KCl 40 mEq Premix Inj 40 meq In 100 / 100 100 ml @ 25 mls/hr IV.SIG Q2H PRN Rx#:[id number] Tube Feeding 300 / 300 Output: Urine Amount (Catheter) 750 / 750 850 / 850 Indwelling Urethral Catheter 750 / 750 850 / 850 Gastric Drainage 100 / 100 100 / 100 Right Nare Nasogastric Tube 100 / 100 100 / 100 Wound Drainage 100 / 100 # 1 Abdomen 100 / 100 Chest Tube Drainage 50 / 50 #1 Right Upper Anterior 50 / 50 #2 Right Lower 0 / 0 Result Diagrams: 10/11/18 08:30 10/11/18 05:15 Imaging: Impressions Chest X-Ray 10/11/18 07:44 CONCLUSION: Stable bilateral diffuse airspace consolidation that is most severe in the right lower lung zone. Right chest tubes remain present and no pneumothorax is visualized. Abdomen/Pelvis CT 10/11/18 09:37 CONCLUSION: 1. Heterogeneous liver with mild to moderate ascites likely from cirrhosis. 2. Suspected cyst in the right lobe of the liver. 3. Fluid around the gallbladder likely from the ascites. The gallbladder is only mildly distended. Gallbladder wall is not obviously thickened. Biliary duct dilatation is not seen. 4. Colonic diverticula without inflammatory change. Objective Remarks: Narrative: HEENT/ Neuro: Awake, alert, disoriented, following commands occasionally., Pallor present, no icterus, tongue/ mucosa moist Neck: No JVD Chest/Pulm: On BiPAP earlier this morning, good air entry bilaterally, no wheezing or crackles CVS: S1-S2 regular, no murmur GI/abdomen: soft, nontender, dressing over midline incision site clean dry and intact. Ostomy bag over LISBETH drain site with clear greenish drainage. Bowel sounds sluggish Extremities: warm bilaterally, no edema Assessment and Plan - Problem List (1) Perforation of cecum Code(s): K35.32 - Acute appendicitis with perforation and localized peritonitis , without abscess Status: Acute (2) Pneumoperitoneum Code(s): K66.8 - Other specified disorders of peritoneum Status: Acute (3) Alcoholic cirrhosis of liver with ascites Code(s): K70.31 - Alcoholic cirrhosis of liver with ascites Status: Acute (4) EtOH dependence Code(s): F10.20 - Alcohol dependence, uncomplicated Status: Acute (5) Hypokalemia Code(s): E87.6 - Hypokalemia Status: Acute (6) JOSE (acute kidney injury) Code(s): N17.9 - Acute kidney failure, unspecified Status: Acute (7) Reactive thrombocytosis Code(s): R79.89 - Other specified abnormal findings of blood chemistry Status : Acute (8) Leukocytosis Code(s): D72.829 - Elevated white blood cell count, unspecified Status: Acute (9) Tobacco abuse Code(s): Z72.0 - Tobacco use Status: Chronic (10) Protein-calorie malnutrition, moderate Code(s): E44.0 - Moderate protein-calorie malnutrition Status: Chronic - Assessment and Plan Plan: NEURO: Alcohol dependence Daily sedation vacation Thiamine/multivitamin/folic acid supplementation IV times 3 days then transition to p.o. thiamine. CIWA protocol if needed. Morphine as needed for pain Alcohol cessation counseling discussed preoperatively. RESP: Acute hypoxemic respiratory failure Probable COPD with exacerbation Tobacco abuse Bilateral pleural effusions, small to moderate Reintubated on 10/08, vent bundle, steroids started 10/08 Right-sided pigtail catheter placed on 10/08 for pleural effusion followed by small pneumothorax for which right-sided apical pigtail catheter placed on 10/[address] Mac. Tobacco cessation counseling when extubated Bronchodilators scheduled and as needed Aggressive diuresis initiated. Extubated on 10/10 and placed on nasal cannula. Subsequently requiring BiPAP overnight. CV: Hypovolemic/distributive shock Likely third spacing following removal of 4.7 L of ascitic fluid in addition to SIRS response to microperforation. Received albumin and s/p albumin 25 g IV every 6 hours for 24 hours following removal of his ascitic fluid. Not requiring pressors Currently on IV Lasix for diuresis GI: Microperforation cecum s/p colonoscopy with multiple biopsies Now postoperative from exploratory laparotomy, microperforation of cecum oversewn Dr. German Cirrhosis Ascites Esophageal varices Hyperbilirubinemia Chronic moderate protein energy malnutrition Tube feedings on hold Continue broad-spectrum coverage for E. coli and enterococcus abdominal cultures Leukocytosis noted. CT abdomen pelvis with ascites and a cyst in the liver, bilateral infiltrates in the lung and small effusion on the left. FEN/RENAL: Hypokalemia Hypomagnesemia Acute kidney injury Warner in place. Monitor intake and output. Monitor electrolytes. Restarted spironolactone and Lasix 10/06. ID: Leukocytosis Severe sepsis Abdominal wound culture 10/01/2018 growing ampicillin sensitive E. coli and enterococcus Unasyn 3 g IV every 6 hours Worsening leukocytosis on 10/11. Discussed with surgery. Ordered blood cultures. Will obtain ID consult for further evaluation. HEME: Reactive thrombocytosis Monitor CBC. ENDO: Euglycemic PROPH: SCDs for DVT prophylaxis. SQ Heparin when OK with surgery Protonix 40 mg IV daily for stress ulcer prophylaxis ACCESS: Right IJ central venous line placed in OR 10/01. 10/09 Discussed with patient's daughter at bedside regarding current clinical status and plan of care and she voiced understanding. 10/10 Discussed with Layla Tyler, Discussed with UPHOLSTERY SEWER Condition critical Time spent on critical care excluding procedures 35 minutes
--- NOTE | 2018-10-11 13:37 | P.PNGS ---
Subjective Interval history: Resting in bed Extubated yesterday evening Currently on BiPAP Physical Exam Vital signs: Vital Signs 10/10/18 14:00 10/10/18 14:01 10/10/18 14:31 Temperature Pulse Rate 107 H 106 H 107 H Respiratory Rate 35 H 32 H 33 H Blood Pressure 115/85 116/82 Pulse Oximetry 93 L 93 L 95 10/10/18 15:00 10/10/18 15:01 10/10/18 15:31 Temperature Pulse Rate 107 H 107 H 107 H Respiratory Rate 31 H 33 H 33 H Blood Pressure 112/80 108/80 Pulse Oximetry 95 94 L 93 L 10/10/18 16:00 10/10/18 16:01 10/10/18 16:04 Temperature 98.4 F 98.4 F Pulse Rate 104 H 103 H 100 H Respiratory Rate 29 H 38 H 29 H Blood Pressure 111/72 Pulse Oximetry 92 L 92 L 96 10/10/18 16:31 10/10/18 17:00 10/10/18 17:01 Temperature Pulse Rate 104 H 103 H 104 H Respiratory Rate 37 H 36 H 37 H Blood Pressure 115/85 111/77 Pulse Oximetry 93 L 93 L 92 L 10/10/18 17:31 10/10/18 18:00 10/10/18 18:31 Temperature Pulse Rate 106 H 108 H 108 H Respiratory Rate 30 H 35 H 26 H Blood Pressure 111/82 106/73 Pulse Oximetry 92 L 91 L 91 L 10/10/18 19:00 10/10/18 19:01 10/10/18 19:31 Temperature Pulse Rate 115 H 116 H 108 H Respiratory Rate 22 23 22 Blood Pressure 111/78 113/80 Pulse Oximetry 88 L 88 L 89 L 10/10/18 20:00 10/10/18 20:01 10/10/18 20:31 Temperature Pulse Rate 117 H 115 H 107 H Respiratory Rate 23 22 22 Blood Pressure 110/81 109/82 Pulse Oximetry 92 L 97 98 10/10/18 21:00 10/10/18 21:01 10/10/18 21:31 Temperature Pulse Rate 106 H 106 H 106 H Respiratory Rate 22 23 23 Blood Pressure 109/80 109/81 Pulse Oximetry 97 97 97 10/10/18 22:00 10/10/18 22:01 10/10/18 22:31 Temperature Pulse Rate 99 H 100 H 101 H Respiratory Rate 22 22 22 Blood Pressure 109/83 94/63 L Pulse Oximetry 97 97 98 10/10/18 23:00 10/10/18 23:01 10/10/18 23:31 Temperature Pulse Rate 95 H 95 H 96 H Respiratory Rate 21 24 22 Blood Pressure 104/80 107/72 Pulse Oximetry 96 96 96 10/11/18 00:00 10/11/18 00:01 10/11/18 00:21 Temperature 98.6 F Pulse Rate 103 H 103 H 104 H Respiratory Rate 23 23 19 Blood Pressure 112/68 Pulse Oximetry 97 97 97 10/11/18 00:31 10/11/18 00:39 10/11/18 01:00 Temperature Pulse Rate 99 H 98 H Respiratory Rate 23 22 22 Blood Pressure 111/76 Pulse Oximetry 99 97 10/11/18 01:01 10/11/18 01:31 10/11/18 02:00 Temperature Pulse Rate 98 H 103 H 106 H Respiratory Rate 24 22 23 Blood Pressure 111/81 110/77 Pulse Oximetry 97 98 97 10/11/18 02:01 10/11/18 02:31 10/11/18 03:00 Temperature Pulse Rate 107 H 101 H 100 H Respiratory Rate 22 23 19 Blood Pressure 115/83 117/80 Pulse Oximetry 97 97 97 10/11/18 03:01 10/11/18 03:31 10/11/18 04:00 Temperature 98.3 F Pulse Rate 101 H 101 H 101 H Respiratory Rate 22 22 23 Blood Pressure 117/83 125/75 Pulse Oximetry 97 97 98 10/11/18 04:01 10/11/18 04:36 10/11/18 04:44 Temperature Pulse Rate 101 H 101 H 100 H Respiratory Rate 22 24 23 Blood Pressure 114/86 112/85 Pulse Oximetry 97 97 97 10/11/18 05:00 10/11/18 05:01 10/11/18 05:31 Temperature Pulse Rate 101 H 102 H 101 H Respiratory Rate 22 24 23 Blood Pressure 118/87 98/62 L Pulse Oximetry 97 97 96 10/11/18 06:00 10/11/18 06:01 10/11/18 06:31 Temperature Pulse Rate 100 H 100 H 100 H Respiratory Rate 22 22 30 H Blood Pressure 120/89 119/86 Pulse Oximetry 98 97 98 10/11/18 07:00 10/11/18 07:01 10/11/18 07:31 Temperature 98.1 F Pulse Rate 101 H 100 H 99 H Respiratory Rate 31 H 29 H 32 H Blood Pressure 111/68 112/76 Pulse Oximetry 98 98 98 10/11/18 08:00 10/11/18 08:01 10/11/18 08:31 Temperature Pulse Rate 104 H 108 H 102 H Respiratory Rate 22 34 H 34 H Blood Pressure 106/73 111/79 Pulse Oximetry 98 98 99 10/11/18 08:47 10/11/18 09:00 10/11/18 09:01 Temperature Pulse Rate 106 H 103 H 105 H Respiratory Rate 19 Blood Pressure 112/78 Pulse Oximetry 98 99 99 10/11/18 09:31 10/11/18 10:00 10/11/18 10:01 Temperature Pulse Rate 124 H 101 H 100 H Respiratory Rate 26 H 23 Blood Pressure 104/77 111/80 Pulse Oximetry 99 99 99 10/11/18 10:29 10/11/18 10:31 10/11/18 11:00 Temperature Pulse Rate 92 H 93 H 94 H Respiratory Rate 24 26 H 28 H Blood Pressure 121/87 121/85 118/77 Pulse Oximetry 100 99 94 L 10/11/18 11:57 Temperature Pulse Rate 97 H Respiratory Rate 25 H Blood Pressure Pulse Oximetry Intake & Output 10/10/18 10/11/18 10/11/18 18:59 06:59 18:59 Intake Total 1000 / 1000 500 / 500 100 / 100 Output Total 850 / 850 1100 / 1100 Balance 150 / 150 -600 / -600 100 / 100 Weight 55 kg Intake: IV 700 / 700 500 / 500 100 / 100 Diprivan 1000 mg/100 ml Inj 1, 100 / 100 000 mg In 100 ml @ 5 MCG/KG/MIN 1.851 mls/hr IV.CONT TITRATE PRN Rx#:[id number] Flexbumin 25% Inj 100 ML @ 60 100 / 100 300 / 300 mls/hr IV.SIG Q6H HILDA Rx#: [id number] Unasyn Inj 3 GM In NS Inj 100 200 / 200 200 / 200 100 / 100 ML @ 200 mls/hr IV.SIG Q6H HILDA Rx#:[id number] KCl 20 mEq Premix Inj 20 meq In 200 / 200 100 ml @ 50 mls/hr IV.SIG Q2H PRN Rx#:[id number] KCl 40 mEq Premix Inj 40 meq In 100 / 100 100 ml @ 25 mls/hr IV.SIG Q2H PRN Rx#:[id number] Tube Feeding 300 / 300 Output: Urine Amount (Catheter) 750 / 750 850 / 850 Indwelling Urethral Catheter 750 / 750 850 / 850 Gastric Drainage 100 / 100 100 / 100 Right Nare Nasogastric Tube 100 / 100 100 / 100 Wound Drainage 100 / 100 # 1 Abdomen 100 / 100 Chest Tube Drainage 50 / 50 #1 Right Upper Anterior 50 / 50 #2 Right Lower 0 / 0 Narrative: Awake; moving all extremities Abd: mildly distended; soft; prior LISBETH site with wound spd manager on--- now with green tint drainage - Urinary Catheter Management Indwelling Urethral Catheter Cath placed during this visit: yes Reason for continuing: Hourly intake/output Insertion date: 10/01/18 Insertion time: 20:00 Results - Labs 10/11/18 08:30 10/11/18 05:15 Laboratory Results - last 24 hr 10/10/18 10/11/18 10/11/18 21:20 05:15 08:30 WBC 49.9 H RBC 3.62 L Hgb 11.6 D Hct 37.0 MCV 102.3 H D MCH 31.9 MCHC 31.2 L RDW 15.9 Plt Count 411 D MPV 10.5 Prelim Diff (Auto) Manual diff required WBC Differential Manual diff final Seg Neuts % (Manual) 87 H Band Neuts % (Manual) 9 H Lymphocytes % (Manual) 3 L Monocytes % (Manual) 1 Abs Neuts (Manual) 47.9 H Nucleated RBCs/100 WBC 1 H Differential Comment . Toxic Granulation 2+ H Toxic Vacuolation Present H Platelet Estimate Normal Platelet Morphology Enlarged H Target Cells 1+ H Sodium 159 H* Potassium 4.0 D 3.9 Chloride 123 H D Carbon Dioxide 25.2 Anion Gap 11 BUN 71 H Creatinine 1.59 H Estimated GFR 32 L Random Glucose 158 H Calcium 11.9 H* D Calcium Adj for Albumin 10.8 H Total Bilirubin 3.3 H AST 31 ALT 18 Alkaline Phosphatase 174 H Total Protein 8.0 Albumin 5.4 H - Imaging Imaging: ITS Impressions Abdomen X-Ray 10/01/18 17:09 CONCLUSION: Extensive free intraperitoneal air discussed with referring doctor on today's date Chest X-Ray 10/11/18 07:44 CONCLUSION: Stable bilateral diffuse airspace consolidation that is most severe in the right lower lung zone. Right chest tubes remain present and no pneumothorax is visualized. Abdomen/Pelvis CT 10/11/18 09:37 CONCLUSION: 1. Heterogeneous liver with mild to moderate ascites likely from cirrhosis. 2. Suspected cyst in the right lobe of the liver. 3. Fluid around the gallbladder likely from the ascites. The gallbladder is only mildly distended. Gallbladder wall is not obviously thickened. Biliary duct dilatation is not seen. 4. Colonic diverticula without inflammatory change. Assessment and Plan - Assessment (1) Pneumoperitoneum Code(s): K66.8 - Other specified disorders of peritoneum Status: Acute Plan: 68 year old female s/p Exploratory laparotomy; Oversew cecal perforation -On BiPAP -WBC 49k -Repeat CT scan; GGE this afternoon -Continue prior LISBETH site to wound bag -If fistula found -- will have IR place drain -Labs in AM CT was negative, but GGE demonstrated a large leak at the hepatic flexure of the colon Met with palliative care and discussed with multiple family members including Dr. Yang and one of the daughters. Given the patient's overall health and second catastrophic event, and given the patient's advanced directives and her wishes to not have life prolonging procedures, comfort measures will be instituted. I am in complete agreement with this, as the patient's course going forward would be quite tumultuous and would likely require tracheostomy as well as long-term ileostomy with all of the attendant problems. Given her cirrhosis, this would also compound the issue. Family is in agreement with comfort measures. I attest that I had a [id number] encounter with the patient on the same day, and personally performed and documented my assessment and findings in the medical record. The exam, history, and the medical decision-making described in the above note were completed with the assistance of the mid-level provider. I reviewed and agree with the findings presented. I attest that I had a [id number] encounter with the patient on the same day, and personally performed and documented my assessment and findings in the medical record.
--- NOTE | 2018-10-11 15:54 | FL ---
EXAM DATE: 10/11/2018 3:34 PM EST AGE/SEX: 68 years / Female INDICATIONS: Evaluate for leak in cecum. CLINICAL DATA: This is the patient's initial encounter. Patient reports that signs and symptoms have been present for 4 - 6 days and indicates a pain score of Nonresponsive. MEDICAL/SURGICAL HISTORY: None. Gastroesophageal reflux disease. Cirrhosis. Ascites . Central line . COMPARISON: [facility], ABDOMEN 2V FLAT & UPRIGHT, 10/01/2018. . FLUORO TIME: 2.4 IMAGE COUNT: 11 FINDINGS: Preliminary film revealed contrast in the thalami right mid abdomen and pelvis. Skin luzma are seen in the midline. There is an NG tube in place.. Under fluoroscopic guidance a Gastrografin enema was performed. Initially there is some difficulty re taining the contrast. There were diverticula in the sigmoid colon in the sigmoid colon never fully di stends. There are diverticula seen in the descending and to lesser degree transverse portions of colo n but these areas appear distended normally. Contrast is seen to extend into the ascending colon. The cecal tip was not opacified. There was arielle perforation identified at the superior lateral aspect o f the hepatic flexure region. The contrast appears to preferentially flow through the defect as oppo sed to into the more proximal ascending colon. CONCLUSION: Perforation of the colon at the hepatic flexure region. Electronically signed by: Bubba Aviles MD 10/11/2018 3:53 PM EST
[2018-10-11] MEDS ORDERED: Diatrizoate Meglum/Diatrizoate Sod Liq 120 ML Bottle (for RAD diag) RECTAL ONE (15:56)
--- NOTE | 2018-10-11 16:52 | P.CONPAL ---
Consult Service: Palliative Care Requesting Physician: Tea Tyler Reason for Consult: a. To assist with evaluation and management of symptoms including: Dyspnea, pain b. To assist medical decision maker(s) with: better understanding of current medical conditions; weighing benefits/burdens of medical treatment options; making medical treatment decisions. Primary Care Provider: Amadeo Madrigal MD History of Present Illness History of Present Illness: This 68-year-old patient presented to the ED on 10/01/18 with complaints of abdominal pain, abdominal distention that occurred while having colonoscopy she also reported arielle blood in stool and distention. She was taken urgently to [place] emergency department. Findings of pneumoperitoneum. known history of cirrhosis and ascites secondary history. Also endorsing nausea vomiting x 2 weeks. Noted to drink alcohol daily 24 ounces of Four RASHMI. * Initially noted to be hypotensive in the ED however good response to normal saline bolus. Given 2 units PRBC. Femoral central line placed. * General surgery consulted; she was plan for emergent laparotomy, suspected colonic perforation. She already hadb bowel prepped; May be able to undergo simple repair. Procedure completed: Exploratory laparotomy, oversew of cecal perforation. She was admitted to ICU after. The. Cultures pending. Requiring pressors. * 10/03 respiratory distress overnight requiring intubation. NG tube to suction. Minimal urine output, started diuretics. * 10/05 sedated though arousable on mechanical vent. Failing CPAP trial. Tube feed held for high residual. Continued on antibiotics Zosyn. Blood culture with no growth. * 10/06 medically extubated. Later required BiPAP ventilation for lethargy and fatigue. * 10/08 patient with increased respiratory distress CXR with bilateral infiltrates patient reintubated, Lasix increased. Ultrasound pending for pleural effusion evaluation. * 10/08 Underwent thoracentesis, pigtail chest tube placement, right ultrasound- guided. 750 mL output. Cytology: Pleural fluid noted with many reactive mesothelial cells negative for malignant cells. * 10/09 CXR Unchanged diffuse bilateral pulmonary consolidations. * 10/10 remains sedated on mechanical vent. Failed CPAP trials. Continues to have chest tubes x2. Continues on Lasix, Aldactone. Medically extubated. * 10/11 required BiPAP overnight. White count elevated 49. A& O but confused. Noted from [facility] site. May require IR drain placement if fistula identified. Repeat blood cultures obtained. BUN and creatinine worsening BUN 71/ creatinine 1.59. GFR 32. Hyponatremic sodium 159. CT abdomen pelvis=1. Heterogeneous liver with mild to moderate ascites likely from cirrhosis.2. Suspected cyst in the right lobe of the liver.3. Fluid around the gallbladder likely from the ascites. The gallbladder is only mildly distended. Gallbladder wall is not obviously thickened. Biliary duct dilatation is not seen.4. Colonic diverticula without inflammatory change. * Palliative care consulted to assist with clarification of goals of medical treatment. Patient seen in room, initially daughter Obdulia is she is lethargic to obtunded minimally responsive. Opens eyes briefly does not stay open long enough to track examiner. Mildly tachypneic at times. On BiPAP. Sallow skin tone. Tachycardic. Met with family at length following exam Function/Cognitive Trajectory: Prior to admission was independent with ADLs. Lives at home with significant other. Daughter reports progressive weakness in the weeks leading up to this with easy fatigue, somewhat limiting activity. 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) Abnormal colonoscopy Ascites Depression GERD (gastroesophageal reflux disease) Liver cirrhosis Tobacco abuse - Surgical History Surgical History: Surgical History (Last Updated 10/11/18 @ 18:56 by LINDA Adames) H/O colonoscopy No history of previous surgery - Family History Family History: Family History (Last Reviewed 10/11/18 @ 18:56 by LINDA Adames) Mother Alzheimer disease Father Testicular cancer - Social History I have reviewed the patient's Social History: Yes - Tobacco History Second Hand Smoke Exposure: No Tobacco Use In Past 30 Days: Yes Smoking Status: Current every day smoker Tobacco Type: Cigarettes Cigarettes Per Day: 4 - Alcohol History How Often Do You Have a Drink Containing Alcohol: 4 or more times a week - Substance Use History Substance History: No History of Abuse - Travel History Recent Travel in the [place] Within the Last 8 Weeks: No Recent Travel Out of the Country Within the Last 8 Weeks: No - Immunization History Tetanus Immunization: Unsure Hx Influenza Vaccine This Season: Yes Medications and Allergies Active Medications: Active Medications Acetaminophen (Tylenol) 650 mg PO Q6H PRN PRN Reason: PAIN 1-10 AND/OR FEVER >101F Al Hydroxide/Mg Hydroxide (Milk Of Tawana Holland) 30 ml PO Q12H PRN PRN Reason: Mild Constipation Albuterol (Albuterol Neb (Prn)) 2.5 mg NEB Q2HR NEB PRN PRN Reason: SHORTNESS OF BREATH/WHEEZING Albuterol (Duoneb Neb (Leila)) 1 ampul NEB Q4HR NEB [facility] Last Admin: 10/11/18 15:55 Dose: 1 ampul Bisacodyl (Dulcolax Supp) 10 mg RECTAL DAILY PRN PRN Reason: SEVERE CONSITIPATION Budesonide (Pulmocort Respule Neb) 0.5 mg NEB Q12HR NEB [facility] Last Admin: 10/11/18 08:46 Dose: 0.5 mg Chlorhexidine Gluconate (Peridex 0.12% Oral Kit) 15 ml OROPHARYNG BID@0800, 2000 [facility] Last Admin: 10/11/18 08:42 Dose: 15 ml Duloxetine HCl (Cymbalta) 20 mg PO BID [facility] Last Admin: 10/11/18 08:42 Dose: Not Given Flumazenil (Romazecon Inj) 0.2 mg IV.PUSH Q1M PRN PRN Reason: OVERSEDATION Furosemide (Lasix Inj) 40 mg IV.PUSH Q8H [facility] Last Admin: 10/11/18 09:03 Dose: 40 mg Heparin Sodium (Porcine) (Heparin Inj) 5,000 units SQ Q8HR [facility] Last Admin: 10/11/18 05:06 Dose: 5,000 units Norepinephrine Bitartrate (Levophed-Dextrose 4 Mg/250 Ml Drip) 4 mg in 250 mls @ 7.5 mls/hr IV.SIG TITRATE PRN; Protocol PRN Reason: Per Protocol Last Titration: 10/06/18 01:51 Dose: 0 mcg/min, 0 mls/hr Magnesium Sulfate 4 gm/ Sodium (Chloride) 100 mls @ 50 mls/hr IV.SIG UNSCH PRN PRN Reason: For Magnesium 0.9 - 1.1 mg/dL Magnesium Sulfate 2 gm/ Sodium (Chloride) 100 mls @ 50 mls/hr IV.SIG UNSCH PRN PRN Reason: For Magnesium 1.2 - 1.6 mg/dL Potassium Chloride (Kcl 40 Meq Premix Inj) 40 meq in 100 mls @ 25 mls/hr IV.SIG Q2H PRN PRN Reason: For Potassium 2.8 - 3.2 mEq/L Last Infusion: 10/10/18 11:17 Dose: Infused Potassium Chloride (Kcl 40 Meq Premix Inj) 40 meq in 100 mls @ 25 mls/hr IV.SIG UNSCH PRN PRN Reason: For Potassium 3.3 - 3.5 mEq/L Last Infusion: 10/07/18 17:30 Dose: Infused Potassium Chloride (Kcl 20 Meq Premix Inj) 20 meq in 100 mls @ 50 mls/hr IV.SIG Q2H PRN PRN Reason: For Potassium 2.8 - 3.2 mEq/L Last Infusion: 10/10/18 17:58 Dose: Infused Potassium Phosphate 30 mmol/ (Sodium Chloride) 260 mls @ 42 mls/hr IV.SIG UNSCH PRN PRN Reason: SEE LABEL COMMENTS Sodium Phosphate 30 mmol/ (Sodium Chloride) 260 mls @ 42 mls/hr IV.SIG UNSCH PRN PRN Reason: For Phosphorus < 2.5 mg/dL Potassium Chloride (Kcl 20 Meq Premix Inj) 20 meq in 100 mls @ 50 mls/hr IV.SIG Q2H PRN PRN Reason: For Potassium 3.3 - 3.5 mEq/L Ampicillin Sodium/Sulbactam (Sodium 3 gm/ Sodium Chloride) 100 mls @ 200 mls/ hr IV.SIG Q6H [facility] Last Infusion: 10/11/18 09:33 Dose: Infused Propofol (Diprivan 1000 Mg/100 Ml Inj) 1,000 mg in 100 mls @ 1.851 mls/hr IV.CONT TITRATE PRN; Protocol PRN Reason: Per Protocol Last Titration: 10/10/18 12:54 Dose: Infused Dextrose (D5w Inj) 1,000 mls @ 100 mls/hr IV.CONT .Q10H [facility] Last Admin: 10/11/18 08:42 Dose: 100 mls/hr Metronidazole/Sodium Chloride (Flagyl 500 Mg Inj) 100 mls @ 100 mls/hr IV.SIG Q8H [facility] Last Admin: 10/11/18 13:47 Dose: 100 mls/hr Micafungin Sodium 100 mg/ (Sodium Chloride) 100 mls @ 100 mls/hr IV.SIG Q24H [facility] Lactulose (Lactulose Liq) 30 ml PO DAILY PRN PRN Reason: SEVERE CONSITIPATION Levothyroxine Sodium (Synthroid) 50 mcg PO DAILY@0600 [facility] Last Admin: 10/11/18 05:06 Dose: 50 mcg Lorazepam (Ativan) 1 mg PO Q4H PRN PRN Reason: for CIWA 8-10 Lorazepam (Ativan) 2 mg PO Q2H PRN PRN Reason: for CIWA 11-14 Lorazepam (Ativan Inj) 2 mg IV.PUSH Q2H PRN PRN Reason: for CIWA 11-14 Lorazepam (Ativan Inj) 2 mg IV.PUSH Q1H PRN PRN Reason: for CIWA 15-20 Lorazepam (Ativan Inj) 2 mg IV.PUSH Q15M PRN PRN Reason: for CIWA > 20 Lorazepam (Ativan Inj) 1 mg IV.PUSH Q4H PRN PRN Reason: for CIWA 8-10 Last Admin: 10/07/18 02:11 Dose: 1 mg Lorazepam (Ativan Inj) 2 mg IV.PUSH Q2H PRN PRN Reason: ANXIETY AND/OR AGITATION Last Admin: 10/04/18 11:30 Dose: 2 mg Magnesium Oxide (Mag-Ox) 800 mg PO UNSCH PRN PRN Reason: For Magnesium 1.2 - 1.6 mg/dL Methylprednisolone Sodium Succinate (Solumedrol Inj) 40 mg IV.PUSH Q8HR [facility] Last Admin: 10/11/18 13:47 Dose: 40 mg Metoclopramide HCl (Reglan Inj) 5 mg IV.PUSH Q8HR [facility]; Protocol Last Admin: 10/07/18 13:09 Dose: 5 mg Miscellaneous Medication () 1 each OROPHARYNG 0000,0400,1200,1600 [facility] Last Admin: 10/11/18 11:04 Dose: 1 each Morphine Sulfate (Morphine Inj) 0.5 mg IV.PUSH Q4H PRN PRN Reason: PAIN SCALE 6-10 Last Admin: 10/11/18 00:22 Dose: 0.5 mg Ondansetron HCl (Zofran Inj) 4 mg IV.PUSH Q6H PRN PRN Reason: NAUSEA OR VOMITING Pantoprazole Sodium (Protonix Inj) 40 mg IV.PUSH DAILY [facility] Last Admin: 12/06/18 08:43 Dose: 40 mg Potassium Bicarb/Potassium Chloride (K-Lyte Cl Eff) 50 meq PO UNSCH PRN PRN Reason: For Potassium 3.3 - 3.5 mEq/L Potassium Bicarb/Potassium Chloride (K-Lyte Cl Eff) 25 meq NG/OG BID [facility] Last Admin: 10/11/18 08:41 Dose: 25 meq Potassium Phosphate (K-Phos Original) 2,000 mg PO Q4H PRN PRN Reason: Phosphorus Less Than 2.5 mg/dL Potassium Phosphate (K-Phos Original) 2,000 mg PO UNSCH PRN PRN Reason: SEE LABEL COMMENTS Propranolol HCl (Inderal) 10 mg PO BID [facility] Last Admin: 10/11/18 08:43 Dose: 10 mg Senna/Docusate Sodium (Cheryl-Colace) 1 tab PO BID [facility] Last Admin: 10/11/18 08:41 Dose: 1 tab Sennosides (Senokot) 17.2 mg PO Q12H PRN PRN Reason: Moderate Constipation Sodium Chloride (Ns Flush) 2 ml IV.FLUSH BID [facility] Last Admin: 10/11/18 08:43 Dose: 2 ml Sodium Chloride (Ns Flush) 2 ml IV.FLUSH UNSCH PRN PRN Reason: FLUSH AFTER USING IV ACCESS Sodium Chloride (Ns Flush) 2 ml IV.FLUSH BID [facility] Last Admin: 10/11/18 09:03 Dose: 2 ml Sodium Chloride (Ns Flush) 2 ml IV.FLUSH PRN PRN PRN Reason: FLUSH AFTER USING IV ACCESS Spironolactone (Aldactone) 100 mg PO BID [facility] Last Admin: 10/11/18 08:42 Dose: 100 mg Sterile Water (Free Water) 150 ml G-TUBE Q4HR [facility] Last Admin: 10/11/18 11:03 Dose: Not Given Terbutaline Sulfate (Brethine Inj) 1 mg SQ UNSCH PRN PRN Reason: For Extravasation Thiamine HCl (Vitamin B1) 100 mg PO DAILY [facility] Last Admin: 10/11/18 08:43 Dose: 100 mg Zinc Sulfate (Zinc-220) 220 mg PO DAILY [facility] Last Admin: 10/11/18 08:42 Dose: 220 mg Allergies Allergy/AdvReac Type Severity Reaction Status Date / Time No Known Allergies Allergy Verified 10/01/18 17:07 Home Medications Medication Instructions Recorded Confirmed Type aspirin 81 mg PO DAILY 10/01/18 10/01/18 History duloxetine [Cymbalta] 20 mg PO BID 10/01/18 10/01/18 History furosemide 1 tab PO DAILY 10/01/18 10/01/18 History levothyroxine [Synthroid] 1 tab PO DAILY 10/01/18 10/01/18 History omeprazole 1 cap PO DAILY 10/01/18 10/01/18 History propranolol 10/01/18 History spironolactone 100 mg PO DAILY 10/01/18 10/01/18 History trazodone 10/01/18 History Advance Directives Living Will: Yes Health Care Surrogate Name and Number: Angel Yang Ethical and Legal Issues: Patient does have a living will which details would want comfort medications and /or comfort procedures that may provide comfort, and the presence of terminal, end-stage or chronic conditions that could not be alleviated. This document indicates she does not want artificial hydration, nutrition, antibiotics, dialysis, resuscitation , blood products etc. Physical Exam Vital Signs: Vital Signs - 24 hr 10/10/18 16:31 10/10/18 17:00 10/10/18 17:01 Temperature Pulse Rate 104 H 103 H 104 H Respiratory Rate 37 H 36 H 37 H Blood Pressure 115/85 111/77 Pulse Oximetry 93 L 93 L 92 L 10/10/18 17:31 10/10/18 18:00 10/10/18 18:31 Temperature Pulse Rate 106 H 108 H 108 H Respiratory Rate 30 H 35 H 26 H Blood Pressure 111/82 106/73 Pulse Oximetry 92 L 91 L 91 L 10/10/18 19:00 10/10/18 19:01 10/10/18 19:31 Temperature Pulse Rate 115 H 116 H 108 H Respiratory Rate 22 23 22 Blood Pressure 111/78 113/80 Pulse Oximetry 88 L 88 L 89 L 10/10/18 20:00 10/10/18 20:01 10/10/18 20:31 Temperature Pulse Rate 117 H 115 H 107 H Respiratory Rate 23 22 22 Blood Pressure 110/81 109/82 Pulse Oximetry 92 L 97 98 10/10/18 21:00 10/10/18 21:01 10/10/18 21:31 Temperature Pulse Rate 106 H 106 H 106 H Respiratory Rate 22 23 23 Blood Pressure 109/80 109/81 Pulse Oximetry 97 97 97 10/10/18 22:00 10/10/18 22:01 10/10/18 22:31 Temperature Pulse Rate 99 H 100 H 101 H Respiratory Rate 22 22 22 Blood Pressure 109/83 94/63 L Pulse Oximetry 97 97 98 10/10/18 23:00 10/10/18 23:01 10/10/18 23:31 Temperature Pulse Rate 95 H 95 H 96 H Respiratory Rate 21 24 22 Blood Pressure 104/80 107/72 Pulse Oximetry 96 96 96 10/11/18 00:00 10/11/18 00:01 10/11/18 00:21 Temperature 98.6 F Pulse Rate 103 H 103 H 104 H Respiratory Rate 23 23 19 Blood Pressure 112/68 Pulse Oximetry 97 97 97 10/11/18 00:31 10/11/18 00:39 10/11/18 01:00 Temperature Pulse Rate 99 H 98 H Respiratory Rate 23 22 22 Blood Pressure 111/76 Pulse Oximetry 99 97 10/11/18 01:01 10/11/18 01:31 10/11/18 02:00 Temperature Pulse Rate 98 H 103 H 106 H Respiratory Rate 24 22 23 Blood Pressure 111/81 110/77 Pulse Oximetry 97 98 97 10/11/18 02:01 10/11/18 02:31 10/11/18 03:00 Temperature Pulse Rate 107 H 101 H 100 H Respiratory Rate 22 23 19 Blood Pressure 115/83 117/80 Pulse Oximetry 97 97 97 10/11/18 03:01 10/11/18 03:31 10/11/18 04:00 Temperature 98.3 F Pulse Rate 101 H 101 H 101 H Respiratory Rate 22 22 23 Blood Pressure 117/83 125/75 Pulse Oximetry 97 97 98 10/11/18 04:01 10/11/18 04:36 10/11/18 04:44 Temperature Pulse Rate 101 H 101 H 100 H Respiratory Rate 22 24 23 Blood Pressure 114/86 112/85 Pulse Oximetry 97 97 97 10/11/18 05:00 10/11/18 05:01 10/11/18 05:31 Temperature Pulse Rate 101 H 102 H 101 H Respiratory Rate 22 24 23 Blood Pressure 118/87 98/62 L Pulse Oximetry 97 97 96 10/11/18 06:00 10/11/18 06:01 10/11/18 06:31 Temperature Pulse Rate 100 H 100 H 100 H Respiratory Rate 22 22 30 H Blood Pressure 120/89 119/86 Pulse Oximetry 98 97 98 10/11/18 07:00 10/11/18 07:01 10/11/18 07:31 Temperature 98.1 F Pulse Rate 101 H 100 H 99 H Respiratory Rate 31 H 29 H 32 H Blood Pressure 111/68 112/76 Pulse Oximetry 98 98 98 10/11/18 08:00 10/11/18 08:01 10/11/18 08:31 Temperature Pulse Rate 104 H 108 H 102 H Respiratory Rate 22 34 H 34 H Blood Pressure 106/73 111/79 Pulse Oximetry 98 98 99 10/11/18 08:47 10/11/18 09:00 10/11/18 09:01 Temperature Pulse Rate 106 H 103 H 105 H Respiratory Rate 19 Blood Pressure 112/78 Pulse Oximetry 98 99 99 10/11/18 09:31 10/11/18 10:00 10/11/18 10:01 Temperature Pulse Rate 124 H 101 H 100 H Respiratory Rate 26 H 23 Blood Pressure 104/77 111/80 Pulse Oximetry 99 99 99 10/11/18 10:29 10/11/18 10:31 10/11/18 11:00 Temperature Pulse Rate 92 H 93 H 94 H Respiratory Rate 24 26 H 28 H Blood Pressure 121/87 121/85 118/77 Pulse Oximetry 100 99 94 L 10/11/18 11:01 10/11/18 11:19 10/11/18 11:24 Temperature Pulse Rate 94 H 97 H 98 H Respiratory Rate 29 H 28 H 31 H Blood Pressure 118/77 99/73 L 104/76 Pulse Oximetry 94 L 95 95 10/11/18 11:31 10/11/18 11:38 10/11/18 11:41 Temperature Pulse Rate 97 H 100 H Respiratory Rate 39 H 33 H Blood Pressure 87/63 L 112/77 Pulse Oximetry 96 96 10/11/18 11:43 10/11/18 11:45 10/11/18 11:48 Temperature Pulse Rate 97 H 100 H 100 H Respiratory Rate 22 24 23 Blood Pressure 110/67 123/76 124/73 Pulse Oximetry 100 100 100 10/11/18 11:50 10/11/18 11:53 10/11/18 11:57 Temperature Pulse Rate 101 H 102 H 97 H Respiratory Rate 22 22 25 H Blood Pressure 113/81 110/80 Pulse Oximetry 100 100 10/11/18 12:00 10/11/18 12:15 10/11/18 12:30 Temperature Pulse Rate 98 H 100 H 103 H Respiratory Rate 23 24 27 H Blood Pressure 110/82 110/83 108/78 Pulse Oximetry 99 99 98 10/11/18 12:45 10/11/18 13:00 10/11/18 13:15 Temperature Pulse Rate 101 H 104 H 106 H Respiratory Rate 25 H 29 H 30 H Blood Pressure 111/83 106/78 110/77 Pulse Oximetry 98 97 97 10/11/18 13:30 10/11/18 13:45 10/11/18 15:57 Temperature 97.3 F L Pulse Rate 106 H 106 H 117 H Respiratory Rate 30 H 28 H 28 H Blood Pressure 109/78 103/76 Pulse Oximetry 97 97 I&O: Intake & Output 10/09/18 10/10/18 10/11/18 10/12/18 06:59 06:59 06:59 06:59 Intake Total 930 / 930 2968 / 2968 1500 / 1500 100 / 100 Output Total 3000 / 3000 2460 / 2460 1950 / 1950 Balance -2070 / -2070 508 / 508 -450 / -450 100 / 100 Weight 56.9 kg 55.8 kg 55 kg Physical Exam: CONSTITUTIONAL/GENERAL: This is a frail, ill appearing pt, tachycardic, tachypneic TUBES/LINES/DRAINS: Rt right chest tube x2, drainage bag over abdominal wound, Warner catheter, SCDs, warming blanket, BiPAP mask SKIN: No jaundice, rashes, or lesions. Midline abdominal dressing with small amount of dried drainage present. Right abdominal wound LISBETH site with moderate amount of greenish brown contents draining.. Skin cool, dry. HEAD: Atraumatic. Normocephalic. EYES: Pupils equal and round and reactive. Extraocular motions intact. No scleral icterus. No injection or drainage. Fundi not examined. ENT: Nose without bleeding or purulent drainage. Unable to examine oropharynx secondary to BiPAP mask did not remove NECK: Trachea midline. Supple, nontender. No palpable thyroid enlargement or nodularity. CARDIOVASCULAR: Regular rate and rhythm . No murmur. Tachycardic rate 120s. No JVD. Peripheral pulses symmetric, pedal pulses faint. Feet cool. RESPIRATORY/CHEST: Symmetric, unlabored respirations. Mildly tachypneic. Faint scattered rhonchi. Breath sounds equal bilaterally. On BiPAP mask 40% GASTROINTESTINAL: Abdomen soft,+tender, +distended. No hepato-splenomegaly, or palpable masses. No guarding. Bowel sounds present. GENITOURINARY: Without palpable bladder distension. Warner catheter in place scant amount of light yellow urine. MUSCULOSKELETAL: Extremities without clubbing, cyanosis, or edema. No joint tenderness or effusion noted. No mottling or clubbing.+ Muscle atrophy evident x4. LYMPHATICS: No palpable cervical or supraclavicular adenopathy. NEUROLOGICAL: Eyes open at times briefly. Does not consistently track examiner. Does not open eyes to verbal stimuli. Does not follow any commands though daughter reports have been grasping weekly. She does appear to localize to touch and move extremities to touch and pain. Does not attempt to verbalize. PSYCHIATRIC: Lethargic to obtunded, no obvious anxiety/depression. Diagnostic Tests Laboratory: Laboratory Results - last 72 hr 10/09/18 10/10/18 10/10/18 04:20 06:00 06:00 WBC 21.9 H RBC 2.86 L Hgb 9.5 L Hct 28.3 L MCV 98.8 MCH 33.2 MCHC 33.7 RDW 14.8 Plt Count 298 MPV 10.6 Prelim Diff (Auto) Neut % (Auto) 87.0 H Lymph % (Auto) 8.1 L Boundary % (Auto) 4.8 Eos % (Auto) 0.0 Baso % (Auto) 0.1 Neut # (Auto) 19.0 H Lymph # (Auto) 1.8 Boundary # (Auto) 1.1 H Eos # (Auto) 0.0 Baso # (Auto) 0.0 WBC Differential . Seg Neuts % (Manual) Band Neuts % (Manual) Lymphocytes % (Manual) Monocytes % (Manual) Abs Neuts (Manual) Nucleated RBCs/100 WBC Differential Comment Auto diff final Toxic Granulation Toxic Vacuolation Platelet Estimate Platelet Morphology Target Cells PT INR Sodium 149 H 154 H Potassium 4.0 2.7 L* D Chloride 113 H 115 H Carbon Dioxide 26.4 26.4 Anion Gap 10 13 BUN 31 H 50 H Creatinine 1.18 H 1.30 H Estimated GFR 46 L 41 L Random Glucose 145 H 159 H Calcium 10.4 H 10.9 H Calcium Adj for Albumin Total Bilirubin 3.3 H 2.1 H AST 30 30 ALT 13 15 Alkaline Phosphatase 157 H 176 H Ammonia Total Protein 7.7 7.8 Albumin 4.8 5.3 H 10/10/18 10/10/18 10/10/18 06:00 06:50 07:15 WBC RBC Hgb Hct MCV MCH MCHC RDW Plt Count MPV Prelim Diff (Auto) Neut % (Auto) Lymph % (Auto) Boundary % (Auto) Eos % (Auto) Baso % (Auto) Neut # (Auto) Lymph # (Auto) Boundary # (Auto) Eos # (Auto) Baso # (Auto) WBC Differential Seg Neuts % (Manual) Band Neuts % (Manual) Lymphocytes % (Manual) Monocytes % (Manual) Abs Neuts (Manual) Nucleated RBCs/100 WBC Differential Comment Toxic Granulation Toxic Vacuolation Platelet Estimate Platelet Morphology Target Cells PT 13.1 H INR 1.3 Sodium Potassium 2.6 L* Chloride Carbon Dioxide Anion Gap BUN Creatinine Estimated GFR Random Glucose Calcium Calcium Adj for Albumin Total Bilirubin AST ALT Alkaline Phosphatase Ammonia Less than 10 L Total Protein Albumin 10/10/18 10/11/18 10/11/18 21:20 05:15 08:30 WBC 49.9 H RBC 3.62 L Hgb 11.6 D Hct 37.0 MCV 102.3 H D MCH 31.9 MCHC 31.2 L RDW 15.9 Plt Count 411 D MPV 10.5 Prelim Diff (Auto) Manual diff required Neut % (Auto) Lymph % (Auto) Boundary % (Auto) Eos % (Auto) Baso % (Auto) Neut # (Auto) Lymph # (Auto) Boundary # (Auto) Eos # (Auto) Baso # (Auto) WBC Differential Manual diff final Seg Neuts % (Manual) 87 H Band Neuts % (Manual) 9 H Lymphocytes % (Manual) 3 L Monocytes % (Manual) 1 Abs Neuts (Manual) 47.9 H Nucleated RBCs/100 WBC 1 H Differential Comment . Toxic Granulation 2+ H Toxic Vacuolation Present H Platelet Estimate Normal Platelet Morphology Enlarged H Target Cells 1+ H PT INR Sodium 159 H* Potassium 4.0 D 3.9 Chloride 123 H D Carbon Dioxide 25.2 Anion Gap 11 BUN 71 H Creatinine 1.59 H Estimated GFR 32 L Random Glucose 158 H Calcium 11.9 H* D Calcium Adj for Albumin 10.8 H Total Bilirubin 3.3 H AST 31 ALT 18 Alkaline Phosphatase 174 H Ammonia Total Protein 8.0 Albumin 5.4 H Result Diagrams: 10/11/18 08:30 10/11/18 05:15 Microbiology: Microbiology 10/08/18 12:00 Gram Stain - Final Fluid - Pleural fluid Body Fluid Culture - Final No growth in 72 hours (aerobically and anaerobically) 10/08/18 12:00 Acid Fast Bacilli Smear - Final Fluid - Pleural fluid No acid fast bacilli seen 10/08/18 12:00 Fungal Smear - Final Fluid - Pleural fluid No fungal elements seen Imaging: Impressions Enema w/Water Soluble 10/11/18 00:00 CONCLUSION: Perforation of the colon at the hepatic flexure region. Chest X-Ray 10/11/18 07:44 CONCLUSION: Stable bilateral diffuse airspace consolidation that is most severe in the right lower lung zone. Right chest tubes remain present and no pneumothorax is visualized. Abdomen/Pelvis CT 10/11/18 09:37 CONCLUSION: 1. Heterogeneous liver with mild to moderate ascites likely from cirrhosis. 2. Suspected cyst in the right lobe of the liver. 3. Fluid around the gallbladder likely from the ascites. The gallbladder is only mildly distended. Gallbladder wall is not obviously thickened. Biliary duct dilatation is not seen. 4. Colonic diverticula without inflammatory change. Procedures: 10/01 ex lap, sewing of cecum 10/03 reintubated 10/06 extubated 10/08 thoracentesis Patient/Family Conference Family Conference Time: 65 Family Conference Location: Consult Room Issues Discussed: Extensive meeting with family members via conference call for adult children Jay Ferraro Joe, Jocelyn. Discussion included the following: * Palliative care role, purpose, approach * Additional medical, psychosocial, and spiritual history * Patients general health, functional status, and cognitive changes in the months leading up to the current hospitalization * family understanding of the current medical problems * family understanding of prognosis * Patients goals of care as best understood from advance directives and/or conversations and/or values-review of patient's written living will which is noted in the chart * Current medical treatment options and benefits/burdens of those options; review of benefits/burdens of any treatments going forward, possible trajectories * Likely scenarios comparing ongoing aggressive care with a transition to comfort measures only-review of hospice services, comfort measures only, no further escalation of treatment * Questions answered to the best of my ability * Palliative care contact information provided Extensive meeting with family. Dr. German and Noah Tyler APRN also participated during some of meeting. Dr. German provided extensive review of conditions, surgical options and possible trajectory. I additionally spent another 15 minutes with the family talking at length about possible trajectories going forward. For some time to have the children were considering proceeding with surgery to give the patient a chance, on the other hand to the children felt patient would want comfort measures only. Much supportive listening provided. Review of patient conditions, condition leading up to hospitalization, as well as trajectory of end-stage liver disease. Johnathon, who is a radiologist explores with his siblings some of the sequelae encountered during end-stage liver disease, and expresses his worry about patient suffering already from end-stage liver disease and the poor chance of survival or regaining function and from current acute issues. They eventually elected comfort measures only, exploration of hospice services, and anticipatory guidance provided of active trajectory going forward. Review of de-escalation of invasive measures weaning of BiPAP etc. and administration of comfort medicines to ensure hernia, tachypnea, anxiety etc. Assessment and Plan - Disease Oriented Problem List (1) Colonoscopy causing post-procedural bleeding (2) Pneumoperitoneum (3) Perforation of cecum (4) Alcoholic cirrhosis of liver with ascites (5) EtOH dependence (6) Hypokalemia (7) JOSE (acute kidney injury) (8) Leukocytosis (9) Protein-calorie malnutrition, moderate - Symptom Scale (1) Dyspnea 0-10 Scale: Unable to quantify (2) Encephalopathy 0-10 Scale: Unable to quantify (3) Pain 0-10 Scale: Unable to quantify Pertinent Non-Medical Issues: Psychosocial: Has 4 adult children--Nilesh, Jay, Remedios, Obdulia.. Has 2 sisters. Previously lives at home with her significant other. History of alcohol abuse-has been in inpatient treatment programs.. Originally from [place]. Mother secondary to dementia complications. Marriedx1, in 2011. Spiritual: Legal: Not capacitated and able to make her own decisions. Ethical issues impacting care: Important Contacts: Son Jay [facility] [phone] Daughter Sylvia [facility] [phone] son Johnathon [facility] [phone] dtr Rosa [facility] [phone] Significant other John Goldstein, . Prognosis: This patient was initially admitted to the ED following colonoscopy outpatient in which she sustained abdominal distention and was discovered to have perforated cecum. She underwent emergent laparotomy for repair. Clinical course following with some episodes of respiratory distress, worsening renal function. She has been intubated and extubated today requiring BiPAP. Now septic white count 49, findings today of perforated colon. Treatment option of surgical repair with colostomy. Patient critically ill and poor prognosis for functional recovery and survival given her fragile state, comorbid liver disease. Code Status: No Code DNR Plan: Legal decision maker: Patient has a living will which seems to indicate 2 of her adult children (Jay Rosa) however the part naming them seems to be missing. However all children are communicating and working together and making decisions patient is encephalopathic unable to participate does not appear she will regain ability Goals: After extensive meeting with family they have elected no further invasive measures, requests de-escalation and transition to comfort focused treatment only. Hospice order placed they would possibly want care center transfer Monday if she survives the night and remained stable enough to do so. They would also like to try to get her dogs to visit her if possible. I have called hospice admissions they are planning to meet with them tonight. Discussed at length with primary nurse as well as surgical team. CODE STATUS: DNR. SYMPTOMS: --Encephalopathy-worsening sepsis, perforated colon. Respiratory failure. Worsening kidney function. Not expected to improve. --Dyspnea-respiratory failure, perforated colon, status post recent laboratory lap for perforated cecum. Intubated/extubated. CXR 10/09 with diffuse bilateral pulmonary consolidations, chest tube x2 to the right. CXR today =Stable bilateral diffuse airspace consolidation that is most severe in the right lower lung zone. Right chest tubes remain present and no pneumothorax is visualized. Encephalopathy also contributing to dyspnea. Currently on BiPAP. --Pain-patient unable to verbalize pain at this time. Likely source would include recent ex lap for perforated cecum, as well as new perforated colon. Family has elected to transition to comfort focus, hospice consultation pending. Will order prn comfort medications for pain, anxiety, tachypnea to assist with comfort Palliative care will continue to follow during hospital course as condition evolves, to assist patient/decision-maker with understanding of medical conditions, weighing benefits/burdens of treatment options, for clarification of goals of treatment. Additionally will assist with any symptoms of palliative concern Time Spent Total Floor Time (mins): 90 >50% Time in Counseling or Coordination of Care: Yes Appreciation Thank you for the opportunity to participate in the care of Lizzette Yang. Attestation Attestation: To help prompt me to consider important information that might be impacting today's encounter and assessment, information from prior notes written by myself or my colleagues may have been "brought forward" into today's note. My signature on this note, however, is an attestation that I personally performed the exam, history, and/or decision-making noted today, and, unless otherwise indicated, the interactions with patient, family, and staff as well as the review of records all occurred today. I also attest that the listed assessment and stated plan reflect my best clinical judgment today based on the combination of historical information, prior notes, and today's exam/ interactions. When time spent is documented, it refers only to time spent today by the signer, or if indicated, combined time spent today by collaborating physician/nurse practitioner.
[2018-10-11] MEDS ORDERED: HYDROmorphone PF Inj 0.5 MG/0.5 ML Syringe IV.PUSH PRN (19:20)
[2018-10-11] MEDS: HYDROmorphone PF Inj 0.5 MG/0.5 ML Syringe IV.PUSH PRN ×2 (20:05→21:59)
[2018-10-11 21:16] VITALS: TEMP 99.8
[2018-10-11 22:55] VITALS: BP 45/30; PULSE 121; RESP 20; O2SAT 44
== END 2018-10-12 01:57 | disposition expired ==
LOC: PHED 16:54 → PHEDH 18:44 → HPAC 19:51 → N03 23:22
PROVIDERS: ADMIT Emergency Medicine; ATTEND Emergency Medicine